=== PATIENT | female | born 1950 | race Caucasian/White ===

== ENCOUNTER 2016-11-23 11:36 | Emergency (ER) | payer MEDICARE ==
[2016-11-23] MEDS ORDERED: Hydromorphone 1 mg/ml Ampule IV ONE (11:38)
[2016-11-23] MEDS ORDERED: Zofran 4 MG/2 ML VIAL IV ONE (11:38)
[2016-11-23] MEDS ORDERED: Reglan 10 MG/2 ML IV ONE (11:39)
[2016-11-23] MEDS ORDERED: Sodium Chloride 0.9% 1000 ML 1,000 ML IV SCH (11:45)
--- NOTE | 2016-11-23 11:46 | ERPHSYRPT ---
- History of Present Illness Time Seen by Provider: 11/23/16 11:38 Source: patient, EMS Physician History: CC: headache Hx: 66 y/o patient of CHIRAG Perez and Dr Bowles. She states she had sudden onset headache not typical for her at 6AM today (5 hours ago). The headache is diffuse, severe and accompanied by nausea and vomiting. No fever or chills. No chest or abd pain. No fall or injury. Timing/Duration: today Head Pain Location: global Severity of Pain-Max: severe Severity of Pain-Current: severe Allergies/Adverse Reactions: Penicillins Allergy (Verified 11/23/16 11:45) Home Medications: Clopidogrel Bisulfate 75 mg [PLAVIX 75 MG Tablet] 75 mg PO DAILY 07/31/13 [History] Metoprolol Succinate 50 mg [Toprol Xl 50 MG] 50 mg PO DAILY 07/31/13 [ History] Rivaroxaban [Xarelto] 20 mg PO DAILY 10/27/14 [History] Amlodipine Besylate 5 mg [Norvasc 5 mg] 5 mg PO BID 01/24/16 [History] Buspirone HCl 5 mg [Buspar 5 mg] 30 mg PO BID 01/24/16 [History] Pregabalin [Lyrica] 75 mg PO BID 01/24/16 [History] Vilazodone Hydrochloride [Viibryd] 40 mg PO DAILY 01/24/16 [History] Famotidine 40 mg PO BID 11/23/16 [History] Folic Acid 0.4 mg PO DAILY 11/23/16 [History] Lorazepam 1 mg [Ativan 1 MG] 1 mg PO Q6H PRN PRN 11/23/16 [History] Losartan Potassium 100 mg PO DAILY 11/23/16 [History] PANTOPRAZOLE 40 mg Tablet [Protonix 40MG Tablet] 40 mg PO DAILY 11/23/16 [ History] Potassium Chloride 20 Meq [Klor-Con 20 MEQ] 20 meq PO UD 11/23/16 [History] Hx Tetanus, Diphtheria Vaccination/Date Given: No Hx Influenza Vaccination/Date Given: No Hx Pneumococcal Vaccination/Date Given: No - Review of Systems Constitutional: No Fever, No Chills Eyes: Photophobia Ears, Nose, & Throat: No Symptoms Respiratory: No Cough, No Dyspnea Cardiac: No Chest Pain Abdominal/Gastrointestinal: Nausea, Vomiting, No Abdominal Pain Genitourinary Symptoms: No Dysuria Skin: No Rash Neurological: Headache, No Dizziness, No Focal Weakness, No Parasthesia All Other Systems: Reviewed and Negative - Past Medical History Pertinent Past Medical History: Yes Neurological History: No Pertinent History ENT History: No Pertinent History Cardiac History: Hypertension Respiratory History: COPD Musculoskeletal History: Osteoarthritis, Rheumatoid Arthritis Psycho-Social History: Depression Other Medical History: PACEMAKER NEUROPATHY - Past Surgical History Past Surgical History: Yes Cardiac: Pacemaker Gastrointestinal: Other Musculoskeletal: Joint Replacement Female Surgical History: Hysterectomy Other Surgical History: PACEMAKER PLACEMENT, HYSTERECTOMY - Social History Smoking Status: Current every day smoker How long have you smoked: 55 Exposure to second hand smoke: No Drug Use: none Patient Lives Alone: No - Female History Hx Now: No - Nursing Vital Signs Nursing Vital Signs: Initial Vital Signs Temperature 99.0 F Temperature Source Oral Pulse Rate 64 Respiratory Rate 18 Blood Pressure [Right Arm] 170/81 Pain Intensity 6 - Physical Exam General Appearance: alert Eye Exam: PERRL/EOMI Ears, Nose, Throat Exam: normal ENT inspection, moist mucous membranes Neck Exam: normal inspection, non-tender, supple Respiratory Exam: normal breath sounds Cardiovascular Exam: regular rate/rhythm, No murmur Gastrointestinal/Abdominal Exam: soft, No tenderness, No distention Extremity Exam: normal inspection, normal range of motion Mental Status Exam: alert, oriented x 3, cooperative Motor/Sensory Exam: no motor deficit, no sensory deficit Skin Exam: warm, dry, pale, No rash - Course Nursing assessment & vital signs reviewed: Yes EKG Interpreted by Me: RATE (62), Sinus Rhythm, NORMAL AXIS, NORMAL INTERVALS ( QTc 390), NORMAL QRS, NORMAL ST-T Ordered Tests: Active Orders 24 hr Category Date Time Status Make Ready Worker STAT Care 11/23/16 11:38 Active EKG-ER Only STAT Care 11/23/16 12:03 Active IV Insertion STAT Care 11/23/16 11:38 Active IV Insertion-2nd Peripheral STAT Care 11/23/16 12:50 Active Pulse Oximetry (ED) STAT Care 11/23/16 11:38 Active HEAD WITHOUT CONTRAST [CT] Stat Exams 11/23/16 11:38 Taken CBC W DIFF Stat Lab 11/23/16 11:45 Completed CMP Stat Lab 11/23/16 11:45 Completed MAGNESIUM Stat Lab 11/23/16 12:03 Completed PROTIME WITH INR Stat Lab 11/23/16 11:45 Completed PTT Stat Lab 11/23/16 11:45 Completed VENOUS BLOOD GAS Urgent Lab 11/23/16 11:38 Completed Medication Summary Generic Name Dose Route Start Last Admin Trade Name Freq PRN Reason Stop Dose Admin Sodium Chloride 1,000 mls @ 100 mls/hr 11/23/16 11:45 11/23/16 12:09 Sodium Chloride 0.9% 1000 Ml IV 12/23/16 11:44 100 mls/hr .Q10H MAMI Administration Discontinued Medications Generic Name Dose Route Start Last Admin Trade Name Freq PRN Reason Stop Dose Admin Hydromorphone HCl 1 mg 11/23/16 11:38 11/23/16 12:09 Hydromorphone 1 Mg/Ml Ampule IV 11/23/16 11:39 1 mg STAT ONE Administration Hydromorphone HCl Confirm 11/23/16 11:47 Hydromorphone 1 Mg/Ml Ampule Administered 11/23/16 11:48 Dose 1 mg .ROUTE .STK-MED ONE Potassium Chloride 100 mls @ 50 mls/hr 11/23/16 12:03 11/23/16 12:36 Potassium Chloride 20 Meq In Water 100ml IV 11/23/16 14:02 50 mls/hr STAT ONE Administration Magnesium Sulfate 2 gm/ Sodium 104 mls @ 200 mls/hr 11/23/16 12:45 11/23/16 12:51 Chloride IV 11/23/16 13:16 200 mls/hr ONCE ONE Administration Potassium Chloride Confirm 11/23/16 12:35 Potassium Chloride 20 Meq In Water 100ml Administered 11/23/16 12:36 Dose 100 mls @ ud IV .STK-MED ONE Metoclopramide HCl 10 mg 11/23/16 11:39 11/23/16 12:09 Reglan 10 Mg/2 Ml IV 11/23/16 11:40 10 mg STAT ONE Administration Metoclopramide HCl Confirm 11/23/16 11:47 Reglan 10 Mg/2 Ml Administered 11/23/16 11:48 Dose 10 mg .ROUTE .STK-MED ONE Ondansetron HCl 4 mg 11/23/16 11:38 11/23/16 12:33 Zofran 4 Mg/2 Ml Vial IV 11/23/16 11:39 Not Given STAT ONE Lab/Rad Data: Laboratory Result Diagrams 11/23/16 11:45 11/23/16 11:45 Laboratory Results 11/23/16 11/23/16 11/23/16 Range/Units 12:03 11:45 11:45 WBC (4.0-10.5) K/mm3 RBC (4.1-5.4) M/mm3 Hgb (12.0-16.0) gm/dl Hct (35-47) % MCV (78-100) fl MCH (26-32) pg MCHC (32-36) g/dl RDW (11.5-14.0) % Plt Count (150-450) K/mm3 MPV (6-9.5) fl Gran % (36.0-66.0) % Lymphocytes % (24.0-44.0) % Monocytes % (0.0-12.0) % Eosinophils % (0.00-5.0) % Basophils % (0.0-0.4) % Basophils # (0-0.4) INR 1.06 (0.8-3.0) APTT 25.7 (25.3-37.0) SECONDS VBG pH (7.32-7.42) VBG pCO2 at Pat Temp (42-55) mm/Hg VBG pO2 at Pat Temp (25-40) mm/Hg VBG HCO3 (22-28) meq/L VBG O2 Sat (Fish) (95-100) VBG Base Excess (-2.0-2.0) VBG Hemoglobin VBG Carboxyhemoglobin (0.0-6.9) % T HGB POC Potassium (3.5-5.1) Sodium 141 (136-145) mEq/L Potassium 3.0 L* (3.5-5.1) mEq/L Chloride 104 (98-107) mEq/L Carbon Dioxide 28.1 (21-32) mEq/L Anion Gap 11.8 (5-15) MEQ/L BUN 13 (9-20) mg/dL Creatinine 0.91 (0.55-1.30) mg/dl Estimated GFR > 60 ML/MIN Glucose 106 (70-110) MG/DL Calcium 9.4 (8.5-10.1) mg/dL Magnesium 1.6 L (1.8-2.4) mg/dL Total Bilirubin 0.6 (0.2-1.0) mg/dL AST 15 (15-37) U/L ALT 21 (12-78) U/L Alkaline Phosphatase 121 H (46-116) U/L Serum Total Protein 7.3 (6.4-8.2) gm/dL Albumin 3.7 (3.4-5.0) g/dL 11/23/16 11/23/16 Range/Units 11:45 11:38 WBC 7.7 (4.0-10.5) K/mm3 RBC 3.97 L (4.1-5.4) M/mm3 Hgb 11.8 L (12.0-16.0) gm/dl Hct 36.7 (35-47) % MCV 92.4 (78-100) fl MCH 29.7 (26-32) pg MCHC 32.2 (32-36) g/dl RDW 13.1 (11.5-14.0) % Plt Count 240 (150-450) K/mm3 MPV 9.4 (6-9.5) fl Gran % 78.8 H (36.0-66.0) % Lymphocytes % 7.8 L (24.0-44.0) % Monocytes % 12.2 H (0.0-12.0) % Eosinophils % 0.9 (0.00-5.0) % Basophils % 0.3 (0.0-0.4) % Basophils # 0.02 (0-0.4) INR (0.8-3.0) APTT (25.3-37.0) SECONDS VBG pH 7.50 H (7.32-7.42) VBG pCO2 at Pat Temp 38 L (42-55) mm/Hg VBG pO2 at Pat Temp 27 (25-40) mm/Hg VBG HCO3 29.6 H* (22-28) meq/L VBG O2 Sat (Fish) 62.7 L (95-100) VBG Base Excess 6.1 H (-2.0-2.0) VBG Hemoglobin 11.8 VBG Carboxyhemoglobin 3.8 (0.0-6.9) % T HGB POC Potassium 2.9 L* (3.5-5.1) Sodium (136-145) mEq/L Potassium (3.5-5.1) mEq/L Chloride (98-107) mEq/L Carbon Dioxide (21-32) mEq/L Anion Gap (5-15) MEQ/L BUN (9-20) mg/dL Creatinine (0.55-1.30) mg/dl Estimated GFR ML/MIN Glucose (70-110) MG/DL Calcium (8.5-10.1) mg/dL Magnesium (1.8-2.4) mg/dL Total Bilirubin (0.2-1.0) mg/dL AST (15-37) U/L ALT (12-78) U/L Alkaline Phosphatase (46-116) U/L Serum Total Protein (6.4-8.2) gm/dL Albumin (3.4-5.0) g/dL - Progress Progress Note: 11/23/16 11:46 She has atypical headache on plavix and xarelto. Will get head CT to rule out ICH. 11/23/16 12:[address]: haileychristophe 12:15 PM 11/23/2016: Stable normal CT head compared to 05/24/14. 11/23/16 13:08 Headache is better. Family worried about a tick bite 3 months ago which has a scab still, vomiting for months. Pt take reglan and is scheduled to see GI specialist in [facility] soon. No fever. K and mag supplement in progress. 11/23/16 14:41 IV K and mag infused. She drank water. Ambulated without problems. Headache some better. She does not want admission. Will release with family and advised follow up with CHIRAG Perez tomorrow. Counseled pt/family regarding: lab results, diagnosis, need for follow-up, rad results - Departure Time of Disposition: 14:42 Departure Disposition: Home Clinical Impression: Headache, Hypokalemia, Hypomagnesemia Condition: Stable Critical Care Time: No Referrals: MUKUND PEREZ, CHIRAG [Primary Care Provider] - Instructions: Headache Additional Instructions: HEADACHE 1. After discharge from the emergency department, you should rest at home in a cool, dark, quiet place for 12-24 hours. 2. If any of the following signs or symptoms are noticed, you should be re- evaluated right away: A. Visual changes B. Stiff Neck C. Change in quality or location of pain D. Fever E. Recurrent vomiting 3. If pain medications were prescribed or given, they may cause drowsiness. Stay with familly today and tonite. See CHIRAG Perez for recheck tomorrow. Return for problems or concerns. Take your normal medications.
[2016-11-23] MEDS ORDERED: Hydromorphone 1 mg/ml Ampule ONE (11:47)
[2016-11-23] MEDS ORDERED: Reglan 10 MG/2 ML ONE (11:47)
[2016-11-23 12:00] LABS: BASOPHIL % 0.3 % (0.0-0.4); Eosinophil % 0.9 % (0.00-5.0); Granulocytes % 78.8 % (36.0-66.0); Lymphocytes % 7.8 % (24.0-44.0); Mean Cell Volume 92.4 fl (78-100); Mean Corpuscular Hemoglobin 29.7 pg (26-32); Mean Platelet Volume 9.4 fl (6-9.5); Monocytes % 12.2 % (0.0-12.0); Platelet Count 240 K/mm3 (150-450); Red Blood Count 3.97 M/mm3 (4.1-5.4); Red Cell Distribution Width 13.1 % (11.5-14.0); White Blood Count 7.7 K/mm3 (4.0-10.5)
[2016-11-23 12:01] LABS: VBG BASE EXCESS 6.1 (-2.0-2.0); VBG CARBOXYHEMOGLOBIN 3.8 % T HGB (0.0-6.9); VBG HCO3- 29.6 meq/L (22-28); VBG HEMOGLOBIN 11.8; VBG O2 SATURATION 62.7 (95-100); VBG pH 7.5 (7.32-7.42)
[2016-11-23 12:02] LABS: VBG POTASSIUM 2.9 (3.5-5.1)
[2016-11-23] MEDS ORDERED: POTASSIUM CHLORIDE 20 mEq IN WATER 100ML 100 ML IV ONE ×2 (12:03→12:35)
[2016-11-23 12:15] LABS: INR 1.06 (0.8-3.0); PROTIME 11.9 SECONDS (9.95-12.35)
[2016-11-23 12:18] LABS: PTT 25.7 SECONDS (25.3-37.0)
[2016-11-23 12:24] LABS: ALBUMIN 3.7 g/dL (3.4-5.0); ALKALINE PHOSPHATASE 121 U/L (46-116); ANION GAP 11.8 MEQ/L (5-15); BILIRUBIN,TOTAL 0.6 mg/dL (0.2-1.0); BLOOD UREA NITROGEN 13 mg/dL (9-20); CHLORIDE 104 mEq/L (98-107); Carbon Dioxide 28.1 mEq/L (21-32); Glucose 106 MG/DL (70-110); SGOT/AST 15 U/L (15-37); SGPT/ALT 21 U/L (12-78); SODIUM 141 mEq/L (136-145); Total Protein 7.3 gm/dL (6.4-8.2)
[2016-11-23] MEDS ORDERED: Magnesium 1 Gm / 100 Ml D5W*** 100 ML IV SCH (12:30)
[2016-11-23] MEDS ORDERED: Magnesium Sulfate 1 GM/2 ML VIAL*** 2 GM in Sodium Chloride 0.9% 100 ML IVPB 100 ML IV ONE (12:45)
[2016-11-23 14:58] VITALS: BP 158/72; PULSE 60; O2SAT 98
--- NOTE | 2016-11-23 20:43 | XRAY ---
Indication: Headache. Multiple contiguous axial images obtained through the head without contrast. Comparison: May 24, 2014. Again normal appearing brain parenchyma, ventricles, and bony calvarium. Minimal mucosal thickening of both ethmoid sinuses. Mastoid air cells are clear. Impression: Negative CT head without contrast exam. Minimal paranasal sinus disease. CTDI 66.81
== END 2016-11-23 15:13 | disposition home or self-care (01) ==
LOC: ED 11:36
DX: R51 Headache (principal); E87.6 Hypokalemia; E83.42 Hypomagnesemia; R11.2 Nausea with vomiting, unspecified; Z79.899 Other long term (current) drug therapy
CPT/HCPCS: 36000; 36415; 70450; 80053; 82805; 83735; 85025; 85610; 85730; 93005; 93041; 96360; 96361; 96365; 96366; 99284; J1170; J3475; J3480

== ENCOUNTER 2016-11-23 21:17 | Emergency (ER) | payer MEDICARE ==
[2016-11-23] MEDS ORDERED: MORPHINE SULFATE 4 MG INJ IV ONE (22:28)
[2016-11-23] MEDS ORDERED: Sodium Chloride 0.9% 1000 ML 1,000 ML IV STA (22:28)
[2016-11-23] MEDS ORDERED: BENADRYL 50 MG/ML IV ONE (22:28)
--- NOTE | 2016-11-23 22:28 | ERPHSYRPT ---
- History of Present Illness Time Seen by Provider: 11/23/16 22:20 Source: patient Exam Limitations: no limitations (he) Patient Subjective Stated Complaint: headache and nausea x 16 hours Triage Nursing Assessment: pt moaning with c/o headache. pt rates pain 10/10. pt states has vomited 6 times today. pt states she cant keep anything down. skin p/w/d lungs sound clear. sl in lt hand per ems Physician History: This is a 66-year-old white female who was seen here earlier today for a headache. Patient states she has had a headache in the frontal and area of her head top of her head symptoms since 6:00 this morning. She was seen in this emergency room and had a normal head CT she states she's had a headache which has persisted she states she has vomited 6 time she has not had any fevers she is not coughing. Patient does state she was around somebody with the fluids and they had similar symptoms. Past medical history includes osteoarthritis or rheumatoid arthritis and depression patient has had a pacemaker she has also had peripheral neuropathy. Past surgical history includes pacer, hysterectomy, joint replacement. Patient does take Lyrica at home for chronic pain Timing/Duration: today (6:00 this morning) Quality: aching Head Pain Location: frontal Severity of Pain-Max: moderate Severity of Pain-Current: moderate Recent Head Trauma: no recent headache/trauma Associated Symptoms: nausea/vomiting, No confusion, No dizziness, No fatigue, No facial pain, No fever/chills, No flushing, No light-headedness, No loss of consciousness, No nasal congestion, No nasal drainage, No neck pain, No numbness in legs/feet, No rash, No sweating, No scotoma, No seizures, No sinus infection, No sensitive to light, No speech problems, No stiff neck, No trouble walking, No vision changes, No visual disturbance, No weakness Previous symptoms: same symptoms as today (een this morning for same symptoms) Allergies/Adverse Reactions: Penicillins Allergy (Verified 11/23/16 11:45) Home Medications: Clopidogrel Bisulfate 75 mg [PLAVIX 75 MG Tablet] 75 mg PO DAILY 07/31/13 [History] Metoprolol Succinate 50 mg [Toprol Xl 50 MG] 50 mg PO DAILY 01/26/14 [ History] Rivaroxaban [Xarelto] 20 mg PO DAILY 10/27/14 [History] Amlodipine Besylate 5 mg [Norvasc 5 mg] 5 mg PO BID 01/24/16 [History] Buspirone HCl 5 mg [Buspar 5 mg] 30 mg PO BID 01/24/16 [History] Pregabalin [Lyrica] 75 mg PO BID 01/24/16 [History] Vilazodone Hydrochloride [Viibryd] 40 mg PO DAILY 01/24/16 [History] Famotidine 40 mg PO BID 11/23/16 [History] Folic Acid 0.4 mg PO DAILY 11/23/16 [History] Lorazepam 1 mg [Ativan 1 MG] 1 mg PO Q6H PRN PRN 11/23/16 [History] Losartan Potassium 100 mg PO DAILY 11/23/16 [History] PANTOPRAZOLE 40 mg Tablet [Protonix 40MG Tablet] 40 mg PO DAILY 11/23/16 [ History] Potassium Chloride 20 Meq [Klor-Con 20 MEQ] 20 meq PO UD 11/23/16 [History] Hx Tetanus, Diphtheria Vaccination/Date Given: No Hx Influenza Vaccination/Date Given: No Hx Pneumococcal Vaccination/Date Given: No - Review of Systems Constitutional: No Fever, No Chills Eyes: No Symptoms Ears, Nose, & Throat: No Symptoms, No Ear Pain, No Ear Discharge, No Hearing Changes, No Tinnitus, No Nose Pain, No Nose Congestion, No Nose Discharge, No Sinus Drainage, No Epistaxis, No Mouth Pain, No Mouth Swelling, No Loose Teeth, No Throat Pain, No Throat Swelling, No Hoarse, No Painful Swallowing, No Snoring , No Stridor Respiratory: No Cough, No Dyspnea Cardiac: No Chest Pain, No Edema, No Syncope Abdominal/Gastrointestinal: Nausea, Vomiting, No Abdominal Pain, No Diarrhea, No Constipation, No Hematemesis, No Hematochezia, No Melena, No Dysphagia, No Appetite Changes Genitourinary Symptoms: No Dysuria Musculoskeletal: No Back Pain, No Neck Pain Skin: No Cellulitis, No Induration, No Pruritis, No Rash, No Skin Lesions Neurological: Headache, No Dizziness, No Focal Weakness, No Gait Changes, No Irritability, No Lethargy, No Paralysis, No Parasthesia, No Seizure Psychological: No Symptoms Endocrine: No Symptoms All Other Systems: Reviewed and Negative - Past Medical History Pertinent Past Medical History: Yes Neurological History: No Pertinent History ENT History: No Pertinent History Cardiac History: Hypertension Respiratory History: No Pertinent History Endocrine Medical History: No Pertinent History Musculoskeletal History: Osteoarthritis, Rheumatoid Arthritis GI Medical History: No Pertinent History History: No Pertinent History Psycho-Social History: Depression Female Reproductive Disorders: No Pertinent History Other Medical History: PACEMAKER NEUROPATHY - Past Surgical History Past Surgical History: Yes Cardiac: Pacemaker Gastrointestinal: Other Musculoskeletal: Joint Replacement Female Surgical History: Hysterectomy Other Surgical History: PACEMAKER PLACEMENT, HYSTERECTOMY - Social History Smoking Status: Current every day smoker How long have you smoked: 55 Exposure to second hand smoke: No Drug Use: none Patient Lives Alone: No - Female History Hx Last Menstrual Period: n/a Hx Now: No - Nursing Vital Signs Nursing Vital Signs: Initial Vital Signs Temperature 98 F Temperature Source Oral Pulse Rate 60 Respiratory Rate 18 Blood Pressure [Right Arm] 158/87 Pain Intensity 10 - Physical Exam General Appearance: moderate distress Eye Exam: PERRL/EOMI Ears, Nose, Throat Exam: normal ENT inspection, moist mucous membranes Neck Exam: normal inspection, supple, full range of motion, No meningismus Respiratory Exam: normal breath sounds, lungs clear Cardiovascular Exam: regular rate/rhythm, normal heart sounds Gastrointestinal/Abdominal Exam: soft, No tenderness, No distention Back Exam: normal inspection, normal range of motion Mental Status Exam: alert, oriented x 3, 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 collateral 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 Exam: normal speech, PERRL, No facial droop Coordination/Gait Exam: normal cerebellar function Motor/Sensory Exam: no motor deficit, no sensory deficit DTR Exam: ankle (R): 2+, ankle (L): 2+ Skin Exam: normal color, warm, dry, No rash SpO2 Interpretation: normal (98%) SpO2: 98 Oxygen Delivery: Room Air - Course Nursing assessment & vital signs reviewed: Yes Ordered Tests: Active Orders 24 hr Category Date Time Status IV Insertion STAT Care 11/23/16 22:28 Active CBC W DIFF Stat Lab 11/23/16 22:44 Completed CMP Stat Lab 11/23/16 22:44 Completed Erythrocyte Sedimentation Rate Stat Lab 11/23/16 22:44 Completed Medication Summary Discontinued Medications Generic Name Dose Route Start Last Admin Trade Name Freq PRN Reason Stop Dose Admin Diphenhydramine HCl 25 mg 11/23/16 22:28 11/23/16 22:40 Benadryl 50 Mg/Ml IV 11/23/16 22:29 25 mg STAT ONE Administration Diphenhydramine HCl Confirm 11/23/16 22:33 Benadryl 50 Mg/Ml Administered 11/23/16 22:34 Dose 50 mg .ROUTE .STK-MED ONE Sodium Chloride 1,000 mls @ 999 mls/hr 11/23/16 22:28 11/23/16 22:38 Sodium Chloride 0.9% 1000 Ml IV 11/23/16 23:28 999 mls/hr .Q1H1M STA Administration Sodium Chloride Confirm 11/23/16 22:34 Sodium Chloride 0.9% 1000 Ml Administered 11/23/16 22:35 Dose 1,000 mls @ ud .ROUTE .STK-MED ONE Morphine Sulfate 4 mg 11/23/16 22:28 11/23/16 22:42 Morphine Sulfate 4 Mg Inj IV 11/23/16 22:29 4 mg STAT ONE Administration Morphine Sulfate Confirm 11/23/16 22:34 Morphine Sulfate 4 Mg Inj Administered 11/23/16 22:35 Dose 4 mg .ROUTE .STK-MED ONE Lab/Rad Data: Laboratory Result Diagrams 11/23/16 22:44 11/23/16 22:44 Laboratory Results 11/23/16 11/23/16 Range/Units 22:44 22:44 WBC 6.8 (4.0-10.5) K/mm3 RBC 3.97 L (4.1-5.4) M/mm3 Hgb 11.9 L (12.0-16.0) gm/dl Hct 36.2 (35-47) % MCV 91.2 (78-100) fl MCH 29.9 (26-32) pg MCHC 32.9 (32-36) g/dl RDW 13.2 (11.5-14.0) % Plt Count 239 (150-450) K/mm3 MPV 9.2 (6-9.5) fl Gran % 71.7 H (36.0-66.0) % Lymphocytes % 12.5 L (24.0-44.0) % Monocytes % 14.8 H (0.0-12.0) % Eosinophils % 0.6 (0.00-5.0) % Basophils % 0.4 (0.0-0.4) % Basophils # 0.03 (0-0.4) ESR 25 H (0-20) mm/hr Sodium 136 (136-145) mEq/L Potassium 3.1 L (3.5-5.1) mEq/L Chloride 101 (98-107) mEq/L Carbon Dioxide 27.8 (21-32) mEq/L Anion Gap 10.2 (5-15) MEQ/L BUN 12 (9-20) mg/dL Creatinine 0.83 (0.55-1.30) mg/dl Estimated GFR > 60 ML/MIN Glucose 112 H (70-110) MG/DL Calcium 9.5 (8.5-10.1) mg/dL Total Bilirubin 0.7 (0.2-1.0) mg/dL AST 17 (15-37) U/L ALT 22 (12-78) U/L Alkaline Phosphatase 126 H (46-116) U/L Serum Total Protein 7.5 (6.4-8.2) gm/dL Albumin 3.8 (3.4-5.0) g/dL - Progress Progress: improved Air Movement: fair Progress Note: 11/23/16 23:59 Patient feeling better after 4 mg of morphine and 25 mg Benadryl with IV fluids. Labs are normal still have not seen sedimentation rate or influenza swab results. CT of the head today was normal. 11/24/16 00:11 Patient's sedimentation rate is 25. Patient positive for influenza A. Will plan to discharge with prescription for Lawrence, Zofran, Tamiflu. - Departure Time of Disposition: 00:11 Departure Disposition: Home Clinical Impression: Influenza A Headache Qualifiers: Headache type: unspecified Headache chronicity pattern: acute headache Intractability: not intractable Qualified Code(s): R51 - Headache Vomiting Qualifiers: Vomiting type: unspecified Vomiting Intractability: non-intractable Nausea presence: with nausea Qualified Code(s): R11.2 - Nausea with vomiting, unspecified Condition: Fair Critical Care Time: No Instructions: Headache Additional Instructions: Return home. Plenty of fluids, clear fluids only 24-48 hours if nausea vomiting. Lawrence 5/325 #12 one orally every 4-6 hours as needed for pain. Zofran 4 mg #10 one orally every 4-6 hours as needed for nausea and vomiting. Tamiflu 75 mg one orally twice a day for 5 days. Follow-up with your family doctor. Call tomorrow morning. Return for acute distress or for severe symptoms. Prescriptions: Hydrocodone/Acetaminophen [Lawrence 5-325 Tablet] 1 tab PO Q4-6HPRN PRN #12 tablet PRN Reason: Pain Ondansetron [Zofran Odt] 4 mg PO Q4-6HPRN PRN #10 tab.rapdis PRN Reason: nausea and vomiting Oseltamivir 75 mg [Tamiflu 75MG Capsule] 75 mg PO BID #10 cap
[2016-11-23] MEDS ORDERED: BENADRYL 50 MG/ML ONE (22:33)
[2016-11-23] MEDS ORDERED: Sodium Chloride 0.9% 1000 ML 1,000 ML ONE (22:34)
[2016-11-23] MEDS ORDERED: MORPHINE SULFATE 4 MG INJ ONE (22:34)
[2016-11-23 22:50] LABS: BASOPHIL % 0.4 % (0.0-0.4); Eosinophil % 0.6 % (0.00-5.0); Granulocytes % 71.7 % (36.0-66.0); Lymphocytes % 12.5 % (24.0-44.0); Mean Cell Volume 91.2 fl (78-100); Mean Platelet Volume 9.2 fl (6-9.5); Monocytes % 14.8 % (0.0-12.0); Platelet Count 239 K/mm3 (150-450); Red Blood Count 3.97 M/mm3 (4.1-5.4); Red Cell Distribution Width 13.2 % (11.5-14.0); White Blood Count 6.8 K/mm3 (4.0-10.5)
[2016-11-23 22:52] LABS: Mean Corpuscular Hemoglobin 29.9 pg (26-32)
[2016-11-23 23:12] LABS: ALBUMIN 3.8 g/dL (3.4-5.0); ALKALINE PHOSPHATASE 126 U/L (46-116); ANION GAP 10.2 MEQ/L (5-15); BILIRUBIN,TOTAL 0.7 mg/dL (0.2-1.0); BLOOD UREA NITROGEN 12 mg/dL (9-20); CHLORIDE 101 mEq/L (98-107); Carbon Dioxide 27.8 mEq/L (21-32); Glucose 112 MG/DL (70-110); Potassium 3.1 mEq/L (3.5-5.1); SGOT/AST 17 U/L (15-37); SGPT/ALT 22 U/L (12-78); SODIUM 136 mEq/L (136-145); Total Protein 7.5 gm/dL (6.4-8.2)
[2016-11-23 23:19] LABS: Erythrocyte Sedimentation Rate 25 mm/hr (0-20)
[2016-11-24] MEDS ORDERED: Tamiflu 75MG Capsule PO ONE ×2 (00:16→00:42)
[2016-11-24] MEDS ORDERED: NORCO 5/325 MG PO ONE (00:16)
[2016-11-24] MEDS ORDERED: MORPHINE SULFATE 2 MG INJ IV ONE (00:38)
[2016-11-24] MEDS ORDERED: NORCO 5/325 MG ONE (00:42)
[2016-11-24] MEDS ORDERED: MORPHINE SULFATE 2 MG INJ ONE (00:51)
[2016-11-24 01:21] VITALS: BP 156/76; PULSE 63; O2SAT 96
== END 2016-11-24 01:21 | disposition home or self-care (01) ==
LOC: ED 21:17
DX: R51 Headache (principal); R11.2 Nausea with vomiting, unspecified; J11.1 Influenza due to unidentified influenza virus with other respiratory manifestations; I10 Essential (primary) hypertension; Z79.899 Other long term (current) drug therapy
CPT/HCPCS: 36415; 80053; 85025; 85652; 87631; 96360; 96361; 96374; 96375; 99284; J1200; J2270; A9270-GY

== ENCOUNTER 2017-08-11 12:10 | Emergency (ER) | payer MEDICARE ==
[2017-08-11] MEDS ORDERED: DUONEB 0.5-3 MG/3 ml Neb IH ONE ×2 (12:17→12:30)
[2017-08-11 12:27] LABS: A-aADO2 619; ABG HEMOGLOBIN 12.7; ABG POTASSIUM 3.3 (3.5-5.1); ARTERIAL BLD GAS O2 SATURATION 76.3 % (95-100); ARTERIAL BLOOD GAS BASE EXCESS 2.1 (-2.0-2.0); ARTERIAL BLOOD GAS FIO2 100 %; ARTERIAL BLOOD GAS PCO2 44 mmHg (35-45); ARTERIAL BLOOD GAS PO2 39 mmHg (75-100); CARBOXYHEMOGLOBIN 2.8 % THgb (0.0-6.9); Glucose,Critical Care 155 (70-110); HCO3- 27.3 (22-28); HGB O2 SAT 73.6 g/dF (94-100); Lactic Acid 1.3 (0.4-2.0); Methhemoglobin 0.8 % (1.4-1.5); paO2 pAO1 0.06
[2017-08-11 12:28] LABS: ABG SITE LEFT RADIAL; ALLEN TEST OK? YES
[2017-08-11 12:36] LABS: BASOPHIL % 0.2 % (0.0-0.4); Basophil (Absolute #) 0.01 (0-0.4); Eosinophil % 2.4 % (0.00-5.0); Eosinophil (Absolute #) 0.13 (0-0.5); Granulocyte Absolute (ANC) 4.18 (1.4-6.9); Granulocytes % 76.4 % (36.0-66.0); Hemoglobin 12.4 gm/dl (12.0-16.0); Lymphocyte (Absolute #) 1.05 (1.0-4.6); Lymphocytes % 19.2 % (24.0-44.0); Mean Cell Volume 87.7 fl (78-100); Mean Corpuscular Hemoglobin 27.2 pg (26-32); Mean Platelet Volume 9.4 fl (6-9.5); Monocytes % 1.8 % (0.0-12.0); Platelet Count 297 K/mm3 (150-450); Red Blood Count 4.56 M/mm3 (4.1-5.4); Red Cell Distribution Width 15.4 % (11.5-14.0); White Blood Count 5.5 K/mm3 (4.0-10.5)
[2017-08-11] MEDS ORDERED: PHARMACY DOSING REQUEST IJ ONE (12:38)
[2017-08-11] MEDS ORDERED: ROCEPHIN 1 Gm-D5w 50 ml Bag** 1 G/50 ML IVPB IV STA (12:38)
[2017-08-11] MEDS ORDERED: Zithromax 500 MG/ 250 ML NaCl Premix 500 MG/250 ML IVPB IV STA (12:38)
[2017-08-11] MEDS ORDERED: solu-CORTEF 100MG IV ONE (12:39)
--- NOTE | 2017-08-11 12:45 | XRAY ---
Indication: Short of breath. Sepsis. Comparison: January 24, 2016. Portable chest demonstrates new diffuse right lung airspace disease greatest near the base with similar smaller focus in the left base. No consolidation/large effusion. Heart is not enlarged with stable left-sided dual-lead pacemaker.
[2017-08-11 12:47] LABS: INR 1.06 (0.8-3.0)
[2017-08-11] MEDS ORDERED: Sodium Chloride 0.9% 1000 ML 1,000 ML ONE (12:48)
[2017-08-11] MEDS ORDERED: Sodium Chloride 0.9% 1000 ML 1,000 ML IV STA (12:48)
[2017-08-11] MEDS ORDERED: ROCEPHIN 1 Gm-D5w 50 ml Bag** 1 G/50 ML IVPB IV ONE (12:48)
[2017-08-11 12:50] LABS: PTT 29.7 SECONDS (25.3-37.0)
--- NOTE | 2017-08-11 12:54 | ERPHSYRPT ---
- History of Present Illness Time Seen by Provider: 08/11/17 12:15 Source: patient, family (sister), EMS Physician History: CC: short of air Hx: 67 y/o patient of Dr Ledbetter. She has hx of COPD/CHF/Pacemaker. She sees Dr Ramirez. Apparently she had gastric banding procedure remotely. Had upper endoscopy in [facility] last month but did not tell the family results. She has been coughing. She has chronic vomiting. Cough worse. She apparently has fallen a couple of times recently. She has bruising to her head. She apparently collapsed today and fell. EMS was called for chest pain. They noted low oxygen and low BP. Pt denies current chest pain. She reports cold chills but no fever. Allergies/Adverse Reactions: Penicillins Allergy (Verified 08/11/17 14:05) Home Medications: Clopidogrel Bisulfate 75 mg [PLAVIX 75 MG Tablet] 75 mg PO DAILY 07/31/13 [History] Metoprolol Succinate 50 mg [Toprol Xl 50 MG] 50 mg PO DAILY 07/31/13 [ History] Rivaroxaban [Xarelto] 20 mg PO DAILY 10/27/14 [History] Amlodipine Besylate 5 mg [Norvasc 5 mg] 5 mg PO BID 01/24/16 [History] Buspirone HCl 5 mg [Buspar 5 mg] 30 mg PO BID 01/24/16 [History] Pregabalin [Lyrica] 75 mg PO BID 01/24/16 [History] Vilazodone Hydrochloride [Viibryd] 40 mg PO DAILY 01/24/16 [History] Famotidine 40 mg PO BID 11/23/16 [History] Folic Acid 0.4 mg PO DAILY 11/23/16 [History] Lorazepam 1 mg [Ativan 1 MG] 1 mg PO Q6H PRN PRN 11/23/16 [History] Losartan Potassium 100 mg PO DAILY 11/23/16 [History] PANTOPRAZOLE 40 mg Tablet [Protonix 40MG Tablet] 40 mg PO DAILY 11/23/16 [ History] Potassium Chloride 20 Meq [Klor-Con 20 MEQ] 20 meq PO UD 11/23/16 [History] Hx Tetanus, Diphtheria Vaccination/Date Given: No Hx Influenza Vaccination/Date Given: No Hx Pneumococcal Vaccination/Date Given: No - Review of Systems Constitutional: Chills, Fatigue, Malaise, Weakness, No Fever Eyes: No Vision Changes Respiratory: Cough, Dyspnea Cardiac: Chest Pain Abdominal/Gastrointestinal: Vomiting All Other Systems: Unable due to condition - Past Medical History Pertinent Past Medical History: Yes Neurological History: No Pertinent History ENT History: No Pertinent History Cardiac History: Hypertension Respiratory History: No Pertinent History Endocrine Medical History: No Pertinent History Musculoskeletal History: Osteoarthritis, Rheumatoid Arthritis GI Medical History: No Pertinent History History: No Pertinent History Psycho-Social History: Depression Female Reproductive Disorders: No Pertinent History Other Medical History: PACEMAKER NEUROPATHY - Past Surgical History Past Surgical History: Yes Cardiac: Pacemaker Gastrointestinal: Other Musculoskeletal: Joint Replacement Female Surgical History: Hysterectomy Other Surgical History: PACEMAKER PLACEMENT, HYSTERECTOMY - Social History Smoking Status: Current every day smoker How long have you smoked: 55 Exposure to second hand smoke: No Drug Use: none Patient Lives Alone: No - Nursing Vital Signs Nursing Vital Signs: Initial Vital Signs Temperature 95.4 F 08/11/17 12:10 O2 Sat by Pulse Oximetry 74 L 08/11/17 12:10 Pain Scale Pain Intensity 0 - Physical Exam General Appearance: alert, other (cold, dyspneic) Eye Exam: PERRL/EOMI, other (right periorbital ecchymosis) Ears, Nose, Throat Exam: dry mucous membranes Neck Exam: normal inspection, midline tenderness Respiratory Exam: diminished breath sounds Cardiovascular Exam: regular rate/rhythm Gastrointestinal/Abdomen Exam: soft, No tenderness, No distention Extremity Exam: No calf tenderness, No pedal edema Neurologic Exam: alert, cooperative, No motor deficits Skin Exam: other (cold skin) SpO2 Interpretation: hypoxic, ABG ordered, O2 applied SpO2: 55 Oxygen Delivery: Room Air - Course Nursing assessment & vital signs reviewed: Yes EKG Interpreted by Me: RATE (64 paced rhythm), Other (no current of injury) - Radiology Exams cxr X-ray Interpretation: Teleradiologist Report (right sided diffuse infiltrates, mild left) - CT Exams head CT Interpretation: Tele-radiologist Report, No/Intracranial Hemorrhag cervical spine CT Interpretation: Tele-radiologist Report, No Fracture, No Subluxation chest CT Interpretation: Tele-radiologist Report, No PE, Other (extensive infiltrates in all lobes) Ordered Tests: Active Orders 24 hr Category Date Time Status Pastry Cook Helper STAT Care 08/11/17 12:16 Active Catheter-Gary Mcdonough STAT Care 08/11/17 12:16 Active EKG-ER Only STAT Care 08/11/17 12:16 Active IV Insertion STAT Care 08/11/17 12:16 Active IV Insertion-2nd Peripheral STAT Care 08/11/17 13:53 Active Pulse Oximetry (ED) STAT Care 08/11/17 12:16 Active Rectal Temperature STAT Care 08/11/17 12:17 Active CERVICAL SPINE WO CONTRAST [CT] Stat Exams 08/11/17 13:30 Completed CHEST 1 VIEW (PORTABLE) Stat Exams 08/11/17 12:16 Completed CHEST WITH CONTRAST [CT] Stat Exams 08/11/17 12:58 Completed HEAD WITHOUT CONTRAST [CT] Stat Exams 08/11/17 12:25 Completed ARTERIAL BLOOD GASES Stat Lab 08/11/17 14:08 Completed ARTERIAL BLOOD GASES Urgent Lab 08/11/17 12:18 Completed BLOOD CULTURE Stat Lab 08/11/17 12:32 Received CBC W DIFF Stat Lab 08/11/17 12:25 Completed CMP Routine Lab 08/11/17 12:25 Completed CULTURE,URINE Stat Lab 08/11/17 12:16 Ordered Glucose,Critical Care Urgent Lab 08/11/17 12:18 Completed Lactic Acid Stat Lab 08/11/17 14:08 Completed Lactic Acid Urgent Lab 08/11/17 12:18 Completed MAGNESIUM Routine Lab 08/11/17 12:25 Completed NT PRO BNP Routine Lab 08/11/17 12:25 Completed PROTIME WITH INR Stat Lab 08/11/17 12:25 Completed PTT Stat Lab 08/11/17 12:25 Completed TROPONIN Q3H Lab 08/11/17 12:25 Completed TROPONIN Q3H Lab 08/11/17 15:30 Ordered TROPONIN Q3H Lab 08/11/17 18:30 Ordered TROPONIN Q3H Lab 08/11/17 21:30 Ordered TROPONIN Q3H Lab 08/12/17 00:30 Ordered TSH [TSH, 3RD Generation] Stat Lab 08/11/17 12:30 Completed UA Stat Lab 08/11/17 13:15 Completed BiPap/CPAP Assessment STAT RT 08/11/17 12:28 Active Respiratory Nebulizer STAT RT 08/11/17 12:18 Active Medication Summary Generic Name Dose Route Start Last Admin Trade Name Augusta PRN Reason Stop Dose Admin Vancomycin HCl 1.25 gm/ Sodium 250 mls @ 167 mls/hr 08/11/17 13:20 08/11/17 14:05 Chloride IV 08/11/17 14:49 167 mls/hr ONCE ONE Administration Discontinued Medications Generic Name Dose Route Start Last Admin Trade Name Augusta PRN Reason Stop Dose Admin Albuterol/Ipratropium 3 ml 08/11/17 12:17 08/11/17 12:30 Duoneb 0.5-3 Mg/3 Ml Neb IH 08/11/17 12:18 3 ml STAT ONE Administration Albuterol/Ipratropium Confirm 08/11/17 12:30 Duoneb 0.5-3 Mg/3 Ml Neb Administered 08/11/17 12:31 Dose 3 ml IH .STK-MED ONE Hydrocortisone Sodium Succinate 100 mg 08/11/17 12:39 08/11/17 14:05 Solu-Cortef 100mg IV 08/11/17 12:40 100 mg STAT ONE Administration Hydrocortisone Sodium Succinate Confirm 08/11/17 13:38 Solu-Cortef 100mg Administered 08/11/17 13:39 Dose 100 mg .ROUTE .STK-MED ONE Ceftriaxone Sodium/Dextrose 1 g in 50 mls @ 100 mls/hr 08/11/17 12:38 14:04 Rocephin 1 Gm-D5w 50 Ml Bag IV 08/11/17 13:07 100 mls/hr STAT STA Administration Azithromycin 500 mg in 250 mls @ 250 mls/hr 08/11/17 12:38 08/11/17 14:05 Zithromax 500 Mg/ 250 Ml Nacl Premix IV 08/11/17 13:37 250 mls/hr STAT STA Administration Sodium Chloride 1,000 mls @ 999 mls/hr 08/11/17 12:48 08/11/17 14:05 Sodium Chloride 0.9% 1000 Ml IV 08/11/17 13:48 999 mls/hr .Q1H1M STA Administration Sodium Chloride Confirm 08/11/17 12:48 Sodium Chloride 0.9% 1000 Ml Administered 08/11/17 12:49 Dose 1,000 mls @ ud .ROUTE .STK-MED ONE Ceftriaxone Sodium/Dextrose Confirm 08/11/17 12:48 Rocephin 1 Gm-D5w 50 Ml Bag Administered 08/11/17 12:49 Dose 1 g in 50 mls @ ud IV .STK-MED ONE Azithromycin Confirm 08/11/17 13:42 Zithromax 500 Mg/ 250 Ml Nacl Premix Administered 08/11/17 13:43 Dose 500 mg in 250 mls @ ud IV .STK-MED ONE Non-Formulary Medication 1 each 08/11/17 12:38 08/11/17 14:04 Pharmacy Dosing Request IJ 08/11/17 12:39 1 each STAT ONE Administration Lab/Rad Data: Laboratory Result Diagrams 08/11/17 12:25 08/11/17 12:25 Laboratory Results 08/11/17 08/11/17 08/11/17 Range/Units 14:08 13:15 12:32 WBC (4.0-10.5) K/mm3 RBC (4.1-5.4) M/mm3 Hgb (12.0-16.0) gm/dl Hct (35-47) % MCV (78-100) fl MCH (26-32) pg MCHC (32-36) g/dl RDW (11.5-14.0) % Plt Count (150-450) K/mm3 MPV (6-9.5) fl Gran % (36.0-66.0) % Lymphocytes % (24.0-44.0) % Monocytes % (0.0-12.0) % Eosinophils % (0.00-5.0) % Basophils % (0.0-0.4) % Basophils # (0-0.4) INR (0.8-3.0) APTT (25.3-37.0) SECONDS Puncture Site RIGHT RADIAL pCO2 51 H (35-45) mmHg pO2 123 H* (75-100) mmHg Base Excess -1.1 (-2.0-2.0) O2 Saturation 96.2 (94-100) g/dF ABG pH 7.31 L (7.35-7.45) ABG HCO3 25.7 (22-28) ABG O2 Sat (Measured) 99.1 (95-100) % Alexx Test YES A-a Gradient 455 a/A Ratio 0.21 Hemoglobin 12.3 Carboxyhemoglobin 1.9 (0.0-6.9) % THgb Methemoglobin 1.1 L (1.4-1.5) % Potassium 3.2 L (3.5-5.1) Glucose (70-110) Temperature 37.0 C POC O2 Flow Rate 90 % Vent Mode BiPAP Inspiratory BiPAP 16 Expiratory BiPAP 8 Sodium (136-145) mEq/L Chloride (98-107) mEq/L Carbon Dioxide (21-32) mEq/L Anion Gap (5-15) MEQ/L BUN (9-20) mg/dL Creatinine (0.55-1.30) mg/dl Estimated GFR ML/MIN Lactic Acid 1.0 (0.4-2.0) Calcium (8.5-10.1) mg/dL Magnesium (1.8-2.4) mg/dL Total Bilirubin (0.2-1.0) mg/dL AST (15-37) U/L ALT (12-78) U/L Alkaline Phosphatase (46-116) U/L Troponin I (0.000-0.056) ng/ml NT-Pro-B Natriuret Pep (0-125) pg/ml Serum Total Protein (6.4-8.2) gm/dL Albumin (3.4-5.0) g/dL TSH 3rd Generation (0.358-3.740) mIU/L Ur Collection Type CATH Urine Color YELLOW (YELLOW) Urine Appearance CLEAR (CLEAR) Urine pH 5.0 (5-6) Ur Specific Jasper 1.015 (1.005-1.025) Urine Protein NEGATIVE (Negative) Urine Ketones NEGATIVE (NEGATIVE) Urine Blood NEGATIVE (0-5) Todd/ul Urine Nitrite NEGATIVE (NEGATIVE) Urine Bilirubin NEGATIVE (NEGATIVE) Urine Urobilinogen NORMAL (0-1) mg/dL Ur Leukocyte Esterase NEGATIVE (NEGATIVE) Urine Glucose TRACE (NEGATIVE) mg/dL Influenza Type A Ag NEGATIVE (NEGATIVE) Influenza Type B Ag NEGATIVE (NEGATIVE) RSV (PCR) NEGATIVE (Negative) Specimen Received 08/11/17 1315 08/11/17 08/11/17 08/11/17 Range/Units 12:30 12:25 12:25 WBC (4.0-10.5) K/mm3 RBC (4.1-5.4) M/mm3 Hgb (12.0-16.0) gm/dl Hct (35-47) % MCV (78-100) fl MCH (26-32) pg MCHC (32-36) g/dl RDW (11.5-14.0) % Plt Count (150-450) K/mm3 MPV (6-9.5) fl Gran % (36.0-66.0) % Lymphocytes % (24.0-44.0) % Monocytes % (0.0-12.0) % Eosinophils % (0.00-5.0) % Basophils % (0.0-0.4) % Basophils # (0-0.4) INR 1.06 (0.8-3.0) APTT 29.7 (25.3-37.0) SECONDS Puncture Site pCO2 (35-45) mmHg pO2 (75-100) mmHg Base Excess (-2.0-2.0) O2 Saturation (94-100) g/dF ABG pH (7.35-7.45) ABG HCO3 (22-28) ABG O2 Sat (Measured) (95-100) % Alexx Test A-a Gradient a/A Ratio Hemoglobin Carboxyhemoglobin (0.0-6.9) % THgb Methemoglobin (1.4-1.5) % Potassium 3.6 (3.5-5.1) Glucose 153 H (70-110) Temperature C POC O2 Flow Rate % Vent Mode Inspiratory BiPAP Expiratory BiPAP Sodium 143 (136-145) mEq/L Chloride 108 H (98-107) mEq/L Carbon Dioxide 29.8 (21-32) mEq/L Anion Gap 8.8 (5-15) MEQ/L BUN 14 (9-20) mg/dL Creatinine 0.99 (0.55-1.30) mg/dl Estimated GFR 59 ML/MIN Lactic Acid (0.4-2.0) Calcium 9.6 (8.5-10.1) mg/dL Magnesium 2.0 (1.8-2.4) mg/dL Total Bilirubin 0.50 (0.2-1.0) mg/dL AST 19 (15-37) U/L ALT 14 (12-78) U/L Alkaline Phosphatase 92 (46-116) U/L Troponin I < 0.017 (0.000-0.056) ng/ml NT-Pro-B Natriuret Pep 222 H (0-125) pg/ml Serum Total Protein 7.0 (6.4-8.2) gm/dL Albumin 3.3 L (3.4-5.0) g/dL TSH 3rd Generation 1.773 (0.358-3.740) mIU/L Ur Collection Type Urine Color (YELLOW) Urine Appearance (CLEAR) Urine pH (5-6) Ur Specific Jasper (1.005-1.025) Urine Protein (Negative) Urine Ketones (NEGATIVE) Urine Blood (0-5) Todd/ul Urine Nitrite (NEGATIVE) Urine Bilirubin (NEGATIVE) Urine Urobilinogen (0-1) mg/dL Ur Leukocyte Esterase (NEGATIVE) Urine Glucose (NEGATIVE) mg/dL Influenza Type A Ag (NEGATIVE) Influenza Type B Ag (NEGATIVE) RSV (PCR) (Negative) Specimen Received 08/11/17 08/11/17 Range/Units 12:25 12:18 WBC 5.5 (4.0-10.5) K/mm3 RBC 4.56 (4.1-5.4) M/mm3 Hgb 12.4 (12.0-16.0) gm/dl Hct 40.0 (35-47) % MCV 87.7 (78-100) fl MCH 27.2 (26-32) pg MCHC 31.0 L (32-36) g/dl RDW 15.4 H (11.5-14.0) % Plt Count 297 (150-450) K/mm3 MPV 9.4 (6-9.5) fl Gran % 76.4 H (36.0-66.0) % Lymphocytes % 19.2 L (24.0-44.0) % Monocytes % 1.8 (0.0-12.0) % Eosinophils % 2.4 (0.00-5.0) % Basophils % 0.2 (0.0-0.4) % Basophils # 0.01 (0-0.4) INR (0.8-3.0) APTT (25.3-37.0) SECONDS Puncture Site LEFT RADIAL pCO2 44 (35-45) mmHg pO2 39 L* (75-100) mmHg Base Excess 2.1 H (-2.0-2.0) O2 Saturation 73.6 L (94-100) g/dF ABG pH 7.40 (7.35-7.45) ABG HCO3 27.3 (22-28) ABG O2 Sat (Measured) 76.3 L (95-100) % Alexx Test YES A-a Gradient 619 a/A Ratio 0.06 Hemoglobin 12.7 Carboxyhemoglobin 2.8 (0.0-6.9) % THgb Methemoglobin 0.8 L (1.4-1.5) % Potassium 3.3 L (3.5-5.1) Glucose 155 H (70-110) Temperature 37.0 C POC O2 Flow Rate 100 % Vent Mode Inspiratory BiPAP Expiratory BiPAP Sodium (136-145) mEq/L Chloride (98-107) mEq/L Carbon Dioxide (21-32) mEq/L Anion Gap (5-15) MEQ/L BUN (9-20) mg/dL Creatinine (0.55-1.30) mg/dl Estimated GFR ML/MIN Lactic Acid 1.3 (0.4-2.0) Calcium (8.5-10.1) mg/dL Magnesium (1.8-2.4) mg/dL Total Bilirubin (0.2-1.0) mg/dL AST (15-37) U/L ALT (12-78) U/L Alkaline Phosphatase (46-116) U/L Troponin I (0.000-0.056) ng/ml NT-Pro-B Natriuret Pep (0-125) pg/ml Serum Total Protein (6.4-8.2) gm/dL Albumin (3.4-5.0) g/dL TSH 3rd Generation (0.358-3.740) mIU/L Ur Collection Type Urine Color (YELLOW) Urine Appearance (CLEAR) Urine pH (5-6) Ur Specific [place] (1.005-1.025) Urine Protein (Negative) Urine Ketones (NEGATIVE) Urine Blood (0-5) Todd/ul Urine Nitrite (NEGATIVE) Urine Bilirubin (NEGATIVE) Urine Urobilinogen (0-1) mg/dL Ur Leukocyte Esterase (NEGATIVE) Urine Glucose (NEGATIVE) mg/dL Influenza Type A Ag (NEGATIVE) Influenza Type B Ag (NEGATIVE) RSV (PCR) (Negative) Specimen Received - Progress Progress Note: 08/11/17 12:54 The patient was placed on NRB oxygen. Sat to 70% range. CPAP then Bipap placed. CAlled Dr Angelika Bell and he advised transfer to [facility] ICU. 08/11/17 13:27 She has severe pneumonia with hypoxemia. Consulted Dr Angelika Jim and made arrangement to transfer to [facility] ICU. Saturation improving with bipap. 08/11/17 14:10 There is no aspiration by history. She is stabilizing on bear hugger and bipap. Abtx given. IVF bolus given. Hydrocortisone given. Flu swab negative. Cultures sent. Will repeat lactic acid and ABG and plan transfer to [facility] ICU. Counseled pt/family regarding: lab results, diagnosis, need for follow-up, rad results, smoking cessation - Departure Time of Disposition: 14:11 Departure Disposition: Transfer Clinical Impression: Hypoxemia, Pneumonia, Hypothermia, Sepsis, Fall Condition: Serious Critical Care Time: Yes Critical Care Time(excluding separately billable procedures): 30-74 minutes Referrals: MUKUND CHAPMAN NP [NON-STAFF PHY W/O PRIVILEGES] -
[2017-08-11 13:04] LABS: ALBUMIN 3.3 g/dL (3.4-5.0); ALKALINE PHOSPHATASE 92 U/L (46-116); ANION GAP 8.8 MEQ/L (5-15); BLOOD UREA NITROGEN 14 mg/dL (9-20); CHLORIDE 108 mEq/L (98-107); Calcium 9.6 mg/dL (8.5-10.1); Carbon Dioxide 29.8 mEq/L (21-32); Creatinine 1 0.99 mg/dl (0.55-1.30); EST GLOMERULAR FILTRATION RATE 59 ML/MIN; Glucose 153 MG/DL (70-110); NT PRO BNP 222 pg/ml (0-125); Potassium 3.6 mEq/L (3.5-5.1); SGOT/AST 19 U/L (15-37); SGPT/ALT 14 U/L (12-78); SODIUM 143 mEq/L (136-145)
[2017-08-11 13:07] LABS: TROPONIN < 0.017 ng/ml (0.000-0.056)
[2017-08-11] MEDS ORDERED: VANCOCIN 1 GM VIAL*** 1.25 GM in Sodium Chloride 0.9% 250 ML 250 ML IV ONE (13:20)
[2017-08-11 13:24] LABS: INFLUENZA A NEGATIVE (NEGATIVE); INFLUENZA B NEGATIVE (NEGATIVE); RESPIRATORY SYNCTIAL VIRUS NEGATIVE (Negative)
[2017-08-11] MEDS ORDERED: solu-CORTEF 100MG ONE (13:38)
--- NOTE | 2017-08-11 13:38 | XRAY ---
Indication: Neck pain following fall. Multiple contiguous axial images obtained through the cervical spine. Sagittal and coronal reformatted images obtained. Comparison: None. Axial images negative for acute fracture, suspicious bony lesions, or spinal canal stenosis. There is mild/moderate C4-C7 degenerative endplate/uncal spurring and minimal multilevel bilateral degenerative facet arthropathy. Sagittal and coronal reformatted images demonstrates normal alignment with mild C4-C7 degenerative disc space narrowing. No acute compression fracture, subluxation, or jumped facet. Normal-appearing craniocervical junction. Visualized noncontrasted soft tissues unremarkable. Tiny left apical calcified granuloma. CT head reported separately. Impression: 1. Negative for acute fracture/subluxation. 2. C4-C7 degenerative changes. CTDI 94.68
--- NOTE | 2017-08-11 13:39 | XRAY ---
Indication: Pain following fall. Multiple contiguous axial images obtained through the head without contrast. Comparison: November 23, 2016. Again normal appearing brain parenchyma, ventricles, and bony calvarium. Visualized paranasal sinuses and mastoid air cells are clear. Impression: Normal CT head without contrast exam. CTDI 48.47
[2017-08-11] MEDS ORDERED: Zithromax 500 MG/ 250 ML NaCl Premix 500 MG/250 ML IVPB IV ONE (13:42)
--- NOTE | 2017-08-11 13:42 | XRAY ---
Indication: Short of breath. Possible sepsis. Multiple contiguous axial images obtained through the chest using 80 cc Isovue 370 contrast and PE protocol. Comparison: None There is satisfactory opacification of the pulmonary arteries to include the lobar and segmental branches. No filling defect or pulmonary embolus. Heart is not enlarged. There is a left-sided pacemaker and leads. Aorta is normal in course and caliber. A few tiny perihilar and mediastinal calcified nodes. No pathologic mediastinal/hilar lymphadenopathy. Examination of the lung parenchyma demonstrates diffuse airspace disease in all lobes with patchy consolidations greatest in both lower lobes. No effusion. A few tiny calcified granulomas bilaterally. Bony thorax intact with mild flowing osteophytes throughout the spine. Limited upper abdomen is unremarkable. Impression: 1. Negative pulmonary embolus. 2. Diffuse bilateral airspace disease with multifocal patchy consolidations. Findings consistent with same day radiographic findings. 3. Incidental evidence for granulomatous disease. CT DI 22.71
[2017-08-11 13:57] LABS: Appearance CLEAR (CLEAR); Bilirubin NEGATIVE (NEGATIVE); Blood NEGATIVE Ery/ul (0-5); Glucose TRACE mg/dL (NEGATIVE); Ketones NEGATIVE (NEGATIVE); Leukocyte Esterase NEGATIVE (NEGATIVE); Nitrite NEGATIVE (NEGATIVE); Protein,Urine Dip NEGATIVE (Negative); Specific Gravity 1.015 (1.005-1.025); Urobilinogen NORMAL mg/dL (0-1)
[2017-08-11 14:12] LABS: A-aADO2 455; ABG HEMOGLOBIN 12.3; ABG POTASSIUM 3.2 (3.5-5.1); ABG SITE RIGHT RADIAL; ALLEN TEST OK? YES; ARTERIAL BLD GAS O2 SATURATION 99.1 % (95-100); ARTERIAL BLOOD GAS BASE EXCESS -1.1 (-2.0-2.0); ARTERIAL BLOOD GAS FIO2 90 %; ARTERIAL BLOOD GAS PCO2 51 mmHg (35-45); ARTERIAL BLOOD GAS PO2 123 mmHg (75-100); ARTERIAL BLOOD GAS VENT MODE BiPAP; ARTERIAL BLOOD GAS pH 7.31 (7.35-7.45); CARBOXYHEMOGLOBIN 1.9 % THgb (0.0-6.9); HCO3- 25.7 (22-28); HGB O2 SAT 96.2 g/dF (94-100); Methhemoglobin 1.1 % (1.4-1.5); paO2 pAO1 0.21
[2017-08-11 14:47] VITALS: BP 128/72; PULSE 67; O2SAT 98
== END 2017-08-11 14:46 | disposition short-term general hospital (02) ==
LOC: ED 12:10
DX: J18.9 Pneumonia, unspecified organism (principal); R09.02 Hypoxemia; T68.XXXA Hypothermia, initial encounter; A41.9 Sepsis, unspecified organism; W19.XXXA Unspecified fall, initial encounter; Y92.009 Unspecified place in unspecified non-institutional (private) residence as the place of occurrence of the external cause; Z95.0 Presence of cardiac pacemaker
CPT/HCPCS: 36000; 36415; 36600; 51702; 70450; 71045; 71260; 72125; 80053; 81002; 82375; 82803; 82947; 83605; 83735; 83880; 84443; 84484; 85025; 85610; 85730; 87040; 87086; 87631; 93005; 93041; 94002; 94640; 96360; 96361; 96365; 96366; 96374; 99291; 99292; J0456; J0696; J1720; J3370; L0120; A9270-GY

== ENCOUNTER 2017-10-20 08:06 | Day surgery (SDC) | payer MEDICARE ==
[~2017-10-20 08:06] MED LIST: Ak-Dilate OPHTHALMIC*** 0.71 ML, Cyclogyl 1% OPHTH SOL 5 ML 0.71 ML, GATIFLOXACIN 0.5% ... OP ONE; Lactated Ringers 1,000 ML IV SCH; TETRACAINE 0.5% STERI-UNIT SOL OP ONE; Zofran 4 MG/2 ML VIAL IV PRN
[2017-10-20] MEDS ORDERED: DIPRIVAN 200 MG/20 ML IV ONE (08:07)
[2017-10-20] MEDS ORDERED: Lactated Ringers 1,000 ML IV ONE (08:11)
[2017-10-20] MEDS ORDERED: Lactated Ringers 1,000 ML IV SCH (09:00)
[2017-10-20] MEDS ORDERED: Zofran 4 MG/2 ML VIAL IV PRN (09:00)
[2017-10-20] MEDS ORDERED: Ak-Dilate OPHTHALMIC*** 0.71 ML, Cyclogyl 1% OPHTH SOL 5 ML 0.71 ML, GATIFLOXACIN 0.5% ... OP ONE ×4 (09:00)
[2017-10-20] MEDS ORDERED: TETRACAINE 0.5% STERI-UNIT SOL OP ONE ×2 (09:00)
[2017-10-20] MEDS ORDERED: LIDOCAINE HCL 1% AMPUL 5 ML IJ ONE (10:01)
[2017-10-20] MEDS ORDERED: Epinephrine Preservative Free 1 MG/ML INTRAOP ONE (10:01)
[2017-10-20] MEDS ORDERED: BETADINE 5% OPHTHALMIC 30 ML OP ONE (10:01)
[2017-10-20 12:44] VITALS: BP 147/73; PULSE 60; O2SAT 99
--- NOTE | 2017-10-20 15:00 | OP ---
DATE/TIME OF OPERATION: 10/20/2017 1058 TIME DICTATED: 1321 PREOPERATIVE DIAGNOSIS: Senile cataract of left eye. POSTOPERATIVE DIAGNOSIS: Senile cataract of left eye. SURGEON: Darren Ambriz MD PAPER TESTING SUPERVISOR: None. OPERATION: Cataract extraction of left eye with an intraocular lens implant. STANDARD __X___ COMPLEX ANESTHESIA: MAC. ___X___ Monitored anesthesia care in combination with topical and intra-cameral anesthesia (because of the established specific risk of reflux, arrhythmias, or an anxiety attack associated with ocular manipulation as well as difficulty of the corporation secretary to manage such potentially catastrophic events while simultaneously attempting to complete the surgical procedure, it was deemed necessary for the patient's safety to have an anesthesiologist or a nurse budget assistant present during the procedure whenever possible. The anesthesiologist or the nurse budget assistant was utilized to monitor and regulate the intravenous sedation of the patient, so the patient was cooperative, relaxed, and comfortable). Topical anesthesia using Tetracaine eye drops together with intra cameral anesthesia using Lidocaine 1% MPF. The nurse was utilized to monitor the patient. ANESTHESIA PROVIDER: Garrett Willis CRNA. COMPLICATIONS: None. BLOOD LOSS: None. INDICATIONS: The patient is undergoing cataract surgery in the hopes of eliminating the visual complaints and difficulty. PROCEDURE: After arriving at the facility's outpatient surgery area, an IV was started; the patient was given 5 mg of p.o. Versed. (If an anesthesia provider was not monitoring the patient) The patient was then given topical anesthetic Tetracaine eye drops. A cotton pellet was soaked into a solution of a combination of Zymaxid 0.5%, Jasbir-Synephrine 2.5% and Ocufen (other drops might have been substituted referenced in the patient's record). The pellet was inserted by the RN into the lower conjunctival cul-de-sac with a sterile forceps and left for 20 minutes. The pellet was then removed by the RN with a sterile forceps before taking the patient to the operating room. The preoperative area nurse identified the patient and marked the correct eye to be operated on. I identified the correct eye to be operated on and marked it appropriately in the outpatient surgery area. The patient was then taken into the operating room. Tetracaine eye drops were installed again in the correct eye. The eyelids and the lashes and the lid margins were scrubbed with Betadine solution. One drop of the diluted Betadine solution was placed in the conjunctival cul-de-sac for 45 seconds and then was irrigated. A drop of Tetracaine Gel was placed in the conjunctival cul-de-sac. The patient's forehead was taped to secure it during the procedure. The patient was monitored. The patient was then draped in the usual way for this procedure. An eye speculum was used to separate the eyelids. The eye was then fixated and a temporal 2.5 mm incision was made in the clear cornea temporally at the limbus. Through the incision, 0.25 cc of 1% non-preserved lidocaine was injected into the anterior chamber for intracameral anesthesia. The anterior chamber was then filled with viscoelastic. The pupil was small. I felt that it would be safer to mechanically dilate the pupil. A Malyugin ring was used at this point which dilated the pupil. That was removed at the end of the procedure prior to aspiration of the viscoelastic from the anterior chamber and posterior to the intraocular lens implant. The cataract had a great amount of cortical changes. That rendered seeing the anterior capsule difficult for a safe performance of an anterior capsulotomy. I injected an air bubble into the anterior chamber. I then injected 1 ML of vision blue solution into the anterior chamber. The vision blue solution was irrigated from the anterior chamber after 30 seconds. The anterior capsule was stained which facilitated performing the anterior capsulotomy safely. After that was completed, a cystotome was introduced into the anterior chamber and a round anterior capsulotomy was performed. The capsule was removed by a forceps. Hydrodissection was next carried utilizing a 25-gauge cannula and balanced salt solution to delineate the cortical material from the capsule and the nucleus from the cortical material. The nucleus was rotated freely into the capsular bag with no difficulty. The phaco tip of the [facility] Phacoemulsifier was introduced into the anterior chamber and two grooves were made into the nucleus 90 degrees apart. Using two spatulas resulted into the nucleus being fractured into four quadrants. The phaco tip was then used to remove each quadrant of the nucleus. Viscoelastic was used during this process to protect the corneal endothelium. Once the entire nucleus was removed, the phaco tip then was removed and the irrigation tip was introduced into the eye and the cortex was removed. The posterior capsule was polished. It was noticed that there was a tear into the posterior capsule with few vitreous strands into the pupil plan. An anterior vitrectomy was performed. A 23.00 diopter, [id number], posterior chamber lens implant, was inspected and found to be grossly normal. The implant was inserted into the implant injector cartridge; Viscoelastic again was introduced into the anterior chamber, which filled the capsular bag. The implant injector's cartridge tip was placed at the limbal wound and the posterior chamber implant was released into the capsular bag and rotated appropriately. The implant was found to be into the capsular bag and it was centered. ___X__ 0.2 ml of Tri-Moxi was introduced via 27 gauge cannula into the vitreous cavity through the ciliary processes. Viscoelastic was aspirated from the anterior chamber and posterior to the intraocular lens implant from the capsular bag using the irrigating tip. The anterior chamber was irrigated and filled with 5 cc antibiotic solution (500 cc of BSS plus 2 ml of Fortaz 100 mg/ml) ( if patient was not allergic to the medication). The lips of the corneal incision were hydrated using BSS solution. The anterior chamber was checked and found to be water tight. One drop each of antibiotic, steroid and NSAID drops (refer to chart for drops used) were placed in the conjunctival cul-de-sac of the operated eye. Patient tolerated the procedure quite well and left the operating room in satisfactory condition. DISCHARGE SUMMARY: The patient was released in stable condition. The patient and those with the patient were given an instruction sheet as of how to care for the eye after surgery as well as counseling on any abnormal laboratory studies by the postoperative RN. The patient was also given an appointment card for follow-up in the office and is to call immediately for any difficulties including but not limited to pain in the eye, decreased vision, discharge from the eye, headache and or fever. DISCHARGE DIAGNOSIS: Pseudophakia of left eye.
== END 2017-10-20 12:20 | disposition home or self-care (01) ==
LOC: SDC 08:06
PROVIDERS: ATTEND Ophthalmology
PROC: 08RK3JZ Replacement of Left Lens with Synthetic Substitute, Percutaneous Approach (ICD-10-PCS; principal; 2017-10-20)
PROC: 08B53ZZ Excision of Left Vitreous, Percutaneous Approach (ICD-10-PCS; 2017-10-20)
DX: H25.9 Unspecified age-related cataract (principal); I10 Essential (primary) hypertension; E78.00 Pure hypercholesterolemia, unspecified; I51.9 Heart disease, unspecified; F32.9 Major depressive disorder, single episode, unspecified; J44.9 Chronic obstructive pulmonary disease, unspecified; Z79.899 Other long term (current) drug therapy
CPT/HCPCS: 66984; 67005; C1780; J0171; J2704; A9270-GY

== ENCOUNTER 2017-11-12 16:30 | Emergency (ER) | payer MEDICARE ==
[2017-11-12 16:42] VITALS: O2SAT 99
[2017-11-12] MEDS ORDERED: MORPHINE SULFATE 4 MG INJ IM ONE (17:40)
[2017-11-12] MEDS ORDERED: MORPHINE SULFATE 4 MG INJ ONE (17:46)
--- NOTE | 2017-11-12 17:46 | ERPHSYRPT ---
- History of Present Illness Time Seen by Provider: 11/12/17 17:41 Source: patient Exam Limitations: no limitations Patient Subjective Stated Complaint: Bookcase fell on left foot, complains of left foot pain. Triage Nursing Assessment: Pt presents to the ED with complaints of left foot pain after a bookcase fell onto foot. Pt states onset approximately 3 hours ago. Pt states she fell backwards, denies other complaints. Bruising noted to foot, no deformity noted. Physician History: This is a 67-year-old white female she arrives with complaint of pain in her left dorsal foot since 1:30 PM this afternoon.. According to the patient she had a book case fell and struck her on the foot she states she fell backwards she states she hit her head that she is not having any had pain and she has no loss of consciousness she has no neck pain she denies any other complaints other than the pain in her foot. Past medical history includes high blood pressure, osteoarthritis, rheumatoid arthritis, depression, cardiac pacemaker, peripheral neuropathy, congestive heart failure, arrhythmia, myocardial infarction, cirrhosis, GERD Past surgical history includes cardiac pacemaker, hysterectomy, joint replacement Method of Injury: direct blow (book case fell on her left foot) Occurred: this afternoon (1:30 this afternoon) Quality: constant Severity of Pain-Max: moderate Severity of Pain-Current: moderate Lower Extremities Pain: foot: left Modifying Factors: Improves With: movement Associated Symptoms: unable to bear weight Allergies/Adverse Reactions: Penicillins Allergy (Verified 11/11/17 11:16) Hives sulfamethoxazole [From Bactrim] Allergy (Verified 11/11/17 11:16) Nausea and Vomiting trimethoprim [From Bactrim] Allergy (Verified 11/11/17 11:16) Nausea and Vomiting Home Medications: Clopidogrel Bisulfate 75 mg [PLAVIX 75 MG Tablet] 75 mg PO DAILY 07/31/13 [History] Metoprolol Succinate 50 mg [Toprol Xl 50 MG] 50 mg PO DAILY 07/31/13 [ History] Rivaroxaban [Xarelto] 20 mg PO DAILY 10/27/14 [History] Amlodipine Besylate 5 mg [Norvasc 5 mg] 5 mg PO BID 01/24/16 [History] Buspirone HCl 5 mg [Buspar 5 mg] 30 mg PO BID 01/24/16 [History] Pregabalin [Lyrica 75 mg Cap] 75 mg PO BID 01/24/16 [History] Vilazodone Hydrochloride [Viibryd] 40 mg PO DAILY 01/24/16 [History] Famotidine 40 mg PO BID 11/23/16 [History] Folic Acid 0.4 mg PO DAILY 11/23/16 [History] Lorazepam 1 mg [Ativan 1 MG] 1 mg PO Q6H PRN PRN 11/23/16 [History] Losartan Potassium 100 mg PO DAILY 11/23/16 [History] Hx Tetanus, Diphtheria Vaccination/Date Given: Yes Hx Influenza Vaccination/Date Given: No Hx Pneumococcal Vaccination/Date Given: No Immunizations Up to Date: No - Review of Systems Constitutional: No Fever, No Chills Eyes: No Symptoms Ears, Nose, & Throat: No Symptoms Respiratory: No Cough, No Dyspnea Cardiac: No Chest Pain, No Edema, No Syncope Abdominal/Gastrointestinal: No Abdominal Pain, No Nausea, No Vomiting, No Diarrhea Genitourinary Symptoms: No Dysuria Musculoskeletal: Other (left foot pain) Skin: No Rash Neurological: No Dizziness, No Focal Weakness, No Sensory Changes Psychological: No Symptoms Endocrine: No Symptoms All Other Systems: Reviewed and Negative - Past Medical History Pertinent Past Medical History: Yes Neurological History: No Pertinent History ENT History: Cataracts Cardiac History: Arrhythmia, Congestive Heart Failure, Hypertension, Myocardial Infarction ([place]) Respiratory History: No Pertinent History Endocrine Medical History: No Pertinent History Musculoskeletal History: Osteoarthritis, Rheumatoid Arthritis GI Medical History: Cirrhosis, GERD History: No Pertinent History Psycho-Social History: Depression Female Reproductive Disorders: No Pertinent History Other Medical History: PACEMAKER NEUROPATHY - Past Surgical History Past Surgical History: Yes Neuro Surgical History: No Pertinent History Cardiac: Cardiac Catheterization, Pacemaker Respiratory: No Pertinent History Gastrointestinal: Other Genitourinary: No Pertinent History Musculoskeletal: Joint Replacement Female Surgical History: Hysterectomy Other Surgical History: PACEMAKER PLACEMENT, HYSTERECTOMY , left IOL October 2017 - Social History Smoking Status: Current every day smoker How long have you smoked: 50 years Exposure to second hand smoke: Yes Drug Use: none Patient Lives Alone: No - Female History Hx Now: No - Nursing Vital Signs Nursing Vital Signs: Initial Vital Signs Temperature 98.5 F 11/12/17 16:38 Pulse Rate 66 11/12/17 16:38 Respiratory Rate 16 11/12/17 16:38 Blood Pressure 153/77 11/12/17 16:38 O2 Sat by Pulse Oximetry 99 11/12/17 16:38 Pain Scale Pain Intensity 6 - Physical Exam General Appearance: mild distress Eyes, Ears, Nose, Throat Exam: moist mucous membranes Neck Exam: non-tender, supple Cardiovascular/Respiratory Exam: chest non-tender, normal breath sounds, regular rate/rhythm, no respiratory distress Gastrointestinal/Abdominal Exam: non-tender, guarding Back Exam: normal inspection, No vertebral tenderness Hips Exam: bilateral: non-tender, normal inspection, normal range of motion, no evidence of injury Legs Exam: bilateral leg: non-tender, normal inspection, normal range of motion , no evidence of injury Knees Exam: bilateral knee: non-tender, normal inspection, normal range of motion, no evidence of injury Ankle Exam: bilateral ankle: non-tender, normal inspection, normal range of motion, no evidence of injury Foot Exam: right foot: non-tender, normal inspection, normal range of motion, no evidence of injury, other (left tool tender to palpation dorsally, decreased range of motion left foot secondary to pain, good capillary refill all toes sensation intact to all toes) Neuro/Tendon Exam: normal sensation, normal motor functions Mental Status Exam: alert, oriented x 3, cooperative Skin Exam: normal color, warm, dry, other (good capillary refill all toes) SpO2 Interpretation: normal SpO2: 99 Oxygen Delivery: Room Air Comments: left dorsal pedal, posterior tibial pulses intact 2/4 - Course Nursing assessment & vital signs reviewed: Yes - Radiology Exams Left Foot X-ray Interpretation: Interpreted by me, No Fracture, No Subluxation Ordered Tests: Active Orders 24 hr Category Date Time Status [facility] 11/12/17 18:04 Active Crutches STAT Care 11/12/17 18:04 Active Splint STAT Care 11/12/17 18:04 Active FOOT (MINIMUM 3 VIEWS) Stat Exams 11/12/17 17:40 Taken Medication Summary Discontinued Medications Generic Name Dose Route Start Last Admin Trade Name Freq PRN Reason Stop Dose Admin Morphine Sulfate 4 mg 11/12/17 17:40 11/12/17 17:48 Morphine Sulfate 4 Mg Inj IM 11/12/17 17:41 4 mg STAT ONE Administration Morphine Sulfate Confirm 11/12/17 17:46 Morphine Sulfate 4 Mg Inj Administered 11/12/17 17:47 Dose 4 mg .ROUTE .STK-MED ONE - Progress Progress: improved Progress Note: 11/12/17 18:06 67-year-old white female arrives with complaint of pain in the left dorsal foot after the bookcase fell and struck the back of her foot she states that she is unable to walk secondary to the pain. She denies other injury. X-ray of the left foot negative fracture negative dislocation (my read) Will go ahead and place an Emanuel wrap on the patient's left foot provide postop shoe, and provide crutches. Patient was given morphine injection for pain will write for Senath for home. Patient return home ice elevate left foot crutches weightbearing as tolerated left foot. Follow-up with her family doctor if symptoms are worse, no better in 48 hours, or persist longer than one week. - Departure Time of Disposition: 18:07 Departure Disposition: Home Clinical Impression: Left foot pain Contusion of left foot Qualifiers: Encounter type: initial encounter Qualified Code(s): S90.32XA - Contusion of left foot, initial encounter Condition: Fair Critical Care Time: No Referrals: JANICE CORREA [Primary Care Provider] - Instructions: Contusion (DC) Additional Instructions: Return home. Ice and elevate left foot 24-48 hours. Crutches weightbearing as tolerated left foot. Senath as prescribed.Follow-up with your family Dr. symptoms are worse, no better in 48 hours. Or persist longer than one week. Return for acute distress or for severe symptoms. Your x-rays have been preliminarily read they will be reread in the morning. You will be contacted if any discrepancies are noted. Prescriptions: Hydrocodone/Acetaminophen [Senath 5-325 Tablet] 1 tab PO Q4-6HPRN PRN #12 tablet MDD 6 tablets PRN Reason: Pain
[2017-11-12 18:00] VITALS: BP 148/74; PULSE 62
--- NOTE | 2017-11-13 08:44 | XRAY ---
Indication: Pain, bruising, and swelling following injury. Comparison: None 3 nonweightbearing views of the left foot demonstrates mild osteopenia and small plantar heel spur. No other bony, articular, or soft tissue abnormalities.
== END 2017-11-12 18:21 | disposition home or self-care (01) ==
LOC: ED 16:30
DX: S90.32XA Contusion of left foot, initial encounter (principal); M79.672 Pain in left foot; W22.8XXA Striking against or struck by other objects, initial encounter; Z79.01 Long term (current) use of anticoagulants; Z79.899 Other long term (current) drug therapy
CPT/HCPCS: 73630; 96372; 99283; 99284; J2270

== ENCOUNTER 2020-07-06 16:49 | Emergency (ER) | payer MEDICARE ==
[2020-07-06 17:04] VITALS: O2SAT 98
[2020-07-06] MEDS ORDERED: Rocephin 1000 MG INJ IM ONE (17:17)
[2020-07-06] MEDS ORDERED: Rocephin 1000 MG INJ ONE (17:20)
[2020-07-06] MEDS ORDERED: XYLOCAINE 1% HCL 20 ML MDV ONE (17:20)
--- NOTE | 2020-07-06 17:28 | ERPHSYRPT ---
- History of Present Illness Time Seen by Provider: 07/06/20 17:22 Source: patient Exam Limitations: no limitations Patient Subjective Stated Complaint: sorethroat Triage Nursing Assessment: pt to ED c/o sore throat and pain swallowing x 3 days. rates 8/10 pain that is only painful with swallowing. throat appears reddened and irritated. no SOB or diff breathing noted. Physician History: pt to ED c/o sore throat and pain swallowing x 3 days. rates 8/10 pain that is only painful with swallowing. throat appears reddened and irritated. no SOB or diff breathing noted. fever with chills yesterday. No fever today. difficulty in swallowing Timing/Duration: gradual onset ENT Location: mouth, throat Prearrival Treatment: no prearrival treatment Associated Symptoms: fever, chills, headache, sore throat, difficulty swallowing Allergies/Adverse Reactions: Penicillins Allergy (Verified 07/06/20 17:04) Hives sulfamethoxazole [From Bactrim] Allergy (Verified 07/06/20 17:04) Nausea and Vomiting trimethoprim [From Bactrim] Allergy (Verified 07/06/20 17:04) Nausea and Vomiting Home Medications: Clopidogrel Bisulfate 75 mg [PLAVIX 75 MG Tablet] 75 mg PO DAILY 07/31/13 [History] Metoprolol Succinate 50 mg [Toprol Xl 50 MG] 50 mg PO DAILY 07/31/13 [Hi story] Rivaroxaban [Xarelto] 20 mg PO DAILY 10/27/14 [History] Amlodipine Besylate 5 mg [Norvasc 5 mg] 5 mg PO BID 01/24/16 [History] Buspirone HCl 5 mg [Buspar 5 mg] 30 mg PO BID 01/24/16 [History] Pregabalin [Lyrica 75 mg Cap] 75 mg PO BID 01/24/16 [History] Vilazodone Hydrochloride [Viibryd] 40 mg PO DAILY 01/24/16 [History] Famotidine 40 mg PO BID 11/23/16 [History] Folic Acid 0.4 mg PO DAILY 11/23/16 [History] Lorazepam 1 mg [Ativan 1 MG] 1 mg PO Q6H PRN PRN 11/23/16 [History] Losartan Potassium 100 mg PO DAILY 11/23/16 [History] Hx Tetanus, Diphtheria Vaccination/Date Given: No Hx Influenza Vaccination/Date Given: No Hx Pneumococcal Vaccination/Date Given: No Immunizations Up to Date: No Travel Risk - International Travel Have you traveled outside of the country in past 3 weeks: No - Coronavirus Screening Are you exhibiting any of the following symptoms?: No Close contact with a COVID-19 positive Pt in past 14-21 Days: No - Review of Systems Constitutional: Fever, Chills Eyes: No Symptoms Ears, Nose, & Throat: Throat Pain, Painful Swallowing Respiratory: No Symptoms Cardiac: No Symptoms Abdominal/Gastrointestinal: No Symptoms Genitourinary Symptoms: No Symptoms Musculoskeletal: No Symptoms - Past Medical History Pertinent Past Medical History: Yes Neurological History: No Pertinent History ENT History: Cataracts Cardiac History: Arrhythmia, Congestive Heart Failure, Hypertension, Myocardial Infarction ([place]) Respiratory History: No Pertinent History Endocrine Medical History: No Pertinent History Musculoskeletal History: Osteoarthritis, Rheumatoid Arthritis GI Medical History: Cirrhosis, GERD History: No Pertinent History Psycho-Social History: Depression Female Reproductive Disorders: No Pertinent History Other Medical History: PACEMAKER NEUROPATHY - Past Surgical History Past Surgical History: Yes Neuro Surgical History: No Pertinent History Cardiac: Cardiac Catheterization, Pacemaker Respiratory: No Pertinent History Gastrointestinal: Other Genitourinary: No Pertinent History Musculoskeletal: Joint Replacement Female Surgical History: Hysterectomy Other Surgical History: PACEMAKER PLACEMENT, HYSTERECTOMY , left IOL October 2017 - Social History Smoking Status: Current every day smoker How long have you smoked: 50 years Exposure to second hand smoke: Yes Drug Use: none Patient Lives Alone: No - Female History Hx Now: No - Nursing Vital Signs Nursing Vital Signs: Initial Vital Signs Temperature 97.5 F 07/06/20 16:53 Pulse Rate 69 07/06/20 16:53 Respiratory Rate 19 07/06/20 16:53 Blood Pressure 129/69 07/06/20 16:53 O2 Sat by Pulse Oximetry 98 07/06/20 16:53 Pain Scale Pain Intensity 8 - Physical Exam General Appearance: no apparent distress Eye Exam: bilateral eye: normal inspection Ear Exam: bilateral ear: auricle normal Nasal Exam: normal inspection Throat Exam: moist mucus membranes, pharynx swelling, pharynx tenderness Neck Exam: normal inspection Cardiovascular/Respiratory Exam: chest non-tender Abdominal Exam: non-tender Neurologic Exam: alert, oriented x 3 SpO2: 98 - Course Nursing assessment & vital signs reviewed: Yes Ordered Tests: Medication Summary Discontinued Medications Generic Name Dose Route Start Last Admin Trade Name [place] PRN Reason Stop Dose Admin Ceftriaxone Sodium 1,000 mg 07/06/20 17:17 Rocephin 1000 Mg Inj IM 07/06/20 17:18 STAT ONE Ceftriaxone Sodium Confirm 07/06/20 17:20 Rocephin 1000 Mg Inj Administered 07/06/20 17:21 Dose 1,000 mg .ROUTE .STK-MED ONE Lidocaine HCl Confirm 07/06/20 17:20 Xylocaine 1% Hcl 20 Ml Mdv Administered 07/06/20 17:21 Dose 3 ml .ROUTE .STK-MED ONE - Progress Progress: unchanged Counseled pt/family regarding: diagnosis, need for follow-up - Departure Departure Disposition: Home Clinical Impression: Pharyngitis due to Streptococcus species Condition: Stable Critical Care Time: No Referrals: LULA JAMES MD [Primary Care Provider] - Instructions: Sore Throat, Adult (DC) Additional Instructions: VERA BOWMAN MARIELA was seen on 07/06/20 n the Emergency Room. At that time you were treated for an emergent condition, during your visit Laboratory, Radiology and/or other procedures may have been ordered. It is very important that you follow-up with your Primary Care Physician LULA JAMES within the next 24-48 hours to review your Emergency Room visit and the final results of testing that was ordered. Some test results such as Urine Cultures, Blood Cultures, and other cultures if ordered will not be finalized for 24-48 hours. If you do not have a Primary Care Provider please call the medical records department at [phone] ext [phone] to obtain a copy of your results or you may sign into our patient portal to obtain these results by visiting us @ [email or web address] and completing the following steps: 1. Click on the Patient Portal link 2. Click the Patient Self Enrollment Link to complete the enrollment form and entering your 3. Once the enrollment form is completed you will receive an email with a temporary ID and password at the email address you provided. 4. Next choose a user name and password. Your user name must be at least 4 characters long and your password must be at least 4 characters long. 5. Choose a security question from the list and provide your answer to the question. If you already have signed into the Health Portal you may access your Health Care Information 26/01 by the following steps: 1. Login to our website @ [email or web address] 2. Enter your original user name and password. FAQS The [facility] Health Portal is an online tool that contains your Lab Results, Radiology Reports, Visit History, Discharge Instructions and Health Summary Lab and Radiology Results will not be available for 72 hours on the portal. The Portal is a secure site, passwords are encryted and URLs are re-written so they cannot be copied and pasted. You and authorized family members are the only ones who can access your Portal. Also there is a timeout feature that protects your information if you leave the Portal page open. If you have technical difficulty please use the Contact Us link on the page this will allow you to submit any questions you have regarding the Portal or you may contact the Medical Record Department at [phone] ext [phone]. Prescriptions: Azithromycin [Zithromax] 250 mg PO UD 5 Days #6 tablet
[2020-07-06 17:51] VITALS: BP 126/76; PULSE 67
== END 2020-07-06 17:49 | disposition home or self-care (01) ==
LOC: ED 16:49
DX: J02.0 Streptococcal pharyngitis (principal); R50.9 Fever, unspecified; R51.9 Headache, unspecified; I10 Essential (primary) hypertension; Z79.899 Other long term (current) drug therapy
CPT/HCPCS: 96372; 99283; J0696

== ENCOUNTER 2021-11-01 10:15 | Observation (INO) | payer MEDICARE ==
[2021-11-01] MEDS ORDERED: BABY ASPIRIN 81 MG CHEW PO ONE (10:24)
[2021-11-01] MEDS ORDERED: MORPHINE SULFATE 4 MG INJ IV ONE (10:37)
[2021-11-01] MEDS ORDERED: Zofran 4 MG/2 ML VIAL IV ONE (10:38)
[2021-11-01 10:46] LABS: Absolute Neutrophil Ct (ANC) 14.23 (1.4-6.9); Basophil (Absolute #) 0.02 (0-0.4); Eosinophil % 0.1 % (0.00-5.0); Eosinophil (Absolute #) 0.01 (0-0.5); Hematocrit 38.7 % (35-47); Hemoglobin 12.5 gm/dl (12.0-16.0); Lymphocyte (Absolute #) 0.79 (1.0-4.6); Lymphocytes % 5.1 % (24.0-44.0); Mean Cell Volume 94.4 fl (78-100); Mean Corpuscular Hemoglobin 30.5 pg (26-32); Mean Corpuscular Hgb Concent. 32.3 g/dl (32-36); Mean Platelet Volume 9.2 fl (7.5-11.0); Monocyte (Absolute #) 0.48 (0.0-1.3); Monocytes % 3.1 % (0.0-12.0); Neutrophil % 91.6 % (36.0-66.0); Platelet Count 197 K/mm3 (150-450); Red Cell Distribution Width 13.8 % (11.5-14.0); White Blood Count 15.5 K/mm3 (4.0-10.5)
--- NOTE | 2021-11-01 10:49 | ERPHSYRPT ---
- History of Present Illness Historian: patient Exam Limitations: no limitations Patient Subjective Stated Complaint: pt sent from clinic for sob and pain with deep breath. pain started yesterday,no fever, nonproductive cough Triage Nursing Assessment: pt alert, resp easy skin w/d/p. moaning out at times, pain to right side of chest, no edema noted Physician History: 71 yo wf w R sided, sharp chest pain rated 10/10 w radiation to her back x 1 days. Pt states that she is dyspneic wo N/V/D. She has a cough and mild coryza x 1-2 days. Pt has a h/o 1ppd tobacco abuse/hypertension/hyperlipidemia. Fever is denied. Timing/Duration: yesterday Activities at Onset: rest Quality: sharpness, stabbing Location: other (R sided chest w radiation to her back) Chest Pain Radiation: back Severity of Pain-Max: severe Severity of Pain-Current: severe Associated Symptoms: shortness of breath, cough, hurts to breathe, No nausea, No vomiting, No palpitations, No heartburn, No abdominal pain, No diaphoresis, No chills, No fever, No fatigue, No weakness, No swelling/lump in chest, No syncope, No rash, No headache, No dizziness, No edema, No back pain Nitro Today/Relief: no nitro taken today Aspirin Treatment Today: no aspirin today Allergies/Adverse Reactions: Penicillins Allergy (Verified 11/01/21 10:24) Hives sulfamethoxazole [From Bactrim] Allergy (Verified 11/01/21 10:24) Nausea and Vomiting trimethoprim [From Bactrim] Allergy (Verified 11/01/21 10:24) Nausea and Vomiting Home Medications: Clopidogrel Bisulfate 75 mg [PLAVIX 75 MG Tablet] 0.5 tab PO DAILY 07/31/13 [History] Rivaroxaban [Xarelto] 20 mg PO DAILY 10/27/14 [History] Vilazodone Hydrochloride [Viibryd] 40 mg PO DAILY 01/24/16 [History] Albuterol Sulfate [Proair Digihaler] 2 puff IH QIDPRN PRN 11/01/21 [History] Mirtazapine [Remeron] 15 mg PO HS 11/01/21 [History] clonazePAM [Klonopin] 1.5 tab PO DAILY PRN PRN 11/01/21 [History] hydrOXYzine HCL [Hydroxyzine HCl] 1 tab PO TIDPRN PRN 11/01/21 [History] Hx Tetanus, Diphtheria Vaccination/Date Given: No Hx Influenza Vaccination/Date Given: No Hx Pneumococcal Vaccination/Date Given: No Immunizations Up to Date: Yes Travel Risk - International Travel Have you traveled outside of the country in past 3 weeks: No - Coronavirus Screening Are you exhibiting any of the following symptoms?: Yes Symptoms: Shortness of Breath Close contact with a COVID-19 positive Pt in past 14-21 Days: No - Vaccine Status Have you recieved a Covid-19 vaccination: Yes 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 - Review of Systems Constitutional: No Symptoms Eyes: No Symptoms Ears, Nose, & Throat: No Symptoms Respiratory: No Symptoms, Cough, Dyspnea Cardiac: No Symptoms, Chest Pain Abdominal/Gastrointestinal: No Symptoms, Appetite Changes Musculoskeletal: No Symptoms Skin: No Symptoms Neurological: No Symptoms Psychological: No Symptoms Endocrine: No Symptoms Hematologic/Lymphatic: No Symptoms Immunological/Allergic: No Symptoms - Past Medical History Pertinent Past Medical History: Yes Neurological History: No Pertinent History ENT History: Cataracts Cardiac History: Aneurysm, Arrhythmia, Congestive Heart Failure, Hypertension, Myocardial Infarction ([place]) Respiratory History: No Pertinent History Endocrine Medical History: No Pertinent History Musculoskeletal History: Osteoarthritis, Rheumatoid Arthritis GI Medical History: Cirrhosis, GERD History: No Pertinent History Psycho-Social History: Depression Female Reproductive Disorders: No Pertinent History Other Medical History: PACEMAKER NEUROPATHY - Past Surgical History Past Surgical History: Yes Neuro Surgical History: No Pertinent History Cardiac: Cardiac Catheterization, Pacemaker Respiratory: No Pertinent History Gastrointestinal: Other Genitourinary: No Pertinent History Musculoskeletal: Joint Replacement Female Surgical History: Hysterectomy Other Surgical History: PACEMAKER PLACEMENT, HYSTERECTOMY , left IOL October 2017 - Social History Smoking Status: Current every day smoker How long have you smoked: 50 years Exposure to second hand smoke: Yes Drug Use: none Patient Lives Alone: No Significant Family History: no pertinent family hx - Nursing Vital Signs Nursing Vital Signs: Initial Vital Signs Temperature 97.2 F 11/01/21 10:16 Pulse Rate 78 11/01/21 10:16 Respiratory Rate 18 11/01/21 10:16 Blood Pressure 103/53 11/01/21 10:16 O2 Sat by Pulse Oximetry 95 11/01/21 10:16 Pain Scale Pain Intensity 5 WNL - Physical Exam General Appearance: no apparent distress Eye Exam: PERRL/EOMI, eyes nml inspection Ears, Nose, Throat Exam: normal ENT inspection, TMs normal, pharynx normal, moist mucous membranes Neck Exam: normal inspection, non-tender, supple, full range of motion, No meningismus, No mass, No Brudzinski, No Kernig's, No carotid bruit Cardiovascular Exam: regular rate/rhythm, normal heart sounds, normal peripheral pulses, capillary refill <2 sec, No murmur Gastrointestinal/Abdomen Exam: soft, normal bowel sounds, No tenderness Extremity Exam: normal inspection, normal range of motion Neurologic Exam: alert, oriented x 3, cooperative, employment case manager II-XII nml as tested, n ormal mood/affect, nml cerebellar function, nml station & gait, sensation nml, No motor deficits, No sensory deficit Skin Exam: normal color, warm, dry Lymphatic Exam: No adenopathy SpO2 Interpretation: normal SpO2: 94 O2 Delivery: Room Air - Course Nursing assessment & vital signs reviewed: Yes EKG Interpreted by Me: RATE (NSR/R97/Mildly prolonged QTc/PAC's/No acute ST segment changes) - Radiology Exams Chest X-ray Interpretation: Discussed w/ radiologist (RLL patchy infiltrate) Ordered Tests: Active Orders 24 hr Category Date Time Status Window [place] STAT Care 11/01/21 10:50 Completed EKG-ER Only STAT Care 11/01/21 10:19 Completed IV Insertion STAT Care 11/01/21 10:50 Completed Oxygen-ED Only Nasal Cannula 2 lpm Care 11/01/21 10:51 Completed CHEST 1 VIEW (PORTABLE) Stat Exams 11/01/21 10:20 Completed BLOOD CULTURE Stat Lab 11/01/21 10:35 Received CBC W DIFF AM.LAB Lab 11/02/21 04:00 Ordered CBC W DIFF Stat Lab 11/01/21 10:35 Completed CMP AM.LAB Lab 11/02/21 04:00 Ordered CMP Stat Lab 11/01/21 10:35 Completed Lactic Acid AM.LAB Lab 11/02/21 04:00 Ordered Lactic Acid Stat Lab 11/01/21 10:50 Completed Lactic Acid Stat Lab 11/01/21 12:55 Completed NT PRO BNP Stat Lab 11/01/21 10:35 Completed PROTIME WITH INR Stat Lab 11/01/21 10:35 Completed PTT Stat Lab 11/01/21 10:35 Completed TROPONIN Q3H Lab 11/01/21 10:35 Completed TROPONIN Q3H Lab 11/01/21 12:33 Completed TROPONIN Q3H Lab 11/01/21 16:30 Ordered TROPONIN Q3H Lab 11/01/21 19:30 Ordered TROPONIN Q3H Lab 11/01/21 22:30 Ordered Transfer Order Routine Transfer 11/01/21 Completed Medication Summary Generic Name Dose Route Start Last Admin Trade Name Freq PRN Reason Stop Dose Admin Acetaminophen 650 mg 11/01/21 15:55 11/01/21 16:12 Acetaminophen 325 Mg Tablet PO 12/01/21 15:54 650 mg Q4H PRN PRN Administration PAIN AND/OR FEVER Albuterol Sulfate 2 puff 11/01/21 16:51 Albuterol Common Canister Inhaler IH 12/01/21 16:50 Q4HPRN PRN SHORTNESS OF BREATH Enoxaparin Sodium 40 mg 11/01/21 16:00 11/01/21 15:31 Enoxaparin Sodium 40 Mg/0.4 Ml Syringe SQ 12/01/21 15:59 40 mg DAILY MAMI Administration Fentanyl Citrate 50 mcg 11/01/21 14:43 11/01/21 14:51 Fentanyl Citrate 100 Mcg/2 Ml* Vial IV 11/06/21 14:42 50 mcg Q6H PRN Administration SEVERE PAIN Guaifenesin/Dextromethorphan 10 ml 11/01/21 15:12 11/01/21 15:32 Guaifenesin/D-Methorphan Hb 120 Ml Bottle PO 12/01/21 15:11 10 ml Q4H PRN PRN Administration COUGH Sodium Chloride 1,000 mls @ 100 mls/hr 11/01/21 14:15 11/01/21 14:52 Sodium Chloride 0.9% 1000 Ml IV 12/01/21 14:14 100 mls/hr .Q10H MAMI Administration Levofloxacin/Dextrose 750 mg in 150 mls @ 100 mls/hr 11/02/21 10:00 Levofloxacin 750mg/150ml D5w IV 12/02/21 09:59 Q24H10 MAMI Ondansetron HCl 4 mg 11/01/21 14:11 11/01/21 14:51 Ondansetron Hcl 4 Mg/2 Ml Vial IV 12/01/21 14:10 4 mg Q6H PRN PRN Administration NAUSEA/VOMITING Pantoprazole Sodium 40 mg 11/01/21 16:00 11/01/21 15:39 Pantoprazole 40 Mg Vial IV 12/01/21 15:59 40 mg Q24H10 MAMI Administration Discontinued Medications Generic Name Dose Route Start Last Admin Trade Name Freq PRN Reason Stop Dose Admin Albuterol/Ipratropium 3 ml 11/01/21 11:58 11/01/21 12:08 Ipratropium/Albuterol Sulfate 3 Ml Ampul.Neb IH 11/01/21 11:59 3 ml STAT ONE Administration Albuterol/Ipratropium Confirm 11/01/21 12:09 Ipratropium/Albuterol Sulfate 3 Ml Ampul.Neb Administered 11/01/21 12:10 Dose 3 ml IH .STK-MED ONE Albuterol/Ipratropium 3 ml 11/01/21 15:00 11/01/21 16:57 Ipratropium/Albuterol Sulfate 3 Ml Ampul.Neb 12/01/21 14:59 Not Given Q4HRT [facility] Aspirin 324 mg 11/01/21 10:24 11/01/21 10:57 Aspirin 81 Mg Tab.Chew PO 11/01/21 10:25 324 mg STAT ONE Administration Aspirin Confirm 11/01/21 10:55 Aspirin 81 Mg Tab.Chew Administered 11/01/21 10:56 Dose 324 mg .ROUTE .STK-MED ONE Fentanyl Citrate 50 mcg 11/01/21 11:51 11/01/21 11:52 Fentanyl Citrate 100 Mcg/2 Ml* Vial IV 11/01/21 11:52 50 mcg STAT ONE Administration Fentanyl Citrate Confirm 11/01/21 11:52 Fentanyl Citrate 100 Mcg/2 Ml* Vial Administered 11/01/21 11:53 Dose 100 mcg .ROUTE .STK-MED ONE Furosemide 20 mg 11/01/21 17:00 11/01/21 17:03 Furosemide 20 Mg/Vial IV 11/01/21 17:01 20 mg STAT ONE Administration Levofloxacin/Dextrose 750 mg in 150 mls @ 100 mls/hr 11/01/21 11:18 11/01/21 12:55 Levofloxacin 750mg/150ml D5w IV 11/01/21 12:47 Infused STAT STA Infusion Sodium Chloride 1,000 mls @ 999 mls/hr 11/01/21 11:19 11/01/21 12:25 Sodium Chloride 0.9% 1000 Ml IV 11/01/21 12:19 Infused .Q1H1M STA Infusion Sodium Chloride Confirm 11/01/21 11:22 Sodium Chloride 0.9% 1000 Ml Administered 11/01/21 11:23 Dose 1,000 mls @ ud .ROUTE .STK-MED ONE Levofloxacin/Dextrose Confirm 11/01/21 11:22 Levofloxacin 750mg/150ml D5w Administered 11/01/21 11:23 Dose 750 mg in 150 mls @ ud IV .STK-MED ONE Sodium Chloride 1,000 mls @ 999 mls/hr 11/01/21 14:10 11/01/21 14:14 Sodium Chloride 0.9% 1000 Ml IV 11/01/21 15:10 999 mls/hr .Q1H1M STA Administration Sodium Chloride Confirm 11/01/21 14:13 Sodium Chloride 0.9% 1000 Ml Administered 11/01/21 14:14 Dose 1,000 mls @ ud .ROUTE .STK-MED ONE Morphine Sulfate 4 mg 11/01/21 10:37 11/01/21 10:57 Morphine Sulfate 4 Mg/Ml Injection IV 11/01/21 10:38 4 mg STAT ONE Administration Morphine Sulfate Confirm 11/01/21 10:55 Morphine Sulfate 4 Mg/Ml Injection Administered 11/01/21 10:56 Dose 4 mg .ROUTE .STK-MED ONE Ondansetron HCl 4 mg 11/01/21 10:38 11/01/21 10:57 Ondansetron Hcl 4 Mg/2 Ml Vial IV 11/01/21 10:39 4 mg STAT ONE Administration Ondansetron HCl Confirm 11/01/21 10:54 Ondansetron Hcl 4 Mg/2 Ml Vial Administered 11/01/21 10:55 Dose 4 mg .ROUTE .STK-MED ONE Lab/Rad Data: Laboratory Result Diagrams 11/01/21 10:35 11/01/21 10:35 Laboratory Results 11/01/21 11/01/21 11/01/21 Range/Units 12:55 12:33 10:50 WBC (4.0-10.5) K/mm3 RBC (4.1-5.4) M/mm3 Hgb (12.0-16.0) gm/dl Hct (35-47) % MCV (78-100) fl MCH (26-32) pg MCHC (32-36) g/dl RDW (11.5-14.0) % Plt Count (150-450) K/mm3 MPV (7.5-11.0) fl Gran % (36.0-66.0) % Eos # (Auto) (0-0.5) Absolute Lymphs (auto) (1.0-4.6) Absolute Monos (auto) (0.0-1.3) Lymphocytes % (24.0-44.0) % Monocytes % (0.0-12.0) % Eosinophils % (0.00-5.0) % Basophils % (0.0-0.4) % Absolute Granulocytes (1.4-6.9) Basophils # (0-0.4) PT (9.4-12.5) SECONDS INR (0.8-3.0) APTT (25.1-36.5) SECONDS Sodium (137-145) mmol/L Potassium (3.5-5.1) mmol/L Chloride (98-107) mmol/L Carbon Dioxide (22-30) mmol/L Anion Gap (5-15) MEQ/L BUN (7-17) mg/dL Creatinine (0.52-1.04) mg/dL Estimated GFR ML/MIN Glucose (74-106) mg/dL Lactic Acid 2.9 H 2.7 H (0.4-2.0) Calcium (8.4-10.2) mg/dL Total Bilirubin (0.2-1.3) mg/dL AST (14-36) U/L ALT (0-35) U/L Alkaline Phosphatase (38-126) U/L Troponin I 0.022 (0.000-0.034) ng/mL NT-Pro-B Natriuret Pep (0-900) pg/mL Serum Total Protein (6.3-8.2) g/dL Albumin (3.5-5.0) g/dL 11/01/21 11/01/21 11/01/21 Range/Units 10:35 10:35 10:35 WBC (4.0-10.5) K/mm3 RBC (4.1-5.4) M/mm3 Hgb (12.0-16.0) gm/dl Hct (35-47) % MCV (78-100) fl MCH (26-32) pg MCHC (32-36) g/dl RDW (11.5-14.0) % Plt Count (150-450) K/mm3 MPV (7.5-11.0) fl Gran % (36.0-66.0) % Eos # (Auto) (0-0.5) Absolute Lymphs (auto) (1.0-4.6) Absolute Monos (auto) (0.0-1.3) Lymphocytes % (24.0-44.0) % Monocytes % (0.0-12.0) % Eosinophils % (0.00-5.0) % Basophils % (0.0-0.4) % Absolute Granulocytes (1.4-6.9) Basophils # (0-0.4) PT 15.7 H (9.4-12.5) SECONDS INR 1.33 (0.8-3.0) APTT 29.0 (25.1-36.5) SECONDS Sodium 135 L (137-145) mmol/L Potassium 3.2 L (3.5-5.1) mmol/L Chloride 98 (98-107) mmol/L Carbon Dioxide 23 (22-30) mmol/L Anion Gap 16.7 H (5-15) MEQ/L BUN 15 (7-17) mg/dL Creatinine 1.09 H (0.52-1.04) mg/dL Estimated GFR 52.3 ML/MIN Glucose 113 H (74-106) mg/dL Lactic Acid (0.4-2.0) Calcium 8.8 (8.4-10.2) mg/dL Total Bilirubin 2.40 H (0.2-1.3) mg/dL AST 29 (14-36) U/L ALT 18 (0-35) U/L Alkaline Phosphatase 110 (38-126) U/L Troponin I 0.030 (0.000-0.034) ng/mL NT-Pro-B Natriuret Pep 3540 H (0-900) pg/mL Serum Total Protein 7.0 (6.3-8.2) g/dL Albumin 3.8 (3.5-5.0) g/dL 11/01/21 Range/Units 10:35 WBC 15.5 H (4.0-10.5) K/mm3 RBC 4.10 (4.1-5.4) M/mm3 Hgb 12.5 (12.0-16.0) gm/dl Hct 38.7 (35-47) % MCV 94.4 (78-100) fl MCH 30.5 (26-32) pg MCHC 32.3 (32-36) g/dl RDW 13.8 (11.5-14.0) % Plt Count 197 (150-450) K/mm3 MPV 9.2 (7.5-11.0) fl Gran % 91.6 H (36.0-66.0) % Eos # (Auto) 0.01 (0-0.5) Absolute Lymphs (auto) 0.79 L (1.0-4.6) Absolute Monos (auto) 0.48 (0.0-1.3) Lymphocytes % 5.1 L (24.0-44.0) % Monocytes % 3.1 (0.0-12.0) % Eosinophils % 0.1 (0.00-5.0) % Basophils % 0.1 (0.0-0.4) % Absolute Granulocytes 14.23 H (1.4-6.9) Basophils # 0.02 (0-0.4) PT (9.4-12.5) SECONDS INR (0.8-3.0) APTT (25.1-36.5) SECONDS Sodium (137-145) mmol/L Potassium (3.5-5.1) mmol/L Chloride (98-107) mmol/L Carbon Dioxide (22-30) mmol/L Anion Gap (5-15) MEQ/L BUN (7-17) mg/dL Creatinine (0.52-1.04) mg/dL Estimated GFR ML/MIN Glucose (74-106) mg/dL Lactic Acid (0.4-2.0) Calcium (8.4-10.2) mg/dL Total Bilirubin (0.2-1.3) mg/dL AST (14-36) U/L ALT (0-35) U/L Alkaline Phosphatase (38-126) U/L Troponin I (0.000-0.034) ng/mL NT-Pro-B Natriuret Pep (0-900) pg/mL Serum Total Protein (6.3-8.2) g/dL Albumin (3.5-5.0) g/dL - Progress Progress: improved Progress Note: 11/01/21 14:08 1L NS bolus Blood cultures x2 750mg IV Levaquin 11/01/21 14:08 ASA 324mg po x1 4mg IV MSO4/4mg IV Zofran w minimal improvement in pain 50umg IV Fentanyl w improvement in pain Admit per Dr. Streeter/orders entered 11/01/21 17:26 Duoneb w improvement 11/01/21 17:27 Counseled pt/family regarding: lab results, diagnosis, need for follow-up, rad results - Departure Departure Disposition: Observation Clinical Impression: Pneumonia, Sepsis Condition: Stable Critical Care Time: Yes Critical Care Time(excluding separately billable procedures): Critical 30-74 mins
[2021-11-01 10:51] LABS: INR 1.33 (0.8-3.0); PROTIME 15.7 SECONDS (9.4-12.5)
[2021-11-01] MEDS ORDERED: Zofran 4 MG/2 ML VIAL ONE (10:54)
[2021-11-01] MEDS ORDERED: BABY ASPIRIN 81 MG CHEW ONE (10:55)
[2021-11-01] MEDS ORDERED: MORPHINE SULFATE 4 MG INJ ONE (10:55)
--- NOTE | 2021-11-01 10:59 | XRAY ---
Indication: Chest pain and short of breath. Comparison: March 31, 2018. Portable chest less inflated with new right mid to lower lung patchy airspace disease without consolidation/large effusion. Remaining heart and lungs unremarkable with incidental minimal left base fibrosis/scarring, tiny left lung calcified granulomas, small mediastinal calcified nodes, and left pacemaker. Bony thorax intact.
[2021-11-01 11:13] LABS: ALBUMIN 3.8 g/dL (3.5-5.0); ANION GAP 16.7 MEQ/L (5-15); BILIRUBIN,TOTAL 2.4 mg/dL (0.2-1.3); Calcium 8.8 mg/dL (8.4-10.2); Creatinine 1 1.09 mg/dL (0.52-1.04); EST GLOMERULAR FILTRATION RATE 52.3 ML/MIN; Potassium 3.2 mmol/L (3.5-5.1)
[2021-11-01] MEDS ORDERED: LEVOFLOXACIN 750MG/150ML D5W 750 MG/150 ML BAG IV STA (11:18)
[2021-11-01 11:19] LABS: INFLUENZA A NEGATIVE (NEGATIVE); INFLUENZA B NEGATIVE (NEGATIVE); RESPIRATORY SYNCTIAL VIRUS NEGATIVE (Negative); SARS-CoV-2 Xpert Express NEGATIVE (NEGATIVE)
[2021-11-01] MEDS ORDERED: Sodium Chloride 0.9% 1000 ML 1,000 ML IV STA ×2 (11:19→14:10)
[2021-11-01] MEDS ORDERED: Sodium Chloride 0.9% 1000 ML 1,000 ML ONE ×2 (11:22→14:13)
[2021-11-01] MEDS ORDERED: LEVOFLOXACIN 750MG/150ML D5W 750 MG/150 ML BAG IV ONE (11:22)
[2021-11-01] MEDS ORDERED: SUBLIMAZE 100 MCG/2 ML IV ONE (11:51)
[2021-11-01] MEDS ORDERED: SUBLIMAZE 100 MCG/2 ML ONE (11:52)
[2021-11-01] MEDS ORDERED: DUONEB 0.5-3 MG/3 ml Neb IH ONE ×3 (11:58→23:37)
[2021-11-01] MEDS ORDERED: Zofran 4 MG/2 ML VIAL IV PRN (14:11)
[2021-11-01] MEDS: SUBLIMAZE 100 MCG/2 ML IV PRN (14:51)
[2021-11-01] MEDS: Sodium Chloride 0.9% 1000 ML 1,000 ML IV SCH ×2 (14:52→23:39)
[2021-11-01] MEDS ORDERED: DUONEB 0.5-3 MG/3 ml Neb IH SCH (15:00)
[2021-11-01] MEDS: Robitussin-Dm Syrup PO PRN ×2 (15:32→20:04)
[2021-11-01] MEDS: PROTONIX 40 MG IV IV SCH (15:39)
[2021-11-01] MEDS ORDERED: TYLENOL 325 MG PO PRN (15:55)
[2021-11-01] MEDS ORDERED: ENOXAPARIN SODIUM SQ SCH (16:00)
[2021-11-01] MEDS ORDERED: VENTOLIN COMMON CANISTER IH PRN (16:51)
[2021-11-01] MEDS ORDERED: Lasix 20 MG/2 ML IV ONE ×2 (17:00→23:30)
[2021-11-01] MEDS ORDERED: REMERON 30 MG ONE (20:09)
[2021-11-01] MEDS: MIRTAZAPINE PO SCH (20:16)
[2021-11-01] MEDS ORDERED: solu-MEDROL 125 MG, Sterile H2O 10 ml 2 ML IV ONE ×2 (23:30)
[2021-11-01] MEDS ORDERED: solu-MEDROL ONE (23:34)
[2021-11-01] MEDS ORDERED: Sterile H2O 10 ml IJ ONE (23:35)
[2021-11-01] MEDS: DUONEB 0.5-3 MG/3 ml Neb IH PRN (23:53)
[2021-11-02] MEDS ORDERED: solu-MEDROL ONE ×2 (05:18→17:55)
[2021-11-02] MEDS: solu-MEDROL 125 MG, Sterile H2O 10 ml 2 ML IV SCH ×4 (05:24→13:23)
[2021-11-02 05:36] LABS: Hematocrit 38.8 % (35-47); Hemoglobin 12.6 gm/dl (12.0-16.0); Mean Cell Volume 94.4 fl (78-100); Mean Corpuscular Hemoglobin 30.7 pg (26-32); Mean Corpuscular Hgb Concent. 32.5 g/dl (32-36); Mean Platelet Volume 9.4 fl (7.5-11.0); Platelet Count 189 K/mm3 (150-450); Red Blood Count 4.11 M/mm3 (4.1-5.4); Red Cell Distribution Width 14.1 % (11.5-14.0); White Blood Count 16.2 K/mm3 (4.0-10.5)
[2021-11-02 06:06] LABS: ALBUMIN 3.4 g/dL (3.5-5.0); BILIRUBIN,TOTAL 2.1 mg/dL (0.2-1.3); Calcium 8.3 mg/dL (8.4-10.2); Creatinine 1 1.1 mg/dL (0.52-1.04); EST GLOMERULAR FILTRATION RATE 51.7 ML/MIN; Potassium 3.5 mmol/L (3.5-5.1); Total Protein 6.7 g/dL (6.3-8.2)
[2021-11-02] MEDS: SUBLIMAZE 100 MCG/2 ML IV PRN (07:27)
[2021-11-02] MEDS: DUONEB 0.5-3 MG/3 ml Neb IH PRN (07:37)
[2021-11-02] MEDS ORDERED: MEDICATION INTERVENTION MC SCH (08:15)
--- NOTE | 2021-11-02 08:53 | PCM.HP ---
History of Present Illness - Chief Complaint Chief Complaint: right sided chest pain for 1-2 days History of Present Illness: is a 71 year old female.w R sided, sharp chest pain rated 10/10 w radiation to her back x 1 days. Pt states that she is dyspneic wo N/V/D. She has a cough and mild coryza x 1-2 days. Pt has a h/o 1ppd tobacco abuse/hypertension/hyperlipidemia. Fever is denied. Timing/Duration: yesterday Activities at Onset: rest Quality: sharpness, stabbing Location: other (R sided chest w radiation to her back) Chest Pain Radiation: back Severity of Pain-Max: severe Severity of Pain-Current: severe Associated Symptoms: shortness of breath, cough, hurts to breathe, No nausea, No vomiting, No palpitations, No heartburn, No abdominal pain, No diaphoresis, No chills, No fever, No fatigue, No weakness, No swelling/lump in chest, No syncope, No rash, No headache, No dizziness, No edema, No back pain Nitro Today/Relief: no nitro taken today Aspirin Treatment Today: no aspirin today - Review of Systems Constitutional: Fever, Chills Eyes: No Symptoms Ears, Nose, & Throat: No Symptoms Respiratory: Orthopnea, Short Of Breath, Wheezing, No Cough Cardiac: Chest Pain (right sided), No Edema, No Syncope Abdominal/Gastrointestinal: No Abdominal Pain, No Nausea, No Vomiting, No Diarrhea Genitourinary Symptoms: No Dysuria Musculoskeletal: No Back Pain, No Neck Pain Skin: No Rash Neurological: No Dizziness, No Focal Weakness, No Sensory Changes Psychological: No Symptoms Endocrine: No Symptoms Hematologic/Lymphatic: No Symptoms Immunological/Allergic: No Symptoms Medications & Allergies Home Medications: Home Medication List Clopidogrel Bisulfate 75 mg [PLAVIX 75 MG Tablet] 0.5 tab PO DAILY 07/31/13 [History Confirmed 11/01/21] Rivaroxaban [Xarelto] 20 mg PO DAILY 10/27/14 [History Confirmed 11/01/21] Vilazodone Hydrochloride [Viibryd] 40 mg PO DAILY 01/24/16 [History Confirmed 11/01/21] Albuterol Sulfate [Proair Digihaler] 2 puff IH QIDPRN PRN 11/01/21 [History Confirmed 11/01/21] Mirtazapine [Remeron] 15 mg PO HS 11/01/21 [History Confirmed 11/01/21] clonazePAM [Klonopin] 1.5 tab PO DAILY PRN PRN 11/01/21 [History Confirmed 11/01/21] hydrOXYzine HCL [Hydroxyzine HCl] 1 tab PO TIDPRN PRN 11/01/21 [History Confirmed 11/01/21] Allergies/Adverse Reactions: Allergies Allergy/AdvReac Type Severity Reaction Status Date / Time Penicillins Allergy Hives Verified 11/01/21 10:24 sulfamethoxazole Allergy Nausea and Verified 11/01/21 10:24 [From Bactrim] Vomiting trimethoprim [From Bactrim] Allergy Nausea and Verified 11/01/21 10:24 Vomiting - Past Medical History Past Medical History: Yes Neurological History: No Pertinent History ENT History: Cataracts Cardiac History: Aneurysm, Arrhythmia, Congestive Heart Failure, Hypertension, Myocardial Infarction ([place]) Respiratory History: No Pertinent History Endocrine Medical History: No Pertinent History Musculoskelatal History: Osteoarthritis, Rheumatoid Arthritis GI Medical History: Cirrhosis, GERD History: No Pertinent History Pyscho-Social History: Depression Reproductive Disorders: No Pertinent History Comment: PACEMAKER NEUROPATHY - Past Surgical History Past Surgical History: Yes Neuro Surgical History: No Pertinent History Cardiac History: Cardiac Catheterization, Pacemaker Respiratory Surgery: No Pertinent History GI Surgical History: Other Genitourinary Surgical Hx: No Pertinent History Musculskeletal Surgical Hx: Joint Replacement Female Surgical History: Hysterectomy Other Surgical History: PACEMAKER PLACEMENT, HYSTERECTOMY , left IOL October 2017 - Social History Smoking Status: Current every day smoker How long have you smoked: 50 years Exposure to second hand smoke: Yes Alcohol: None Drug Use: none Significant Family History: no pertinent family hx - Physical Exam Vital Signs: Vital Signs - 24 hr Temp Pulse Resp BP Pulse Ox 11/02/21 08:00 96.9 F 88 26 H 133/76 94 L 11/02/21 07:38 84 16 94 L 11/02/21 04:00 97.0 F 92 H 24 112/62 94 L 11/01/21 23:53 91 H 28 H 94 L 11/01/21 23:04 99 H 28 H 125/67 92 L 11/01/21 19:50 98.3 F 91 H 28 H 94/55 92 L 11/01/21 19:05 94 H 22 90 L 11/01/21 17:28 94 L 11/01/21 16:53 92 L 11/01/21 16:05 100 H 18 95 11/01/21 16:03 100.5 F 105 H 29 H 106/56 92 L 11/01/21 15:14 98.6 F 96 H 24 103/59 96 11/01/21 14:43 98.6 F 96 H 24 103/59 96 11/01/21 14:00 94 H 22 100/58 95 11/01/21 13:00 92 H 22 99/56 95 11/01/21 12:08 96 H 18 95 11/01/21 12:00 88 22 114/67 96 11/01/21 11:00 88 24 115/71 95 11/01/21 10:22 22 94 L 11/01/21 10:16 97.2 F 78 18 103/53 95 General Appearance: no apparent distress, alert Neurologic Exam: alert, oriented x 3, cooperative, normal mood/affect, nml cerebellar function, nml station & gait, sensation nml, No motor deficits Eye Exam: PERRL/EOMI, eyes nml inspection Ears, Nose, Throat Exam: normal ENT inspection, TMs normal, pharynx normal, moist mucous membranes Neck Exam: normal inspection, non-tender, supple, full range of motion Respiratory Exam: respiratory distress, diminished breath sounds, crackles/rales, rhonchi, wheezing Cardiovascular Exam: regular rate/rhythm, normal heart sounds, normal peripheral pulses Gastrointestinal/Abdomen Exam: soft, normal bowel sounds, No tenderness, No mass Back Exam: normal inspection, normal range of motion, No CVA tenderness, No vertebral tenderness Extremity Exam: normal inspection, normal range of motion, pelvis stable Skin Exam: normal color, warm, dry, No rash Lymphatic Exam: No adenopathy Results - Labs Lab/Micro Results: Lab Results-Last 24 Hours 11/01/21 11/01/21 11/01/21 Range/Units 10:35 10:35 10:35 WBC 15.5 H (4.0-10.5) K/mm3 RBC 4.10 (4.1-5.4) M/mm3 Hgb 12.5 (12.0-16.0) gm/dl Hct 38.7 (35-47) % MCV 94.4 (78-100) fl MCH 30.5 (26-32) pg MCHC 32.3 (32-36) g/dl RDW 13.8 (11.5-14.0) % Plt Count 197 (150-450) K/mm3 MPV 9.2 (7.5-11.0) fl Gran % 91.6 H (36.0-66.0) % Eos # (Auto) 0.01 (0-0.5) Absolute Lymphs (auto) 0.79 L (1.0-4.6) Absolute Monos (auto) 0.48 (0.0-1.3) Lymphocytes % 5.1 L (24.0-44.0) % Monocytes % 3.1 (0.0-12.0) % Eosinophils % 0.1 (0.00-5.0) % Basophils % 0.1 (0.0-0.4) % Absolute Granulocytes 14.23 H (1.4-6.9) Basophils # 0.02 (0-0.4) PT 15.7 H (9.4-12.5) SECONDS INR 1.33 (0.8-3.0) APTT 29.0 (25.1-36.5) SECONDS Sodium 135 L (137-145) mmol/L Potassium 3.2 L (3.5-5.1) mmol/L Chloride 98 (98-107) mmol/L Carbon Dioxide 23 (22-30) mmol/L Anion Gap 16.7 H (5-15) MEQ/L BUN 15 (7-17) mg/dL Creatinine 1.09 H (0.52-1.04) mg/dL Estimated GFR 52.3 ML/MIN Glucose 113 H (74-106) mg/dL Lactic Acid (0.4-2.0) Calcium 8.8 (8.4-10.2) mg/dL Total Bilirubin 2.40 H (0.2-1.3) mg/dL AST 29 (14-36) U/L ALT 18 (0-35) U/L Alkaline Phosphatase 110 (38-126) U/L Troponin I (0.000-0.034) ng/mL NT-Pro-B Natriuret Pep 3540 H (0-900) pg/mL Serum Total Protein 7.0 (6.3-8.2) g/dL Albumin 3.8 (3.5-5.0) g/dL Influenza Type A Ag (NEGATIVE) Influenza Type B Ag (NEGATIVE) RSV (PCR) (Negative) SARS-CoV-2 (PCR) (NEGATIVE) 11/01/21 11/01/21 11/01/21 Range/Units 10:35 10:50 12:33 WBC (4.0-10.5) K/mm3 RBC (4.1-5.4) M/mm3 Hgb (12.0-16.0) gm/dl Hct (35-47) % MCV (78-100) fl MCH (26-32) pg MCHC (32-36) g/dl RDW (11.5-14.0) % Plt Count (150-450) K/mm3 MPV (7.5-11.0) fl Gran % (36.0-66.0) % Eos # (Auto) (0-0.5) Absolute Lymphs (auto) (1.0-4.6) Absolute Monos (auto) (0.0-1.3) Lymphocytes % (24.0-44.0) % Monocytes % (0.0-12.0) % Eosinophils % (0.00-5.0) % Basophils % (0.0-0.4) % Absolute Granulocytes (1.4-6.9) Basophils # (0-0.4) PT (9.4-12.5) SECONDS INR (0.8-3.0) APTT (25.1-36.5) SECONDS Sodium (137-145) mmol/L Potassium (3.5-5.1) mmol/L Chloride (98-107) mmol/L Carbon Dioxide (22-30) mmol/L Anion Gap (5-15) MEQ/L BUN (7-17) mg/dL Creatinine (0.52-1.04) mg/dL Estimated GFR ML/MIN Glucose (74-106) mg/dL Lactic Acid 2.7 H (0.4-2.0) Calcium (8.4-10.2) mg/dL Total Bilirubin (0.2-1.3) mg/dL AST (14-36) U/L ALT (0-35) U/L Alkaline Phosphatase (38-126) U/L Troponin I 0.030 0.022 (0.000-0.034) ng/mL NT-Pro-B Natriuret Pep (0-900) pg/mL Serum Total Protein (6.3-8.2) g/dL Albumin (3.5-5.0) g/dL Influenza Type A Ag (NEGATIVE) Influenza Type B Ag (NEGATIVE) RSV (PCR) (Negative) SARS-CoV-2 (PCR) (NEGATIVE) 11/01/21 11/01/21 11/01/21 Range/Units 12:55 18:00 18:45 WBC (4.0-10.5) K/mm3 RBC (4.1-5.4) M/mm3 Hgb (12.0-16.0) gm/dl Hct (35-47) % MCV (78-100) fl MCH (26-32) pg MCHC (32-36) g/dl RDW (11.5-14.0) % Plt Count (150-450) K/mm3 MPV (7.5-11.0) fl Gran % (36.0-66.0) % Eos # (Auto) (0-0.5) Absolute Lymphs (auto) (1.0-4.6) Absolute Monos (auto) (0.0-1.3) Lymphocytes % (24.0-44.0) % Monocytes % (0.0-12.0) % Eosinophils % (0.00-5.0) % Basophils % (0.0-0.4) % Absolute Granulocytes (1.4-6.9) Basophils # (0-0.4) PT (9.4-12.5) SECONDS INR (0.8-3.0) APTT (25.1-36.5) SECONDS Sodium (137-145) mmol/L Potassium (3.5-5.1) mmol/L Chloride (98-107) mmol/L Carbon Dioxide (22-30) mmol/L Anion Gap (5-15) MEQ/L BUN (7-17) mg/dL Creatinine (0.52-1.04) mg/dL Estimated GFR ML/MIN Glucose (74-106) mg/dL Lactic Acid 2.9 H 2.2 H (0.4-2.0) Calcium (8.4-10.2) mg/dL Total Bilirubin (0.2-1.3) mg/dL AST (14-36) U/L ALT (0-35) U/L Alkaline Phosphatase (38-126) U/L Troponin I 0.028 (0.000-0.034) ng/mL NT-Pro-B Natriuret Pep (0-900) pg/mL Serum Total Protein (6.3-8.2) g/dL Albumin (3.5-5.0) g/dL Influenza Type A Ag (NEGATIVE) Influenza Type B Ag (NEGATIVE) RSV (PCR) (Negative) SARS-CoV-2 (PCR) (NEGATIVE) 11/01/21 11/01/21 11/02/21 Range/Units 22:45 Unknown 04:00 WBC (4.0-10.5) K/mm3 RBC (4.1-5.4) M/mm3 Hgb (12.0-16.0) gm/dl Hct (35-47) % MCV (78-100) fl MCH (26-32) pg MCHC (32-36) g/dl RDW (11.5-14.0) % Plt Count (150-450) K/mm3 MPV (7.5-11.0) fl Gran % (36.0-66.0) % Eos # (Auto) (0-0.5) Absolute Lymphs (auto) (1.0-4.6) Absolute Monos (auto) (0.0-1.3) Lymphocytes % (24.0-44.0) % Monocytes % (0.0-12.0) % Eosinophils % (0.00-5.0) % Basophils % (0.0-0.4) % Absolute Granulocytes (1.4-6.9) Basophils # (0-0.4) PT (9.4-12.5) SECONDS INR (0.8-3.0) APTT (25.1-36.5) SECONDS Sodium (137-145) mmol/L Potassium (3.5-5.1) mmol/L Chloride (98-107) mmol/L Carbon Dioxide (22-30) mmol/L Anion Gap (5-15) MEQ/L BUN (7-17) mg/dL Creatinine (0.52-1.04) mg/dL Estimated GFR ML/MIN Glucose (74-106) mg/dL Lactic Acid 2.5 H (0.4-2.0) Calcium (8.4-10.2) mg/dL Total Bilirubin (0.2-1.3) mg/dL AST (14-36) U/L ALT (0-35) U/L Alkaline Phosphatase (38-126) U/L Troponin I 0.033 (0.000-0.034) ng/mL NT-Pro-B Natriuret Pep (0-900) pg/mL Serum Total Protein (6.3-8.2) g/dL Albumin (3.5-5.0) g/dL Influenza Type A Ag NEGATIVE (NEGATIVE) Influenza Type B Ag NEGATIVE (NEGATIVE) RSV (PCR) NEGATIVE (Negative) SARS-CoV-2 (PCR) NEGATIVE (NEGATIVE) 11/02/21 11/02/21 Range/Units 05:15 05:30 WBC 16.2 H (4.0-10.5) K/mm3 RBC 4.11 (4.1-5.4) M/mm3 Hgb 12.6 (12.0-16.0) gm/dl Hct 38.8 (35-47) % MCV 94.4 (78-100) fl MCH 30.7 (26-32) pg MCHC 32.5 (32-36) g/dl RDW 14.1 H (11.5-14.0) % Plt Count 189 (150-450) K/mm3 MPV 9.4 (7.5-11.0) fl Gran % (36.0-66.0) % Eos # (Auto) (0-0.5) Absolute Lymphs (auto) (1.0-4.6) Absolute Monos (auto) (0.0-1.3) Lymphocytes % (24.0-44.0) % Monocytes % (0.0-12.0) % Eosinophils % (0.00-5.0) % Basophils % (0.0-0.4) % Absolute Granulocytes (1.4-6.9) Basophils # (0-0.4) PT (9.4-12.5) SECONDS INR (0.8-3.0) APTT (25.1-36.5) SECONDS Sodium 139 (137-145) mmol/L Potassium 3.5 (3.5-5.1) mmol/L Chloride 106 (98-107) mmol/L Carbon Dioxide 20 L (22-30) mmol/L Anion Gap 16.0 H (5-15) MEQ/L BUN 20 H (7-17) mg/dL Creatinine 1.10 H (0.52-1.04) mg/dL Estimated GFR 51.7 ML/MIN Glucose 96 (74-106) mg/dL Lactic Acid (0.4-2.0) Calcium 8.3 L (8.4-10.2) mg/dL Total Bilirubin 2.10 H (0.2-1.3) mg/dL AST 55 H (14-36) U/L ALT 41 H (0-35) U/L Alkaline Phosphatase 151 H (38-126) U/L Troponin I (0.000-0.034) ng/mL NT-Pro-B Natriuret Pep (0-900) pg/mL Serum Total Protein 6.7 (6.3-8.2) g/dL Albumin 3.4 L (3.5-5.0) g/dL Influenza Type A Ag (NEGATIVE) Influenza Type B Ag (NEGATIVE) RSV (PCR) (Negative) SARS-CoV-2 (PCR) (NEGATIVE) - Radiology Impressions Radiology Exams & Impressions: Radiology Procedures Category Date Time Status CHEST 1 VIEW (PORTABLE) Stat Exams 11/01/21 10:20 Completed Portable chest less inflated with new right mid to lower lung patchy airspace disease without consolidation/large effusion. Remaining heart and lungs unremarkable with incidental minimal left base fibrosis/scarring, tiny left lung calcified granulomas, small mediastinal calcified nodes, and left pacemaker. Bony thorax intact - Other Procedures and Tests Respiratory Therapy 11/01/21 12:26 Respiratory Therapy Assessment DAILY 11/01/21 14:11 Oxygen Nasal Cannula 2 lpm Assessment/Plan (1) Sepsis Current Visit: Yes Status: Acute Qualifiers: Sepsis type: Pneumococcus Sepsis acute organ dysfunction status: with acute organ dysfunction Severe sepsis acute organ dysfunction type: acute respiratory failure Acute respiratory failure type: with hypoxia Severe sepsis shock status: without septic shock Qualified Code(s): A40.3 - Sepsis due to Streptococcus pneumoniae; R65.20 - Severe sepsis without septic shock; J96.01 - Acute respiratory failure with hypoxia Assessment & Plan: Chief Complaint Diagnosis pneumonia Allergies Allergy/AdvReac Type Severity Reaction Status Date / Time Penicillins Allergy Hives Verified 11/01/21 10:24 sulfamethoxazole Allergy Nausea and Verified 11/01/21 10:24 [From Bactrim] Vomiting trimethoprim [From Bactrim] Allergy Nausea and Verified 11/01/21 10:24 Vomiting Vital Signs (Last 24 hours) Temp Pulse Resp BP Pulse Ox 11/02/21 08:00 96.9 F 88 26 H 133/76 94 L 11/02/21 07:38 84 16 94 L 11/02/21 04:00 97.0 F 92 H 24 112/62 94 L 11/01/21 23:53 91 H 28 H 94 L 11/01/21 23:04 99 H 28 H 125/67 92 L 11/01/21 19:50 98.3 F 91 H 28 H 94/55 92 L 11/01/21 19:05 94 H 22 90 L 11/01/21 17:28 94 L 11/01/21 16:53 92 L 11/01/21 16:05 100 H 18 95 11/01/21 16:03 100.5 F 105 H 29 H 106/56 92 L 11/01/21 15:14 98.6 F 96 H 24 103/59 96 11/01/21 14:43 98.6 F 96 H 24 103/59 96 11/01/21 14:00 94 H 22 100/58 95 11/01/21 13:00 92 H 22 99/56 95 11/01/21 12:08 96 H 18 95 11/01/21 12:00 88 22 114/67 96 11/01/21 11:00 88 24 115/71 95 11/01/21 10:22 22 94 L 11/01/21 10:16 97.2 F 78 18 103/53 95 Home Medications Medication Instructions Recorded Confirmed Last Taken Type Albuterol Sulfate [Proair 2 puff IH QIDPRN PRN 11/01/21 11/01/21 Unknown History Digihaler] Mirtazapine [Remeron] 15 mg PO HS 11/01/21 11/01/21 Unknown History clonazePAM [Klonopin] 1.5 tab PO DAILY PRN PRN 11/01/21 11/01/21 Unknown History hydrOXYzine HCL [Hydroxyzine HCl] 1 tab PO TIDPRN PRN 11/01/21 11/01/21 Unknown History Current Medications Generic Name Dose Route Start Last Admin Trade Name Freq PRN Reason Stop Dose Admin Acetaminophen 650 mg 11/01/21 15:55 11/01/21 16:12 Acetaminophen 325 Mg Tablet PO 12/01/21 15:54 650 mg Q4H PRN PRN Administration PAIN AND/OR FEVER Albuterol Sulfate 2 puff 11/01/21 16:51 Albuterol Common Canister Inhaler 12/01/21 16:50 Q4HPRN PRN SHORTNESS OF BREATH Albuterol/Ipratropium 3 ml 11/01/21 23:51 11/02/21 07:37 Ipratropium/Albuterol Sulfate 3 Ml Ampul.Neb 12/01/21 23:50 3 ml Q4HPRN PRN Administration SHORTNESS OF BREATH/WHEEZING Clopidogrel Bisulfate 37.5 mg 11/02/21 10:00 Clopidogrel Bisulfate 75 Mg Tablet PO 12/02/21 09:59 DAILY MAMI Methylprednisolone Sodium 0 mg 11/02/21 06:00 11/02/21 05:24 Succinate 125 mg/ Sterile IV 12/02/21 05:59 125 mg Water 2 ml Q6HT MAMI Administration Enoxaparin Sodium 40 mg 11/01/21 16:00 11/01/21 15:31 Enoxaparin Sodium 40 Mg/0.4 Ml Syringe SQ 12/01/21 15:59 40 mg DAILY MAMI Administration Fentanyl Citrate 50 mcg 11/01/21 14:43 11/02/21 07:27 Fentanyl Citrate 100 Mcg/2 Ml* Vial IV 11/06/21 14:42 50 mcg Q6H PRN Administration SEVERE PAIN Guaifenesin/Dextromethorphan 10 ml 11/01/21 15:12 11/01/21 20:04 Guaifenesin/D-Methorphan Hb 120 Ml Bottle PO 12/01/21 15:11 10 ml Q4H PRN PRN Administration COUGH Sodium Chloride 1,000 mls @ 100 mls/hr 11/01/21 14:15 11/01/21 23:39 Sodium Chloride 0.9% 1000 Ml IV 12/01/21 14:14 100 mls/hr .Q10H MAMI Administration Levofloxacin/Dextrose 750 mg in 150 mls @ 100 mls/hr 11/02/21 10:00 Levofloxacin 750mg/150ml D5w IV 12/02/21 09:59 Q24H10 MAMI Mirtazapine 15 mg 11/01/21 22:00 11/01/21 20:16 Mirtazapine 15 Mg Tablet PO 12/01/21 21:59 15 mg HS MAMI Administration Miscellaneous Information 1 each 11/02/21 08:15 Medication Intervention 1 Each Each 12/02/21 08:14 .RN TO CHECK WITH PT [facility] Ondansetron HCl 4 mg 11/01/21 14:11 11/01/21 14:51 Ondansetron Hcl 4 Mg/2 Ml Vial IV 12/01/21 14:10 4 mg Q6H PRN PRN Administration NAUSEA/VOMITING Pantoprazole Sodium 40 mg 11/01/21 16:00 11/01/21 15:39 Pantoprazole 40 Mg Vial IV 12/01/21 15:59 40 mg Q24H10 MAMI Administration Rivaroxaban 20 mg 11/02/21 10:00 Rivaroxaban 10 Mg Tablet PO 12/02/21 09:59 DAILY MAMI Discontinued Medications Generic Name Dose Route Start Last Admin Trade Name Freq PRN Reason Stop Dose Admin Albuterol/Ipratropium 3 ml 11/01/21 11:58 11/01/21 12:08 Ipratropium/Albuterol Sulfate 3 Ml Ampul.Neb 11/01/21 11:59 3 ml STAT ONE Administration Albuterol/Ipratropium Confirm 11/01/21 12:09 Ipratropium/Albuterol Sulfate 3 Ml Ampul.Neb Administered 11/01/21 12:10 Dose 3 ml IH .STK-MED ONE Albuterol/Ipratropium 3 ml 11/01/21 15:00 11/01/21 16:57 Ipratropium/Albuterol Sulfate 3 Ml Ampul.Neb 12/01/21 14:59 Not Given Q4HRT MAMI Albuterol/Ipratropium Confirm 11/01/21 23:37 Ipratropium/Albuterol Sulfate 3 Ml Ampul.Neb Administered 11/01/21 23:38 Dose 3 ml IH .STK-MED ONE Aspirin 324 mg 11/01/21 10:24 11/01/21 10:57 Aspirin 81 Mg Tab.Chew PO 11/01/21 10:25 324 mg STAT ONE Administration Aspirin Confirm 11/01/21 10:55 Aspirin 81 Mg Tab.Chew Administered 11/01/21 10:56 Dose 324 mg .ROUTE .STK-MED ONE Methylprednisolone Sodium 0 mg 11/01/21 23:30 11/01/21 23:38 Succinate 125 mg/ Sterile IV 11/01/21 23:31 125 mg Water 2 ml STAT ONE Administration Fentanyl Citrate 50 mcg 11/01/21 11:51 11/01/21 11:52 Fentanyl Citrate 100 Mcg/2 Ml* Vial IV 11/01/21 11:52 50 mcg STAT ONE Administration Fentanyl Citrate Confirm 11/01/21 11:52 Fentanyl Citrate 100 Mcg/2 Ml* Vial Administered 11/01/21 11:53 Dose 100 mcg .ROUTE .STK-MED ONE Furosemide 20 mg 11/01/21 17:00 11/01/21 17:03 Furosemide 20 Mg/Vial IV 11/01/21 17:01 20 mg STAT ONE Administration Furosemide 20 mg 11/01/21 23:30 11/01/21 23:38 Furosemide 20 Mg/Vial IV 11/01/21 23:31 20 mg STAT ONE Administration Levofloxacin/Dextrose 750 mg in 150 mls @ 100 mls/hr 11/01/21 11:18 11/01/21 12:55 Levofloxacin 750mg/150ml D5w IV 11/01/21 12:47 Infused STAT STA Infusion Sodium Chloride 1,000 mls @ 999 mls/hr 11/01/21 11:19 11/01/21 12:25 Sodium Chloride 0.9% 1000 Ml IV 11/01/21 12:19 Infused .Q1H1M STA Infusion Sodium Chloride Confirm 11/01/21 11:22 Sodium Chloride 0.9% 1000 Ml Administered 11/01/21 11:23 Dose 1,000 mls @ ud .ROUTE .STK-MED ONE Levofloxacin/Dextrose Confirm 11/01/21 11:22 Levofloxacin 750mg/150ml D5w Administered 11/01/21 11:23 Dose 750 mg in 150 mls @ ud IV .STK-MED ONE Sodium Chloride 1,000 mls @ 999 mls/hr 11/01/21 14:10 11/01/21 14:14 Sodium Chloride 0.9% 1000 Ml IV 11/01/21 15:10 999 mls/hr .Q1H1M STA Administration Sodium Chloride Confirm 11/01/21 14:13 Sodium Chloride 0.9% 1000 Ml Administered 11/01/21 14:14 Dose 1,000 mls @ ud .ROUTE .STK-MED ONE Methylprednisolone Sodium Succinate Confirm 11/01/21 23:34 Methylprednis Sod Succ 125 Mg/2 Ml Vial Administered 11/01/21 23:35 Dose 125 mg .ROUTE .STK-MED ONE Methylprednisolone Sodium Succinate Confirm 11/02/21 05:18 Methylprednis Sod Succ 125 Mg/2 Ml Vial Administered 11/02/21 05:19 Dose 125 mg .ROUTE .STK-MED ONE Mirtazapine Confirm 11/01/21 20:09 Mirtazapine 30 Mg Tablet Administered 11/01/21 20:10 Dose 30 mg .ROUTE .STK-MED ONE Morphine Sulfate 4 mg 11/01/21 10:37 11/01/21 10:57 Morphine Sulfate 4 Mg/Ml Injection IV 11/01/21 10:38 4 mg STAT ONE Administration Morphine Sulfate Confirm 11/01/21 10:55 Morphine Sulfate 4 Mg/Ml Injection Administered 11/01/21 10:56 Dose 4 mg .ROUTE .STK-MED ONE Ondansetron HCl 4 mg 11/01/21 10:38 11/01/21 10:57 Ondansetron Hcl 4 Mg/2 Ml Vial IV 11/01/21 10:39 4 mg STAT ONE Administration Ondansetron HCl Confirm 11/01/21 10:54 Ondansetron Hcl 4 Mg/2 Ml Vial Administered 11/01/21 10:55 Dose 4 mg .ROUTE .STK-MED ONE Sterile Water Confirm 11/01/21 23:35 Water For Injection,Sterile 10 Ml Vial Administered 11/01/21 23:36 Dose 10 ml IJ .STK-MED ONE Intake & Output (Last 24 hours) 10/30/21 10/31/21 11/01/21 11/02/21 11:59 11:59 11:59 11:59 Intake Total 3622 Output Total 4000 Balance -378 Weight 80 kg 80 kg Microbiology Results (Last 24 hours) 11/01/21 10:35 Blood Blood Culture Gram Stain - Pending 11/01/21 10:35 Blood Blood Culture - Pending 11/01/21 10:25 Blood Blood Culture Gram Stain - Pending 11/01/21 10:25 Blood Blood Culture - Pending Laboratory Results (Last 24 hours) 11/02/21 11/02/21 11/02/21 05:30 05:15 04:00 WBC 16.2 H RBC 4.11 Hgb 12.6 Hct 38.8 MCV 94.4 MCH 30.7 MCHC 32.5 RDW 14.1 H Plt Count 189 MPV 9.4 Gran % Eos # (Auto) Absolute Lymphs (auto) Absolute Monos (auto) Lymphocytes % Monocytes % Eosinophils % Basophils % Absolute Granulocytes Basophils # PT INR APTT Sodium 139 Potassium 3.5 Chloride 106 Carbon Dioxide 20 L Anion Gap 16.0 H BUN 20 H Creatinine 1.10 H Estimated GFR 51.7 Glucose 96 Lactic Acid 2.5 H Calcium 8.3 L Total Bilirubin 2.10 H AST 55 H ALT 41 H Alkaline Phosphatase 151 H Troponin I NT-Pro-B Natriuret Pep Serum Total Protein 6.7 Albumin 3.4 L Influenza Type A Ag Influenza Type B Ag RSV (PCR) SARS-CoV-2 (PCR) 11/01/21 11/01/21 11/01/21 Unknown 22:45 18:45 WBC RBC Hgb Hct MCV MCH MCHC RDW Plt Count MPV Gran % Eos # (Auto) Absolute Lymphs (auto) Absolute Monos (auto) Lymphocytes % Monocytes % Eosinophils % Basophils % Absolute Granulocytes Basophils # PT INR APTT Sodium Potassium Chloride Carbon Dioxide Anion Gap BUN Creatinine Estimated GFR Glucose Lactic Acid Calcium Total Bilirubin AST ALT Alkaline Phosphatase Troponin I 0.033 0.028 NT-Pro-B Natriuret Pep Serum Total Protein Albumin Influenza Type A Ag NEGATIVE Influenza Type B Ag NEGATIVE RSV (PCR) NEGATIVE SARS-CoV-2 (PCR) NEGATIVE 11/01/21 11/01/21 11/01/21 18:00 12:55 12:33 WBC RBC Hgb Hct MCV MCH MCHC RDW Plt Count MPV Gran % Eos # (Auto) Absolute Lymphs (auto) Absolute Monos (auto) Lymphocytes % Monocytes % Eosinophils % Basophils % Absolute Granulocytes Basophils # PT INR APTT Sodium Potassium Chloride Carbon Dioxide Anion Gap BUN Creatinine Estimated GFR Glucose Lactic Acid 2.2 H 2.9 H Calcium Total Bilirubin AST ALT Alkaline Phosphatase Troponin I 0.022 NT-Pro-B Natriuret Pep Serum Total Protein Albumin Influenza Type A Ag Influenza Type B Ag RSV (PCR) SARS-CoV-2 (PCR) 11/01/21 11/01/21 11/01/21 10:50 10:35 10:35 WBC RBC Hgb Hct MCV MCH MCHC RDW Plt Count MPV Gran % Eos # (Auto) Absolute Lymphs (auto) Absolute Monos (auto) Lymphocytes % Monocytes % Eosinophils % Basophils % Absolute Granulocytes Basophils # PT 15.7 H INR 1.33 APTT 29.0 Sodium Potassium Chloride Carbon Dioxide Anion Gap BUN Creatinine Estimated GFR Glucose Lactic Acid 2.7 H Calcium Total Bilirubin AST ALT Alkaline Phosphatase Troponin I 0.030 NT-Pro-B Natriuret Pep Serum Total Protein Albumin Influenza Type A Ag Influenza Type B Ag RSV (PCR) SARS-CoV-2 (PCR) 11/01/21 11/01/21 10:35 10:35 WBC 15.5 H RBC 4.10 Hgb 12.5 Hct 38.7 MCV 94.4 MCH 30.5 MCHC 32.3 RDW 13.8 Plt Count 197 MPV 9.2 Gran % 91.6 H Eos # (Auto) 0.01 Absolute Lymphs (auto) 0.79 L Absolute Monos (auto) 0.48 Lymphocytes % 5.1 L Monocytes % 3.1 Eosinophils % 0.1 Basophils % 0.1 Absolute Granulocytes 14.23 H Basophils # 0.02 PT INR APTT Sodium 135 L Potassium 3.2 L Chloride 98 Carbon Dioxide 23 Anion Gap 16.7 H BUN 15 Creatinine 1.09 H Estimated GFR 52.3 Glucose 113 H Lactic Acid Calcium 8.8 Total Bilirubin 2.40 H AST 29 ALT 18 Alkaline Phosphatase 110 Troponin I NT-Pro-B Natriuret Pep 3540 H Serum Total Protein 7.0 Albumin 3.8 Influenza Type A Ag Influenza Type B Ag RSV (PCR) SARS-CoV-2 (PCR) Orders (Last 24 hours) Category Date Time Status Bedrest with BRP/BSC ROUTINE Activity 11/01/21 14:13 Active [employer] STAT Care 11/01/21 10:50 Completed EKG-ER Only STAT Care 11/01/21 10:19 Completed IV Insertion STAT Care 11/01/21 10:50 Completed Oxygen-ED Only Nasal Cannula 2 lpm Care 11/01/21 10:[address] in Observation ROUTINE Care 11/01/21 14:11 Active House Regular Diet Diet 11/01/21 Dinner Completed House Regular Diet Diet 11/02/21 Breakfast Active CHEST 1 VIEW (PORTABLE) Stat Exams 11/01/21 10:20 Completed BLOOD CULTURE Stat Lab 11/01/21 10:35 Received CBC W DIFF AM.LAB Lab 11/02/21 05:15 Completed CBC W DIFF Stat Lab 11/01/21 10:35 Completed CMP AM.LAB Lab 11/02/21 05:30 Completed CMP Stat Lab 11/01/21 10:35 Completed Lactic Acid AM.LAB Lab 11/02/21 04:00 Completed Lactic Acid Stat Lab 11/01/21 10:50 Completed Lactic Acid Stat Lab 11/01/21 12:55 Completed Lactic Acid Stat Lab 11/01/21 18:00 Completed Lactic Acid Stat Lab 11/02/21 07:31 Received Manual Differential NC Routine Lab 11/02/21 05:15 Completed NT PRO BNP Stat Lab 11/01/21 10:35 Completed PROTIME WITH INR Stat Lab 11/01/21 10:35 Completed PTT Stat Lab 11/01/21 10:35 Completed TROPONIN Q3H Lab 11/01/21 10:35 Completed TROPONIN Q3H Lab 11/01/21 12:33 Completed TROPONIN Q3H Lab 11/01/21 18:45 Completed TROPONIN Q3H Lab 11/01/21 22:45 Completed Acetaminophen 325 mg [Tylenol 325 mg] Med 11/01/21 15:55 Active 650 mg PO Q4H PRN PRN Albuterol Common Canister [Ventolin Common Canister* Med 11/01/21 16:51 Active ] 2 puff IH Q4HPRN PRN Albuterol/Ipratropium 3ml Neb* [DUONEB 0.5-3 MG/3 ml Med 11/01/21 12:09 Discon tinued Neb] 3 ml IH .STK-MED ONE Albuterol/Ipratropium 3ml Neb* [DUONEB 0.5-3 MG/3 ml Med 11/01/21 23:37 Discontinued Neb] 3 ml IH .STK-MED ONE Albuterol/Ipratropium 3ml Neb* [DUONEB 0.5-3 MG/3 ml Med 11/01/21 23:51 Active Neb] 3 ml IH Q4HPRN PRN Albuterol/Ipratropium 3ml Neb* [DUONEB 0.5-3 MG/3 ml Med 11/01/21 15:00 Discontinued Neb] 3 ml IH Q4HRT Albuterol/Ipratropium 3ml Neb* [DUONEB 0.5-3 MG/3 ml Med 11/01/21 11:58 Discontinued Neb] 3 ml IH STAT ONE Aspirin 81 gm Chew [Baby Aspirin 81 mg Chew] Med 11/01/21 10:55 Discontinued 324 mg .ROUTE .STK-MED ONE Aspirin 81 gm Chew [Baby Aspirin 81 mg Chew] Med 11/01/21 10:24 Discontinued 324 mg PO STAT ONE Clopidogrel Bisulfate 75 mg [PLAVIX 75 MG Tablet] Med 11/02/21 10:00 Active 37.5 mg PO DAILY Enoxaparin Sodium [Enoxaparin Sodium] Med 11/01/21 16:00 Active 40 mg SQ DAILY Fentanyl Citrate 100 Mcg/2 ml* [Sublimaze 100 Mcg/2 ml* Med 11/01/21 11:52 Discontinued ] 100 mcg .ROUTE .STK-MED ONE Fentanyl Citrate 100 Mcg/2 ml* [Sublimaze 100 Mcg/2 ml* Med 11/01/21 14:43 Active ] 50 mcg IV Q6H PRN Fentanyl Citrate 100 Mcg/2 ml* [Sublimaze 100 Mcg/2 ml* Med 11/01/21 11:51 Discontinued ] 50 mcg IV STAT ONE Furosemide 20 mg/2 ml [Lasix 20 MG/2 ML] Med 11/01/21 17:00 Discontinued 20 mg IV STAT ONE Furosemide 20 mg/2 ml [Lasix 20 MG/2 ML] Med 11/01/21 23:30 Discontinued 20 mg IV STAT ONE Guaifenesin/D-Methorphan Hb [Robitussin-Dm Syrup] Med 11/01/21 15:12 Active 10 ml PO Q4H PRN PRN Levofloxacin [Levofloxacin 750Mg/150Ml D5w] Med 11/02/21 10:00 Active 750 mg in 150 ml IV Q24H10 Levofloxacin [Levofloxacin 750Mg/150Ml D5w] Med 11/01/21 11:18 Discontinued 750 mg in 150 ml IV STAT Levofloxacin [Levofloxacin 750Mg/150Ml D5w] Med 11/01/21 11:22 Discontinued 750 mg in 150 ml IV UD Medication Intervention Med 11/02/21 08:15 Active 1 each MC .RN TO CHECK WITH PT Methylprednis Sod Succ 125 mg* [solu-MEDROL] Med 11/01/21 23:34 Discontinued 125 mg .ROUTE .STK-MED ONE Methylprednis Sod Succ 125 mg* [solu-MEDROL] Med 11/02/21 05:18 Discontinued 125 mg .ROUTE .STK-MED ONE Methylprednis Sod Succ 125 mg* [solu-MEDROL] 125 mg Med 11/02/21 06:00 Active Water For Injection,Sterile [Sterile H2O 10 ml] 2 ml IV Q6HT Methylprednis Sod Succ 125 mg* [solu-MEDROL] 125 mg Med 11/01/21 23:30 Discontinued Water For Injection,Sterile [Sterile H2O 10 ml] 2 ml IV STAT Mirtazapine Med 11/01/21 22:00 Active 15 mg PO HS Mirtazapine 30 mg [Remeron 30 mg] Med 11/01/21 20:09 Discontinued 30 mg .ROUTE .STK-MED ONE Morphine Sulfate 4 mg Inj Med 11/01/21 10:55 Discontinued 4 mg .ROUTE .STK-MED ONE Morphine Sulfate 4 mg Inj Med 11/01/21 10:37 Discontinued 4 mg IV STAT ONE NaCl 0.9% 1000 ml [Sodium Chloride 0.9% 1000 ML] 000 Med 11/01/21 11:22 Discontinued ml .ROUTE UD NaCl 0.9% 1000 ml [Sodium Chloride 0.9% 1000 ML] 000 Med 11/01/21 14:13 Discontinued ml .ROUTE UD NaCl 0.9% 1000 ml [Sodium Chloride 0.9% 1000 ML] 000 Med 11/01/21 14:15 Active ml IV 100 mls/hr NaCl 0.9% 1000 ml [Sodium Chloride 0.9% 1000 ML] 000 Med 11/01/21 11:19 Discontinued ml IV 999 mls/hr NaCl 0.9% 1000 ml [Sodium Chloride 0.9% 1000 ML] 000 Med 11/01/21 14:10 Discontinued ml IV 999 mls/hr Ondansetron HCl 4 mg/2 ml [Zofran 4 MG/2 ML VIAL] Med 11/01/21 10:54 Discontinued 4 mg .ROUTE .STK-MED ONE Ondansetron HCl 4 mg/2 ml [Zofran 4 MG/2 ML VIAL] Med 11/01/21 14:11 Active 4 mg IV Q6H PRN PRN Ondansetron HCl 4 mg/2 ml [Zofran 4 MG/2 ML VIAL] Med 11/01/21 10:38 Discontinued 4 mg IV STAT ONE Pantoprazole 40 mg [Protonix 40 mg IV] Med 11/01/21 16:00 Active 40 mg IV Q24H10 Rivaroxaban 10 mg Tablet [Xarelto 10 mg Tablet] Med 11/02/21 10:00 Active 20 mg PO DAILY Water For Injection,Sterile [Sterile H2O 10 ml] Med 11/01/21 23:35 Discontinued 10 ml IJ .STK-MED ONE Oxygen Nasal Cannula 2 lpm RT 11/01/21 14:11 Active Pulse Oximetry ROUTINE RT 11/01/21 16:53 Active Respiratory Therapy Assessment DAILY RT 11/01/21 12:26 Active Patient Care Notes (Last 24 hours) 11/01/21 23:35 Nursing Note by La Hoang Call made again to Dr. Streeter at [phone], answered. Assessment findings relayed to physician. Orders received for solumedrol 125mg IV x1 now and then every 6 hours, duonebs, and lasix 20mg IV x1 now. Initialized on 11/01/21 23:35 - END OF NOTE 11/01/21 23:08 Nursing Note by La Hoang During hourly rounding noted patient having audible wheezing. Auscultated lung sounds and noted increased crackles bilaterally. Patient's vital signs assessed BP 125/67, HR 99 O2 sat 92%. Call made to Dr. Streeter at 1106, rang 2 times and then went to voicemail. Call made again at 1108, again rang 2 times and then went to voicemail. This nurse left message that had concerns about a patient and needed a call back as soon as received. Addendum entered by La Hoang 11/02/21 02:46: CORRECTION: Times Dr. Streeter contacted were [phone] Initialized on 11/01/21 23:08 - END OF NOTE (2) Pneumonia Current Visit: Yes Status: Acute Qualifiers: Pneumonia type: due to Pneumococcus Laterality: right Lung location: middle lobe of lung Qualified Code(s): J13 - Pneumonia due to Streptococcus pneumoniae Code(s): J18.9 - PNEUMONIA, UNSPECIFIED ORGANISM
[2021-11-02] MEDS: XARELTO 10 MG TABLET PO SCH (09:41)
[2021-11-02] MEDS: LEVOFLOXACIN 750MG/150ML D5W 750 MG/150 ML BAG IV SCH (09:41)
[2021-11-02] MEDS: PROTONIX 40 MG IV IV SCH (09:41)
[2021-11-02] MEDS: PLAVIX 75 MG Tablet PO SCH (09:42)
[2021-11-02] MEDS: Sodium Chloride 0.9% 1000 ML 1,000 ML IV SCH ×2 (09:42→10:49)
[2021-11-02] MEDS ORDERED: VILAZODONE HYDROCHLORIDE 10 MG PO SCH (10:00)
[2021-11-02 12:14] LABS: BAND 3 % (0.0-2.0); Lymphocytes 2 % (24-44); Monocyte 1 % (0.0-12.0); Platelet Estimate NORMAL (NORMAL); Total Cells Counted 100; Toxic Granulation 1+
[2021-11-02] MEDS ORDERED: solu-MEDROL 80 MG, Sterile H2O 10 ml 2 ML IV SCH ×2 (13:49)
[2021-11-02] MEDS: solu-MEDROL 80 MG, Sterile H2O 10 ml 2 ML IV SCH ×4 (18:13→23:58)
[2021-11-02] MEDS: MIRTAZAPINE PO SCH (21:25)
[2021-11-03] MEDS: solu-MEDROL 80 MG, Sterile H2O 10 ml 2 ML IV SCH ×2 (05:27)
[2021-11-03 06:29] LABS: Absolute Neutrophil Ct (ANC) 15.97 (1.4-6.9); Basophil (Absolute #) 0 (0-0.4); Eosinophil % 0.1 % (0.00-5.0); Eosinophil (Absolute #) 0.01 (0-0.5); Hematocrit 36.4 % (35-47); Hemoglobin 11.9 gm/dl (12.0-16.0); Lymphocyte (Absolute #) 0.74 (1.0-4.6); Lymphocytes % 4.3 % (24.0-44.0); Mean Cell Volume 93.8 fl (78-100); Mean Corpuscular Hemoglobin 30.7 pg (26-32); Mean Corpuscular Hgb Concent. 32.7 g/dl (32-36); Mean Platelet Volume 9.6 fl (7.5-11.0); Monocyte (Absolute #) 0.58 (0.0-1.3); Monocytes % 3.4 % (0.0-12.0); Neutrophil % 92.2 % (36.0-66.0); Platelet Count 228 K/mm3 (150-450); Red Blood Count 3.88 M/mm3 (4.1-5.4); Red Cell Distribution Width 13.9 % (11.5-14.0); White Blood Count 17.3 K/mm3 (4.0-10.5)
[2021-11-03 06:42] LABS: ALBUMIN 3.1 g/dL (3.5-5.0); ALKALINE PHOSPHATASE 126 U/L (38-126); ANION GAP 10.6 MEQ/L (5-15); BLOOD UREA NITROGEN 32 mg/dL (7-17); CHLORIDE 109 mmol/L (98-107); Carbon Dioxide 26 mmol/L (22-30); Creatinine 1 0.89 mg/dL (0.52-1.04); EST GLOMERULAR FILTRATION RATE > 60.0 ML/MIN; Glucose 140 mg/dL (74-106); NT PRO BNP 1780 pg/mL (0-900); Potassium 3.3 mmol/L (3.5-5.1); SGOT/AST 25 U/L (14-36); SGPT/ALT 28 U/L (0-35); SODIUM 143 mmol/L (137-145); Total Protein 6.2 g/dL (6.3-8.2)
[2021-11-03] MEDS: DUONEB 0.5-3 MG/3 ml Neb IH PRN (07:46)
[2021-11-03] MEDS: Sodium Chloride 0.9% 1000 ML 1,000 ML IV SCH (07:55)
[2021-11-03] MEDS: PLAVIX 75 MG Tablet PO SCH (09:26)
[2021-11-03] MEDS: XARELTO 10 MG TABLET PO SCH (09:26)
--- NOTE | 2021-11-03 11:01 | PCM.NOTE ---
Date and Time: 11/03/21 1101 Subjective Assessment: doing better - Review of Systems Constitutional: No Fever, No Chills Eyes: No Symptoms Ears, Nose, & Throat: No Symptoms Respiratory: No Cough, No Short Of Breath Cardiac: No Chest Pain, No Edema, No Syncope Abdominal/Gastrointestinal: No Abdominal Pain, No Nausea, No Vomiting, No Diarrhea Genitourinary Symptoms: No Dysuria Musculoskeletal: No Back Pain, No Neck Pain Skin: No Rash Neurological: No Dizziness, No Focal Weakness, No Sensory Changes Psychological: No Symptoms Endocrine: No Symptoms Hematologic/Lymphatic: No Symptoms Immunological/Allergic: No Symptoms Objective Exam General Appearance: no apparent distress, alert Neurologic Exam: alert, oriented x 3, cooperative, normal mood/affect, nml cerebellar function, sensation nml, No motor deficits Skin Exam: normal color, warm, dry Eye Exam: PERRL, EOMI, eyes nml inspection Ears, Nose, Throat Exam: normal ENT inspection, pharynx normal, moist mucous membranes Neck Exam: normal inspection, non-tender, supple, full range of motion Respiratory Exam: diminished breath sounds, rhonchi, wheezing, No respiratory distress Cardiovascular Exam: regular rate/rhythm, normal heart sounds Gastrointestinal/Abdomen Exam: soft, No tenderness, No mass Extremity Exam: normal inspection, normal range of motion Back Exam: normal inspection, normal range of motion, No CVA tenderness, No vertebral tenderness Pelvic Exam: deferred Rectal Exam: deferred OBJECTIVE DATA Vital Signs: Vital Signs - 24 hr Temp Pulse Resp BP Pulse Ox 11/03/21 07:49 97.9 F 73 16 143/75 96 11/03/21 07:47 88 20 94 L 11/03/21 04:00 97.3 F 85 20 166/96 99 11/02/21 23:38 98.0 F 94 H 17 126/62 99 11/02/21 19:31 97.8 F 97 H 12 124/69 92 L 11/02/21 19:09 96 H 18 97 11/02/21 16:00 96.9 F 101 H 20 135/66 96 11/02/21 11:47 97.0 F 109 H 25 H 139/75 97 Pain Assessment - Last Documented Pain Intensity 0 Pain Scale Used 0-10 Pain Scale Intake and Output: Intake & Output 10/31/21 11/01/21 11/02/21 11/03/21 11:59 11:59 11:59 11:59 Intake Total 3862 2844 Output Total 4000 1400 Balance -138 1444 Weight 80 kg 80 kg 80 kg Lab Results: Lab Results-Last 24 Hours 11/02/21 11/03/21 11/03/21 Range/Units 05:15 05:35 05:35 WBC 17.3 H (4.0-10.5) K/mm3 RBC 3.88 L (4.1-5.4) M/mm3 Hgb 11.9 L (12.0-16.0) gm/dl Hct 36.4 (35-47) % MCV 93.8 (78-100) fl MCH 30.7 (26-32) pg MCHC 32.7 (32-36) g/dl RDW 13.9 (11.5-14.0) % Plt Count 228 (150-450) K/mm3 MPV 9.6 (7.5-11.0) fl Gran % 92.2 H (36.0-66.0) % Eos # (Auto) 0.01 (0-0.5) Absolute Lymphs (auto) 0.74 L (1.0-4.6) Absolute Monos (auto) 0.58 (0.0-1.3) Lymphocytes % 4.3 L (24.0-44.0) % Monocytes % 3.4 (0.0-12.0) % Eosinophils % 0.1 (0.00-5.0) % Basophils % 0.0 (0.0-0.4) % Absolute Granulocytes 15.97 H (1.4-6.9) Segmented Neutrophils 94 H (36.0-66.0) % Band Neutrophils 3 H (0.0-2.0) % Lymphocytes (Manual) 2 L (24-44) % Monocytes (Manual) 1 (0.0-12.0) % Basophils # 0 (0-0.4) Toxic Granulation 1+ Platelet Estimate NORMAL (NORMAL) RBC Morphology NORMAL Sodium 143 (137-145) mmol/L Potassium 3.3 L (3.5-5.1) mmol/L Chloride 109 H (98-107) mmol/L Carbon Dioxide 26 (22-30) mmol/L Anion Gap 10.6 (5-15) MEQ/L BUN 32 H (7-17) mg/dL Creatinine 0.89 (0.52-1.04) mg/dL Estimated GFR > 60.0 ML/MIN Glucose 140 H (74-106) mg/dL Calcium 9.0 (8.4-10.2) mg/dL Total Bilirubin 0.70 (0.2-1.3) mg/dL AST 25 (14-36) U/L ALT 28 (0-35) U/L Alkaline Phosphatase 126 (38-126) U/L NT-Pro-B Natriuret Pep 1780 H (0-900) pg/mL Serum Total Protein 6.2 L (6.3-8.2) g/dL Albumin 3.1 L (3.5-5.0) g/dL Radiology Exams: Radiology Procedures Category Date Time Status CHEST 1 VIEW (PORTABLE) Stat Exams 11/01/21 10:20 Completed Assessment/Plan (1) Sepsis Current Visit: Yes Status: Acute Qualifiers: Sepsis type: Pneumococcus Sepsis acute organ dysfunction status: with acute organ dysfunction Severe sepsis acute organ dysfunction type: acute respiratory failure Acute respiratory failure type: with hypoxia Severe sepsis shock status: without septic shock Qualified Code(s): A40.3 - Sepsis due to Streptococcus pneumoniae; R65.20 - Severe sepsis without septic shock; J96.01 - Acute respiratory failure with hypoxia (2) Pneumonia Current Visit: Yes Status: Acute Qualifiers: Pneumonia type: due to Pneumococcus Laterality: right Lung location: middle lobe of lung Qualified Code(s): J13 - Pneumonia due to Streptococcus pneumoniae Code(s): J18.9 - PNEUMONIA, UNSPECIFIED ORGANISM
[2021-11-03] MEDS: PROTONIX 40 MG IV IV SCH (11:32)
[2021-11-03] MEDS: LEVOFLOXACIN 750MG/150ML D5W 750 MG/150 ML BAG IV SCH (11:32)
[2021-11-03 12:17] VITALS: BP 142/65; PULSE 96; O2SAT 93
--- NOTE | 2021-11-03 14:52 | PCM.DS ---
Discharge Summary Date of Admission: 11/01/21 14:31 Admitting Physician: MINESH CORONA Primary Care Provider: LULA JAMES Allergies Allergies Penicillins Allergy (Verified 11/01/21 10:24) Hives sulfamethoxazole [From Bactrim] Allergy (Verified 11/01/21 10:24) Nausea and Vomiting trimethoprim [From Bactrim] Allergy (Verified 11/01/21 10:24) Nausea and Vomiting Hospital Summary - Hospital Course Hospital Course: Chief Complaint Diagnosis right sided chest pain for 1-2 days Allergies Allergy/AdvReac Type Severity Reaction Status Date / Time Penicillins Allergy Hives Verified 11/01/21 10:24 sulfamethoxazole Allergy Nausea and Verified 11/01/21 10:24 [From Bactrim] Vomiting trimethoprim [From Bactrim] Allergy Nausea and Verified 11/01/21 10:24 Vomiting Vital Signs (Last 24 hours) Temp Pulse Resp BP Pulse Ox 11/03/21 12:00 97.7 F 96 H 18 142/65 93 L 11/03/21 07:49 97.9 F 73 16 143/75 96 11/03/21 07:47 88 20 94 L 11/03/21 04:00 97.3 F 85 20 166/96 99 11/02/21 23:38 98.0 F 94 H 17 126/62 99 11/02/21 19:31 97.8 F 97 H 12 124/69 92 L 11/02/21 19:09 96 H 18 97 11/02/21 16:00 96.9 F 101 H 20 135/66 96 Home Medications Medication Instructions Recorded Confirmed Last Taken Type Albuterol Sulfate [Proair 2 puff IH QIDPRN PRN 11/01/21 11/01/21 Unknown History Digihaler] Mirtazapine [Remeron] 15 mg PO HS 11/01/21 11/01/21 Unknown History clonazePAM [Klonopin] 1.5 tab PO DAILY PRN PRN 11/01/21 11/01/21 Unknown History hydrOXYzine HCL [Hydroxyzine HCl] 1 tab PO TIDPRN PRN 11/01/21 11/01/21 Unknown History Azithromycin 250 mg [Zithromax 250 mg PO ZPACK #6 tablet 11/03/21 Unknown Rx 250 MG TABLET] Methylprednisolone Packet 4 mg PO DAILY #1 packet 11/03/21 Unknown Rx [Medrol Dosepack] Current Medications Discontinued Medications Generic Name Dose Route Start Last Admin Trade Name Candidoq PRN Reason Stop Dose Admin Acetaminophen 650 mg 11/01/21 15:55 11/01/21 16:12 Acetaminophen 325 Mg Tablet PO 12/01/21 15:54 650 mg Q4H PRN PRN Administration PAIN AND/OR FEVER Albuterol Sulfate 2 puff 11/01/21 16:51 Albuterol Common Canister Inhaler 12/01/21 16:50 Q4HPRN PRN SHORTNESS OF BREATH Albuterol/Ipratropium 3 ml 11/01/21 11:58 11/01/21 12:08 Ipratropium/Albuterol Sulfate 3 Ml Ampul.Neb IH 11/01/21 11:59 3 ml STAT ONE Administration Albuterol/Ipratropium Confirm 11/01/21 12:09 Ipratropium/Albuterol Sulfate 3 Ml Ampul.Neb Administered 11/01/21 12:10 Dose 3 ml IH .STK-MED ONE Albuterol/Ipratropium 3 ml 11/01/21 15:00 11/01/21 16:57 Ipratropium/Albuterol Sulfate 3 Ml Ampul.Neb 12/01/21 14:59 Not Given Q4HRT MAMI Albuterol/Ipratropium Confirm 11/01/21 23:37 Ipratropium/Albuterol Sulfate 3 Ml Ampul.Neb Administered 11/01/21 23:38 Dose 3 ml IH .STK-MED ONE Albuterol/Ipratropium 3 ml 11/01/21 23:51 11/03/21 07:46 Ipratropium/Albuterol Sulfate 3 Ml Ampul.Neb 12/01/21 23:50 3 ml Q4HPRN PRN Administration SHORTNESS OF BREATH/WHEEZING Aspirin 324 mg 11/01/21 10:24 11/01/21 10:57 Aspirin 81 Mg Tab.Chew PO 11/01/21 10:25 324 mg STAT ONE Administration Aspirin Confirm 11/01/21 10:55 Aspirin 81 Mg Tab.Chew Administered 11/01/21 10:56 Dose 324 mg .ROUTE .STK-MED ONE Clopidogrel Bisulfate 37.5 mg 11/02/21 10:00 11/03/21 09:26 Clopidogrel Bisulfate 75 Mg Tablet PO 12/02/21 09:59 37.5 mg DAILY MAMI Administration Methylprednisolone Sodium 0 mg 11/01/21 23:30 11/01/21 23:38 Succinate 125 mg/ Sterile IV 11/01/21 23:31 125 mg Water 2 ml STAT ONE Administration Methylprednisolone Sodium 0 mg 11/02/21 06:00 11/02/21 13:23 Succinate 125 mg/ Sterile IV 12/02/21 05:59 125 mg Water 2 ml Q6HT MAMI Administration Methylprednisolone Sodium 0 mg 11/02/21 18:00 11/03/21 05:27 Succinate 80 mg/ Sterile Water IV 12/02/21 17:59 80 mg 2 ml Q6HT MAMI Administration Enoxaparin Sodium 40 mg 11/01/21 16:00 11/01/21 15:31 Enoxaparin Sodium 40 Mg/0.4 Ml Syringe SQ 12/01/21 15:59 40 mg DAILY MAMI Administration Fentanyl Citrate 50 mcg 11/01/21 11:51 11/01/21 11:52 Fentanyl Citrate 100 Mcg/2 Ml* Vial IV 11/01/21 11:52 50 mcg STAT ONE Administration Fentanyl Citrate Confirm 11/01/21 11:52 Fentanyl Citrate 100 Mcg/2 Ml* Vial Administered 11/01/21 11:53 Dose 100 mcg .ROUTE .STK-MED ONE Fentanyl Citrate 50 mcg 11/01/21 14:43 11/02/21 07:27 Fentanyl Citrate 100 Mcg/2 Ml* Vial IV 11/06/21 14:42 50 mcg Q6H PRN Administration SEVERE PAIN Furosemide 20 mg 11/01/21 17:00 11/01/21 17:03 Furosemide 20 Mg/Vial IV 11/01/21 17:01 20 mg STAT ONE Administration Furosemide 20 mg 11/01/21 23:30 11/01/21 23:38 Furosemide 20 Mg/Vial IV 11/01/21 23:31 20 mg STAT ONE Administration Guaifenesin/Dextromethorphan 10 ml 11/01/21 15:12 11/01/21 20:04 Guaifenesin/D-Methorphan Hb 120 Ml Bottle PO 12/01/21 15:11 10 ml Q4H PRN PRN Administration COUGH Levofloxacin/Dextrose 750 mg in 150 mls @ 100 mls/hr 11/01/21 11:18 11/01/21 12:55 Levofloxacin 750mg/150ml D5w IV 11/01/21 12:47 Infused STAT STA Infusion Sodium Chloride 1,000 mls @ 999 mls/hr 11/01/21 11:19 11/01/21 12:25 Sodium Chloride 0.9% 1000 Ml IV 11/01/21 12:19 Infused .Q1H1M STA Infusion Sodium Chloride Confirm 11/01/21 11:22 Sodium Chloride 0.9% 1000 Ml Administered 11/01/21 11:23 Dose 1,000 mls @ ud .ROUTE .STK-MED ONE Levofloxacin/Dextrose Confirm 11/01/21 11:22 Levofloxacin 750mg/150ml D5w Administered 11/01/21 11:23 Dose 750 mg in 150 mls @ ud IV .STK-MED ONE Sodium Chloride 1,000 mls @ 999 mls/hr 11/01/21 14:10 11/01/21 14:14 Sodium Chloride 0.9% 1000 Ml IV 11/01/21 15:10 999 mls/hr .Q1H1M STA Administration Sodium Chloride Confirm 11/01/21 14:13 Sodium Chloride 0.9% 1000 Ml Administered 11/01/21 14:14 Dose 1,000 mls @ ud .ROUTE .STK-MED ONE Sodium Chloride 1,000 mls @ 50 mls/hr 11/01/21 14:15 11/03/21 07:55 Sodium Chloride 0.9% 1000 Ml IV 12/01/21 14:14 Not Given .Q20H MAMI Levofloxacin/Dextrose 750 mg in 150 mls @ 100 mls/hr 11/02/21 10:00 11/03/21 11:32 Levofloxacin 750mg/150ml D5w IV 12/02/21 09:59 Not Given Q24H10 MAMI Methylprednisolone Sodium Succinate Confirm 11/01/21 23:34 Methylprednis Sod Succ 125 Mg/2 Ml Vial Administered 11/01/21 23:35 Dose 125 mg .ROUTE .STK-MED ONE Methylprednisolone Sodium Succinate Confirm 11/02/21 05:18 Methylprednis Sod Succ 125 Mg/2 Ml Vial Administered 11/02/21 05:19 Dose 125 mg .ROUTE .STK-MED ONE Methylprednisolone Sodium Succinate Confirm 11/02/21 17:55 Methylprednis Sod Succ 125 Mg/2 Ml Vial Administered 11/02/21 17:56 Dose 125 mg .ROUTE .STK-MED ONE Mirtazapine 15 mg 11/01/21 22:00 11/02/21 21:25 Mirtazapine 15 Mg Tablet PO 12/01/21 21:59 15 mg HS MAMI Administration Mirtazapine Confirm 11/01/21 20:09 Mirtazapine 30 Mg Tablet Administered 11/01/21 20:10 Dose 30 mg .ROUTE .STK-MED ONE Miscellaneous Information 1 each 11/02/21 08:15 Medication Intervention 1 Each Each 12/02/21 08:14 .RN TO CHECK WITH PT MAMI Morphine Sulfate 4 mg 11/01/21 10:37 11/01/21 10:57 Morphine Sulfate 4 Mg/Ml Injection IV 11/01/21 10:38 4 mg STAT ONE Administration Morphine Sulfate Confirm 11/01/21 10:55 Morphine Sulfate 4 Mg/Ml Injection Administered 11/01/21 10:56 Dose 4 mg .ROUTE .STK-MED ONE Ondansetron HCl 4 mg 11/01/21 10:38 11/01/21 10:57 Ondansetron Hcl 4 Mg/2 Ml Vial IV 11/01/21 10:39 4 mg STAT ONE Administration Ondansetron HCl Confirm 11/01/21 10:54 Ondansetron Hcl 4 Mg/2 Ml Vial Administered 11/01/21 10:55 Dose 4 mg .ROUTE .STK-MED ONE Ondansetron HCl 4 mg 11/01/21 14:11 11/01/21 14:51 Ondansetron Hcl 4 Mg/2 Ml Vial IV 12/01/21 14:10 4 mg Q6H PRN PRN Administration NAUSEA/VOMITING Pantoprazole Sodium 40 mg 11/01/21 16:00 11/03/21 11:32 Pantoprazole 40 Mg Vial IV 12/01/21 15:59 Not Given Q24H10 MAMI Rivaroxaban 20 mg 11/02/21 10:00 11/03/21 09:26 Rivaroxaban 10 Mg Tablet PO 12/02/21 09:59 20 mg DAILY MAMI Administration Sterile Water Confirm 11/01/21 23:35 Water For Injection,Sterile 10 Ml Vial Administered 11/01/21 23:36 Dose 10 ml IJ .STK-MED ONE Intake & Output (Last 24 hours) 11/01/21 11/02/21 11/03/21 11/04/21 11:59 11:59 11:59 11:59 Intake Total 3862 2844 960 Output Total 4000 1400 Balance -138 1444 960 Weight 80 kg 80 kg 80 kg Microbiology Results (Last 24 hours) 11/01/21 10:35 Blood Blood Culture Gram Stain - Pending 11/01/21 10:35 Blood Blood Culture - Preliminary NO GROWTH TO DATE 11/01/21 10:25 Blood Blood Culture Gram Stain - Pending 11/01/21 10:25 Blood Blood Culture - Preliminary NO GROWTH TO DATE Laboratory Results (Last 24 hours) 11/03/21 11/03/21 05:35 05:35 WBC 17.3 H RBC 3.88 L Hgb 11.9 L Hct 36.4 MCV 93.8 MCH 30.7 MCHC 32.7 RDW 13.9 Plt Count 228 MPV 9.6 Gran % 92.2 H Eos # (Auto) 0.01 Absolute Lymphs (auto) 0.74 L Absolute Monos (auto) 0.58 Lymphocytes % 4.3 L Monocytes % 3.4 Eosinophils % 0.1 Basophils % 0.0 Absolute Granulocytes 15.97 H Basophils # 0 Sodium 143 Potassium 3.3 L Chloride 109 H Carbon Dioxide 26 Anion Gap 10.6 BUN 32 H Creatinine 0.89 Estimated GFR > 60.0 Glucose 140 H Calcium 9.0 Total Bilirubin 0.70 AST 25 ALT 28 Alkaline Phosphatase 126 NT-Pro-B Natriuret Pep 1780 H Serum Total Protein 6.2 L Albumin 3.1 L Orders (Last 24 hours) Category Date Time Status Discharge Routine Discharge 11/03/21 Ordered Discharge Routine Discharge 11/03/21 Ordered Discharge/Telephone Order Routine Discharge 11/03/21 Active BNP [NT PRO BNP] AM.LAB Lab 11/03/21 05:35 Completed CBC W DIFF AM.LAB Lab 11/03/21 05:35 Completed CMP AM.LAB Lab 11/03/21 05:35 Completed Methylprednis Sod Succ 125 mg* [solu-MEDROL] Med 11/02/21 17:55 Discontinued 125 mg .ROUTE .STK-MED ONE Methylprednis Sod Succ 125 mg* [solu-MEDROL] 80 mg Med 11/02/21 18:00 Discontinued Water For Injection,Sterile [Sterile H2O 10 ml] 2 ml IV Q6HT Patient Care Notes (Last 24 hours) 11/03/21 13:16 Nursing Note by Margy Conn WITH DR. CORONA. PATIENT WILL DISCHARGE WITH ZPACK AND MEDROL DOSE PACK. FOLLOW UP WITH PCP Initialized on 11/03/21 13:16 - END OF NOTE 11/03/21 07:54 Nursing Note by Hyun Smith placed on room air, o2 sat 95% Initialized on 11/03/21 07:54 - END OF NOTE - Vitals & Intake/Output Vital Signs: Vital Signs Temperature 97.7 F 11/03/21 12:00 Pulse Rate 96 H 11/03/21 12:00 Respiratory Rate 18 11/03/21 12:00 Blood Pressure 142/65 11/03/21 12:00 O2 Sat by Pulse Oximetry 93 L 11/03/21 12:00 Intake & Output: Intake & Output 11/01/21 11/02/21 11/03/21 11/04/21 11:59 11:59 11:59 11:59 Intake Total 3862 2844 960 Output Total 4000 1400 Balance -138 1444 960 Weight 80 kg 80 kg 80 kg - Lab Result Diagrams: 11/03/21 05:35 11/03/21 05:35 Lab Results-Last 24 Hrs: Lab Results-Last 24 Hours 11/03/21 11/03/21 Range/Units 05:35 05:35 WBC 17.3 H (4.0-10.5) K/mm3 RBC 3.88 L (4.1-5.4) M/mm3 Hgb 11.9 L (12.0-16.0) gm/dl Hct 36.4 (35-47) % MCV 93.8 (78-100) fl MCH 30.7 (26-32) pg MCHC 32.7 (32-36) g/dl RDW 13.9 (11.5-14.0) % Plt Count 228 (150-450) K/mm3 MPV 9.6 (7.5-11.0) fl Gran % 92.2 H (36.0-66.0) % Eos # (Auto) 0.01 (0-0.5) Absolute Lymphs (auto) 0.74 L (1.0-4.6) Absolute Monos (auto) 0.58 (0.0-1.3) Lymphocytes % 4.3 L (24.0-44.0) % Monocytes % 3.4 (0.0-12.0) % Eosinophils % 0.1 (0.00-5.0) % Basophils % 0.0 (0.0-0.4) % Absolute Granulocytes 15.97 H (1.4-6.9) Basophils # 0 (0-0.4) Sodium 143 (137-145) mmol/L Potassium 3.3 L (3.5-5.1) mmol/L Chloride 109 H (98-107) mmol/L Carbon Dioxide 26 (22-30) mmol/L Anion Gap 10.6 (5-15) MEQ/L BUN 32 H (7-17) mg/dL Creatinine 0.89 (0.52-1.04) mg/dL Estimated GFR > 60.0 ML/MIN Glucose 140 H (74-106) mg/dL Calcium 9.0 (8.4-10.2) mg/dL Total Bilirubin 0.70 (0.2-1.3) mg/dL AST 25 (14-36) U/L ALT 28 (0-35) U/L Alkaline Phosphatase 126 (38-126) U/L NT-Pro-B Natriuret Pep 1780 H (0-900) pg/mL Serum Total Protein 6.2 L (6.3-8.2) g/dL Albumin 3.1 L (3.5-5.0) g/dL Micro Results-Entire Visit: Microbiology 11/01/21 10:35 Blood Culture - Preliminary Blood NO GROWTH TO DATE 11/01/21 10:25 Blood Culture - Preliminary Blood NO GROWTH TO DATE - Procedures and Test Procedures and Tests throughout Hospitalization: Therapy Orders & Screens 11/01/21 12:26 Respiratory Therapy Assessment DAILY Comment: 11/01/21 14:11 Oxygen Nasal Cannula 2 lpm Comment: Discharge Exam General Appearance: no apparent distress, alert Neurologic Exam: alert, oriented x 3, cooperative, normal mood/affect, nml cerebellar function, sensation nml, No motor deficits Eye Exam: PERRL, EOMI, eyes nml inspection Ears, Nose, Throat Exam: normal ENT inspection, pharynx normal, moist mucous membranes Neck Exam: normal inspection, non-tender, supple, full range of motion Respiratory Exam: normal breath sounds, lungs clear, No respiratory distress Cardiovascular Exam: regular rate/rhythm, normal heart sounds Gastrointestinal/Abdomen Exam: soft, No tenderness, No mass Pelvic Exam: deferred Rectal Exam: deferred Back Exam: normal inspection, normal range of motion, No CVA tenderness, No vertebral tenderness Extremity Exam: normal inspection, normal range of motion Skin Exam: normal color, warm, dry Final Diagnosis/Problem List - Final Discharge Diagnosis/Problem (1) Sepsis Status: Resolved (2) Pneumonia Status: Acute Assessment & Plan: improved. d/c home with oral abx Code(s): J18.9 - PNEUMONIA, UNSPECIFIED ORGANISM - Discharge Discharge Date: 11/03/21 Disposition: Home, Self-Care Condition: Stable Prescriptions: New Methylprednisolone Packet [Medrol Dosepack] 4 mg PO DAILY #1 packet Azithromycin 250 mg [Zithromax 250 MG TABLET] 250 mg PO ZPACK #6 tablet Continue Clopidogrel Bisulfate 75 mg [PLAVIX 75 MG Tablet] 0.5 tab PO DAILY Rivaroxaban [Xarelto] 20 mg PO DAILY Vilazodone Hydrochloride [Viibryd] 40 mg PO DAILY hydrOXYzine HCL [Hydroxyzine HCl] 1 tab PO TIDPRN PRN PRN Reason: Anxiety clonazePAM [Klonopin] 1.5 tab PO DAILY PRN PRN PRN Reason: Anxiety Mirtazapine [Remeron] 15 mg PO HS Albuterol Sulfate [Proair Digihaler] 2 puff IH QIDPRN PRN PRN Reason: Shortness Of Breath/Wheezing Instructions: Preventing Falls in the Older Adult, Heart Failure, Adult (DC), Pneumonia, Adult (DC) Follow up with: ROXANA KENNEDY [CONSULTING PHYSICIAN] - Call for Appointment CLARENCE SHORT [ACTIVE STAFF] - Call for Appointment
== END 2021-11-03 14:00 | disposition home or self-care (01) ==
LOC: ED 10:15 → MED SURG 14:31
PROVIDERS: ADMIT General Practice; ATTEND General Practice
DX: A41.9 Sepsis, unspecified organism (principal); R65.20 Severe sepsis without septic shock; J96.01 Acute respiratory failure with hypoxia; J18.9 Pneumonia, unspecified organism; I11.0 Hypertensive heart disease with heart failure; I50.9 Heart failure, unspecified; E78.5 Hyperlipidemia, unspecified; I25.2 Old myocardial infarction; Z79.899 Other long term (current) drug therapy; Z72.0 Tobacco use; Z20.828 Contact with and (suspected) exposure to other viral communicable diseases
CPT/HCPCS: 0241U; 36000; 36415; 71045; 80053; 83605; 83880; 84484; 85025; 85610; 85730; 87040; 93005; 93041; 93268; 94640; 94762; 96365; 96374; 96375; 99285; 99291; G0378; J1650; J1940; J1956; J2270; J2405; J2930; J3010; A9270-GY

== ENCOUNTER 2022-11-07 18:12 | Emergency (ER) | payer MEDICARE ==
[2022-11-07 19:17] VITALS: O2SAT 96
--- NOTE | 2022-11-07 20:09 | ERPHSYRPT ---
- History of Present Illness Time Seen by Provider: 11/07/22 20:09 Source: patient Exam Limitations: no limitations Patient Subjective Stated Complaint: Left hip pain, worsened every day for the past month since fall. Numbness and tingling in left leg. Feels like it's asle ep. Triage Nursing Assessment: Pt A&O X 3. Ambulated to room with limp on left leg. Bilateral pedal pulses and posterior tibial pulses equal and WNL. Skin color WNL for race. Pt able to lift left leg off of bed. Physician History: Pt c/o mechanical fall 3 weeks ago Tripped and lost balance. Pain of left hip w/ ambulation, but able to ambulate w/o assistance Outpatient XR yesterday showed nondisplaced fracture of left hip No numbness/tingling Timing/Duration: week(s) (3) Occured at: home Context: fall Quality: sharpness, throbbing Hip Pain Location: hip (L) Severity of Pain-Max: moderate Severity of Pain-Current: moderate Modifying Factors: Improves With: rest. Worsens With: movement Symptoms prior to fall: none Associated Symptoms: groin pain, muscle aches Allergies/Adverse Reactions: Penicillins Allergy (Verified 11/07/22 18:59) Hives sulfamethoxazole [From Bactrim] Allergy (Verified 11/07/22 18:59) Nausea and Vomiting trimethoprim [From Bactrim] Allergy (Verified 11/07/22 18:59) Nausea and Vomiting Home Medications: Clopidogrel Bisulfate [PLAVIX Tablet] 0.5 tab PO DAILY 07/31/13 [History] Rivaroxaban [Xarelto] 20 mg PO DAILY 10/27/14 [History] hydrOXYzine HCL [Hydroxyzine HCl] 25 mg PO TIDPRN PRN 11/01/21 [History] Buspirone HCl 5 mg [Buspar 5 mg] 30 mg PO BID 11/08/21 [History] Pregabalin [Lyrica 100Mg] 100 mg PO BID 11/07/22 [History] Hx Tetanus, Diphtheria Vaccination/Date Given: No Hx Influenza Vaccination/Date Given: No Hx Pneumococcal Vaccination/Date Given: No Immunizations Up to Date: Yes Travel Risk - International Travel Have you traveled outside of the country in past 3 weeks: No - Coronavirus Screening Are you exhibiting any of the following symptoms?: No - Vaccine Status Have you recieved a Covid-19 vaccination: Yes Inclusion Special Educator: 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 - Review of Systems Constitutional: No Symptoms Eyes: No Symptoms Ears, Nose, & Throat: No Symptoms Respiratory: No Symptoms Cardiac: No Symptoms Abdominal/Gastrointestinal: No Symptoms Genitourinary Symptoms: No Symptoms Musculoskeletal: Fall, Injury, Joint Pain (left hip), Myalgias Skin: No Symptoms Neurological: No Symptoms Psychological: No Symptoms Endocrine: No Symptoms Hematologic/Lymphatic: No Symptoms Immunological/Allergic: No Symptoms All Other Systems: Reviewed and Negative - Past Medical History Pertinent Past Medical History: Yes Neurological History: No Pertinent History ENT History: Cataracts Cardiac History: Aneurysm, Arrhythmia, Congestive Heart Failure, Hypertension, Myocardial Infarction ([place]) Respiratory History: No Pertinent History Endocrine Medical History: No Pertinent History Musculoskeletal History: Osteoarthritis, Rheumatoid Arthritis GI Medical History: Cirrhosis, GERD History: No Pertinent History Psycho-Social History: Depression Female Reproductive Disorders: No Pertinent History Other Medical History: restless leg syndrome, neuropathy, aortic aneurysm - Past Surgical History Past Surgical History: Yes Neuro Surgical History: No Pertinent History Cardiac: Cardiac Catheterization, Pacemaker Respiratory: No Pertinent History Gastrointestinal: Other Genitourinary: No Pertinent History Musculoskeletal: Joint Replacement Female Surgical History: Hysterectomy Other Surgical History: PACEMAKER PLACEMENT, HYSTERECTOMY , left IOL October 2017 - Social History Smoking Status: Current every day smoker How long have you smoked: 50 years Exposure to second hand smoke: Yes Drug Use: none Patient Lives Alone: No Significant Family History: no pertinent family hx - Nursing Vital Signs Nursing Vital Signs: Initial Vital Signs Pulse Rate 71 11/07/22 19:03 Respiratory Rate 18 11/07/22 19:03 Blood Pressure 162/73 11/07/22 19:03 O2 Sat by Pulse Oximetry 96 11/07/22 19:03 Pain Scale Pain Intensity 8 - Physical Exam General Appearance: no apparent distress Eye Exam: eyes nml inspection Ears, Nose, Throat Exam: normal ENT inspection Cardiovascular Exam: capillary refill <2 sec, other (2+ DP, TP pulses) Extremity Exam: deformities, other (externally rotated left leg) Neurologic Exam: alert, oriented x 3, cooperative, sensation nml Skin Exam: normal color, warm, dry SpO2 Interpretation: normal SpO2: 96 O2 Delivery: Room Air - Course Nursing assessment & vital signs reviewed: Yes Ordered Tests: Medication Summary Generic Name Dose Route Start Last Admin Trade Name Candidoq PRN Reason Stop Dose Admin Tizanidine HCl 8 mg 11/07/22 20:10 11/07/22 20:34 Tizanidine Hcl 4 Mg Tablet PO 12/07/22 20:09 8 mg Q8H PRN Administration MUSCLE SPASMS - Progress Progress: unchanged Progress Note: 11/07/22 20:[address] Sanders at [facility]. I discussed that she will need surgical fixation of her left hip and will need transferred. Patient would like to leave and go to [facility] for further intervention. Patient has been ambulating on the leg for the past 3 weeks and was weed eating [employer] so I was agreeable to the patient's preference of discharging so she could go to [facility]. Patient reports muscle cramps so 2 tablets of Tizanadine were sent home w/ patient. Counseled pt/family regarding: diagnosis, need for follow-up Medical Desision Making - Diagnostic Testing Diagnostic test were ordered, analyzed, and reviewed by me: Yes Radiological Interpretation: Reviewed by me - Risk of complications The pt has a mod risk of morbidity or mortality based on: Need for major surgery in otherwise healthy patient - Departure Departure Disposition: Home (Patient will leave and proceed to [facility]) Clinical Impression: Closed left hip fracture Condition: Good Critical Care Time: No Referrals: CLARENCE SHORT [Primary Care Provider] - Follow up/PCP as directed Instructions: Hip Fracture (DC)
[2022-11-07] MEDS ORDERED: Zanaflex 4 MG PO PRN (20:10)
[2022-11-07] MEDS ORDERED: Zanaflex 4 MG ONE (20:24)
[2022-11-07 20:39] VITALS: BP 158/77; PULSE 72
== END 2022-11-07 20:47 | disposition home or self-care (01) ==
LOC: ED 18:12
DX: S72.002A Fracture of unspecified part of neck of left femur, initial encounter for closed fracture (principal); W19.XXXA Unspecified fall, initial encounter; I11.0 Hypertensive heart disease with heart failure; I50.9 Heart failure, unspecified; Z79.02 Long term (current) use of antithrombotics/antiplatelets; Z79.01 Long term (current) use of anticoagulants; Z79.899 Other long term (current) drug therapy; Z72.0 Tobacco use
CPT/HCPCS: 99281; A9270-GY

== ENCOUNTER 2023-06-15 19:17 | Observation (INO) | payer MEDICARE ==
--- NOTE | 2023-06-15 19:38 | ERPHSYRPT ---
- History of Present Illness Time Seen by Provider: 06/15/23 19:38 Source: patient Exam Limitations: no limitations Physician History: This is an obese 73-year-old white female patient whose primary care provider is Dr. Parish Bell and stitcher hand Dr. Bowles and presents to the emergency department with 3 to 4-week history of nonproductive cough and shortness of mercedes ath. She does not have chest pain per se but she has pain on deep respiration and coughing. Today, she had a coughing spell that she stated lasted 45 minutes. Patient is a daily smoker of cigarettes. She has a history of aortic aneurysm, arrhythmia on both Plavix and Xarelto, CHF, hypertension, coronary artery disease (cardiac cath and pacemaker placement), rheumatoid arthritis, cirrhosis, gastroesophageal reflux disease and restless leg syndrome. Room air oxygenation saturation levels 93 to 94%. She does not appear to be in any distress. Timing/Duration: week(s) (Symptoms for 3 to 4 weeks) Activities at Onset: none Severity of Dyspnea-Max: mild (To moderate) Severity of Dyspnea-Current: mild (To moderate) Possible Cause: occasional episodes Modifying Factors: Improves With: activity, coughing, exertion Associated Symptoms: chest pain/discomfort (Only with coughing and deep inspiration) Allergies/Adverse Reactions: Penicillins Allergy (Verified 06/15/23 19:27) Hives sulfamethoxazole [From Bactrim] Allergy (Verified 06/15/23 19:27) Nausea and Vomiting trimethoprim [From Bactrim] Allergy (Verified 06/15/23 19:27) Nausea and Vomiting Home Medications: Clopidogrel Bisulfate [PLAVIX Tablet] 0.5 tab PO DAILY 07/31/13 [History] Rivaroxaban [Xarelto] 20 mg PO DAILY 10/27/14 [History] Buspirone HCl 5 mg [Buspar 5 mg] 30 mg PO BID 11/08/21 [History] Albuterol Sulfate [Proair Respiclick] 2 puffs IH QID PRN 06/15/23 [History] Amlodipine Besylate 5 mg [Norvasc 5 mg] 5 mg PO DAILY 06/15/23 [History] Breztri 160mcg/ 9 Mcg/ 4.8mcg 2 puffs IH BID 06/15/23 [History] Diclofenac Sodium [Voltaren Arthritis Pain] 20 gm TP DAILY PRN PRN 06/15/23 [History] Folic Acid 1 mg PO DAILY 06/15/23 [History] Isosorbide Mononitrate [Isosorbide Mononitrate ER] 30 mg PO DAILY 06/15/23 [History] Metoprolol Succinate 50 mg [Toprol Xl 50 MG] 50 mg PO DAILY 06/15/23 [History] Nitroglycerin 0.4 mg Tablet [Nitrostat 0.4 MG Tablet] 0.4 mg SL UD 06/15/23 [History] Prednisone 20 mg [Deltasone 20 mg] 20 mg PO BID 06/15/23 [History] Spironolactone 25 mg [Aldactone 25 MG] 25 mg PO DAILY 06/15/23 [History] Tizanidine HCl 4 mg [Zanaflex 4 MG] 4 mg PO TID 06/15/23 [History] Hx Tetanus, Diphtheria Vaccination/Date Given: No Hx Influenza Vaccination/Date Given: No Hx Pneumococcal Vaccination/Date Given: No Travel Risk - International Travel Have you traveled outside of the country in past 3 weeks: No - Coronavirus Screening Are you exhibiting any of the following symptoms?: Yes Symptoms: Cough: New Onset, Shortness of Breath - Vaccine Status Have you recieved a Covid-19 vaccination: Yes Embryology Teacher: 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 - Review of Systems Constitutional: No Symptoms Eyes: No Symptoms Ears, Nose, & Throat: No Symptoms Respiratory: Cough, Dyspnea on Exertion (ALANIZ) Cardiac: No Symptoms Abdominal/Gastrointestinal: No Symptoms Genitourinary Symptoms: No Symptoms Musculoskeletal: No Symptoms Skin: No Symptoms Neurological: No Symptoms Psychological: No Symptoms Endocrine: No Symptoms Hematologic/Lymphatic: No Symptoms Immunological/Allergic: No Symptoms All Other Systems: Reviewed and Negative - Past Medical History Pertinent Past Medical History: Yes Neurological History: No Pertinent History ENT History: Cataracts Cardiac History: Aneurysm, Arrhythmia, Congestive Heart Failure, Hypertension, Myocardial Infarction (MS) Respiratory History: No Pertinent History Endocrine Medical History: No Pertinent History Musculoskeletal History: Osteoarthritis, Rheumatoid Arthritis GI Medical History: Cirrhosis, GERD History: No Pertinent History Psycho-Social History: Depression Female Reproductive Disorders: No Pertinent History Other Medical History: restless leg syndrome, neuropathy, aortic aneurysm - Past Surgical History Past Surgical History: Yes Neuro Surgical History: No Pertinent History Cardiac: Cardiac Catheterization, Pacemaker Respiratory: No Pertinent History Gastrointestinal: Other Genitourinary: No Pertinent History Musculoskeletal: Joint Replacement Female Surgical History: Hysterectomy Other Surgical History: PACEMAKER PLACEMENT, HYSTERECTOMY , left IOL October 2017 - Social History Smoking Status: Current every day smoker How long have you smoked: 50 years Exposure to second hand smoke: Yes Drug Use: none Patient Lives Alone: No Significant Family History: no pertinent family hx - Nursing Vital Signs Nursing Vital Signs: Initial Vital Signs Temperature 97.9 F 06/15/23 19:28 Pulse Rate 60 06/15/23 19:28 Respiratory Rate 26 H 06/15/23 19:28 Blood Pressure 153/91 06/15/23 19:28 O2 Sat by Pulse Oximetry 93 L 06/15/23 19:28 Pain Scale Pain Intensity 1 - Physical Exam General Appearance: no apparent distress, alert, obese Eye Exam: PERRL/EOMI Ears, Nose, Throat Exam: hearing grossly normal, normal ENT inspection, normal pharynx Neck Exam: normal inspection, non-tender, supple, full range of motion Respiratory Exam: normal breath sounds, lungs clear, airway intact, No chest tenderness, No respiratory distress Cardiovascular/Chest Exam: normal heart sounds, regular rate/rhythm Abdominal/Gastrointestinal Exam: soft, normal bowel sounds, No tenderness Rectal Exam: not done Extremity Exam: non-tender Neurologic Exam: alert, oriented x 3, cooperative, warper creeler II-XII nml as tested, normal mood/affect, nml cerebellar function, nml station & gait Skin Exam: normal color, warm, dry Lymphatic Exam: No adenopathy SpO2 Interpretation: normal O2 Delivery: Room Air - Course Nursing assessment & vital signs reviewed: Yes EKG Interpreted by Me: RATE (66), NORMAL AXIS, NORMAL INTERVALS, NORMAL QRS, Other (Atrial paced complexes. No evidence of any acute ischemic changes on today's twelve-lead EKG.) Ordered Tests: Active Orders 24 hr Category Date Time Status EKG-ER Only STAT Care 06/15/23 19:48 Active EKG-ER Only STAT Care 06/15/23 23:13 Active IV Insertion STAT Care 06/15/23 19:48 Active Pulse Oximetry (ED) STAT Care 06/15/23 19:48 Active CHEST 1 VIEW (PORTABLE) Stat Exams 06/15/23 19:48 Taken BLOOD CULTURE Stat Lab 06/15/23 20:15 Received CBC W DIFF Stat Lab 06/15/23 20:10 Completed CMP Stat Lab 06/15/23 20:10 Completed NT PRO BNPII Stat Lab 06/15/23 20:10 Completed PROTIME WITH INR Stat Lab 06/15/23 20:10 Completed TROPONIN Q4H Lab 06/15/23 20:10 Completed TROPONIN Q4H Lab 06/15/23 23:00 Completed TROPONIN Q4H Lab 06/16/23 04:00 Ordered Medication Summary Discontinued Medications Generic Name Dose Route Start Last Admin Trade Name Freq PRN Reason Stop Dose Admin Furosemide 40 mg 06/15/23 21:49 06/15/23 22:11 Furosemide 40 Mg/4 Ml Vial IV 06/15/23 21:50 40 mg STAT ONE Administration Furosemide Confirm 06/15/23 22:09 Furosemide 40 Mg/4 Ml Vial Administered 06/15/23 22:10 Dose 40 mg .ROUTE .STParentingInformer-MED ONE Lab/Rad Data: Laboratory Result Diagrams 06/15/23 20:10 06/15/23 20:10 Laboratory Results 06/15/23 06/15/23 06/15/23 Range/Units 23:00 20:15 20:10 WBC (4.0-10.5) x10^3/uL RBC (4.1-5.4) x10^6/uL Hgb (12.0-16.0) g/dL Hct (35-47) % MCV (78-100) fL MCH (26-32) pg MCHC (32-36) g/dL RDW (11.5-14.0) % Plt Count (150-450) x10^3/uL MPV (7.5-11.0) fL Gran % (36.0-66.0) % Immature Gran % (Auto) (0.00-0.4) % Nucleat RBC Rel Count (0.00-0.1) % Eos # (Auto) (0-0.5) x10^3/uL Immature Gran # (Auto) (0.00-0.03) x10^3u/L Absolute Lymphs (auto) (1.0-4.6) x10^3/uL Absolute Monos (auto) (0.0-1.3) x10^3/uL Absolute Nucleated RBC (0.00-0.01) x10^3u/L Lymphocytes % (24.0-44.0) % Monocytes % (0.0-12.0) % Eosinophils % (0.00-5.0) % Basophils % (0.0-0.4) % Absolute Granulocytes (1.4-6.9) x10^3/uL Basophils # (0-0.4) x10^3/uL PT (9.4-12.5) SECONDS INR (0.8-3.0) Sodium (137-145) mmol/L Potassium (3.5-5.1) mmol/L Chloride (98-107) mmol/L Carbon Dioxide (22-30) mmol/L Anion Gap (5-15) MEQ/L BUN (7-17) mg/dL Creatinine (0.52-1.04) mg/dL Estimated GFR ML/MIN Glucose (74-106) mg/dL Calcium (8.4-10.2) mg/dL Total Bilirubin (0.2-1.3) mg/dL AST (14-36) U/L ALT (0-35) U/L Alkaline Phosphatase (38-126) U/L Troponin I 0.049 H* 0.051 H* (0.000-0.034) ng/mL NT-Pro-B Natriuret Pep (<300) pg/mL Serum Total Protein (6.3-8.2) g/dL Albumin (3.5-5.0) g/dL Influenza Type A Ag NEGATIVE (NEGATIVE) Influenza Type B Ag NEGATIVE (NEGATIVE) RSV (PCR) NEGATIVE (NEGATIVE) SARS-CoV-2 (PCR) POSITIVE A (NEGATIVE) 06/15/23 06/15/23 06/15/23 Range/Units 20:10 20:10 20:10 WBC 9.9 (4.0-10.5) x10^3/uL RBC 4.27 (4.1-5.4) x10^6/uL Hgb 12.6 (12.0-16.0) g/dL Hct 39.5 (35-47) % MCV 92.5 (78-100) fL MCH 29.5 (26-32) pg MCHC 31.9 L (32-36) g/dL RDW 13.4 (11.5-14.0) % Plt Count 262 (150-450) x10^3/uL MPV 8.8 (7.5-11.0) fL Gran % 65.9 (36.0-66.0) % Immature Gran % (Auto) 0.5 H (0.00-0.4) % Nucleat RBC Rel Count 0.0 (0.00-0.1) % Eos # (Auto) 0.24 (0-0.5) x10^3/uL Immature Gran # (Auto) 0.05 H (0.00-0.03) x10^3u/L Absolute Lymphs (auto) 2.24 (1.0-4.6) x10^3/uL Absolute Monos (auto) 0.81 (0.0-1.3) x10^3/uL Absolute Nucleated RBC 0.00 (0.00-0.01) x10^3u/L Lymphocytes % 22.6 L (24.0-44.0) % Monocytes % 8.2 (0.0-12.0) % Eosinophils % 2.4 (0.00-5.0) % Basophils % 0.4 (0.0-0.4) % Absolute Granulocytes 6.52 (1.4-6.9) x10^3/uL Basophils # 0.04 (0-0.4) x10^3/uL PT 14.4 H (9.4-12.5) SECONDS INR 1.35 (0.8-3.0) Sodium 140 (137-145) mmol/L Potassium 4.0 (3.5-5.1) mmol/L Chloride 105 (98-107) mmol/L Carbon Dioxide 30 (22-30) mmol/L Anion Gap 9.2 (5-15) MEQ/L BUN 22 H (7-17) mg/dL Creatinine 1.00 (0.52-1.04) mg/dL Estimated GFR 58.8 ML/MIN Glucose 109 H (74-106) mg/dL Calcium 9.8 (8.4-10.2) mg/dL Total Bilirubin 0.90 (0.2-1.3) mg/dL AST 21 (14-36) U/L ALT 23 (0-35) U/L Alkaline Phosphatase 102 (38-126) U/L Troponin I (0.000-0.034) ng/mL NT-Pro-B Natriuret Pep 2260 (<300) pg/mL Serum Total Protein 6.7 (6.3-8.2) g/dL Albumin 3.8 (3.5-5.0) g/dL Influenza Type A Ag (NEGATIVE) Influenza Type B Ag (NEGATIVE) RSV (PCR) (NEGATIVE) SARS-CoV-2 (PCR) (NEGATIVE) - Progress Progress: improved, re-examined Air Movement: good Progress Note: 06/15/23 20:20 This patient's medical issue is 1 of moderate complexity. The level complex in the workup performed based on review the patient's past medical history, review the patient's medication list, review the patient's drug allergy list, history present illness and physical findings on examination. Workup includes placement of intravenous line, chest x-ray, CBC, CMP, troponin level, BNP level, twelve- lead EKG and viral swabs. We also obtained a blood culture. 06/15/23 20:29 Chest x-ray was interpreted by me. I do not appreciate an acute cardiopulmonary process. There is mild cardiomegaly present without pleural effusions. 06/15/23 23:20 Repeat, 3-hour twelve-lead EKG is not significantly different than the 1 performed on 06/15/2023 3 hours ago. This 3-hour twelve-lead EKG was performed at 2302. Heart rate is 65. There are persistent atrial paced complexes. There is borderline prolonged LA interval. There is persistent left ventricular hypertrophy. There is no evidence of any acute ischemic changes. 06/16/23 00:04 Patient does not complain of chest pain at this time. 06/16/23 00:[address] Mackenzie, the telehospitalist on at this time and I reviewed the patient history, presenting complaint, physical findings on examination and the results of the radiographic and laboratory studies. We will provide this patient with 2 L of oxygen via nasal cannula. Will have respiratory therapy evaluate her. We will also provide her with low-dose intravenous Lasix to help improve her CHF. We will continue with serial troponins and repeat twelve-lead EKG in the morning. Blood Culture(s) Obtained: Yes Counseled pt/family regarding: lab results, diagnosis, need for follow-up, rad results Medical Desision Making - Independent Historian Additional History obtained from: Family (Daughter) - Diagnostic Testing Diagnostic test were ordered, analyzed, and reviewed by me: Yes Radiological Interpretation: Interpreted by me, Reviewed by me, Teleradiologist Report - Risk of complications The pt has a high risk of morbidity or mortality based on: Decision regarding hospitilization or escalation of hosp level of care - Departure Departure Disposition: Observation Clinical Impression: Shortness of breath, CHF (congestive heart failure), Acute coronary syndrome, COVID-19 virus infection Condition: Fair Critical Care Time: No Referrals: CLARENCE BELL [Primary Care Provider] - Follow up/PCP as directed Instructions: Heart Failure
[2023-06-15 20:24] LABS: Absolute Neutrophil Ct (ANC) 6.52 x10^3/uL (1.4-6.9); BASOPHIL % 0.4 % (0.0-0.4); Basophil (Absolute #) 0.04 x10^3/uL (0-0.4); Eosinophil % 2.4 % (0.00-5.0); Eosinophil (Absolute #) 0.24 x10^3/uL (0-0.5); Hematocrit 39.5 % (35-47); Hemoglobin 12.6 g/dL (12.0-16.0); IMMATURE GRAN # 0.05 x10^3u/L (0.00-0.03); IMMATURE GRAN % 0.5 % (0.00-0.4); Lymphocyte (Absolute #) 2.24 x10^3/uL (1.0-4.6); Lymphocytes % 22.6 % (24.0-44.0); Mean Cell Volume 92.5 fL (78-100); Mean Corpuscular Hemoglobin 29.5 pg (26-32); Mean Corpuscular Hgb Concent. 31.9 g/dL (32-36); Mean Platelet Volume 8.8 fL (7.5-11.0); Monocyte (Absolute #) 0.81 x10^3/uL (0.0-1.3); Monocytes % 8.2 % (0.0-12.0); Neutrophil % 65.9 % (36.0-66.0); Platelet Count 262 x10^3/uL (150-450); Red Blood Count 4.27 x10^6/uL (4.1-5.4); Red Cell Distribution Width 13.4 % (11.5-14.0); White Blood Count 9.9 x10^3/uL (4.0-10.5)
[2023-06-15 20:38] LABS: INR 1.35 (0.8-3.0); PROTIME 14.4 SECONDS (9.4-12.5)
[2023-06-15 20:47] LABS: ALBUMIN 3.8 g/dL (3.5-5.0); ANION GAP 9.2 MEQ/L (5-15); BILIRUBIN,TOTAL 0.9 mg/dL (0.2-1.3); Calcium 9.8 mg/dL (8.4-10.2); EST GLOMERULAR FILTRATION RATE 58.8 ML/MIN; Total Protein 6.7 g/dL (6.3-8.2)
[2023-06-15 21:01] LABS: INFLUENZA A NEGATIVE (NEGATIVE); INFLUENZA B NEGATIVE (NEGATIVE); RESPIRATORY SYNCTIAL VIRUS NEGATIVE (NEGATIVE)
[2023-06-15 21:15] LABS: SARS-CoV-2 Xpert Express POSITIVE (NEGATIVE)
[2023-06-15] MEDS ORDERED: Lasix 40 MG/4 ML IV ONE (21:49)
[2023-06-15] MEDS ORDERED: Lasix 40 MG/4 ML ONE (22:09)
[2023-06-16] MEDS ORDERED: Lasix 40 MG/4 ML IV SCH ×2 (00:53→06:00)
[2023-06-16] MEDS ORDERED: Sodium Chloride 0.9% 1000 ML 1,000 ML IV SCH (00:53)
[2023-06-16] MEDS ORDERED: TYLENOL 325 MG PO PRN (00:53)
[2023-06-16] MEDS ORDERED: Zofran 4 MG/2 ML VIAL IV PRN (00:53)
[2023-06-16] MEDS ORDERED: DICLOFENAC SODIUM TP PRN (01:40)
[2023-06-16] MEDS ORDERED: Robitussin AC Syrup Unit Dose Cup PO PRN (01:43)
[2023-06-16] MEDS ORDERED: Tessalon Perles 100 MG PO PRN (01:43)
[2023-06-16] MEDS ORDERED: Restoril 15 MG PO PRN (02:00)
[2023-06-16] MEDS: Decadron 4 MG INJ IV SCH ×2 (02:20→09:33)
--- NOTE | 2023-06-16 02:23 | PCM.HP ---
History of Present Illness - Chief Complaint Chief Complaint: CHF, COVID, ACUTE CORONARY SYNDROME Date: 06/16/23 History of Present Illness: This is a 73-year-old female admitted for treatment of COVID, chest pain, elevated troponin. 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 She presented to the ED today for evaluation of 3 to 4-week history of nonproductive cough and shortness of breath. On arrival she was afebrile, blood pressure 153/91 sat 93%. Noted to desat to high 80s with exertion. Labs significant for WBC 9.9, hemoglobin 12.6, INR 1.3, creatinine 1, troponin 0.051 and 0.049, COVID PCR positive. Chest x-ray no acute infiltrates. EKG showed atrial paced complexes no ST changes. In the ED she received Lasix. - Review of Systems Constitutional: Fatigue, Weakness Eyes: No Symptoms Ears, Nose, & Throat: No Symptoms Respiratory: Cough, Short Of Breath Cardiac: Chest Pain Abdominal/Gastrointestinal: No Symptoms, No Nausea, No Vomiting Genitourinary Symptoms: No Symptoms Musculoskeletal: No Symptoms Skin: No Symptoms Neurological: No Symptoms Endocrine: No Symptoms Medications & Allergies Home Medications: Home Medication List Clopidogrel Bisulfate [PLAVIX Tablet] 0.5 tab PO DAILY 07/31/13 [History Confirmed 06/16/23] Rivaroxaban [Xarelto] 20 mg PO DAILY 10/27/14 [History Confirmed 06/16/23] Buspirone HCl 5 mg [Buspar 5 mg] 30 mg PO BID 11/08/21 [History Confirmed 06/16/23] Albuterol Sulfate [Proair Respiclick] 2 puffs IH QID PRN 06/15/23 [History Confirmed 06/16/23] Amlodipine Besylate 5 mg [Norvasc 5 mg] 5 mg PO DAILY 06/15/23 [History Confirmed 06/16/23] Breztri 160mcg/ 9 Mcg/ 4.8mcg 2 puffs IH BID 06/15/23 [History Confirmed 06/16/23] Diclofenac Sodium [Voltaren Arthritis Pain] 20 gm TP DAILY PRN PRN 06/15/23 [History Confirmed 06/16/23] Folic Acid 1 mg PO DAILY 06/15/23 [History Confirmed 06/16/23] Isosorbide Mononitrate [Isosorbide Mononitrate ER] 30 mg PO DAILY 06/15/23 [History Confirmed 06/16/23] Metoprolol Succinate 50 mg [Toprol Xl 50 MG] 50 mg PO DAILY 06/15/23 [History Confirmed 06/16/23] Nitroglycerin 0.4 mg Tablet [Nitrostat 0.4 MG Tablet] 0.4 mg SL UD 06/15/23 [History Confirmed 06/16/23] Prednisone 20 mg [Deltasone 20 mg] 20 mg PO BID 06/15/23 [History Confirmed 06/16/23] Spironolactone 25 mg [Aldactone 25 MG] 25 mg PO DAILY 06/15/23 [History Confirmed 06/16/23] Tizanidine HCl 4 mg [Zanaflex 4 MG] 4 mg PO TID 06/15/23 [History Confirmed 06/16/23] Allergies/Adverse Reactions: Allergies Allergy/AdvReac Type Severity Reaction Status Date / Time Penicillins Allergy Hives Verified 06/16/23 01:38 sulfamethoxazole Allergy Nausea and Verified 06/16/23 01:38 [From Bactrim] Vomiting trimethoprim [From Bactrim] Allergy Nausea and Verified 06/16/23 01:38 Vomiting - Past Medical History Past Medical History: Yes Neurological History: No Pertinent History ENT History: Cataracts Cardiac History: Aneurysm, Arrhythmia, Congestive Heart Failure, Hypertension, Myocardial Infarction (HI) Respiratory History: No Pertinent History Endocrine Medical History: No Pertinent History Musculoskelatal History: Osteoarthritis, Rheumatoid Arthritis GI Medical History: Cirrhosis, GERD History: No Pertinent History Pyscho-Social History: Depression Reproductive Disorders: No Pertinent History Comment: restless leg syndrome, neuropathy, aortic aneurysm - Female History Are you now?: No - Past Surgical History Past Surgical History: Yes Neuro Surgical History: No Pertinent History Cardiac History: Cardiac Catheterization, Pacemaker Respiratory Surgery: No Pertinent History GI Surgical History: Other Genitourinary Surgical Hx: No Pertinent History Musculskeletal Surgical Hx: Joint Replacement Female Surgical History: Hysterectomy Other Surgical History: PACEMAKER PLACEMENT, HYSTERECTOMY , left IOL October 2017 - Social History Smoking Status: Current every day smoker How long have you smoked: 50 years Exposure to second hand smoke: Yes Alcohol: None Drug Use: none Significant Family History: no pertinent family hx - Physical Exam Vital Signs: Vital Signs - 24 hr Temp Pulse Resp BP BP Pulse Ox 06/16/23 01:07 98.0 F 78 18 148/88 98 06/16/23 00:30 69 23 144/80 95 06/16/23 00:02 71 20 153/82 96 06/15/23 23:45 73 21 144/84 95 06/15/23 23:31 66 20 144/77 94 L 06/15/23 23:01 67 21 149/82 91 L 06/15/23 22:30 64 22 133/77 93 L 06/15/23 22:00 68 23 135/73 92 L 06/15/23 21:30 67 20 136/68 94 L 06/15/23 21:01 67 20 144/80 94 L 06/15/23 20:31 63 25 H 139/84 93 L 06/15/23 20:10 62 27 H 135/77 93 L 06/15/23 19:48 93 L 06/15/23 19:31 61 25 H 135/63 95 06/15/23 19:28 97.9 F 60 26 H 153/91 93 L General Appearance: no apparent distress Neurologic Exam: alert, oriented x 3 Eye Exam: PERRL/EOMI Ears, Nose, Throat Exam: normal ENT inspection Neck Exam: normal inspection Respiratory Exam: diminished breath sounds, No respiratory distress Cardiovascular Exam: regular rate/rhythm Gastrointestinal/Abdomen Exam: soft Extremity Exam: normal inspection Results - Labs Lab/Micro Results: Lab Results-Last 24 Hours 06/15/23 06/15/23 06/15/23 Range/Units 20:10 20:10 20:10 WBC 9.9 (4.0-10.5) x10^3/uL RBC 4.27 (4.1-5.4) x10^6/uL Hgb 12.6 (12.0-16.0) g/dL Hct 39.5 (35-47) % MCV 92.5 (78-100) fL MCH 29.5 (26-32) pg MCHC 31.9 L (32-36) g/dL RDW 13.4 (11.5-14.0) % Plt Count 262 (150-450) x10^3/uL MPV 8.8 (7.5-11.0) fL Gran % 65.9 (36.0-66.0) % Immature Gran % (Auto) 0.5 H (0.00-0.4) % Nucleat RBC Rel Count 0.0 (0.00-0.1) % Eos # (Auto) 0.24 (0-0.5) x10^3/uL Immature Gran # (Auto) 0.05 H (0.00-0.03) x10^3u/L Absolute Lymphs (auto) 2.24 (1.0-4.6) x10^3/uL Absolute Monos (auto) 0.81 (0.0-1.3) x10^3/uL Absolute Nucleated RBC 0.00 (0.00-0.01) x10^3u/L Lymphocytes % 22.6 L (24.0-44.0) % Monocytes % 8.2 (0.0-12.0) % Eosinophils % 2.4 (0.00-5.0) % Basophils % 0.4 (0.0-0.4) % Absolute Granulocytes 6.52 (1.4-6.9) x10^3/uL Basophils # 0.04 (0-0.4) x10^3/uL PT 14.4 H (9.4-12.5) SECONDS INR 1.35 (0.8-3.0) Sodium 140 (137-145) mmol/L Potassium 4.0 (3.5-5.1) mmol/L Chloride 105 (98-107) mmol/L Carbon Dioxide 30 (22-30) mmol/L Anion Gap 9.2 (5-15) MEQ/L BUN 22 H (7-17) mg/dL Creatinine 1.00 (0.52-1.04) mg/dL Estimated GFR 58.8 ML/MIN Glucose 109 H (74-106) mg/dL Calcium 9.8 (8.4-10.2) mg/dL Total Bilirubin 0.90 (0.2-1.3) mg/dL AST 21 (14-36) U/L ALT 23 (0-35) U/L Alkaline Phosphatase 102 (38-126) U/L Troponin I (0.000-0.034) ng/mL NT-Pro-B Natriuret Pep 2260 (<300) pg/mL Serum Total Protein 6.7 (6.3-8.2) g/dL Albumin 3.8 (3.5-5.0) g/dL Influenza Type A Ag (NEGATIVE) Influenza Type B Ag (NEGATIVE) RSV (PCR) (NEGATIVE) SARS-CoV-2 (PCR) (NEGATIVE) 06/15/23 06/15/23 06/15/23 Range/Units 20:10 20:15 23:00 WBC (4.0-10.5) x10^3/uL RBC (4.1-5.4) x10^6/uL Hgb (12.0-16.0) g/dL Hct (35-47) % MCV (78-100) fL MCH (26-32) pg MCHC (32-36) g/dL RDW (11.5-14.0) % Plt Count (150-450) x10^3/uL MPV (7.5-11.0) fL Gran % (36.0-66.0) % Immature Gran % (Auto) (0.00-0.4) % Nucleat RBC Rel Count (0.00-0.1) % Eos # (Auto) (0-0.5) x10^3/uL Immature Gran # (Auto) (0.00-0.03) x10^3u/L Absolute Lymphs (auto) (1.0-4.6) x10^3/uL Absolute Monos (auto) (0.0-1.3) x10^3/uL Absolute Nucleated RBC (0.00-0.01) x10^3u/L Lymphocytes % (24.0-44.0) % Monocytes % (0.0-12.0) % Eosinophils % (0.00-5.0) % Basophils % (0.0-0.4) % Absolute Granulocytes (1.4-6.9) x10^3/uL Basophils # (0-0.4) x10^3/uL PT (9.4-12.5) SECONDS INR (0.8-3.0) Sodium (137-145) mmol/L Potassium (3.5-5.1) mmol/L Chloride (98-107) mmol/L Carbon Dioxide (22-30) mmol/L Anion Gap (5-15) MEQ/L BUN (7-17) mg/dL Creatinine (0.52-1.04) mg/dL Estimated GFR ML/MIN Glucose (74-106) mg/dL Calcium (8.4-10.2) mg/dL Total Bilirubin (0.2-1.3) mg/dL AST (14-36) U/L ALT (0-35) U/L Alkaline Phosphatase (38-126) U/L Troponin I 0.051 H* 0.049 H* (0.000-0.034) ng/mL NT-Pro-B Natriuret Pep (<300) pg/mL Serum Total Protein (6.3-8.2) g/dL Albumin (3.5-5.0) g/dL Influenza Type A Ag NEGATIVE (NEGATIVE) Influenza Type B Ag NEGATIVE (NEGATIVE) RSV (PCR) NEGATIVE (NEGATIVE) SARS-CoV-2 (PCR) POSITIVE A (NEGATIVE) - Radiology Impressions Radiology Exams & Impressions: Radiology Procedures Category Date Time Status CHEST 1 VIEW (PORTABLE) Stat Exams 06/15/23 19:48 Taken ECHO W/2D AND DOPPLER [US] Routine Exams 06/16/23 02:00 Ordered - Other Procedures and Tests Respiratory Therapy 06/16/23 00:53 EKG REPEAT IN AM Oxygen Nasal Cannula 2 lpm Respiratory Therapy Consult ONCE 06/16/23 01:34 RT Screen per Nursing Assess ONCE Smoking Cessation Education ONCE Assessment/Plan (1) Acute coronary syndrome Current Visit: Yes Status: Acute Code(s): I24.9 - ACUTE ISCHEMIC HEART DISEASE, UNSPECIFIED (2) Shortness of breath Current Visit: Yes Status: Acute Assessment & Plan: ASSESSMENT # Shortness of breath # COVID + ongoing sx x3-4 weeks # Pleuritic chest pain versus musculoskeletal chest pain #H/O COPD #Tobacco dependence, declined nicotine patch # Elevated troponin likely demand ischemia # History of thoracic aortic aneurysm # History of cirrhosis no imaging to verify here # GERD # Rheumatoid arthritis. Noted rheumatoid factor screen negative here in 2019 PLAN -Supplemental oxygen to maintain sat 92% -Dexamethasone for cough/COPD -Duonebs -Antitussives -Trend troponin -Repeat EKG in a.m. or for chest pain Prophylaxis: Xarelto Entire encounter performed via telemedicine Code(s): R06.02 - SHORTNESS OF BREATH Telemedicine Encounter - Telemedicine Encounter Telemedicine Encounter: The entirety of this encounter was performed via Telemedicine"
[2023-06-16 05:10] LABS: Absolute Neutrophil Ct (ANC) 7.38 x10^3/uL (1.4-6.9); BASOPHIL % 0.4 % (0.0-0.4); Basophil (Absolute #) 0.04 x10^3/uL (0-0.4); Eosinophil % 3.4 % (0.00-5.0); Eosinophil (Absolute #) 0.33 x10^3/uL (0-0.5); Hematocrit 44.2 % (35-47); Hemoglobin 13.9 g/dL (12.0-16.0); IMMATURE GRAN # 0.05 x10^3u/L (0.00-0.03); IMMATURE GRAN % 0.5 % (0.00-0.4); Lymphocyte (Absolute #) 1.42 x10^3/uL (1.0-4.6); Lymphocytes % 14.7 % (24.0-44.0); Mean Cell Volume 91.7 fL (78-100); Mean Corpuscular Hemoglobin 28.8 pg (26-32); Mean Corpuscular Hgb Concent. 31.4 g/dL (32-36); Monocyte (Absolute #) 0.44 x10^3/uL (0.0-1.3); Monocytes % 4.6 % (0.0-12.0); Neutrophil % 76.4 % (36.0-66.0); Platelet Count 293 x10^3/uL (150-450); Red Blood Count 4.82 x10^6/uL (4.1-5.4); Red Cell Distribution Width 13.5 % (11.5-14.0); White Blood Count 9.7 x10^3/uL (4.0-10.5)
--- NOTE | 2023-06-16 05:39 | PCM.NOTE ---
This is a 73-year-old female admitted for treatment of COVID, chest pain, elevated troponin. She has past medical history thoracic aortic aneurysm, CHF, CAD on Plavix and Xarelto, rheumatoid arthritis, cirrhosis related to ETOH quit 1989, GERD, restless leg syndrome.3 to 4-week history of nonproductive cough and shortness of breath. On arrival she was afebrile, blood pressure 153/91 sat 93%. Noted to desat to high 80s with exertion. Labs significant for WBC 9.9, hemoglobin 12.6, INR 1.3, creatinine 1, troponin 0.051 and 0.049, COVID PCR positive. Chest x-ray no acute infiltrates. EKG showed atrial paced complexes no ST changes. In the ED she received Lasix. # Shortness of breath # COVID + ongoing sx x3-4 weeks # Pleuritic chest pain versus musculoskeletal chest pain #H/O COPD #Tobacco dependence, declined nicotine patch # Elevated troponin likely demand ischemia # History of thoracic aortic aneurysm # History of cirrhosis no imaging to verify here # GERD # Rheumatoid arthritis. Noted rheumatoid factor screen negative here in 2019 PLAN -Supplemental oxygen to maintain sat 92% -Dexamethasone for cough/COPD -Duonebs -Antitussives -Trend troponin -Repeat EKG in a.m. or for chest pain Prophylaxis: Xarelto
[2023-06-16 05:45] LABS: ALBUMIN 4.1 g/dL (3.5-5.0); ANION GAP 14.3 MEQ/L (5-15); BILIRUBIN,TOTAL 0.8 mg/dL (0.2-1.3); Calcium 10.3 mg/dL (8.4-10.2); Creatinine 1 1.03 mg/dL (0.52-1.04); EST GLOMERULAR FILTRATION RATE 56.7 ML/MIN; Potassium 4.1 mmol/L (3.5-5.1); Total Protein 7.5 g/dL (6.3-8.2)
[2023-06-16] MEDS: DUONEB 0.5-3 MG/3 ml Neb IH SCH ×2 (06:39→12:49)
--- NOTE | 2023-06-16 08:59 | XRAY ---
Indication: Cough and short of breath. Comparison: February 04, 2023 Portable chest unchanged again hyperinflated and clear with a few incidental tiny calcified granulomas. Heart not enlarged again with left pacemaker. Bony thorax intact again with osteopenia and mild degenerative changes. No new/acute findings.
[2023-06-16] MEDS ORDERED: FOLATE 1 MG PO SCH (10:00)
[2023-06-16] MEDS ORDERED: Toprol Xl 50 MG PO SCH (10:00)
[2023-06-16] MEDS ORDERED: BUSPAR 5 MG PO SCH (10:00)
[2023-06-16] MEDS ORDERED: XARELTO 10 MG TABLET PO SCH (10:00)
[2023-06-16] MEDS ORDERED: NORVASC 5 MG PO SCH (10:00)
[2023-06-16] MEDS ORDERED: Imdur 30 MG PO SCH (10:00)
[2023-06-16] MEDS ORDERED: PULMICORT 0.5 MG/2 ML RESPULES IH SCH (10:00)
[2023-06-16] MEDS ORDERED: Zanaflex 4 MG PO SCH (10:00)
[2023-06-16] MEDS ORDERED: PLAVIX Tablet PO SCH (10:00)
[2023-06-16] MEDS ORDERED: Aldactone 25 MG PO SCH (10:00)
[2023-06-16 11:12] VITALS: BP 136/68; TEMP 98.3
[2023-06-16 13:13] VITALS: PULSE 88; RESP 18; O2SAT 93
--- NOTE | 2023-06-16 13:28 | PCM.SSS ---
History of Present Illness - Chief Complaint Chief Complaint: CHF, COVID, ACUTE CORONARY SYNDROME Date: 06/16/23 History of Present Illness: is a 73 year old female.admitted for treatment of COVID, chest pain, elevated troponin. 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 She presented to the ED today for evaluation of 3 to 4-week history of nonproductive cough and shortness of breath. On arrival she was afebrile, blood pressure 153/91 sat 93%. Noted to desat to high 80s with exertion. Labs significant for WBC 9.9, hemoglobin 12.6, INR 1.3, creatinine 1, troponin 0.051 and 0.049, COVID PCR positive. Chest x-ray no acute infiltrates. EKG showed atrial paced complexes no ST changes. In the ED she received Lasix. Patient is now requesting discharge as she states she has a disabled daughter at home that she needs to care for. She is being qualified and set up for home oxygen. Risk of early discharge have been discussed with the patient. She will discharge home on decadron for 10 days . Advised close follow up with pcp/cardiology. - Review of Systems Constitutional: No Symptoms Eyes: No Symptoms Ears, Nose, & Throat: No Symptoms Respiratory: Cough, Short Of Breath Cardiac: No Symptoms Abdominal/Gastrointestinal: No Symptoms Genitourinary Symptoms: No Symptoms Musculoskeletal: No Symptoms Skin: No Symptoms Neurological: No Symptoms Psychological: No Symptoms Endocrine: No Symptoms Medications & Allergies Home Medications: Home Medication List Clopidogrel Bisulfate [PLAVIX Tablet] 0.5 tab PO DAILY 07/31/13 [History Confirmed 06/16/23] Rivaroxaban [Xarelto] 20 mg PO DAILY 10/27/14 [History Confirmed 06/16/23] Buspirone HCl 5 mg [Buspar 5 mg] 30 mg PO BID 11/08/21 [History Confirmed 06/16/23] Albuterol Sulfate [Proair Respiclick] 2 puffs IH QID PRN 06/15/23 [History Confirmed 06/16/23] Amlodipine Besylate 5 mg [Norvasc 5 mg] 5 mg PO DAILY 06/15/23 [History Confirmed 06/16/23] Breztri 160mcg/ 9 Mcg/ 4.8mcg 2 puffs IH BID 06/15/23 [History Confirmed 06/16/23] Diclofenac Sodium [Voltaren Arthritis Pain] 20 gm TP DAILY PRN PRN 06/15/23 [History Confirmed 06/16/23] Folic Acid 1 mg PO DAILY 06/15/23 [History Confirmed 06/16/23] Isosorbide Mononitrate [Isosorbide Mononitrate ER] 30 mg PO DAILY 06/15/23 [History Confirmed 06/16/23] Metoprolol Succinate 50 mg [Toprol Xl 50 MG] 50 mg PO DAILY 06/15/23 [History Confirmed 06/16/23] Nitroglycerin 0.4 mg Tablet [Nitrostat 0.4 MG Tablet] 0.4 mg SL UD 06/15/23 [History Confirmed 06/16/23] Prednisone 20 mg [Deltasone 20 mg] 20 mg PO BID 06/15/23 [History Confirmed 06/16/23] Spironolactone 25 mg [Aldactone 25 MG] 25 mg PO DAILY 06/15/23 [History Confirmed 06/16/23] Tizanidine HCl 4 mg [Zanaflex 4 MG] 4 mg PO TID 06/15/23 [History Confirmed 06/16/23] Allergies/Adverse Reactions: Allergies Allergy/AdvReac Type Severity Reaction Status Date / Time Penicillins Allergy Hives Verified 06/16/23 01:38 sulfamethoxazole Allergy Nausea and Verified 06/16/23 01:38 [From Bactrim] Vomiting trimethoprim [From Bactrim] Allergy Nausea and Verified 06/16/23 01:38 Vomiting - Past Medical History Past Medical History: Yes Neurological History: No Pertinent History ENT History: Cataracts Cardiac History: Aneurysm, Arrhythmia, Congestive Heart Failure, Hypertension, Myocardial Infarction ([place]) Respiratory History: No Pertinent History Endocrine Medical History: No Pertinent History Musculoskelatal History: Osteoarthritis, Rheumatoid Arthritis GI Medical History: Cirrhosis, GERD History: No Pertinent History Pyscho-Social History: Depression Reproductive Disorders: No Pertinent History Comment: restless leg syndrome, neuropathy, aortic aneurysm - Female History Are you now?: No - Past Surgical History Past Surgical History: Yes Neuro Surgical History: No Pertinent History Cardiac History: Cardiac Catheterization, Pacemaker Respiratory Surgery: No Pertinent History GI Surgical History: Other Genitourinary Surgical Hx: No Pertinent History Musculskeletal Surgical Hx: Joint Replacement Female Surgical History: Hysterectomy Other Surgical History: PACEMAKER PLACEMENT, HYSTERECTOMY , left IOL October 2017 - Social History Smoking Status: Current every day smoker How long have you smoked: 50 years Exposure to second hand smoke: Yes Alcohol: None Drug Use: none Significant Family History: no pertinent family hx - Physical Exam Vital Signs: Vital Signs - 24 hr Temp Pulse Resp BP BP Pulse Ox 06/16/23 12:15 88 18 93 L 06/16/23 12:00 20 06/16/23 11:11 98.3 F 68 20 136/68 95 06/16/23 10:00 18 06/16/23 08:00 98.1 F 80 18 135/64 90 L 06/16/23 06:51 60 18 96 06/16/23 06:00 18 06/16/23 05:35 63 16 93 L 06/16/23 04:00 65 18 94 L 06/16/23 03:00 97 H 18 94 L 06/16/23 01:07 98.0 F 78 18 148/88 98 06/16/23 00:30 69 23 144/80 95 06/16/23 00:02 71 20 153/82 96 06/15/23 23:45 73 21 144/84 95 06/15/23 23:31 66 20 144/77 94 L 06/15/23 23:01 67 21 149/82 91 L 06/15/23 22:30 64 22 133/77 93 L 06/15/23 22:00 68 23 135/73 92 L 06/15/23 21:30 67 20 136/68 94 L 06/15/23 21:01 67 20 144/80 94 L 06/15/23 20:31 63 25 H 139/84 93 L 06/15/23 20:10 62 27 H 135/77 93 L 06/15/23 19:48 93 L 06/15/23 19:31 61 25 H 135/63 95 06/15/23 19:28 97.9 F 60 26 H 153/91 93 L General Appearance: no apparent distress Neurologic Exam: alert, oriented x 3, cooperative Eye Exam: PERRL/EOMI Ears, Nose, Throat Exam: normal ENT inspection Neck Exam: normal inspection Respiratory Exam: diminished breath sounds Cardiovascular Exam: regular rate/rhythm, normal heart sounds Gastrointestinal/Abdomen Exam: soft, normal bowel sounds Pelvic Exam: not done Rectal Exam: deferred Back Exam: normal inspection Extremity Exam: normal inspection Skin Exam: normal color Results - Labs Lab/Micro Results: Lab Results-Last 24 Hours 06/15/23 06/15/23 06/15/23 Range/Units 20:10 20:10 20:10 WBC 9.9 (4.0-10.5) x10^3/uL RBC 4.27 (4.1-5.4) x10^6/uL Hgb 12.6 (12.0-16.0) g/dL Hct 39.5 (35-47) % MCV 92.5 (78-100) fL MCH 29.5 (26-32) pg MCHC 31.9 L (32-36) g/dL RDW 13.4 (11.5-14.0) % Plt Count 262 (150-450) x10^3/uL MPV 8.8 (7.5-11.0) fL Gran % 65.9 (36.0-66.0) % Immature Gran % (Auto) 0.5 H (0.00-0.4) % Nucleat RBC Rel Count 0.0 (0.00-0.1) % Eos # (Auto) 0.24 (0-0.5) x10^3/uL Immature Gran # (Auto) 0.05 H (0.00-0.03) x10^3u/L Absolute Lymphs (auto) 2.24 (1.0-4.6) x10^3/uL Absolute Monos (auto) 0.81 (0.0-1.3) x10^3/uL Absolute Nucleated RBC 0.00 (0.00-0.01) x10^3u/L Lymphocytes % 22.6 L (24.0-44.0) % Monocytes % 8.2 (0.0-12.0) % Eosinophils % 2.4 (0.00-5.0) % Basophils % 0.4 (0.0-0.4) % Absolute Granulocytes 6.52 (1.4-6.9) x10^3/uL Basophils # 0.04 (0-0.4) x10^3/uL PT 14.4 H (9.4-12.5) SECONDS INR 1.35 (0.8-3.0) Sodium 140 (137-145) mmol/L Potassium 4.0 (3.5-5.1) mmol/L Chloride 105 (98-107) mmol/L Carbon Dioxide 30 (22-30) mmol/L Anion Gap 9.2 (5-15) MEQ/L BUN 22 H (7-17) mg/dL Creatinine 1.00 (0.52-1.04) mg/dL Estimated GFR 58.8 ML/MIN Glucose 109 H (74-106) mg/dL Calcium 9.8 (8.4-10.2) mg/dL Total Bilirubin 0.90 (0.2-1.3) mg/dL AST 21 (14-36) U/L ALT 23 (0-35) U/L Alkaline Phosphatase 102 (38-126) U/L Troponin I (0.000-0.034) ng/mL NT-Pro-B Natriuret Pep 2260 (<300) pg/mL Serum Total Protein 6.7 (6.3-8.2) g/dL Albumin 3.8 (3.5-5.0) g/dL Influenza Type A Ag (NEGATIVE) Influenza Type B Ag (NEGATIVE) RSV (PCR) (NEGATIVE) SARS-CoV-2 (PCR) (NEGATIVE) 06/15/23 06/15/23 06/15/23 Range/Units 20:10 20:15 23:00 WBC (4.0-10.5) x10^3/uL RBC (4.1-5.4) x10^6/uL Hgb (12.0-16.0) g/dL Hct (35-47) % MCV (78-100) fL MCH (26-32) pg MCHC (32-36) g/dL RDW (11.5-14.0) % Plt Count (150-450) x10^3/uL MPV (7.5-11.0) fL Gran % (36.0-66.0) % Immature Gran % (Auto) (0.00-0.4) % Nucleat RBC Rel Count (0.00-0.1) % Eos # (Auto) (0-0.5) x10^3/uL Immature Gran # (Auto) (0.00-0.03) x10^3u/L Absolute Lymphs (auto) (1.0-4.6) x10^3/uL Absolute Monos (auto) (0.0-1.3) x10^3/uL Absolute Nucleated RBC (0.00-0.01) x10^3u/L Lymphocytes % (24.0-44.0) % Monocytes % (0.0-12.0) % Eosinophils % (0.00-5.0) % Basophils % (0.0-0.4) % Absolute Granulocytes (1.4-6.9) x10^3/uL Basophils # (0-0.4) x10^3/uL PT (9.4-12.5) SECONDS INR (0.8-3.0) Sodium (137-145) mmol/L Potassium (3.5-5.1) mmol/L Chloride (98-107) mmol/L Carbon Dioxide (22-30) mmol/L Anion Gap (5-15) MEQ/L BUN (7-17) mg/dL Creatinine (0.52-1.04) mg/dL Estimated GFR ML/MIN Glucose (74-106) mg/dL Calcium (8.4-10.2) mg/dL Total Bilirubin (0.2-1.3) mg/dL AST (14-36) U/L ALT (0-35) U/L Alkaline Phosphatase (38-126) U/L Troponin I 0.051 H* 0.049 H* (0.000-0.034) ng/mL NT-Pro-B Natriuret Pep (<300) pg/mL Serum Total Protein (6.3-8.2) g/dL Albumin (3.5-5.0) g/dL Influenza Type A Ag NEGATIVE (NEGATIVE) Influenza Type B Ag NEGATIVE (NEGATIVE) RSV (PCR) NEGATIVE (NEGATIVE) SARS-CoV-2 (PCR) POSITIVE A (NEGATIVE) 06/16/23 06/16/23 06/16/23 Range/Units 04:30 04:30 04:37 WBC 9.7 (4.0-10.5) x10^3/uL RBC 4.82 (4.1-5.4) x10^6/uL Hgb 13.9 (12.0-16.0) g/dL Hct 44.2 (35-47) % MCV 91.7 (78-100) fL MCH 28.8 (26-32) pg MCHC 31.4 L (32-36) g/dL RDW 13.5 (11.5-14.0) % Plt Count 293 (150-450) x10^3/uL MPV 9.0 (7.5-11.0) fL Gran % 76.4 H (36.0-66.0) % Immature Gran % (Auto) 0.5 H (0.00-0.4) % Nucleat RBC Rel Count 0.0 (0.00-0.1) % Eos # (Auto) 0.33 (0-0.5) x10^3/uL Immature Gran # (Auto) 0.05 H (0.00-0.03) x10^3u/L Absolute Lymphs (auto) 1.42 (1.0-4.6) x10^3/uL Absolute Monos (auto) 0.44 (0.0-1.3) x10^3/uL Absolute Nucleated RBC 0.00 (0.00-0.01) x10^3u/L Lymphocytes % 14.7 L (24.0-44.0) % Monocytes % 4.6 (0.0-12.0) % Eosinophils % 3.4 (0.00-5.0) % Basophils % 0.4 (0.0-0.4) % Absolute Granulocytes 7.38 H (1.4-6.9) x10^3/uL Basophils # 0.04 (0-0.4) x10^3/uL PT (9.4-12.5) SECONDS INR (0.8-3.0) Sodium 142 (137-145) mmol/L Potassium 4.1 (3.5-5.1) mmol/L Chloride 104 (98-107) mmol/L Carbon Dioxide 28 (22-30) mmol/L Anion Gap 14.3 (5-15) MEQ/L BUN 20 H (7-17) mg/dL Creatinine 1.03 (0.52-1.04) mg/dL Estimated GFR 56.7 ML/MIN Glucose 150 H (74-106) mg/dL Calcium 10.3 H (8.4-10.2) mg/dL Total Bilirubin 0.80 (0.2-1.3) mg/dL AST 23 (14-36) U/L ALT 26 (0-35) U/L Alkaline Phosphatase 120 (38-126) U/L Troponin I 0.044 H* (0.000-0.034) ng/mL NT-Pro-B Natriuret Pep 1620 (<300) pg/mL Serum Total Protein 7.5 (6.3-8.2) g/dL Albumin 4.1 (3.5-5.0) g/dL Influenza Type A Ag (NEGATIVE) Influenza Type B Ag (NEGATIVE) RSV (PCR) (NEGATIVE) SARS-CoV-2 (PCR) (NEGATIVE) 06/16/23 Range/Units 08:55 WBC (4.0-10.5) x10^3/uL RBC (4.1-5.4) x10^6/uL Hgb (12.0-16.0) g/dL Hct (35-47) % MCV (78-100) fL MCH (26-32) pg MCHC (32-36) g/dL RDW (11.5-14.0) % Plt Count (150-450) x10^3/uL MPV (7.5-11.0) fL Gran % (36.0-66.0) % Immature Gran % (Auto) (0.00-0.4) % Nucleat RBC Rel Count (0.00-0.1) % Eos # (Auto) (0-0.5) x10^3/uL Immature Gran # (Auto) (0.00-0.03) x10^3u/L Absolute Lymphs (auto) (1.0-4.6) x10^3/uL Absolute Monos (auto) (0.0-1.3) x10^3/uL Absolute Nucleated RBC (0.00-0.01) x10^3u/L Lymphocytes % (24.0-44.0) % Monocytes % (0.0-12.0) % Eosinophils % (0.00-5.0) % Basophils % (0.0-0.4) % Absolute Granulocytes (1.4-6.9) x10^3/uL Basophils # (0-0.4) x10^3/uL PT (9.4-12.5) SECONDS INR (0.8-3.0) Sodium (137-145) mmol/L Potassium (3.5-5.1) mmol/L Chloride (98-107) mmol/L Carbon Dioxide (22-30) mmol/L Anion Gap (5-15) MEQ/L BUN (7-17) mg/dL Creatinine (0.52-1.04) mg/dL Estimated GFR ML/MIN Glucose (74-106) mg/dL Calcium (8.4-10.2) mg/dL Total Bilirubin (0.2-1.3) mg/dL AST (14-36) U/L ALT (0-35) U/L Alkaline Phosphatase (38-126) U/L Troponin I 0.027 (0.000-0.034) ng/mL NT-Pro-B Natriuret Pep (<300) pg/mL Serum Total Protein (6.3-8.2) g/dL Albumin (3.5-5.0) g/dL Influenza Type A Ag (NEGATIVE) Influenza Type B Ag (NEGATIVE) RSV (PCR) (NEGATIVE) SARS-CoV-2 (PCR) (NEGATIVE) - Radiology Impressions Radiology Exams & Impressions: Radiology Procedures Category Date Time Status CHEST 1 VIEW (PORTABLE) Stat Exams 06/15/23 19:48 Completed ECHO W/2D AND DOPPLER [US] Routine Exams 06/16/23 02:00 Taken - Other Procedures and Tests Respiratory Therapy 06/16/23 00:53 Oxygen Nasal Cannula 2 lpm 06/16/23 03:59 Respiratory Therapy Assessment DAILY 06/16/23 12:15 Qualify for Home Oxygen ROUTINE Assessment/Plan (1) CHF (congestive heart failure) Current Visit: Yes Status: Acute Code(s): I50.9 - HEART FAILURE, UNSPECIFIED (2) COVID-19 virus infection Current Visit: Yes Status: Acute Code(s): U07.1 - COVID-19 (3) Shortness of breath Current Visit: Yes Status: Acute Code(s): R06.02 - SHORTNESS OF BREATH (4) Chest pain Current Visit: No Status: Acute Qualifiers: Chest pain type: precordial chest pain Qualified Code(s): R07.2 - Precordial pain Code(s): R07.9 - CHEST PAIN, UNSPECIFIED Hospital Summary - Hospital Course Hospital Course: is a 73 year old female.admitted for treatment of COVID, chest pain, elevated troponin. 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 She presented to the ED today for evaluation of 3 to 4-week history of nonproductive cough and shortness of breath. On arrival she was afebrile, blood pressure 153/91 sat 93%. Noted to desat to high 80s with exertion. Labs significant for WBC 9.9, hemoglobin 12.6, INR 1.3, creatinine 1, troponin 0.051 and 0.049, COVID PCR positive. Chest x-ray no acute infiltrates. EKG showed atrial paced complexes no ST changes. In the ED she received Lasix. Patient is now requesting discharge as she states she has a disabled daughter at home that she needs to care for. She is no longer having CP. She is being qualified and set up for home oxygen. Risk of early discharge have been discussed with the patient. She will discharge home on decadron for 10 days . Advised close follow up with pcp/cardiology. Discharge Note New Diagnosis: COVID New Medications:decadron Follow Up: pcp/cardiology Latest Assessment & Plan (1) Acute coronary syndrome Current Visit: Yes Status: Acute Code(s): I24.9 - ACUTE ISCHEMIC HEART DISEASE, UNSPECIFIED (2) Shortness of breath Current Visit: Yes Status: Acute Assessment & Plan: ASSESSMENT # Shortness of breath # COVID + ongoing sx x3-4 weeks # Pleuritic chest pain versus musculoskeletal chest pain #H/O COPD #Tobacco dependence, declined nicotine patch # Elevated troponin likely demand ischemia # History of thoracic aortic aneurysm # History of cirrhosis no imaging to verify here # GERD # Rheumatoid arthritis. Noted rheumatoid factor screen negative here in 2019 PLAN -Supplemental oxygen to maintain sat 92% -Dexamethasone for cough/COPD -Duonebs -Antitussives -Trend troponin -Repeat EKG in a.m. or for chest pain Prophylaxis: Riri Darden spent 35 minutes [id number] with the patient on the day of discharge pe rforming discharge exam, discussing hospital stay and discharge instructions with patient and caregivers, preparation of discharge records, prescriptions & referral forms and addressing any questions/concerns the patient had as documented above. - Vitals & Intake/Output Vital Signs: Vital Signs Temperature 98.3 F 06/16/23 11:11 Pulse Rate 88 06/16/23 12:15 Respiratory Rate 18 06/16/23 12:15 Blood Pressure 136/68 06/16/23 11:11 O2 Sat by Pulse Oximetry 93 L 06/16/23 12:15 Intake & Output: Intake & Output 06/14/23 06/15/23 06/16/23 06/17/23 11:59 11:59 11:59 11:59 Intake Total 580 Output Total 1400 Balance -820 Weight 87.3 kg - Lab Result Diagrams: 06/16/23 04:30 06/16/23 04:30 Lab Results-Last 24 Hrs: Lab Results-Last 24 Hours 06/15/23 06/15/23 06/15/23 Range/Units 20:10 20:10 20:10 WBC 9.9 (4.0-10.5) x10^3/uL RBC 4.27 (4.1-5.4) x10^6/uL Hgb 12.6 (12.0-16.0) g/dL Hct 39.5 (35-47) % MCV 92.5 (78-100) fL MCH 29.5 (26-32) pg MCHC 31.9 L (32-36) g/dL RDW 13.4 (11.5-14.0) % Plt Count 262 (150-450) x10^3/uL MPV 8.8 (7.5-11.0) fL Gran % 65.9 (36.0-66.0) % Immature Gran % (Auto) 0.5 H (0.00-0.4) % Nucleat RBC Rel Count 0.0 (0.00-0.1) % Eos # (Auto) 0.24 (0-0.5) x10^3/uL Immature Gran # (Auto) 0.05 H (0.00-0.03) x10^3u/L Absolute Lymphs (auto) 2.24 (1.0-4.6) x10^3/uL Absolute Monos (auto) 0.81 (0.0-1.3) x10^3/uL Absolute Nucleated RBC 0.00 (0.00-0.01) x10^3u/L Lymphocytes % 22.6 L (24.0-44.0) % Monocytes % 8.2 (0.0-12.0) % Eosinophils % 2.4 (0.00-5.0) % Basophils % 0.4 (0.0-0.4) % Absolute Granulocytes 6.52 (1.4-6.9) x10^3/uL Basophils # 0.04 (0-0.4) x10^3/uL PT 14.4 H (9.4-12.5) SECONDS INR 1.35 (0.8-3.0) Sodium 140 (137-145) mmol/L Potassium 4.0 (3.5-5.1) mmol/L Chloride 105 (98-107) mmol/L Carbon Dioxide 30 (22-30) mmol/L Anion Gap 9.2 (5-15) MEQ/L BUN 22 H (7-17) mg/dL Creatinine 1.00 (0.52-1.04) mg/dL Estimated GFR 58.8 ML/MIN Glucose 109 H (74-106) mg/dL Calcium 9.8 (8.4-10.2) mg/dL Total Bilirubin 0.90 (0.2-1.3) mg/dL AST 21 (14-36) U/L ALT 23 (0-35) U/L Alkaline Phosphatase 102 (38-126) U/L Troponin I (0.000-0.034) ng/mL NT-Pro-B Natriuret Pep 2260 (<300) pg/mL Serum Total Protein 6.7 (6.3-8.2) g/dL Albumin 3.8 (3.5-5.0) g/dL Influenza Type A Ag (NEGATIVE) Influenza Type B Ag (NEGATIVE) RSV (PCR) (NEGATIVE) SARS-CoV-2 (PCR) (NEGATIVE) 06/15/23 06/15/23 06/15/23 Range/Units 20:10 20:15 23:00 WBC (4.0-10.5) x10^3/uL RBC (4.1-5.4) x10^6/uL Hgb (12.0-16.0) g/dL Hct (35-47) % MCV (78-100) fL MCH (26-32) pg MCHC (32-36) g/dL RDW (11.5-14.0) % Plt Count (150-450) x10^3/uL MPV (7.5-11.0) fL Gran % (36.0-66.0) % Immature Gran % (Auto) (0.00-0.4) % Nucleat RBC Rel Count (0.00-0.1) % Eos # (Auto) (0-0.5) x10^3/uL Immature Gran # (Auto) (0.00-0.03) x10^3u/L Absolute Lymphs (auto) (1.0-4.6) x10^3/uL Absolute Monos (auto) (0.0-1.3) x10^3/uL Absolute Nucleated RBC (0.00-0.01) x10^3u/L Lymphocytes % (24.0-44.0) % Monocytes % (0.0-12.0) % Eosinophils % (0.00-5.0) % Basophils % (0.0-0.4) % Absolute Granulocytes (1.4-6.9) x10^3/uL Basophils # (0-0.4) x10^3/uL PT (9.4-12.5) SECONDS INR (0.8-3.0) Sodium (137-145) mmol/L Potassium (3.5-5.1) mmol/L Chloride (98-107) mmol/L Carbon Dioxide (22-30) mmol/L Anion Gap (5-15) MEQ/L BUN (7-17) mg/dL Creatinine (0.52-1.04) mg/dL Estimated GFR ML/MIN Glucose (74-106) mg/dL Calcium (8.4-10.2) mg/dL Total Bilirubin (0.2-1.3) mg/dL AST (14-36) U/L ALT (0-35) U/L Alkaline Phosphatase (38-126) U/L Troponin I 0.051 H* 0.049 H* (0.000-0.034) ng/mL NT-Pro-B Natriuret Pep (<300) pg/mL Serum Total Protein (6.3-8.2) g/dL Albumin (3.5-5.0) g/dL Influenza Type A Ag NEGATIVE (NEGATIVE) Influenza Type B Ag NEGATIVE (NEGATIVE) RSV (PCR) NEGATIVE (NEGATIVE) SARS-CoV-2 (PCR) POSITIVE A (NEGATIVE) 06/16/23 06/16/23 06/16/23 Range/Units 04:30 04:30 04:37 WBC 9.7 (4.0-10.5) x10^3/uL RBC 4.82 (4.1-5.4) x10^6/uL Hgb 13.9 (12.0-16.0) g/dL Hct 44.2 (35-47) % MCV 91.7 (78-100) fL MCH 28.8 (26-32) pg MCHC 31.4 L (32-36) g/dL RDW 13.5 (11.5-14.0) % Plt Count 293 (150-450) x10^3/uL MPV 9.0 (7.5-11.0) fL Gran % 76.4 H (36.0-66.0) % Immature Gran % (Auto) 0.5 H (0.00-0.4) % Nucleat RBC Rel Count 0.0 (0.00-0.1) % Eos # (Auto) 0.33 (0-0.5) x10^3/uL Immature Gran # (Auto) 0.05 H (0.00-0.03) x10^3u/L Absolute Lymphs (auto) 1.42 (1.0-4.6) x10^3/uL Absolute Monos (auto) 0.44 (0.0-1.3) x10^3/uL Absolute Nucleated RBC 0.00 (0.00-0.01) x10^3u/L Lymphocytes % 14.7 L (24.0-44.0) % Monocytes % 4.6 (0.0-12.0) % Eosinophils % 3.4 (0.00-5.0) % Basophils % 0.4 (0.0-0.4) % Absolute Granulocytes 7.38 H (1.4-6.9) x10^3/uL Basophils # 0.04 (0-0.4) x10^3/uL PT (9.4-12.5) SECONDS INR (0.8-3.0) Sodium 142 (137-145) mmol/L Potassium 4.1 (3.5-5.1) mmol/L Chloride 104 (98-107) mmol/L Carbon Dioxide 28 (22-30) mmol/L Anion Gap 14.3 (5-15) MEQ/L BUN 20 H (7-17) mg/dL Creatinine 1.03 (0.52-1.04) mg/dL Estimated GFR 56.7 ML/MIN Glucose 150 H (74-106) mg/dL Calcium 10.3 H (8.4-10.2) mg/dL Total Bilirubin 0.80 (0.2-1.3) mg/dL AST 23 (14-36) U/L ALT 26 (0-35) U/L Alkaline Phosphatase 120 (38-126) U/L Troponin I 0.044 H* (0.000-0.034) ng/mL NT-Pro-B Natriuret Pep 1620 (<300) pg/mL Serum Total Protein 7.5 (6.3-8.2) g/dL Albumin 4.1 (3.5-5.0) g/dL Influenza Type A Ag (NEGATIVE) Influenza Type B Ag (NEGATIVE) RSV (PCR) (NEGATIVE) SARS-CoV-2 (PCR) (NEGATIVE) 06/16/23 Range/Units 08:55 WBC (4.0-10.5) x10^3/uL RBC (4.1-5.4) x10^6/uL Hgb (12.0-16.0) g/dL Hct (35-47) % MCV (78-100) fL MCH (26-32) pg MCHC (32-36) g/dL RDW (11.5-14.0) % Plt Count (150-450) x10^3/uL MPV (7.5-11.0) fL Gran % (36.0-66.0) % Immature Gran % (Auto) (0.00-0.4) % Nucleat RBC Rel Count (0.00-0.1) % Eos # (Auto) (0-0.5) x10^3/uL Immature Gran # (Auto) (0.00-0.03) x10^3u/L Absolute Lymphs (auto) (1.0-4.6) x10^3/uL Absolute Monos (auto) (0.0-1.3) x10^3/uL Absolute Nucleated RBC (0.00-0.01) x10^3u/L Lymphocytes % (24.0-44.0) % Monocytes % (0.0-12.0) % Eosinophils % (0.00-5.0) % Basophils % (0.0-0.4) % Absolute Granulocytes (1.4-6.9) x10^3/uL Basophils # (0-0.4) x10^3/uL PT (9.4-12.5) SECONDS INR (0.8-3.0) Sodium (137-145) mmol/L Potassium (3.5-5.1) mmol/L Chloride (98-107) mmol/L Carbon Dioxide (22-30) mmol/L Anion Gap (5-15) MEQ/L BUN (7-17) mg/dL Creatinine (0.52-1.04) mg/dL Estimated GFR ML/MIN Glucose (74-106) mg/dL Calcium (8.4-10.2) mg/dL Total Bilirubin (0.2-1.3) mg/dL AST (14-36) U/L ALT (0-35) U/L Alkaline Phosphatase (38-126) U/L Troponin I 0.027 (0.000-0.034) ng/mL NT-Pro-B Natriuret Pep (<300) pg/mL Serum Total Protein (6.3-8.2) g/dL Albumin (3.5-5.0) g/dL Influenza Type A Ag (NEGATIVE) Influenza Type B Ag (NEGATIVE) RSV (PCR) (NEGATIVE) SARS-CoV-2 (PCR) (NEGATIVE) - Radiology Exams Ordered Rad Exams-Entire Visit: Radiology Procedures Category Date Time Status CHEST 1 VIEW (PORTABLE) Stat Exams 06/15/23 19:48 Completed ECHO W/2D AND DOPPLER [US] Routine Exams 06/16/23 02:00 Taken - Procedures and Test Procedures and Tests throughout Hospitalization: Therapy Orders & Screens 06/16/23 00:53 EKG REPEAT IN AM Comment: Oxygen Nasal Cannula 2 lpm Comment: Respiratory Therapy Consult ONCE Comment: Reason For Exam: 06/16/23 01:34 RT Screen per Nursing Assess ONCE Comment: Protocol Order Physician Instructions: Greater than 3 points order RT Admission Screen Reason For Exam: Triggered on Admission Diagnosis: CHF, COVID, ACUTE CORONARY SYNDROME Diagnosis: CHF, COVID, ACUTE CORONARY SYNDROME Pneumonia: No Home O2: Yes Asthma: No CHF: Yes Home CPAP/BIPAP: No Home Nebs/MDI: Yes Total Points: 13 Smoking Cessation Education ONCE Comment: Diagnosis: CHF, COVID, ACUTE CORONARY SYNDROME Smoking Status: Current every day smoker How long have you smoked: 50 years Have you smoked in the past 12 months: Yes Approximately how many cigarettes per day: 20 Do you dip or chew tobacco: No 06/16/23 03:59 Respiratory Therapy Assessment DAILY Comment: Diagnosis: CHF, COVID, ACUTE CORONARY SYNDROME 06/16/23 12:15 Qualify for Home Oxygen ROUTINE Comment: Diagnosis: CHF, COVID, ACUTE CORONARY SYNDROME - Discharge Disposition: Home, Self-Care Condition: Fair Prescriptions: No Action Clopidogrel Bisulfate [PLAVIX Tablet] 0.5 tab PO DAILY Rivaroxaban [Xarelto] 20 mg PO DAILY Buspirone HCl 5 mg [Buspar 5 mg] 30 mg PO BID Prednisone 20 mg [Deltasone 20 mg] 20 mg PO BID Albuterol Sulfate [Proair Respiclick] 2 puffs IH QID PRN Folic Acid 1 mg PO DAILY Diclofenac Sodium [Voltaren Arthritis Pain] 20 gm TP DAILY PRN PRN PRN Reason: Pain Nitroglycerin 0.4 mg Tablet [Nitrostat 0.4 MG Tablet] 0.4 mg SL UD Spironolactone 25 mg [Aldactone 25 MG] 25 mg PO DAILY Isosorbide Mononitrate [Isosorbide Mononitrate ER] 30 mg PO DAILY Metoprolol Succinate 50 mg [Toprol Xl 50 MG] 50 mg PO DAILY Amlodipine Besylate 5 mg [Norvasc 5 mg] 5 mg PO DAILY Tizanidine HCl 4 mg [Zanaflex 4 MG] 4 mg PO TID Breztri 160mcg/ 9 Mcg/ 4.8mcg 2 puffs IH BID Instructions: COVID-19 (DC) Follow up with: CLARENCE SHORT [Primary Care Provider] - 06/22/23 11:00 am
--- NOTE | 2023-06-16 14:26 | PCM.DCORD ---
- Discharge Disposition: Home, Self-Care Condition: Fair Prescriptions: New dexAMETHasone [Dexamethasone] 6 mg PO DAILY 10 Days #10 tablet Continue Clopidogrel Bisulfate [PLAVIX Tablet] 0.5 tab PO DAILY Rivaroxaban [Xarelto] 20 mg PO DAILY Buspirone HCl 5 mg [Buspar 5 mg] 30 mg PO BID Albuterol Sulfate [Proair Respiclick] 2 puffs IH QID PRN Folic Acid 1 mg PO DAILY Diclofenac Sodium [Voltaren Arthritis Pain] 20 gm TP DAILY PRN PRN PRN Reason: Pain Nitroglycerin 0.4 mg Tablet [Nitrostat 0.4 MG Tablet] 0.4 mg SL UD Spironolactone 25 mg [Aldactone 25 MG] 25 mg PO DAILY Isosorbide Mononitrate [Isosorbide Mononitrate ER] 30 mg PO DAILY Metoprolol Succinate 50 mg [Toprol Xl 50 MG] 50 mg PO DAILY Amlodipine Besylate 5 mg [Norvasc 5 mg] 5 mg PO DAILY Tizanidine HCl 4 mg [Zanaflex 4 MG] 4 mg PO TID Breztri 160mcg/ 9 Mcg/ 4.8mcg 2 puffs IH BID Discontinued Prednisone 20 mg [Deltasone 20 mg] 20 mg PO BID Instructions: Oxygen Therapy, Adult (DC), COVID-19 (DC) Additional Instructions: YOU NEED TO WEAR OXYGEN AT HOME ALL THE TIMES AT 2L/NC (WHEN SLEEPING WELL). CALL [facility] WHEN YOU LEAVE THE [facility] AT [phone] AND LET THEM KNOW YOU ARE ON YOUR HOME SO THEY CAN DELIVER YOUR HOME CONCENTRATOR. IF YOU GET THE AFTER HOURS ANSWERING SERVICES- FOLLOW THE PHONE PROMPTS FOR THE AFTER HOURS/EMERGENCY HELP PROTOTYPE MODEL MAKER. THEY ARE AVAILABLE 26/01 FOR DELIVERY WHEN YOU FOLLOW UP WITH YOUR DOCTOR- DISCUSS WITH THEM IF YOU SHOULD KEEP ON THE OXYGEN OR NIGHT TO SWITCH OVER TO YOUR CPAP MACHINE Follow up with: CLARENCE SHORT [Primary Care Provider] - 06/22/23 11:00 am
--- NOTE | 2023-06-16 14:35 | PCM.DS ---
Discharge Summary Date of Admission: 06/16/23 00:47 Date of Discharge: 06/16/23 Admitting Physician: GLENDA SKAGGS MD Primary Care Provider: CLARENCE SHORT Allergies Allergies Penicillins Allergy (Verified 06/16/23 01:38) Hives sulfamethoxazole [From Bactrim] Allergy (Verified 06/16/23 01:38) Nausea and Vomiting trimethoprim [From Bactrim] Allergy (Verified 06/16/23 01:38) Nausea and Vomiting Hospital Summary - Hospital Course Hospital Course: is a 73 year old female.admitted for treatment of COVID, chest pain, elevated troponin. 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 She presented to the ED today for evaluation of 3 to 4-week history of nonproductive cough and shortness of breath. On arrival she was afebrile, blood pressure 153/91 sat 93%. Noted to desat to high 80s with exertion. Labs significant for WBC 9.9, hemoglobin 12.6, INR 1.3, creatinine 1, troponin 0.051 and 0.049, COVID PCR positive. Chest x-ray no acute infiltrates. EKG showed atrial paced complexes no ST changes. In the ED she received Lasix. Patient is now requesting discharge as she states she has a disabled daughter at home that she needs to care for. She is no longer having CP. She is being qualified and set up for home oxygen. Risk of early discharge have been discussed with the patient. She will discharge home on decadron for 10 days . Advised close follow up with pcp/cardiology. Discharge Note New Diagnosis: COVID New Medications:decadron Follow Up: pcp/cardiology Latest Assessment & Plan (1) Acute coronary syndrome Current Visit: Yes Status: Acute Code(s): I24.9 - ACUTE ISCHEMIC HEART DISEASE, UNSPECIFIED (2) Shortness of breath Current Visit: Yes Status: Acute Assessment & Plan: ASSESSMENT # Shortness of breath # COVID + ongoing sx x3-4 weeks # Pleuritic chest pain versus musculoskeletal chest pain #H/O COPD #Tobacco dependence, declined nicotine patch # Elevated troponin likely demand ischemia # History of thoracic aortic aneurysm # History of cirrhosis no imaging to verify here # GERD # Rheumatoid arthritis. Noted rheumatoid factor screen negative here in 2020 PLAN -Supplemental oxygen to maintain sat 92% -Dexamethasone for cough/COPD -Duonebs -Antitussives -Trend troponin -Repeat EKG in a.m. or for chest pain Prophylaxis: Megminabart Darden spent 35 minutes [id number] with the patient on the day of discharge performing discharge exam, discussing hospital stay and discharge instructions with patient and caregivers, preparation of discharge records, prescriptions & referral forms and addressing any questions/concerns the patient had as documented above. - Vitals & Intake/Output Vital Signs: Vital Signs Temperature 98.3 F 06/16/23 11:11 Pulse Rate 88 06/16/23 12:15 Respiratory Rate 18 06/16/23 12:15 Blood Pressure 136/68 06/16/23 11:11 O2 Sat by Pulse Oximetry 93 L 06/16/23 12:15 Intake & Output: Intake & Output 06/14/23 06/15/23 06/16/23 06/17/23 11:59 11:59 11:59 11:59 Intake Total 580 580 Output Total 1400 Balance -820 580 Weight 87.3 kg - Lab Result Diagrams: 06/16/23 04:30 06/16/23 04:30 Lab Results-Last 24 Hrs: Lab Results-Last 24 Hours 06/15/23 06/15/23 06/15/23 Range/Units 20:10 20:10 20:10 WBC 9.9 (4.0-10.5) x10^3/uL RBC 4.27 (4.1-5.4) x10^6/uL Hgb 12.6 (12.0-16.0) g/dL Hct 39.5 (35-47) % MCV 92.5 (78-100) fL MCH 29.5 (26-32) pg MCHC 31.9 L (32-36) g/dL RDW 13.4 (11.5-14.0) % Plt Count 262 (150-450) x10^3/uL MPV 8.8 (7.5-11.0) fL Gran % 65.9 (36.0-66.0) % Immature Gran % (Auto) 0.5 H (0.00-0.4) % Nucleat RBC Rel Count 0.0 (0.00-0.1) % Eos # (Auto) 0.24 (0-0.5) x10^3/uL Immature Gran # (Auto) 0.05 H (0.00-0.03) x10^3u/L Absolute Lymphs (auto) 2.24 (1.0-4.6) x10^3/uL Absolute Monos (auto) 0.81 (0.0-1.3) x10^3/uL Absolute Nucleated RBC 0.00 (0.00-0.01) x10^3u/L Lymphocytes % 22.6 L (24.0-44.0) % Monocytes % 8.2 (0.0-12.0) % Eosinophils % 2.4 (0.00-5.0) % Basophils % 0.4 (0.0-0.4) % Absolute Granulocytes 6.52 (1.4-6.9) x10^3/uL Basophils # 0.04 (0-0.4) x10^3/uL PT 14.4 H (9.4-12.5) SECONDS INR 1.35 (0.8-3.0) Sodium 140 (137-145) mmol/L Potassium 4.0 (3.5-5.1) mmol/L Chloride 105 (98-107) mmol/L Carbon Dioxide 30 (22-30) mmol/L Anion Gap 9.2 (5-15) MEQ/L BUN 22 H (7-17) mg/dL Creatinine 1.00 (0.52-1.04) mg/dL Estimated GFR 58.8 ML/MIN Glucose 109 H (74-106) mg/dL Calcium 9.8 (8.4-10.2) mg/dL Total Bilirubin 0.90 (0.2-1.3) mg/dL AST 21 (14-36) U/L ALT 23 (0-35) U/L Alkaline Phosphatase 102 (38-126) U/L Troponin I (0.000-0.034) ng/mL NT-Pro-B Natriuret Pep 2260 (<300) pg/mL Serum Total Protein 6.7 (6.3-8.2) g/dL Albumin 3.8 (3.5-5.0) g/dL Influenza Type A Ag (NEGATIVE) Influenza Type B Ag (NEGATIVE) RSV (PCR) (NEGATIVE) SARS-CoV-2 (PCR) (NEGATIVE) 06/15/23 06/15/23 06/15/23 Range/Units 20:10 20:15 23:00 WBC (4.0-10.5) x10^3/uL RBC (4.1-5.4) x10^6/uL Hgb (12.0-16.0) g/dL Hct (35-47) % MCV (78-100) fL MCH (26-32) pg MCHC (32-36) g/dL RDW (11.5-14.0) % Plt Count (150-450) x10^3/uL MPV (7.5-11.0) fL Gran % (36.0-66.0) % Immature Gran % (Auto) (0.00-0.4) % Nucleat RBC Rel Count (0.00-0.1) % Eos # (Auto) (0-0.5) x10^3/uL Immature Gran # (Auto) (0.00-0.03) x10^3u/L Absolute Lymphs (auto) (1.0-4.6) x10^3/uL Absolute Monos (auto) (0.0-1.3) x10^3/uL Absolute Nucleated RBC (0.00-0.01) x10^3u/L Lymphocytes % (24.0-44.0) % Monocytes % (0.0-12.0) % Eosinophils % (0.00-5.0) % Basophils % (0.0-0.4) % Absolute Granulocytes (1.4-6.9) x10^3/uL Basophils # (0-0.4) x10^3/uL PT (9.4-12.5) SECONDS INR (0.8-3.0) Sodium (137-145) mmol/L Potassium (3.5-5.1) mmol/L Chloride (98-107) mmol/L Carbon Dioxide (22-30) mmol/L Anion Gap (5-15) MEQ/L BUN (7-17) mg/dL Creatinine (0.52-1.04) mg/dL Estimated GFR ML/MIN Glucose (74-106) mg/dL Calcium (8.4-10.2) mg/dL Total Bilirubin (0.2-1.3) mg/dL AST (14-36) U/L ALT (0-35) U/L Alkaline Phosphatase (38-126) U/L Troponin I 0.051 H* 0.049 H* (0.000-0.034) ng/mL NT-Pro-B Natriuret Pep (<300) pg/mL Serum Total Protein (6.3-8.2) g/dL Albumin (3.5-5.0) g/dL Influenza Type A Ag NEGATIVE (NEGATIVE) Influenza Type B Ag NEGATIVE (NEGATIVE) RSV (PCR) NEGATIVE (NEGATIVE) SARS-CoV-2 (PCR) POSITIVE A (NEGATIVE) 06/16/23 06/16/23 06/16/23 Range/Units 04:30 04:30 04:37 WBC 9.7 (4.0-10.5) x10^3/uL RBC 4.82 (4.1-5.4) x10^6/uL Hgb 13.9 (12.0-16.0) g/dL Hct 44.2 (35-47) % MCV 91.7 (78-100) fL MCH 28.8 (26-32) pg MCHC 31.4 L (32-36) g/dL RDW 13.5 (11.5-14.0) % Plt Count 293 (150-450) x10^3/uL MPV 9.0 (7.5-11.0) fL Gran % 76.4 H (36.0-66.0) % Immature Gran % (Auto) 0.5 H (0.00-0.4) % Nucleat RBC Rel Count 0.0 (0.00-0.1) % Eos # (Auto) 0.33 (0-0.5) x10^3/uL Immature Gran # (Auto) 0.05 H (0.00-0.03) x10^3u/L Absolute Lymphs (auto) 1.42 (1.0-4.6) x10^3/uL Absolute Monos (auto) 0.44 (0.0-1.3) x10^3/uL Absolute Nucleated RBC 0.00 (0.00-0.01) x10^3u/L Lymphocytes % 14.7 L (24.0-44.0) % Monocytes % 4.6 (0.0-12.0) % Eosinophils % 3.4 (0.00-5.0) % Basophils % 0.4 (0.0-0.4) % Absolute Granulocytes 7.38 H (1.4-6.9) x10^3/uL Basophils # 0.04 (0-0.4) x10^3/uL PT (9.4-12.5) SECONDS INR (0.8-3.0) Sodium 142 (137-145) mmol/L Potassium 4.1 (3.5-5.1) mmol/L Chloride 104 (98-107) mmol/L Carbon Dioxide 28 (22-30) mmol/L Anion Gap 14.3 (5-15) MEQ/L BUN 20 H (7-17) mg/dL Creatinine 1.03 (0.52-1.04) mg/dL Estimated GFR 56.7 ML/MIN Glucose 150 H (74-106) mg/dL Calcium 10.3 H (8.4-10.2) mg/dL Total Bilirubin 0.80 (0.2-1.3) mg/dL AST 23 (14-36) U/L ALT 26 (0-35) U/L Alkaline Phosphatase 120 (38-126) U/L Troponin I 0.044 H* (0.000-0.034) ng/mL NT-Pro-B Natriuret Pep 1620 (<300) pg/mL Serum Total Protein 7.5 (6.3-8.2) g/dL Albumin 4.1 (3.5-5.0) g/dL Influenza Type A Ag (NEGATIVE) Influenza Type B Ag (NEGATIVE) RSV (PCR) (NEGATIVE) SARS-CoV-2 (PCR) (NEGATIVE) 06/16/23 Range/Units 08:55 WBC (4.0-10.5) x10^3/uL RBC (4.1-5.4) x10^6/uL Hgb (12.0-16.0) g/dL Hct (35-47) % MCV (78-100) fL MCH (26-32) pg MCHC (32-36) g/dL RDW (11.5-14.0) % Plt Count (150-450) x10^3/uL MPV (7.5-11.0) fL Gran % (36.0-66.0) % Immature Gran % (Auto) (0.00-0.4) % Nucleat RBC Rel Count (0.00-0.1) % Eos # (Auto) (0-0.5) x10^3/uL Immature Gran # (Auto) (0.00-0.03) x10^3u/L Absolute Lymphs (auto) (1.0-4.6) x10^3/uL Absolute Monos (auto) (0.0-1.3) x10^3/uL Absolute Nucleated RBC (0.00-0.01) x10^3u/L Lymphocytes % (24.0-44.0) % Monocytes % (0.0-12.0) % Eosinophils % (0.00-5.0) % Basophils % (0.0-0.4) % Absolute Granulocytes (1.4-6.9) x10^3/uL Basophils # (0-0.4) x10^3/uL PT (9.4-12.5) SECONDS INR (0.8-3.0) Sodium (137-145) mmol/L Potassium (3.5-5.1) mmol/L Chloride (98-107) mmol/L Carbon Dioxide (22-30) mmol/L Anion Gap (5-15) MEQ/L BUN (7-17) mg/dL Creatinine (0.52-1.04) mg/dL Estimated GFR ML/MIN Glucose (74-106) mg/dL Calcium (8.4-10.2) mg/dL Total Bilirubin (0.2-1.3) mg/dL AST (14-36) U/L ALT (0-35) U/L Alkaline Phosphatase (38-126) U/L Troponin I 0.027 (0.000-0.034) ng/mL NT-Pro-B Natriuret Pep (<300) pg/mL Serum Total Protein (6.3-8.2) g/dL Albumin (3.5-5.0) g/dL Influenza Type A Ag (NEGATIVE) Influenza Type B Ag (NEGATIVE) RSV (PCR) (NEGATIVE) SARS-CoV-2 (PCR) (NEGATIVE) - Radiology Exams Ordered Rad Exams-Entire Visit: Radiology Procedures Category Date Time Status CHEST 1 VIEW (PORTABLE) Stat Exams 12/11/23 19:48 Completed ECHO W/2D AND DOPPLER [US] Routine Exams 06/16/23 02:00 Taken - Procedures and Test Procedures and Tests throughout Hospitalization: Therapy Orders & Screens 06/16/23 00:53 EKG REPEAT IN AM Comment: Oxygen Nasal Cannula 2 lpm Comment: Respiratory Therapy Consult ONCE Comment: Reason For Exam: 06/16/23 01:34 RT Screen per Nursing Assess ONCE Comment: Protocol Order Physician Instructions: Greater than 3 points order RT Admission Screen Reason For Exam: Triggered on Admission Diagnosis: CHF, COVID, ACUTE CORONARY SYNDROME Diagnosis: CHF, COVID, ACUTE CORONARY SYNDROME Pneumonia: No Home O2: Yes Asthma: No CHF: Yes Home CPAP/BIPAP: No Home Nebs/MDI: Yes Total Points: 13 Smoking Cessation Education ONCE Comment: Diagnosis: CHF, COVID, ACUTE CORONARY SYNDROME Smoking Status: Current every day smoker How long have you smoked: 50 years Have you smoked in the past 12 months: Yes Approximately how many cigarettes per day: 20 Do you dip or chew tobacco: No 06/16/23 03:59 Respiratory Therapy Assessment DAILY Comment: Diagnosis: CHF, COVID, ACUTE CORONARY SYNDROME 06/16/23 12:15 Qualify for Home Oxygen ROUTINE Comment: Diagnosis: CHF, COVID, ACUTE CORONARY SYNDROME Discharge Exam General Appearance: no apparent distress Neurologic Exam: alert, oriented x 3, cooperative Eye Exam: PERRL Ears, Nose, Throat Exam: normal ENT inspection Neck Exam: normal inspection Respiratory Exam: diminished breath sounds Cardiovascular Exam: regular rate/rhythm, normal heart sounds Gastrointestinal/Abdomen Exam: soft, normal bowel sounds Pelvic Exam: deferred Rectal Exam: deferred Back Exam: normal inspection Extremity Exam: normal inspection Final Diagnosis/Problem List - Final Discharge Diagnosis/Problem (1) CHF (congestive heart failure) Current Visit: Yes Status: Acute Code(s): I50.9 - HEART FAILURE, UNSPECIFIED (2) COVID-19 virus infection Current Visit: Yes Status: Acute Code(s): U07.1 - COVID-19 (3) Shortness of breath Current Visit: Yes Status: Acute Code(s): R06.02 - SHORTNESS OF BREATH (4) Chest pain Current Visit: No Status: Acute Code(s): R07.9 - CHEST PAIN, UNSPECIFIED - Discharge Disposition: Home, Self-Care Condition: Fair Prescriptions: New dexAMETHasone [Dexamethasone] 6 mg PO DAILY 10 Days #10 tablet Continue Clopidogrel Bisulfate [PLAVIX Tablet] 0.5 tab PO DAILY Rivaroxaban [Xarelto] 20 mg PO DAILY Buspirone HCl 5 mg [Buspar 5 mg] 30 mg PO BID Albuterol Sulfate [Proair Respiclick] 2 puffs IH QID PRN Folic Acid 1 mg PO DAILY Diclofenac Sodium [Voltaren Arthritis Pain] 20 gm TP DAILY PRN PRN PRN Reason: Pain Nitroglycerin 0.4 mg Tablet [Nitrostat 0.4 MG Tablet] 0.4 mg SL UD Spironolactone 25 mg [Aldactone 25 MG] 25 mg PO DAILY Isosorbide Mononitrate [Isosorbide Mononitrate ER] 30 mg PO DAILY Metoprolol Succinate 50 mg [Toprol Xl 50 MG] 50 mg PO DAILY Amlodipine Besylate 5 mg [Norvasc 5 mg] 5 mg PO DAILY Tizanidine HCl 4 mg [Zanaflex 4 MG] 4 mg PO TID Breztri 160mcg/ 9 Mcg/ 4.8mcg 2 puffs IH BID Discontinued Prednisone 20 mg [Deltasone 20 mg] 20 mg PO BID Instructions: Oxygen Therapy, Adult (DC), COVID-19 (DC) Additional Instructions: YOU NEED TO WEAR OXYGEN AT HOME ALL THE TIMES AT 2L/NC (WHEN SLEEPING WELL). CALL [facility], [place] WHEN YOU LEAVE [facility] AT [phone] AND LET THEM KNOW YOU ARE ON YOUR HOME SO THEY CAN DELIVER YOUR HOME CONCENTRATOR. IF YOU GET THE AFTER HOURS ANSWERING SERVICES- FOLLOW THE PHONE PROMPTS FOR THE AFTER HOURS/EMERGENCY HELP CURRICULUM MANAGER. THEY ARE AVAILABLE 26/01 FOR DELIVERY WHEN YOU FOLLOW UP WITH YOUR DOCTOR- DISCUSS WITH THEM IF YOU SHOULD KEEP ON THE OXYGEN OR NIGHT TO SWITCH OVER TO YOUR CPAP MACHINE Follow up with: CLARENCE SHORT [Primary Care Provider] - 06/22/23 11:00 am
== END 2023-06-16 14:46 | disposition home or self-care (01) ==
LOC: ED 19:17 → MED SURG 06-16 00:47
PROVIDERS: ADMIT Internal Medicine; ATTEND Internal Medicine
DX: I50.9 Heart failure, unspecified (principal); U07.1 COVID-19; Z79.01 Long term (current) use of anticoagulants; J44.9 Chronic obstructive pulmonary disease, unspecified; I24.9 Acute ischemic heart disease, unspecified; Z79.899 Other long term (current) drug therapy; F17.210 Nicotine dependence, cigarettes, uncomplicated; R07.9 Chest pain, unspecified; F17.200 Nicotine dependence, unspecified, uncomplicated; Z20.828 Contact with and (suspected) exposure to other viral communicable diseases
CPT/HCPCS: 0241U; 36000; 36415; 71045; 80053; 83880; 84484; 85025; 85610; 87040; 93005; 93041; 93268; 93306; 94640; 94760; 94762; 96374; 99285; J1100; J1940; Q3014; A9270-GY; G0378

== ENCOUNTER 2023-12-18 20:42 | Emergency (ER) | payer MEDICARE | END 2023-12-18 21:50 | disposition left against medical advice (07) | LOC: ED 20:42 | DX: Z53.21 Procedure and treatment not carried out due to patient leaving prior to being seen by health care provider (principal) ==

== ENCOUNTER 2023-12-19 11:53 | Emergency (ER) | payer MEDICARE ==
--- NOTE | 2023-12-19 11:58 | ERPHSYRPT ---
- History of Present Illness Time Seen by Provider: 12/19/23 11:58 Source: patient, family Exam Limitations: no limitations Physician History: This is a 73-year-old white female patient of Dr. Parish Short, recreational aide Dr. Bowles, and extraction supervisor Dr. uRsty Short and presents to the emergency department with 4-day history of worsening shortness of breath and nonproductive cough. Patient denies any kind of pain. Specifically she denies headache, she denies chest pain, she denies abdominal pain. She is not had a fever. She has no nausea vomiting or diarrhea symptoms. 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 Patient states that she has not smoked in the last 4 days because she has not felt well. Patient is on anticoagulation therapy, has a history of hypertension, arrhythmia, CHF, cirrhosis, gastroesophageal reflux disease, restless leg syndrome, neuropathy, rheumatoid arthritis and has a pacemaker in place. Timing/Duration: day(s) (4) Activities at Onset: none Severity of Dyspnea-Max: mild (To moderate) Severity of Dyspnea-Current: mild (To moderate) Possible Cause: occasional episodes Modifying Factors: Improves With: coughing (Nonproductive) Associated Symptoms: cough (Nonproductive) Allergies/Adverse Reactions: Penicillins Allergy (Verified 12/19/23 11:55) Hives sulfamethoxazole [From Bactrim] Allergy (Verified 12/19/23 11:55) Nausea and Vomiting trimethoprim [From Bactrim] Allergy (Verified 12/19/23 11:55) Nausea and Vomiting Home Medications: Clopidogrel Bisulfate [PLAVIX Tablet] 0.5 tab PO DAILY 07/31/13 [History] Rivaroxaban [Xarelto] 20 mg PO DAILY 10/27/14 [History] Buspirone HCl 5 mg [Buspar 5 mg] 30 mg PO BID 11/08/21 [History] Albuterol Sulfate [Proair Respiclick] 2 puffs IH QID PRN 06/15/23 [History] Amlodipine Besylate 5 mg [Norvasc 5 mg] 5 mg PO DAILY 06/15/23 [History] Breztri 160mcg/ 9 Mcg/ 4.8mcg 2 puffs IH BID 06/15/23 [History] Diclofenac Sodium [Voltaren Arthritis Pain] 20 gm TP DAILY PRN PRN 06/15/23 [History] Folic Acid 1 mg PO DAILY 06/15/23 [History] Isosorbide Mononitrate [Isosorbide Mononitrate ER] 30 mg PO DAILY 06/15/23 [History] Metoprolol Succinate 50 mg [Toprol Xl 50 MG] 50 mg PO DAILY 06/15/23 [History] Nitroglycerin 0.4 mg Tablet [Nitrostat 0.4 MG Tablet] 0.4 mg SL UD 06/15/23 [History] Spironolactone 25 mg [Aldactone 25 MG] 25 mg PO DAILY 06/15/23 [History] Tizanidine HCl 4 mg [Zanaflex 4 MG] 4 mg PO TID 06/15/23 [History] Hx Tetanus, Diphtheria Vaccination/Date Given: No Hx Influenza Vaccination/Date Given: No Hx Pneumococcal Vaccination/Date Given: No Travel Risk - International Travel Have you traveled outside of the country in past 3 weeks: No - Emerging Infectious Disease Are you exhibiting symptoms associated with any current EIDs: Yes Symptoms: Cough: New Onset, Shortness of Breath - Review of Systems Constitutional: No Symptoms Eyes: No Symptoms Ears, Nose, & Throat: No Symptoms Respiratory: Cough (Nonproductive), Dyspnea on Exertion (ALANIZ), Wheezing (Mild diffuse bilateral expiratory) Cardiac: No Symptoms Abdominal/Gastrointestinal: No Symptoms Genitourinary Symptoms: No Symptoms Musculoskeletal: No Symptoms Skin: No Symptoms Neurological: No Symptoms Psychological: No Symptoms Endocrine: No Symptoms Hematologic/Lymphatic: No Symptoms Immunological/Allergic: No Symptoms All Other Systems: Reviewed and Negative - Past Medical History Pertinent Past Medical History: Yes Neurological History: No Pertinent History ENT History: Cataracts Cardiac History: Aneurysm, Arrhythmia, Congestive Heart Failure, Hypertension, Myocardial Infarction (NH) Respiratory History: No Pertinent History Endocrine Medical History: No Pertinent History Musculoskeletal History: Osteoarthritis, Rheumatoid Arthritis GI Medical History: Cirrhosis, GERD History: No Pertinent History Psycho-Social History: Depression Female Reproductive Disorders: No Pertinent History Other Medical History: restless leg syndrome, neuropathy, aortic aneurysm - Past Surgical History Past Surgical History: Yes Neuro Surgical History: No Pertinent History Cardiac: Cardiac Catheterization, Pacemaker Respiratory: No Pertinent History Gastrointestinal: Other Genitourinary: No Pertinent History Musculoskeletal: Joint Replacement Female Surgical History: Hysterectomy Other Surgical History: PACEMAKER PLACEMENT, HYSTERECTOMY , left IOL October 2017 Significant Family History: no pertinent family hx - Social History Smoking Status: Current every day smoker How long have you smoked: 50 years Exposure to second hand smoke: Yes Drug Use: none Patient Lives Alone: No - Social Determinants of Health Will the patient participate in the screening: Yes Do you worry about a steady place to live?: No In the past 12 months,have you had to go without utilities?: No Transportation Issues: No Has anyone in your support network made you feel unsafe?: No Have you or anyone in your house had to go without enough: No - Nursing Vital Signs Nursing Vital Signs: Initial Vital Signs Temperature 98.3 F 12/19/23 11:57 Pulse Rate 120 H 12/19/23 11:57 Respiratory Rate 20 12/19/23 11:57 Blood Pressure 130/102 12/19/23 11:57 O2 Sat by Pulse Oximetry 96 12/19/23 11:57 Pain Scale Pain Intensity 10 - Physical Exam General Appearance: no apparent distress, alert, obese Eye Exam: PERRL/EOMI, eyes nml inspection Ears, Nose, Throat Exam: hearing grossly normal, normal ENT inspection, normal pharynx Neck Exam: normal inspection, non-tender, supple, full range of motion Respiratory Exam: normal breath sounds, lungs clear, airway intact, No chest tenderness, No respiratory distress Cardiovascular/Chest Exam: tachycardia Abdominal/Gastrointestinal Exam: soft, normal bowel sounds, No tenderness Rectal Exam: not done Extremity Exam: non-tender, normal range of motion, normal inspection, normal capillary refill, no calf tenderness, no pedal edema, pelvis stable Neurologic Exam: alert, oriented x 3, cooperative, cue selector II-XII nml as tested, nml cerebellar function, nml station & gait, sensation nml Skin Exam: normal color, warm, dry Lymphatic Exam: No adenopathy SpO2 Interpretation: normal O2 Delivery: Room Air - Course Nursing assessment & vital signs reviewed: Yes EKG Interpreted by Me: RATE (104), A-fib, Non-specific ST Changes, Other (No acute ischemic changes on today's twelve-lead EKG. There is evidence of PVC present.) Ordered Tests: Active Orders 24 hr Category Date Time Status Co Founder And Director STAT Care 12/19/23 12:08 Active EKG-ER Only STAT Care 12/19/23 12:08 Active IV Insertion STAT Care 12/19/23 12:08 Active Pulse Oximetry (ED) STAT Care 12/19/23 12:08 Active CHEST 1 VIEW (PORTABLE) Stat Exams 12/19/23 12:08 Taken CHEST WITH CONTRAST [CT] Stat Exams 12/19/23 13:05 Completed BLOOD CULTURE Stat Lab 12/19/23 12:30 Received CBC W DIFF Stat Lab 12/19/23 12:05 Completed CMP Stat Lab 12/19/23 12:05 Completed D-DIMER QUANTITATIVE Stat Lab 12/19/23 12:05 Completed Lactic Acid Stat Lab 12/19/23 12:25 Completed Lactic Acid Stat Lab 12/19/23 14:33 Received MAGNESIUM Stat Lab 12/19/23 12:05 Completed NT PRO BNPII Stat Lab 12/19/23 12:05 Completed TROPONIN Q4H Lab 12/19/23 12:05 Completed TROPONIN Q4H Lab 12/19/23 16:15 Ordered TROPONIN Q4H Lab 12/19/23 20:15 Ordered Respiratory Therapy Assessment DAILY RT 12/19/23 12:18 Active Medication Summary Generic Name Dose Route Start Last Admin Trade Name Freq PRN Reason Stop Dose Admin Sodium Chloride 500 mls @ 50 mls/hr 12/19/23 13:15 12/19/23 13:09 Sodium Chloride 0.9% 500 Ml IV 01/18/24 13:14 50 mls/hr .Q10H MAMI Administration Levofloxacin/Dextrose 500 mg in 100 mls @ 100 mls/hr 12/19/23 15:40 12/19/23 15:47 Levofloxacin 500mg/100ml D5w IV 12/19/23 16:39 100 mls/hr STAT STA 100 mls/hr Administration Discontinued Medications Generic Name Dose Route Start Last Admin Trade Name Freq PRN Reason Stop Dose Admin Hydrocodone Bitart/Acetaminophen 1 tab 12/19/23 13:19 12/19/23 13:22 Hydrocodone/Apap 5/325 1 Tab Tablet PO 12/19/23 13:20 1 tab STAT ONE Administration Hydrocodone Bitart/Acetaminophen Confirm 12/19/23 13:22 Hydrocodone/Apap 5/325 1 Tab Tablet Administered 12/19/23 13:23 Dose 1 tab .ROUTE .STK-MED ONE Albuterol/Ipratropium Confirm 12/19/23 12:13 Ipratropium/Albuterol Sulfate 3 Ml Ampul.Neb Administered 12/19/23 12:14 Dose 3 ml IH .STK-MED ONE Albuterol/Ipratropium 3 ml 12/19/23 12:15 12/19/23 12:16 Ipratropium/Albuterol Sulfate 3 Ml Ampul.Neb IH 12/19/23 12:16 3 ml STAT ONE Administration Furosemide 40 mg 12/19/23 15:52 Furosemide 40 Mg/4 Ml Vial IV 12/19/23 15:53 STAT ONE Sodium Chloride Confirm 12/19/23 13:07 Sodium Chloride 0.9% 1000 Ml Administered 12/19/23 13:08 Dose 1,000 mls @ ud .ROUTE .STK-MED ONE Levofloxacin/Dextrose Confirm 12/19/23 15:47 Levofloxacin 500mg/100ml D5w Administered 12/19/23 15:48 Dose 500 mg in 100 mls @ ud IV .STK-MED ONE Lab/Rad Data: Laboratory Result Diagrams 12/19/23 12:05 12/19/23 12:05 Laboratory Results 12/19/23 12/19/23 12/19/23 Range/Units 12:35 12:25 12:05 WBC (3.98-10.04) x10^3/uL RBC (3.93-5.22) x10^6/uL Hgb (11.2-15.7) g/dL Hct (34.1-44.9) % MCV (79.4-94.8) fL MCH (25.6-32.2) pg MCHC (32.2-35.5) g/dL RDW (11.7-14.4) % Plt Count (182-369) x10^3/uL MPV (9.4-12.3) fL Gran % (34.0-71.1) % Immature Gran % (Auto) (0.001-0.429) % Nucleat RBC Rel Count (0.00-0.2) % Eos # (Auto) (0.04-0.36) x10^3/uL Immature Gran # (Auto) (0.001-0.031) x10^3u/L Absolute Lymphs (auto) (1.18-3.74) x10^3/uL Absolute Monos (auto) (0.24-0.86) x10^3/uL Absolute Nucleated RBC (0.00-0.012) x10^3u/L Lymphocytes % (19.3-51.7) % Monocytes % (4.7-12.5) % Eosinophils % (0.7-5.8) % Basophils % (0.1-1.2) % Absolute Granulocytes (1.56-6.13) x10^3/uL Basophils # (0.01-0.08) x10^3/uL D-Dimer 2.11 H* (0.0-0.50) mg/L Sodium (135-145) mmol/L Potassium (3.5-5.1) mmol/L Chloride (98-107) mmol/L Carbon Dioxide (22-30) mmol/L Anion Gap (5-15) MEQ/L BUN (7-17) mg/dL Creatinine (0.52-1.04) mg/dL Estimated GFR ML/MIN Glucose (74-106) mg/dL Lactic Acid 2.9 H (0.4-2.0) Calcium (8.4-10.2) mg/dL Magnesium (1.6-2.3) mg/dL Total Bilirubin (0.2-1.3) mg/dL AST (14-36) U/L ALT (0-35) U/L Alkaline Phosphatase (38-126) U/L Troponin I (0.000-0.033) ng/mL NT-Pro-B Natriuret Pep (<300) pg/mL Serum Total Protein (6.3-8.2) g/dL Albumin (3.5-5.0) g/dL Influenza Type A Ag NEGATIVE (NEGATIVE) Influenza Type B Ag NEGATIVE (NEGATIVE) RSV (PCR) NEGATIVE (NEGATIVE) SARS-CoV-2 (PCR) NEGATIVE (NEGATIVE) 12/19/23 12/19/23 12/19/23 Range/Units 12:05 12:05 12:05 WBC 11.2 H (3.98-10.04) x10^3/uL RBC 4.54 (3.93-5.22) x10^6/uL Hgb 13.1 (11.2-15.7) g/dL Hct 41.3 (34.1-44.9) % MCV 91.0 (79.4-94.8) fL MCH 28.9 (25.6-32.2) pg MCHC 31.7 L (32.2-35.5) g/dL RDW 13.7 (11.7-14.4) % Plt Count 229 (182-369) x10^3/uL MPV 9.7 (9.4-12.3) fL Gran % 74.6 H (34.0-71.1) % Immature Gran % (Auto) 0.3 (0.001-0.429) % Nucleat RBC Rel Count 0.0 (0.00-0.2) % Eos # (Auto) 0.15 (0.04-0.36) x10^3/uL Immature Gran # (Auto) 0.03 (0.001-0.031) x10^3u/L Absolute Lymphs (auto) 1.87 (1.18-3.74) x10^3/uL Absolute Monos (auto) 0.74 (0.24-0.86) x10^3/uL Absolute Nucleated RBC 0.00 (0.00-0.012) x10^3u/L Lymphocytes % 16.8 L (19.3-51.7) % Monocytes % 6.6 (4.7-12.5) % Eosinophils % 1.3 (0.7-5.8) % Basophils % 0.4 (0.1-1.2) % Absolute Granulocytes 8.31 H (1.56-6.13) x10^3/uL Basophils # 0.05 (0.01-0.08) x10^3/uL D-Dimer (0.0-0.50) mg/L Sodium 142 (135-145) mmol/L Potassium 3.8 (3.5-5.1) mmol/L Chloride 108 H (98-107) mmol/L Carbon Dioxide 25 (22-30) mmol/L Anion Gap 13.7 (5-15) MEQ/L BUN 21 H (7-17) mg/dL Creatinine 0.95 (0.52-1.04) mg/dL Estimated GFR 62.5 ML/MIN Glucose 136 H (74-106) mg/dL Lactic Acid (0.4-2.0) Calcium 9.8 (8.4-10.2) mg/dL Magnesium 2.0 (1.6-2.3) mg/dL Total Bilirubin 1.20 (0.2-1.3) mg/dL AST 17 (14-36) U/L ALT 16 (0-35) U/L Alkaline Phosphatase 105 (38-126) U/L Troponin I 0.117 H* (0.000-0.033) ng/mL NT-Pro-B Natriuret Pep 3160 (<300) pg/mL Serum Total Protein 6.3 (6.3-8.2) g/dL Albumin 3.6 (3.5-5.0) g/dL Influenza Type A Ag (NEGATIVE) Influenza Type B Ag (NEGATIVE) RSV (PCR) (NEGATIVE) SARS-CoV-2 (PCR) (NEGATIVE) - Progress Progress: improved, re-examined Air Movement: good Progress Note: 12/19/23 12:29 My medical decision making and the assignment of moderate complexity to this patient's medical issue today is based on review of the patient's past medical history, review of the patient's medication list, review of patient drug allergy list, history present illness and physical findings on examination. The workup in this patient includes placement of intravenous line, assessment by respiratory therapy with nebulizer treatment, twelve-lead EKG, troponin level, D-dimer, BNP, CBC, CMP, viral swabs and chest x-ray. Differential diagnosis includes but is not limited to CHF exacerbation, COPD exacerbation, myocardial infarction, arrhythmia, pneumonia 12/19/23 14:14 I interpreted the patient's laboratory data results. The patient does have an elevated troponin level. She denies chest pain. She also has a significantly elevated BNP and D-dimer level. I am ordering a CT of the chest with contrast. The preliminary chest x-ray report was interpreted and dictated by me. There is a question of right pulmonary atelectasis versus early infiltrate and mild left pleural effusion. 12/19/23 15:[address] scan of the chest with contrast was interpreted by the radiologist and I reviewed the impression. The impression states no pulmonary embolus. There is mild bilateral pleural effusions present. There is right upper lobe patchy infiltrate and cardiomegaly present. Picture consistent with congestive heart failure 12/19/23 15:58 Patient was informed that my recommendation is to transfer this patient to a facility where there is both a extraction supervisor and recreational aide available to her. Patient does not want admitted into any hospital and does not want to transfer to any facility. I spoke with her about the risks of not being monitored and manage in the hospital setting. She is aware that there is a significant risk of her condition worsening and even causing her . She is of sound mind she is awake alert and oriented. She is leaving AGAINST MEDICAL ADVICE. She will sign the AGAINST MEDICAL ADVICE form. Blood Culture(s) Obtained: Yes Antibiotics given: Yes Counseled pt/family regarding: lab results, diagnosis, need for follow-up, rad results Medical Desision Making - Diagnostic Testing Diagnostic test were ordered, analyzed, and reviewed by me: Yes Radiological Interpretation: Interpreted by me, Reviewed by me, Teleradiologist Report - Risk of complications The pt has a high risk of morbidity or mortality based on: Decision regarding hospitilization or escalation of hosp level of care - Departure Departure Disposition: AMA Clinical Impression: Elevated troponin, Atrial fibrillation, Bilateral pleural effusion, Right pulmonary infiltrate on CXR, CHF (congestive heart failure) Condition: Fair Critical Care Time: No Referrals: CLARENCE SHORT [Primary Care Provider] - Follow up/PCP as directed Instructions: Heart Failure Prescriptions: Levofloxacin [Levaquin 500 MG Tablet] 500 mg PO DAILY #7 tablet
[2023-12-19 12:04] VITALS: TEMP 98.3
[2023-12-19] MEDS ORDERED: DUONEB 0.5-3 MG/3 ml Neb IH ONE (12:13)
[2023-12-19] MEDS: DUONEB 0.5-3 MG/3 ml Neb IH ONE (12:16)
[2023-12-19 12:42] LABS: Absolute Neutrophil Ct (ANC) 8.31 x10^3/uL (1.56-6.13); BASOPHIL % 0.4 % (0.1-1.2); Basophil (Absolute #) 0.05 x10^3/uL (0.01-0.08); Eosinophil % 1.3 % (0.7-5.8); Eosinophil (Absolute #) 0.15 x10^3/uL (0.04-0.36); Hematocrit 41.3 % (34.1-44.9); Hemoglobin 13.1 g/dL (11.2-15.7); IMMATURE GRAN # 0.03 x10^3u/L (0.001-0.031); IMMATURE GRAN % 0.3 % (0.001-0.429); Lymphocyte (Absolute #) 1.87 x10^3/uL (1.18-3.74); Lymphocytes % 16.8 % (19.3-51.7); Mean Corpuscular Hemoglobin 28.9 pg (25.6-32.2); Mean Corpuscular Hgb Concent. 31.7 g/dL (32.2-35.5); Mean Platelet Volume 9.7 fL (9.4-12.3); Monocyte (Absolute #) 0.74 x10^3/uL (0.24-0.86); Monocytes % 6.6 % (4.7-12.5); Neutrophil % 74.6 % (34.0-71.1); Platelet Count 229 x10^3/uL (182-369); Red Blood Count 4.54 x10^6/uL (3.93-5.22); Red Cell Distribution Width 13.7 % (11.7-14.4); White Blood Count 11.2 x10^3/uL (3.98-10.04)
[2023-12-19 12:54] LABS: ALBUMIN 3.6 g/dL (3.5-5.0); ANION GAP 13.7 MEQ/L (5-15); BILIRUBIN,TOTAL 1.2 mg/dL (0.2-1.3); Calcium 9.8 mg/dL (8.4-10.2); Creatinine 1 0.95 mg/dL (0.52-1.04); EST GLOMERULAR FILTRATION RATE 62.5 ML/MIN; Potassium 3.8 mmol/L (3.5-5.1); Total Protein 6.3 g/dL (6.3-8.2)
[2023-12-19] MEDS ORDERED: Sodium Chloride 0.9% 1000 ML 0 ML ONE (13:07)
[2023-12-19] MEDS ORDERED: Sodium Chloride 0.9% 500 ML 500 ML IV ONE (13:08)
[2023-12-19] MEDS: Sodium Chloride 0.9% 500 ML 500 ML IV SCH (13:09)
[2023-12-19 13:17] LABS: INFLUENZA A NEGATIVE (NEGATIVE); INFLUENZA B NEGATIVE (NEGATIVE); RESPIRATORY SYNCTIAL VIRUS NEGATIVE (NEGATIVE); SARS-CoV-2 Xpert Express NEGATIVE (NEGATIVE)
[2023-12-19] MEDS ORDERED: NORCO 5/325 MG ONE (13:22)
[2023-12-19] MEDS: NORCO 5/325 MG PO ONE (13:22)
[2023-12-19 13:25] LABS: TROPONIN 0.117 ng/mL (0.000-0.033)
--- NOTE | 2023-12-19 15:33 | XRAY ---
CLINICAL HISTORY: SOB; elevated D-dimer COMPARISON: 02/04/2023 TECHNIQUE: Contiguous axial images were obtained from the neck base through the upper abdomen following intravenous administration of iodinated contrast material. One of the following dose reduction techniques was utilized for this exam.Automated exposure control, adjustment of the mA and/or kV according to patient size, and use of iterative reconstruction. FINDINGS: No definite filling defects seen in either the pulmonary artery or its branches to suggest acute pulmonary embolism. Patchy ground glass haze seen in the right upper lobe. The central airways are patent. Bilateral mild pleural effusion with bibasilar lung atelectasis is noted. The lungs show bilateral tiny calcified pulmonary nodules with scattered atelectatic bands. The heart is enlarged in size . No pericardial effusion is identified. The thyroid is unremarkable. No mediastinal, hilar, or axillary lymphadenopathy is noted. No suspicious lytic or sclerotic osseous lesions are identified. IMPRESSION: 1. No evidence of acute pulmonary embolism. 2. Bilateral mild pelural effusion. 3. Patchy ground glass haze seen in the right upper lobe. 4. Cardiomegaly. 5. Findings are suggestive of congestive cardiac failure, would recommend clinical, lab correlation and echocardiography for further evaluation. Electronically Signed by: Jimmy Ferrari MD. (12/19/2023 15:29:59 EDT)
[2023-12-19] MEDS ORDERED: Levofloxacin 500MG/100ML D5W 500 MG/100 ML BAG IV ONE (15:47)
[2023-12-19] MEDS: Levofloxacin 500MG/100ML D5W 500 MG/100 ML BAG IV STA (15:47)
[2023-12-19] MEDS ORDERED: Lasix 40 MG/4 ML ONE (17:03)
[2023-12-19] MEDS ORDERED: Zofran 4 MG/2 ML VIAL ONE (17:03)
[2023-12-19] MEDS ORDERED: MORPHINE SULFATE 2 MG INJ ONE (17:03)
[2023-12-19] MEDS: Zofran 4 MG/2 ML VIAL IV ONE (17:05)
[2023-12-19] MEDS: MORPHINE SULFATE 2 MG INJ IV ONE (17:06)
[2023-12-19] MEDS: Lasix 40 MG/4 ML IV ONE (17:09)
[2023-12-19 17:15] VITALS: BP 125/87; PULSE 128; RESP 28; O2SAT 97
--- NOTE | 2023-12-19 20:47 | XRAY ---
Indication: Cough. Short of breath. Comparison: October 06, 2023 Portable chest demonstrates new cardiomegaly and small bibasilar effusions favoring cardiac decompensation/CHF. Superimposed pneumonia not completely excluded. Bony thorax intact again with osteopenia, degenerative changes, and left pacemaker.
== END 2023-12-19 17:38 | disposition left against medical advice (07) ==
LOC: ED 11:53
DX: I48.91 Unspecified atrial fibrillation (principal); I11.0 Hypertensive heart disease with heart failure; I50.9 Heart failure, unspecified; R79.89 Other specified abnormal findings of blood chemistry; R91.8 Other nonspecific abnormal finding of lung field; R06.02 Shortness of breath; R05.1 Acute cough; Z79.02 Long term (current) use of antithrombotics/antiplatelets; Z79.01 Long term (current) use of anticoagulants; Z79.899 Other long term (current) drug therapy; Z72.0 Tobacco use
CPT/HCPCS: 0241U; 36000; 36415; 71045; 71260; 80053; 83605; 83735; 83880; 84484; 85025; 85379; 87040; 93005; 93041; 94640; 94760; 96365; 96374; 96375; 99284; J1940; J1956; J2270; J2405; A9270-GY

== ENCOUNTER 2023-12-30 10:51 | Emergency (ER) | payer MEDICARE ==
--- NOTE | 2023-12-30 11:07 | ERPHSYRPT ---
- History of Present Illness Time Seen by Provider: 12/30/23 11:07 Source: patient, family Exam Limitations: no limitations Physician History: This is an obese 73-year-old white female patient of Dr. Parish Bell, nozzleman Dr. Bowles, and aeronautical engineering technologist Dr. JOSE Bell who presents with persistent cough and generally feeling unwell. Patient was seen by me on 12/18 and diagnosed with pleural effusion, elevated troponin and pneumonia. She was placed on steroids and Levaquin antibiotic. She was recently given a prescription for clindamycin and prednisone. She just picked up the clindamycin yesterday and has yet to nut picker the prednisone prescription. Since the patient is not feeling any better, she decided to return to the emergency department. The patient is a longstanding smoker of cigarettes and also has longstanding exposure to chemical paints. 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 Patient has a history of atrial fibrillation and is on anticoagulation therapy. 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 A twelve-lead EKG was interpreted by me on 12/19/2023 which shows atrial fibrillation at 104 with ventricular premature complexes and nonspecific T wave abnormalities. Severity: moderate Modifying Factors: Improves With: nothing Associated Symptoms: cough, malaise, weakness Allergies/Adverse Reactions: Penicillins Allergy (Verified 12/30/23 11:08) Hives sulfamethoxazole [From Bactrim] Allergy (Verified 12/30/23 11:08) Nausea and Vomiting trimethoprim [From Bactrim] Allergy (Verified 12/30/23 11:08) Nausea and Vomiting Home Medications: Clopidogrel Bisulfate [PLAVIX Tablet] 37.5 tab PO DAILY 07/31/13 [History] Rivaroxaban [Xarelto] 20 mg PO DAILY 10/27/14 [History] Buspirone HCl 5 mg [Buspar 5 mg] 30 mg PO BID 11/08/21 [History] Albuterol Sulfate [Proair Respiclick] 2 puffs IH QID PRN 06/15/23 [History] Amlodipine Besylate 5 mg [Norvasc 5 mg] 5 mg PO DAILY 06/15/23 [History] Diclofenac Sodium [Voltaren Arthritis Pain] 20 gm TP BID 06/15/23 [History] Folic Acid 1 mg PO DAILY 06/15/23 [History] Isosorbide Mononitrate [Isosorbide Mononitrate ER] 30 mg PO DAILY 06/15/23 [History] Metoprolol Succinate 50 mg [Toprol Xl 50 MG] 50 mg PO DAILY 06/15/23 [History] Nitroglycerin 0.4 mg Tablet [Nitrostat 0.4 MG Tablet] 0.4 mg SL Q5MIN PRN MR X 3 PRN 06/15/23 [History] Tizanidine HCl 4 mg [Zanaflex 4 MG] 4 mg PO TID 06/15/23 [History] Ezetimibe 10 mg [Zetia 10 MG] 10 mg PO DAILY 12/30/23 [History] Fluoxetine HCl [Prozac] 20 mg PO DAILY 12/30/23 [History] Losartan Potassium 50 mg [Cozaar 50 MG] 50 mg PO DAILY 12/30/23 [History] Prednisone 20 mg [Deltasone 20 mg] 20 mg PO BID 12/30/23 [History] Pregabalin [Lyrica 100Mg] 100 mg PO BID 12/30/23 [History] Spironolactone 25 mg [Aldactone 25 MG] 25 mg PO DAILY 12/30/23 [History] Hx Tetanus, Diphtheria Vaccination/Date Given: No Hx Influenza Vaccination/Date Given: No Hx Pneumococcal Vaccination/Date Given: No Travel Risk - International Travel Have you traveled outside of the country in past 3 weeks: No - Emerging Infectious Disease Are you exhibiting symptoms associated with any current EIDs: Yes Symptoms: Cough: New Onset, Shortness of Breath - Review of Systems Constitutional: Fatigue, Weakness Eyes: No Symptoms Ears, Nose, & Throat: No Symptoms Respiratory: Cough Cardiac: No Symptoms Abdominal/Gastrointestinal: No Symptoms Genitourinary Symptoms: No Symptoms Musculoskeletal: No Symptoms Skin: No Symptoms Neurological: No Symptoms Psychological: No Symptoms Endocrine: No Symptoms Hematologic/Lymphatic: No Symptoms Immunological/Allergic: No Symptoms All Other Systems: Reviewed and Negative - Past Medical History Pertinent Past Medical History: Yes Neurological History: No Pertinent History ENT History: Cataracts Cardiac History: Aneurysm, Arrhythmia, Congestive Heart Failure, Hypertension, Myocardial Infarction (SD) Respiratory History: No Pertinent History Endocrine Medical History: No Pertinent History Musculoskeletal History: Osteoarthritis, Rheumatoid Arthritis GI Medical History: Cirrhosis, GERD History: No Pertinent History Psycho-Social History: Depression Female Reproductive Disorders: No Pertinent History Other Medical History: restless leg syndrome, neuropathy, aortic aneurysm - Past Surgical History Past Surgical History: Yes Neuro Surgical History: No Pertinent History Cardiac: Cardiac Catheterization, Pacemaker Respiratory: No Pertinent History Gastrointestinal: Other Genitourinary: No Pertinent History Musculoskeletal: Joint Replacement Female Surgical History: Hysterectomy Other Surgical History: PACEMAKER PLACEMENT, HYSTERECTOMY , left IOL October 2017 Significant Family History: no pertinent family hx - Social History Smoking Status: Current every day smoker How long have you smoked: 50 years Exposure to second hand smoke: Yes Drug Use: none Patient Lives Alone: No - Social Determinants of Health Will the patient participate in the screening: Yes Do you worry about a steady place to live?: No In the past 12 months,have you had to go without utilities?: No Transportation Issues: No Has anyone in your support network made you feel unsafe?: No Have you or anyone in your house had to go without enough: No - Nursing Vital Signs Nursing Vital Signs: Initial Vital Signs Pulse Rate 109 H 12/30/23 11:07 Respiratory Rate 23 12/30/23 11:07 Blood Pressure 153/115 12/30/23 11:07 O2 Sat by Pulse Oximetry 98 12/30/23 11:07 Pain Scale Pain Intensity 4 - Physical Exam General Appearance: no apparent distress, alert, obese Eye Exam: PERRL/EOMI, eyes nml inspection Ears, Nose, Throat Exam: normal ENT inspection, moist mucous membranes Neck Exam: normal inspection, non-tender, supple, full range of motion Respiratory Exam: normal breath sounds, lungs clear, airway intact, No chest tenderness, No respiratory distress Cardiovascular Exam: irregular Gastrointestinal/Abdomen Exam: soft, normal bowel sounds, No tenderness Pelvic Exam: not done Rectal Exam: not done Back Exam: normal inspection, normal range of motion, No CVA tenderness, No vertebral tenderness Extremity Exam: normal inspection, normal range of motion, pelvis stable Neurologic Exam: alert, oriented x 3, cooperative, thresher broomcorn II-XII nml as tested, normal mood/affect, nml cerebellar function, nml station & gait, sensation nml Skin Exam: normal color, warm, dry Lymphatic Exam: No adenopathy SpO2 Interpretation: normal O2 Delivery: Room Air - Course Nursing assessment & vital signs reviewed: Yes EKG Interpreted by Me: RATE (114), A-fib, prolonged QT interval (Borderline), NORMAL QRS, Other (No acute ischemia on today's twelve-lead EKG. QTc is 486.) Ordered Tests: Active Orders 24 hr Category Date Time Status EKG-ER Only STAT Care 12/30/23 11:33 Active IV Insertion STAT Care 12/30/23 11:33 Active Pulse Oximetry (ED) STAT Care 12/30/23 11:33 Active CHEST 1 VIEW (PORTABLE) Stat Exams 12/30/23 11:34 Completed CHEST WITH CONTRAST [CT] Stat Exams 12/30/23 13:14 Completed BLOOD CULTURE Stat Lab 12/30/23 12:37 Received CBC W DIFF Stat Lab 12/30/23 12:30 Completed CMP Stat Lab 12/30/23 12:30 Completed D-DIMER QUANTITATIVE Stat Lab 12/30/23 12:30 Completed Lactic Acid Stat Lab 12/30/23 11:33 Completed MAGNESIUM Stat Lab 12/30/23 12:30 Completed MONO SCREEN Stat Lab 12/30/23 12:37 Completed NT PRO BNPII Stat Lab 12/30/23 12:30 Completed PROTIME WITH INR Stat Lab 12/30/23 12:30 Completed TROPONIN Q4H Lab 12/30/23 12:30 Completed TROPONIN Q4H Lab 12/30/23 15:28 Received TROPONIN Q4H Lab 12/30/23 19:45 Ordered UA W/RFX UR CULTURE Stat Lab 12/30/23 11:34 Ordered Respiratory Therapy Assessment DAILY RT 12/30/23 13:31 Completed Medication Summary Generic Name Dose Route Start Last Admin Trade Name Freq PRN Reason Stop Dose Admin Sodium Chloride 1,000 mls @ 100 mls/hr 12/30/23 11:45 12/30/23 12:14 Sodium Chloride 0.9% 1000 Ml IV 01/29/24 11:44 100 mls/hr .Q10H MAMI Administration Azithromycin 500 mg in 250 mls @ 250 mls/hr 12/30/23 15:57 Zithromax 500 Mg/ 250 Ml Nacl Premix IV 12/30/23 16:56 STAT STA Metoprolol Tartrate 5 mg 12/30/23 16:03 Metoprolol Tartrate 5 Mg/5 Ml Vial IV 12/30/23 16:04 STAT ONE Discontinued Medications Generic Name Dose Route Start Last Admin Trade Name [place] PRN Reason Stop Dose Admin Albuterol/Ipratropium 3 ml 12/30/23 13:31 12/30/23 13:32 Ipratropium/Albuterol Sulfate 3 Ml Ampul.Neb IH 12/30/23 13:32 3 ml STAT ONE Administration Albuterol/Ipratropium Confirm 12/30/23 13:29 Ipratropium/Albuterol Sulfate 3 Ml Ampul.Neb Administered 12/30/23 13:30 Dose 3 ml IH .STK-MED ONE Furosemide 40 mg 12/30/23 13:13 12/30/23 13:29 Furosemide 40 Mg/4 Ml Vial IV 12/30/23 13:14 40 mg STAT ONE Administration Furosemide Confirm 12/30/23 13:28 Furosemide 40 Mg/4 Ml Vial Administered 12/30/23 13:29 Dose 40 mg .ROUTE .STK-MED ONE Lab/Rad Data: Laboratory Result Diagrams 12/30/23 12:30 12/30/23 12:30 Laboratory Results 12/30/23 12/30/23 12/30/23 Range/Units 12:40 12:37 12:30 WBC (3.98-10.04) x10^3/uL RBC (3.93-5.22) x10^6/uL Hgb (11.2-15.7) g/dL Hct (34.1-44.9) % MCV (79.4-94.8) fL MCH (25.6-32.2) pg MCHC (32.2-35.5) g/dL RDW (11.7-14.4) % Plt Count (182-369) x10^3/uL MPV (9.4-12.3) fL Gran % (34.0-71.1) % Immature Gran % (Auto) (0.001-0.429) % Nucleat RBC Rel Count (0.00-0.2) % Eos # (Auto) (0.04-0.36) x10^3/uL Immature Gran # (Auto) (0.001-0.031) x10^3u/L Absolute Lymphs (auto) (1.18-3.74) x10^3/uL Absolute Monos (auto) (0.24-0.86) x10^3/uL Absolute Nucleated RBC (0.00-0.012) x10^3u/L Lymphocytes % (19.3-51.7) % Monocytes % (4.7-12.5) % Eosinophils % (0.7-5.8) % Basophils % (0.1-1.2) % Absolute Granulocytes (1.56-6.13) x10^3/uL Basophils # (0.01-0.08) x10^3/uL PT (9.4-12.5) SECONDS INR (0.8-3.0) D-Dimer (0.0-0.50) mg/L Sodium (135-145) mmol/L Potassium (3.5-5.1) mmol/L Chloride (98-107) mmol/L Carbon Dioxide (22-30) mmol/L Anion Gap (5-15) MEQ/L BUN (7-17) mg/dL Creatinine (0.52-1.04) mg/dL Estimated GFR ML/MIN Glucose (74-106) mg/dL Lactic Acid (0.4-2.0) Calcium (8.4-10.2) mg/dL Magnesium (1.6-2.3) mg/dL Total Bilirubin (0.2-1.3) mg/dL AST (14-36) U/L ALT (0-35) U/L Alkaline Phosphatase (38-126) U/L Troponin I 0.077 H* (0.000-0.033) ng/mL NT-Pro-B Natriuret Pep (<300) pg/mL Serum Total Protein (6.3-8.2) g/dL Albumin (3.5-5.0) g/dL Monoscreen NEGATIVE (NEGATIVE) Influenza Type A Ag NEGATIVE (NEGATIVE) Influenza Type B Ag NEGATIVE (NEGATIVE) RSV (PCR) NEGATIVE (NEGATIVE) SARS-CoV-2 (PCR) NEGATIVE (NEGATIVE) 12/30/23 12/30/23 12/30/23 Range/Units 12:30 12:30 12:30 WBC 10.4 H (3.98-10.04) x10^3/uL RBC 4.56 (3.93-5.22) x10^6/uL Hgb 13.2 (11.2-15.7) g/dL Hct 41.2 (34.1-44.9) % MCV 90.4 (79.4-94.8) fL MCH 28.9 (25.6-32.2) pg MCHC 32.0 L (32.2-35.5) g/dL RDW 13.7 (11.7-14.4) % Plt Count 211 (182-369) x10^3/uL MPV 9.6 (9.4-12.3) fL Gran % 71.7 H (34.0-71.1) % Immature Gran % (Auto) 0.6 H (0.001-0.429) % Nucleat RBC Rel Count 0.0 (0.00-0.2) % Eos # (Auto) 0.34 (0.04-0.36) x10^3/uL Immature Gran # (Auto) 0.06 H (0.001-0.031) x10^3u/L Absolute Lymphs (auto) 1.81 (1.18-3.74) x10^3/uL Absolute Monos (auto) 0.68 (0.24-0.86) x10^3/uL Absolute Nucleated RBC 0.00 (0.00-0.012) x10^3u/L Lymphocytes % 17.4 L (19.3-51.7) % Monocytes % 6.5 (4.7-12.5) % Eosinophils % 3.3 (0.7-5.8) % Basophils % 0.5 (0.1-1.2) % Absolute Granulocytes 7.47 H (1.56-6.13) x10^3/uL Basophils # 0.05 (0.01-0.08) x10^3/uL PT 11.8 (9.4-12.5) SECONDS INR 1.09 (0.8-3.0) D-Dimer 7.08 H* (0.0-0.50) mg/L Sodium 146 H (135-145) mmol/L Potassium 3.8 (3.5-5.1) mmol/L Chloride 110 H (98-107) mmol/L Carbon Dioxide 25 (22-30) mmol/L Anion Gap 14.8 (5-15) MEQ/L BUN 26 H (7-17) mg/dL Creatinine 1.09 H (0.52-1.04) mg/dL Estimated GFR 53.0 ML/MIN Glucose 120 H (74-106) mg/dL Lactic Acid (0.4-2.0) Calcium 9.5 (8.4-10.2) mg/dL Magnesium 2.1 (1.6-2.3) mg/dL Total Bilirubin 1.70 H (0.2-1.3) mg/dL AST 24 (14-36) U/L ALT 24 (0-35) U/L Alkaline Phosphatase 130 H (38-126) U/L Troponin I (0.000-0.033) ng/mL NT-Pro-B Natriuret Pep 5430 (<300) pg/mL Serum Total Protein 6.9 (6.3-8.2) g/dL Albumin 3.9 (3.5-5.0) g/dL Monoscreen (NEGATIVE) Influenza Type A Ag (NEGATIVE) Influenza Type B Ag (NEGATIVE) RSV (PCR) (NEGATIVE) SARS-CoV-2 (PCR) (NEGATIVE) 12/30/23 Range/Units 11:33 WBC (3.98-10.04) x10^3/uL RBC (3.93-5.22) x10^6/uL Hgb (11.2-15.7) g/dL Hct (34.1-44.9) % MCV (79.4-94.8) fL MCH (25.6-32.2) pg MCHC (32.2-35.5) g/dL RDW (11.7-14.4) % Plt Count (182-369) x10^3/uL MPV (9.4-12.3) fL Gran % (34.0-71.1) % Immature Gran % (Auto) (0.001-0.429) % Nucleat RBC Rel Count (0.00-0.2) % Eos # (Auto) (0.04-0.36) x10^3/uL Immature Gran # (Auto) (0.001-0.031) x10^3u/L Absolute Lymphs (auto) (1.18-3.74) x10^3/uL Absolute Monos (auto) (0.24-0.86) x10^3/uL Absolute Nucleated RBC (0.00-0.012) x10^3u/L Lymphocytes % (19.3-51.7) % Monocytes % (4.7-12.5) % Eosinophils % (0.7-5.8) % Basophils % (0.1-1.2) % Absolute Granulocytes (1.56-6.13) x10^3/uL Basophils # (0.01-0.08) x10^3/uL PT (9.4-12.5) SECONDS INR (0.8-3.0) D-Dimer (0.0-0.50) mg/L Sodium (135-145) mmol/L Potassium (3.5-5.1) mmol/L Chloride (98-107) mmol/L Carbon Dioxide (22-30) mmol/L Anion Gap (5-15) MEQ/L BUN (7-17) mg/dL Creatinine (0.52-1.04) mg/dL Estimated GFR ML/MIN Glucose (74-106) mg/dL Lactic Acid 1.7 (0.4-2.0) Calcium (8.4-10.2) mg/dL Magnesium (1.6-2.3) mg/dL Total Bilirubin (0.2-1.3) mg/dL AST (14-36) U/L ALT (0-35) U/L Alkaline Phosphatase (38-126) U/L Troponin I (0.000-0.033) ng/mL NT-Pro-B Natriuret Pep (<300) pg/mL Serum Total Protein (6.3-8.2) g/dL Albumin (3.5-5.0) g/dL Monoscreen (NEGATIVE) Influenza Type A Ag (NEGATIVE) Influenza Type B Ag (NEGATIVE) RSV (PCR) (NEGATIVE) SARS-CoV-2 (PCR) (NEGATIVE) - Progress Progress: improved, re-examined Progress Note: 12/30/23 12:05 My medical decision making and the assignment of moderate complexity to this patient's medical issue today is based on review of the patient's past medical history, review of the patient's medication list, review of patient drug allergy list, history present illness and physical findings on examination. The workup includes placement of intravenous line, respiratory therapy evaluation management, chest x-ray, twelve-lead EKG, BNP, D-dimer, troponin level, CBC, CMP, monotest, viral swabs. The differential diagnosis includes but is not limited to myocardial infarction, CHF exacerbation, COPD exacerbation, pneumonia, viral illness, arrhythmia, electrolyte abnormalities, anemia. 12/30/23 12:19 Chest x-ray was interpreted by the radiologist and I reviewed the impression. The impression states cardiomegaly with pulmonary edema present. Small bibasila r effusions favor CHF exacerbation. Superimposed pneumonia cannot be excluded. 12/30/23 15:35 I interpreted the patient's laboratory data results. Patient does have a significantly elevated D-dimer level. She also has a significantly elevated BNP to suggest CHF exacerbation. I ordered a CT scan of the chest with contrast. Patient's troponin level is elevated but significantly improved compared to that level of elevated troponin from 12/19/2023. The CT scan of the chest with contrast was interpreted by the radiologist and I reviewed the impression. The patient's CT scan chest with contrast is negative for pulmonary embolus. There is cardiomegaly, pulmonary edema, small bilateral pleural effusions favoring CHF. There is new minimal patchy right upper lobe interstitial alveolar opacities. 12/30/23 16:05 I discussed the workup results with the patient. She prefers to be transferred to facility where she has her nozzleman and aeronautical engineering technologist. We will contact [facility]. We contacted [facility] and spoke with the transfer center. Dr. Garcia is the accepting physician. Patient was auto accepted. Counseled pt/family regarding: lab results, diagnosis, rad results Medical Desision Making - Independent Historian Additional History obtained from: Family - Diagnostic Testing Diagnostic test were ordered, analyzed, and reviewed by me: Yes Radiological Interpretation: Reviewed by me, Teleradiologist Report - Risk of complications The pt has a high risk of morbidity or mortality based on: Decision regarding hospitilization or escalation of hosp level of care - Departure Departure Disposition: Transfer (Pneumonia) Clinical Impression: Pneumonia, CHF exacerbation, Elevated troponin, Shortness of breath Condition: Fair Critical Care Time: Yes Critical Care Time(excluding separately billable procedures): Critical 30-74 mins (40 minutes) Referrals: DEJA,SHREELEKHA [Primary Care Provider] - Follow up/PCP as directed Instructions: Heart Failure
[2023-12-30 11:27] VITALS: TEMP 98.8
--- NOTE | 2023-12-30 12:02 | XRAY ---
Indication: Weakness. Comparison: December 19, 2023 Portable chest unchanged again demonstrating cardiomegaly, pulmonary edema, and small bibasilar effusions favoring cardiac decompensation/CHF. Again superimposed pneumonia not completely excluded. No new cardiopulmonary abnormalities.
[2023-12-30] MEDS ORDERED: Sodium Chloride 0.9% 1000 ML 1,000 ML ONE (12:13)
[2023-12-30] MEDS: Sodium Chloride 0.9% 1000 ML 1,000 ML IV SCH (12:14)
[2023-12-30 12:44] LABS: Absolute Neutrophil Ct (ANC) 7.47 x10^3/uL (1.56-6.13); BASOPHIL % 0.5 % (0.1-1.2); Basophil (Absolute #) 0.05 x10^3/uL (0.01-0.08); Eosinophil % 3.3 % (0.7-5.8); Eosinophil (Absolute #) 0.34 x10^3/uL (0.04-0.36); Hematocrit 41.2 % (34.1-44.9); Hemoglobin 13.2 g/dL (11.2-15.7); IMMATURE GRAN # 0.06 x10^3u/L (0.001-0.031); IMMATURE GRAN % 0.6 % (0.001-0.429); Lymphocyte (Absolute #) 1.81 x10^3/uL (1.18-3.74); Lymphocytes % 17.4 % (19.3-51.7); Mean Cell Volume 90.4 fL (79.4-94.8); Mean Corpuscular Hemoglobin 28.9 pg (25.6-32.2); Mean Platelet Volume 9.6 fL (9.4-12.3); Monocyte (Absolute #) 0.68 x10^3/uL (0.24-0.86); Monocytes % 6.5 % (4.7-12.5); Neutrophil % 71.7 % (34.0-71.1); Platelet Count 211 x10^3/uL (182-369); Red Blood Count 4.56 x10^6/uL (3.93-5.22); Red Cell Distribution Width 13.7 % (11.7-14.4); White Blood Count 10.4 x10^3/uL (3.98-10.04)
[2023-12-30 13:07] LABS: INR 1.09 (0.8-3.0); PROTIME 11.8 SECONDS (9.4-12.5)
[2023-12-30 13:09] LABS: ALBUMIN 3.9 g/dL (3.5-5.0); ANION GAP 14.8 MEQ/L (5-15); BILIRUBIN,TOTAL 1.7 mg/dL (0.2-1.3); Calcium 9.5 mg/dL (8.4-10.2); Creatinine 1 1.09 mg/dL (0.52-1.04); D-DIMER QUANTITATIVE 7.08 mg/L (0.0-0.50); MAGNESIUM 2.1 mg/dL (1.6-2.3); Potassium 3.8 mmol/L (3.5-5.1); Total Protein 6.9 g/dL (6.3-8.2)
[2023-12-30 13:22] LABS: INFLUENZA A NEGATIVE (NEGATIVE); INFLUENZA B NEGATIVE (NEGATIVE); RESPIRATORY SYNCTIAL VIRUS NEGATIVE (NEGATIVE); SARS-CoV-2 Xpert Express NEGATIVE (NEGATIVE)
[2023-12-30] MEDS ORDERED: Lasix 40 MG/4 ML ONE (13:28)
[2023-12-30] MEDS ORDERED: DUONEB 0.5-3 MG/3 ml Neb IH ONE (13:29)
[2023-12-30] MEDS: Lasix 40 MG/4 ML IV ONE (13:29)
[2023-12-30] MEDS: DUONEB 0.5-3 MG/3 ml Neb IH ONE (13:32)
--- NOTE | 2023-12-30 14:58 | XRAY ---
Indication: Short of breath. Elevated d-dimer. CHF on same day chest radiograph and CT PE chest with contrast exam 10 days ago. Multiple contiguous images obtained through the chest using 100 cc Isovue 370 contrast and PE protocol. Comparison: December 19, 2023. Good opacification of the pulmonary arteries to include the lobar and segmental branches. Again there is no pulmonary embolus. Heart remains enlarged again with left dual-lead pacemaker. Aorta remains minimally arteriosclerotic without aneurysm/dissection. Stable tiny mediastinal and bilateral hilar calcified nodes. No pathologic mediastinal/hilar lymphadenopathy. Lungs again demonstrates mild diffuse pulmonary edema. Interval worsening small bilateral effusions with bibasilar compressive atelectasis. Right upper lobe demonstrates new patchy foci of interstitial alveolar opacities. Stable right middle lobe subsegmental atelectasis/scarring. Bony thorax intact again with mild degenerative changes throughout the spine. Limited upper abdomen again demonstrates small calcified splenic artery aneurysm, tiny splenic calcified granulomas, and bariatric surgery. Impression: 1. Continued negative for pulmonary embolus compared to ER exam 10 days ago. 2. Again cardiomegaly, pulmonary edema, and small bilateral effusions favoring cardiac decompensation/CHF. 3. New minimal patchy right upper lobe interstitial alveolar opacities. Rule out pneumonitis. 4. Chronic findings including atelectasis/scarring, degenerative spondylosis, arteriosclerotic disease, and old granulomatous disease.
[2023-12-30] MEDS ORDERED: Zithromax 500 MG/ 250 ML NaCl Premix 500 MG/250 ML IVPB IV ONE (16:09)
[2023-12-30] MEDS: Zithromax 500 MG/ 250 ML NaCl Premix 500 MG/250 ML IVPB IV STA (16:14)
[2023-12-30] MEDS: LOPRESSOR INJECTION IV ONE (16:19)
[2023-12-30 16:42] VITALS: BP 129/94; PULSE 90; RESP 22; O2SAT 95
== END 2023-12-30 16:45 | disposition short-term general hospital (02) ==
LOC: ED 10:51
DX: J18.9 Pneumonia, unspecified organism (principal); I11.0 Hypertensive heart disease with heart failure; I50.9 Heart failure, unspecified; R77.8 Other specified abnormalities of plasma proteins; R06.02 Shortness of breath; R05.3 Chronic cough; Z79.01 Long term (current) use of anticoagulants; Z79.02 Long term (current) use of antithrombotics/antiplatelets; Z79.52 Long term (current) use of systemic steroids; Z79.899 Other long term (current) drug therapy; Z72.0 Tobacco use; Z99.81 Dependence on supplemental oxygen
CPT/HCPCS: 0241U; 36415; 71045; 71260; 80053; 83605; 83735; 83880; 84484; 85025; 85379; 85610; 86308; 87040; 93005; 94640; 94760; 96365; 96374; 99285; 99291; J0456; J1940; A9270-GY

== ENCOUNTER 2024-01-23 08:33 | Observation (INO) | payer MEDICARE ==
--- NOTE | 2024-01-23 08:34 | ERPHSYRPT ---
- History of Present Illness Time Seen by Provider: 01/23/24 08:34 Source: patient Exam Limitations: no limitations Physician History: The patient, with a history of cardiopulmonary disease requiring home oxygen, presented with acute onset dyspnea that started the previous night. She reported an increase in her home oxygen requirement from 2L to 2.5L to manage her sympt oms. Despite this, she denied any exacerbation of peripheral edema, which she regularly experiences. She also reported a recent illness characterized by cough and fever. The cough was initially dry but has recently become productive. The patient did not provide specifics regarding the character or volume of the sputum. In terms of her cardiac management, she is under the care of Dr. Bowles and takes Lasix, with the dosage varying between 20mg and 10mg. She did not report any significant weight changes recently, suggesting stable fluid status. No recent changes in her medication regimen were reported. Timing/Duration: yesterday Activities at Onset: rest Severity of Dyspnea-Max: severe Severity of Dyspnea-Current: severe Possible Cause: occasional episodes Modifying Factors: Improves With: oxygen. Worsens With: coughing, exertion Associated Symptoms: constant, cough, edema, weakness, heart racing, leg swellin g, No chest pain/discomfort, No fever, No loss of appetite, No wheezing, No chills, No hemoptysis, No calf pain Allergies/Adverse Reactions: Penicillins Allergy (Verified 01/23/24 08:44) Hives sulfamethoxazole [From Bactrim] Allergy (Verified 01/23/24 08:44) Nausea and Vomiting trimethoprim [From Bactrim] Allergy (Verified 01/23/24 08:44) Nausea and Vomiting Home Medications: Clopidogrel Bisulfate [PLAVIX Tablet] 37.5 tab PO DAILY 07/31/13 [History] Rivaroxaban [Xarelto] 20 mg PO DAILY 10/27/14 [History] Buspirone HCl 5 mg [Buspar 5 mg] 30 mg PO BID 11/08/21 [History] Albuterol Sulfate [Proair Respiclick] 2 puffs IH QID PRN 06/15/23 [History] Amlodipine Besylate 5 mg [Norvasc 5 mg] 5 mg PO DAILY 06/15/23 [History] Diclofenac Sodium [Voltaren Arthritis Pain] 20 gm TP BID 06/15/23 [History] Folic Acid 1 mg PO DAILY 06/15/23 [History] Isosorbide Mononitrate [Isosorbide Mononitrate ER] 30 mg PO DAILY 06/15/23 [History] Metoprolol Succinate 50 mg [Toprol Xl 50 MG] 50 mg PO DAILY 06/15/23 [History] Nitroglycerin 0.4 mg Tablet [Nitrostat 0.4 MG Tablet] 0.4 mg SL Q5MIN PRN MR X 3 PRN 06/15/23 [History] Tizanidine HCl 4 mg [Zanaflex 4 MG] 4 mg PO TID 06/15/23 [History] Ezetimibe 10 mg [Zetia 10 MG] 10 mg PO DAILY 12/30/23 [History] Fluoxetine HCl [Prozac] 20 mg PO DAILY 12/30/23 [History] Losartan Potassium 50 mg [Cozaar 50 MG] 50 mg PO DAILY 12/30/23 [History] Prednisone 20 mg [Deltasone 20 mg] 20 mg PO BID 12/30/23 [History] Pregabalin [Lyrica 100Mg] 100 mg PO BID 12/30/23 [History] Spironolactone 25 mg [Aldactone 25 MG] 25 mg PO DAILY 12/30/23 [History] Hx Tetanus, Diphtheria Vaccination/Date Given: No Hx Influenza Vaccination/Date Given: No Hx Pneumococcal Vaccination/Date Given: No Travel Risk - Emerging Infectious Disease Are you exhibiting symptoms associated with any current EIDs: Yes Symptoms: Cough: New Onset, Shortness of Breath - Review of Systems All Other Systems: Reviewed and Negative - Past Medical History Pertinent Past Medical History: Yes Neurological History: No Pertinent History ENT History: Cataracts Cardiac History: Aneurysm, Arrhythmia, Congestive Heart Failure, Hypertension, Myocardial Infarction ([place]) Respiratory History: No Pertinent History Endocrine Medical History: No Pertinent History Musculoskeletal History: Osteoarthritis, Rheumatoid Arthritis GI Medical History: Cirrhosis, GERD History: No Pertinent History Psycho-Social History: Depression Female Reproductive Disorders: No Pertinent History Other Medical History: restless leg syndrome, neuropathy, aortic aneurysm - Past Surgical History Past Surgical History: Yes Neuro Surgical History: No Pertinent History Cardiac: Cardiac Catheterization, Pacemaker Respiratory: No Pertinent History Gastrointestinal: Other Genitourinary: No Pertinent History Musculoskeletal: Joint Replacement Female Surgical History: Hysterectomy Other Surgical History: PACEMAKER PLACEMENT, HYSTERECTOMY , left IOL October 2017 Significant Family History: no pertinent family hx - Social History Smoking Status: Current every day smoker How long have you smoked: 50 years Exposure to second hand smoke: Yes Drug Use: none Patient Lives Alone: No - Social Determinants of Health Will the patient participate in the screening: Yes Do you worry about a steady place to live?: No In the past 12 months,have you had to go without utilities?: No Transportation Issues: No Has anyone in your support network made you feel unsafe?: No Have you or anyone in your house had to go without enough: No - Nursing Vital Signs Nursing Vital Signs: Initial Vital Signs Temperature 97.5 F 01/23/24 08:33 Pulse Rate 105 H 01/23/24 08:33 Respiratory Rate 24 01/23/24 08:33 Blood Pressure 149/91 01/23/24 08:33 O2 Sat by Pulse Oximetry 92 L 01/23/24 08:33 Pain Scale Pain Intensity 0 - Physical Exam General Appearance: moderate distress Eye Exam: eyes nml inspection Ears, Nose, Throat Exam: hearing grossly normal, normal ENT inspection Neck Exam: normal inspection, supple, full range of motion Respiratory Exam: airway intact, crackles/rales (b/l lower lobes) Cardiovascular/Chest Exam: edema, tachycardia, irregular Abdominal/Gastrointestinal Exam: soft, No tenderness, No distention, No mass, No guarding, No rebound Extremity Exam: pedal edema, swelling (2+ b/l LE), No no calf tenderness, No maciel's sign Neurologic Exam: alert, oriented x 3, cooperative Skin Exam: warm, dry, pale SpO2 Interpretation: normal O2 Delivery: Room Air - Course Nursing assessment & vital signs reviewed: Yes EKG Interpreted by Me: RATE (105), A-fib, NORMAL ST-T - Radiology Exams Chest X-ray Interpretation: Interpreted by me, Infiltrates, Other (pleural effusion, congestion) - CT Exams Chest CT Interpretation: Tele-radiologist Report, No PE Abdomen/Pelvis CT Interpretation: Negative, Tele-radiologist Report Ordered Tests: Active Orders 24 hr Category Date Time Status Agronomy Technician STAT Care 01/23/24 08:36 Active EKG-ER Only STAT Care 01/23/24 08:35 Active Mcdonough [Catheter-[place] Mcdonough] STAT Care 01/23/24 09:45 Active IV Insertion STAT Care 01/23/24 08:35 Active NPO (ED) STAT Care 01/23/24 08:35 Active Pulse Oximetry (ED) STAT Care 01/23/24 08:35 Active ABDOMEN AND PELVIS W CONTRAST [CT] Stat Exams 01/23/24 09:36 Completed CHEST 1 VIEW (PORTABLE) Stat Exams 01/23/24 08:36 Taken CHEST WITH CONTRAST [CT] Stat Exams 01/23/24 09:22 Completed CBC W DIFF Stat Lab 01/23/24 08:50 Completed CMP Stat Lab 01/23/24 08:50 Completed CULTURE,URINE Stat Lab 01/23/24 09:44 Received D-DIMER QUANTITATIVE Stat Lab 01/23/24 08:50 Completed Lactic Acid Stat Lab 01/23/24 08:55 Completed Lactic Acid Stat Lab 01/23/24 11:01 Received MAGNESIUM Stat Lab 01/23/24 08:50 Completed NT PRO BNPII Stat Lab 01/23/24 08:50 Completed PROTIME WITH INR Stat Lab 01/23/24 09:41 Completed PTT Stat Lab 01/23/24 09:41 Completed TROPONIN Q4H Lab 01/23/24 08:50 Completed TROPONIN Q4H Lab 01/23/24 12:45 Ordered TROPONIN Q4H Lab 01/23/24 16:45 Ordered UA W/RFX UR CULTURE Stat Lab 01/23/24 09:44 Completed VENOUS BLOOD GAS Stat Lab 01/23/24 08:55 Completed Medication Summary Discontinued Medications Generic Name Dose Route Start Last Admin Trade Name Candidoq PRN Reason Stop Dose Admin Methylprednisolone Sodium 0 mg 01/23/24 09:34 01/23/24 10:09 Succinate 125 mg/ Sterile IV 01/23/24 09:35 125 mg Water 2 ml STAT ONE Administration Diltiazem HCl 10 mg 01/23/24 08:39 01/23/24 08:56 Diltiazem Hcl Iv 5 Mg/Ml Vial IV 01/23/24 08:40 10 mg STAT ONE Administration Diltiazem HCl Confirm 01/23/24 08:45 Diltiazem Hcl Iv 5 Mg/Ml Vial Administered 01/23/24 08:46 Dose 50 mg IV .STK-MED ONE Furosemide 40 mg 01/23/24 08:35 01/23/24 08:57 Furosemide 40 Mg/4 Ml Vial IV 01/23/24 08:36 40 mg STAT ONE Administration Furosemide Confirm 01/23/24 08:44 Furosemide 40 Mg/4 Ml Vial Administered 01/23/24 08:45 Dose 40 mg .ROUTE .STK-MED ONE Ceftriaxone Sodium 1 gm in 100 mls @ 200 mls/hr 01/23/24 08:35 01/23/24 09:43 Rocephin 1 Gm / 100 Ml Nacl IV 01/23/24 09:04 Infused STAT ONE Infusion Azithromycin 500 mg in 250 mls @ 250 mls/hr 01/23/24 08:35 01/23/24 11:33 Zithromax 500 Mg/ 250 Ml Nacl Premix IV 01/23/24 09:34 Infused STAT STA Infusion Azithromycin Confirm 01/23/24 08:44 Zithromax 500 Mg/ 250 Ml Nacl Premix Administered 01/23/24 08:45 Dose 500 mg in 250 mls @ ud IV .STK-MED ONE Ceftriaxone Sodium Confirm 01/23/24 08:45 Rocephin 1 Gm / 100 Ml Nacl Administered 01/23/24 08:46 Dose 1 gm in 100 mls @ ud IV .STK-MED ONE Sodium Chloride 500 mls @ 500 mls/hr 01/23/24 09:23 01/23/24 11:33 Sodium Chloride 0.9% 500 Ml IV 01/23/24 10:22 Infused .Q1H ONE Infusion Sodium Chloride Confirm 01/23/24 09:49 Sodium Chloride 0.9% 500 Ml Administered 01/23/24 09:50 Dose 500 mls @ ud IV .STK-MED ONE Methylprednisolone Sodium Succinate Confirm 01/23/24 09:49 Methylprednis Sod Succ 125 Mg/2 Ml Vial Administered 01/23/24 09:50 Dose 125 mg .ROUTE .STK-MED ONE Molnupiravir 800 mg 01/23/24 10:00 01/23/24 10:23 Molnupiravir 200 Mg Capsule PO 01/23/24 10:01 800 mg ONCE ONE Administration Ondansetron HCl 4 mg 01/23/24 09:00 01/23/24 09:05 Ondansetron Hcl 4 Mg/2 Ml Vial IV 01/23/24 09:01 4 mg STAT ONE Administration Ondansetron HCl Confirm 01/23/24 09:05 Ondansetron Hcl 4 Mg/2 Ml Vial Administered 01/23/24 09:06 Dose 4 mg .ROUTE .[employer] ONE Sterile Water Confirm 01/23/24 09:49 Water For Injection,Sterile 10 Ml Vial Administered 01/23/24 09:50 Dose 10 ml IJ .STK-MED ONE Lab/Rad Data: Laboratory Result Diagrams 01/23/24 08:50 01/23/24 08:50 Laboratory Results 01/23/24 01/23/24 01/23/24 Range/Units 09:44 09:41 08:55 WBC (3.98-10.04) x10^3/uL RBC (3.93-5.22) x10^6/uL Hgb (11.2-15.7) g/dL Hct (34.1-44.9) % MCV (79.4-94.8) fL MCH (25.6-32.2) pg MCHC (32.2-35.5) g/dL RDW (11.7-14.4) % Plt Count (182-369) x10^3/uL MPV (9.4-12.3) fL Gran % (34.0-71.1) % Immature Gran % (Auto) (0.001-0.429) % Nucleat RBC Rel Count (0.00-0.2) % Eos # (Auto) (0.04-0.36) x10^3/uL Immature Gran # (Auto) (0.001-0.031) x10^3u/L Absolute Lymphs (auto) (1.18-3.74) x10^3/uL Absolute Monos (auto) (0.24-0.86) x10^3/uL Absolute Nucleated RBC (0.00-0.012) x10^3u/L Lymphocytes % (19.3-51.7) % Monocytes % (4.7-12.5) % Eosinophils % (0.7-5.8) % Basophils % (0.1-1.2) % Absolute Granulocytes (1.56-6.13) x10^3/uL Basophils # (0.01-0.08) x10^3/uL PT 13.0 H (9.4-12.5) SECONDS INR 1.21 (0.8-3.0) APTT 22.8 L (25.1-36.5) SECONDS D-Dimer (0.0-0.50) mg/L pO2/FiO2 Ratio 28.0 % VBG pH 7.30 L (7.32-7.42) VBG pCO2 at Pat Temp 43 (42-55) mm/Hg VBG pO2 at Pat Temp 29 (25-40) mm/Hg VBG HCO3 21.2 L (22-28) meq/L VBG O2 Sat (Fish) 56.9 L (95-100) VBG Base Excess -5.1 L (-2.0-2.0) VBG Hemoglobin 13.5 VBG Carboxyhemoglobin 5.8 (0.0-6.9) % T HGB POC Potassium 4.9 (3.5-5.1) Sodium (135-145) mmol/L Potassium (3.5-5.1) mmol/L Chloride (98-107) mmol/L Carbon Dioxide (22-30) mmol/L Anion Gap (5-15) MEQ/L BUN (7-17) mg/dL Creatinine (0.52-1.04) mg/dL Estimated GFR ML/MIN Glucose (74-106) mg/dL Lactic Acid 2.4 H (0.4-2.0) Calcium (8.4-10.2) mg/dL Magnesium (1.6-2.3) mg/dL Total Bilirubin (0.2-1.3) mg/dL AST (14-36) U/L ALT (0-35) U/L Alkaline Phosphatase (38-126) U/L Troponin I (0.000-0.033) ng/mL NT-Pro-B Natriuret Pep (<300) pg/mL Serum Total Protein (6.3-8.2) g/dL Albumin (3.5-5.0) g/dL Urine Color Yellow (Yellow) Urine Appearance Clear (Clear) Urine pH 5.0 (4.6-8.0) Ur Specific [place] <=1.005 (1.005-1.030) Urine Protein Trace A (Negative) Urine Glucose (UA) Negative (Negative) mg/dL Urine Ketones Negative (Negative) Urine Blood Small A (Negative) Urine Nitrite Negative (Negative) Urine Bilirubin Negative (Negative) Urine Urobilinogen 0.2 (0.2) mg/dL Ur Leukocyte Esterase Trace A (Negative) U Hyaline Cast (Auto) 3-5 A (0-2) /LPF Urine Microscopic RBC 6-10 A (0-5) /HPF Urine Microscopic WBC 6-10 A (0-5) /HPF Ur Epithelial Cells Rare (None Seen) /HPF Urine Bacteria None Seen (None Seen) /HPF Urine Culture Reflexed YES (NO) Influenza Type A Ag (NEGATIVE) Influenza Type B Ag (NEGATIVE) RSV (PCR) (NEGATIVE) SARS-CoV-2 (PCR) (NEGATIVE) 01/23/24 01/23/24 01/23/24 Range/Units 08:50 08:50 08:50 WBC (3.98-10.04) x10^3/uL RBC (3.93-5.22) x10^6/uL Hgb (11.2-15.7) g/dL Hct (34.1-44.9) % MCV (79.4-94.8) fL MCH (25.6-32.2) pg MCHC (32.2-35.5) g/dL RDW (11.7-14.4) % Plt Count (182-369) x10^3/uL MPV (9.4-12.3) fL Gran % (34.0-71.1) % Immature Gran % (Auto) (0.001-0.429) % Nucleat RBC Rel Count (0.00-0.2) % Eos # (Auto) (0.04-0.36) x10^3/uL Immature Gran # (Auto) (0.001-0.031) x10^3u/L Absolute Lymphs (auto) (1.18-3.74) x10^3/uL Absolute Monos (auto) (0.24-0.86) x10^3/uL Absolute Nucleated RBC (0.00-0.012) x10^3u/L Lymphocytes % (19.3-51.7) % Monocytes % (4.7-12.5) % Eosinophils % (0.7-5.8) % Basophils % (0.1-1.2) % Absolute Granulocytes (1.56-6.13) x10^3/uL Basophils # (0.01-0.08) x10^3/uL PT (9.4-12.5) SECONDS INR (0.8-3.0) APTT (25.1-36.5) SECONDS D-Dimer 1.61 H* (0.0-0.50) mg/L pO2/FiO2 Ratio % VBG pH (7.32-7.42) VBG pCO2 at Pat Temp (42-55) mm/Hg VBG pO2 at Pat Temp (25-40) mm/Hg VBG HCO3 (22-28) meq/L VBG O2 Sat (Fish) (95-100) VBG Base Excess (-2.0-2.0) VBG Hemoglobin VBG Carboxyhemoglobin (0.0-6.9) % T HGB POC Potassium (3.5-5.1) Sodium (135-145) mmol/L Potassium (3.5-5.1) mmol/L Chloride (98-107) mmol/L Carbon Dioxide (22-30) mmol/L Anion Gap (5-15) MEQ/L BUN (7-17) mg/dL Creatinine (0.52-1.04) mg/dL Estimated GFR ML/MIN Glucose (74-106) mg/dL Lactic Acid (0.4-2.0) Calcium (8.4-10.2) mg/dL Magnesium (1.6-2.3) mg/dL Total Bilirubin (0.2-1.3) mg/dL AST (14-36) U/L ALT (0-35) U/L Alkaline Phosphatase (38-126) U/L Troponin I 0.057 H* (0.000-0.033) ng/mL NT-Pro-B Natriuret Pep (<300) pg/mL Serum Total Protein (6.3-8.2) g/dL Albumin (3.5-5.0) g/dL Urine Color (Yellow) Urine Appearance (Clear) Urine pH (4.6-8.0) Ur Specific [place] (1.005-1.030) Urine Protein (Negative) Urine Glucose (UA) (Negative) mg/dL Urine Ketones (Negative) Urine Blood (Negative) Urine Nitrite (Negative) Urine Bilirubin (Negative) Urine Urobilinogen (0.2) mg/dL Ur Leukocyte Esterase (Negative) U Hyaline Cast (Auto) (0-2) /LPF Urine Microscopic RBC (0-5) /HPF Urine Microscopic WBC (0-5) /HPF Ur Epithelial Cells (None Seen) /HPF Urine Bacteria (None Seen) /HPF Urine Culture Reflexed (NO) Influenza Type A Ag NEGATIVE (NEGATIVE) Influenza Type B Ag NEGATIVE (NEGATIVE) RSV (PCR) NEGATIVE (NEGATIVE) SARS-CoV-2 (PCR) POSITIVE A (NEGATIVE) 01/23/24 01/23/24 Range/Units 08:50 08:50 WBC 6.7 (3.98-10.04) x10^3/uL RBC 4.42 (3.93-5.22) x10^6/uL Hgb 12.7 (11.2-15.7) g/dL Hct 41.2 (34.1-44.9) % MCV 93.2 (79.4-94.8) fL MCH 28.7 (25.6-32.2) pg MCHC 30.8 L (32.2-35.5) g/dL RDW 14.3 (11.7-14.4) % Plt Count 211 (182-369) x10^3/uL MPV 9.4 (9.4-12.3) fL Gran % 80.4 H (34.0-71.1) % Immature Gran % (Auto) 0.6 H (0.001-0.429) % Nucleat RBC Rel Count 0.0 (0.00-0.2) % Eos # (Auto) 0.02 L (0.04-0.36) x10^3/uL Immature Gran # (Auto) 0.04 H (0.001-0.031) x10^3u/L Absolute Lymphs (auto) 0.68 L (1.18-3.74) x10^3/uL Absolute Monos (auto) 0.53 (0.24-0.86) x10^3/uL Absolute Nucleated RBC 0.00 (0.00-0.012) x10^3u/L Lymphocytes % 10.1 L (19.3-51.7) % Monocytes % 7.9 (4.7-12.5) % Eosinophils % 0.3 L (0.7-5.8) % Basophils % 0.7 (0.1-1.2) % Absolute Granulocytes 5.40 (1.56-6.13) x10^3/uL Basophils # 0.05 (0.01-0.08) x10^3/uL PT (9.4-12.5) SECONDS INR (0.8-3.0) APTT (25.1-36.5) SECONDS D-Dimer (0.0-0.50) mg/L pO2/FiO2 Ratio % VBG pH (7.32-7.42) VBG pCO2 at Pat Temp (42-55) mm/Hg VBG pO2 at Pat Temp (25-40) mm/Hg VBG HCO3 (22-28) meq/L VBG O2 Sat (Fish) (95-100) VBG Base Excess (-2.0-2.0) VBG Hemoglobin VBG Carboxyhemoglobin (0.0-6.9) % T HGB POC Potassium (3.5-5.1) Sodium 137 (135-145) mmol/L Potassium 5.0 (3.5-5.1) mmol/L Chloride 104 (98-107) mmol/L Carbon Dioxide 22 (22-30) mmol/L Anion Gap 15.4 H (5-15) MEQ/L BUN 36 H (7-17) mg/dL Creatinine 1.40 H (0.52-1.04) mg/dL Estimated GFR 39.2 ML/MIN Glucose 196 H (74-106) mg/dL Lactic Acid (0.4-2.0) Calcium 9.2 (8.4-10.2) mg/dL Magnesium 2.0 (1.6-2.3) mg/dL Total Bilirubin 1.40 H (0.2-1.3) mg/dL AST 56 H (14-36) U/L ALT 44 H (0-35) U/L Alkaline Phosphatase 157 H (38-126) U/L Troponin I (0.000-0.033) ng/mL NT-Pro-B Natriuret Pep 07023 (<300) pg/mL Serum Total Protein 6.5 (6.3-8.2) g/dL Albumin 3.9 (3.5-5.0) g/dL Urine Color (Yellow) Urine Appearance (Clear) Urine pH (4.6-8.0) Ur Specific [place] (1.005-1.030) Urine Protein (Negative) Urine Glucose (UA) (Negative) mg/dL Urine Ketones (Negative) Urine Blood (Negative) Urine Nitrite (Negative) Urine Bilirubin (Negative) Urine Urobilinogen (0.2) mg/dL Ur Leukocyte Esterase (Negative) U Hyaline Cast (Auto) (0-2) /LPF Urine Microscopic RBC (0-5) /HPF Urine Microscopic WBC (0-5) /HPF Ur Epithelial Cells (None Seen) /HPF Urine Bacteria (None Seen) /HPF Urine Culture Reflexed (NO) Influenza Type A Ag (NEGATIVE) Influenza Type B Ag (NEGATIVE) RSV (PCR) (NEGATIVE) SARS-CoV-2 (PCR) (NEGATIVE) - Progress Progress: improved Air Movement: good Progress Note: Patient is anticoagulated on xarelto. CBC within normal limits, creatinine elevated at 1.4, GFR 36, glucose 196, total bilirubin 1.4, AST 56, ALT 44, alkaline phosphatase 157, lactate 2.4, BN P 11,400, D-dimer 1.61. Patient has DONAVAN with an elevated D-dimer, will assume responsibility for CTA chest to rule out PE due to her shortness of breath and elevated D-dimer. Due to her current CHF exacerbation will gently bolus with normal saline prior to contrast study as well as after and use Lasix as needed after. Patient is EKG showed A-fib with a rate of 105. She was given Cardizem and route and another 10 mg of Cardizem when she arrived to the ED. Heart rate has been in the 90s and lower 100s. She reports significant improvement in her breathing. Oxygen saturations of range from 93-96 on nasal cannula. Patient found to be COVID-positive. Started on molnupiravir and given 125 mg of IV Solu-Medrol. Will continue to monitor heart rate closely. 01/23/24 09:29 Troponin elevated at 0.057. EKG showed no evidence of ST or T wave change. Expected result with history of CHF and current DONAVAN. No changes at this time time. CTA chest negative for PE. CT abd/pelvis unremarkable. Dr. Chau accepts admission at 1204. Blood Culture(s) Obtained: No Antibiotics given: Yes Discussed with : Other (Isac) Will see patient in: hospital (observation) Counseled pt/family regarding: lab results, diagnosis, need for follow-up, rad results Medical Desision Making - Discussion of managment Care discussed with:: hospitalist Reviewed:: Test results, Need for additional workup Agreed on:: Treatment plan, place in obs Will see patient: in hospital - Diagnostic Testing Diagnostic test were ordered, analyzed, and reviewed by me: Yes Radiological Interpretation: Interpreted by me, Reviewed by me, Teleradiologist Report - Risk of complications The pt has a mod risk of morbidity or mortality based on: Need for prescription drug management The pt has a high risk of morbidity or mortality based on: Decision regarding hospitilization or escalation of hosp level of care - Departure Departure Disposition: Observation Clinical Impression: Atrial fibrillation with RVR, Acute hypoxic respiratory failure, CHF exacerbation, Pneumonia due to COVID-19 virus, Shortness of breath, Bilateral pleural effusion, Elevated d-dimer, Transaminitis, Elevated bilirubin, DONAVAN (acute kidney injury), Hyperglycemia, Elevated lactic acid level, Right pulmonary infiltrate on CXR, UTI (urinary tract infection) Condition: Stable Critical Care Time: No Referrals: CLARENCE SHORT [Primary Care Provider] - Follow up/PCP as directed Instructions: Heart Failure, Heart failure and atrial fibrillation
[2024-01-23] MEDS ORDERED: Zithromax 500 MG/ 250 ML NaCl Premix 500 MG/250 ML IVPB IV ONE (08:44)
[2024-01-23] MEDS ORDERED: Lasix 40 MG/4 ML ONE (08:44)
[2024-01-23] MEDS ORDERED: ROCEPHIN 1 GM / 100 ML NaCl 1 GM/100 ML IVPB IV ONE (08:45)
[2024-01-23] MEDS ORDERED: Cardizem IV 50 MG/10 ML IV ONE (08:45)
[2024-01-23 08:54] LABS: BASOPHIL % 0.7 % (0.1-1.2); Basophil (Absolute #) 0.05 x10^3/uL (0.01-0.08); Eosinophil % 0.3 % (0.7-5.8); Eosinophil (Absolute #) 0.02 x10^3/uL (0.04-0.36); Hematocrit 41.2 % (34.1-44.9); Hemoglobin 12.7 g/dL (11.2-15.7); IMMATURE GRAN # 0.04 x10^3u/L (0.001-0.031); IMMATURE GRAN % 0.6 % (0.001-0.429); Lymphocyte (Absolute #) 0.68 x10^3/uL (1.18-3.74); Lymphocytes % 10.1 % (19.3-51.7); Mean Cell Volume 93.2 fL (79.4-94.8); Mean Corpuscular Hemoglobin 28.7 pg (25.6-32.2); Mean Corpuscular Hgb Concent. 30.8 g/dL (32.2-35.5); Mean Platelet Volume 9.4 fL (9.4-12.3); Monocyte (Absolute #) 0.53 x10^3/uL (0.24-0.86); Monocytes % 7.9 % (4.7-12.5); Neutrophil % 80.4 % (34.0-71.1); Platelet Count 211 x10^3/uL (182-369); Red Blood Count 4.42 x10^6/uL (3.93-5.22); Red Cell Distribution Width 14.3 % (11.7-14.4); White Blood Count 6.7 x10^3/uL (3.98-10.04)
[2024-01-23] MEDS: Cardizem IV 50 MG/10 ML IV ONE (08:56)
[2024-01-23] MEDS: Lasix 40 MG/4 ML IV ONE ×2 (08:57→23:18)
[2024-01-23 09:01] LABS: Lactic Acid 2.4 (0.4-2.0); VBG BASE EXCESS -5.1 (-2.0-2.0); VBG CARBOXYHEMOGLOBIN 5.8 % T HGB (0.0-6.9); VBG HCO3- 21.2 meq/L (22-28); VBG HEMOGLOBIN 13.5; VBG O2 SATURATION 56.9 (95-100); VBG POTASSIUM 4.9 (3.5-5.1); VBG pH 7.3 (7.32-7.42)
[2024-01-23] MEDS ORDERED: Zofran 4 MG/2 ML VIAL ONE (09:05)
[2024-01-23] MEDS: Zofran 4 MG/2 ML VIAL IV ONE (09:05)
[2024-01-23] MEDS: ROCEPHIN 1 GM / 100 ML NaCl 1 GM/100 ML IVPB IV ONE (09:07)
[2024-01-23 09:18] LABS: ALBUMIN 3.9 g/dL (3.5-5.0); ANION GAP 15.4 MEQ/L (5-15); BILIRUBIN,TOTAL 1.4 mg/dL (0.2-1.3); Calcium 9.2 mg/dL (8.4-10.2); Creatinine 1 1.4 mg/dL (0.52-1.04); EST GLOMERULAR FILTRATION RATE 39.2 ML/MIN; Total Protein 6.5 g/dL (6.3-8.2)
[2024-01-23 09:30] LABS: INFLUENZA A NEGATIVE (NEGATIVE); INFLUENZA B NEGATIVE (NEGATIVE); RESPIRATORY SYNCTIAL VIRUS NEGATIVE (NEGATIVE)
[2024-01-23 09:32] LABS: SARS-CoV-2 Xpert Express POSITIVE (NEGATIVE)
[2024-01-23] MEDS ORDERED: Sterile H2O 10 ml IJ ONE (09:49)
[2024-01-23] MEDS ORDERED: Sodium Chloride 0.9% 500 ML 500 ML IV ONE (09:49)
[2024-01-23] MEDS ORDERED: solu-MEDROL ONE (09:49)
[2024-01-23 09:55] LABS: INR 1.21 (0.8-3.0); PTT 22.8 SECONDS (25.1-36.5)
[2024-01-23 09:57] LABS: Appearance Clear (Clear); Bacteria None Seen /HPF (None Seen); Bilirubin Negative (Negative); Blood Small (Negative); Epithelial Cells Rare /HPF (None Seen); Glucose, Urine Negative (Negative); Ketones Negative (Negative); Leukocyte Esterase Trace (Negative); Nitrite Negative (Negative); Protein,Urine Dip Trace (Negative); Specific Gravity <=1.005 (1.005-1.030); Urobilinogen 0.2 mg/dL (0.2)
[2024-01-23 10:02] LABS: ADD URINE CULTURE? YES (NO)
[2024-01-23] MEDS: Sodium Chloride 0.9% 500 ML 500 ML IV ONE (10:07)
[2024-01-23] MEDS: solu-MEDROL 125 MG, Sterile H2O 10 ml 2 ML IV ONE (10:09)
[2024-01-23] MEDS: Zithromax 500 MG/ 250 ML NaCl Premix 500 MG/250 ML IVPB IV STA (10:10)
[2024-01-23] MEDS: LAGEVRIO (EUA) PO ONE (10:23)
--- NOTE | 2024-01-23 11:28 | XRAY ---
CLINICAL HISTORY: sob COMPARISON: prior CT dated 12/19/2023. TECHNIQUE: Contiguous axial images of the chest was performed with intravenous administration with multiple reformats. 100cc isovue 300 was given. One of the following dose reduction techniques was utilized for this exam. Automated exposure control, adjustment of the mA and/or kV according to patient size, and use of iterative reconstruction. FINDINGS: The dilated ascending aorta measures 4.5 cm. Dilated pulmonary trunk measures 4 cm. No definite filling defects were seen in either the pulmonary artery or its branches to suggest acute pulmonary embolism. Mild decrease in the size of the patches of ground glass haze in both upper lobes. The central airways are patent. Bilateral moderate pleural effusion with bibasilar lung atelectasis is noted. The lungs show bilateral tiny calcified pulmonary nodules with scattered atelectatic bands. The heart is enlarged in size. No pericardial effusion is identified. The thyroid is unremarkable. No mediastinal, hilar, or axillary lymphadenopathy is noted. No suspicious lytic or sclerotic osseous lesions are identified. IMPRESSION: 1. Mild decrease in the size of the patches of ground glass haze in both upper lobes. 2. No evidence of acute pulmonary embolism. 3. Bilateral moderate pelural effusion. Mild progression. 4. Cardiomegaly. Stable. 5. Findings are suggestive of congestive cardiac failure, would recommend clinical, lab correlation, and echocardiography for further evaluation. 6. The dilated ascending aorta measures 4.5 cm, follow-up is needed. 7. The dilated pulmonary trunk measures 4 cm, which could be pulmonary hypertension, clinical correlation is needed. Electronically Signed by: Jimmy Ferrari MD. (01/23/2024 11:24:01 EDT)
--- NOTE | 2024-01-23 11:56 | XRAY ---
CLINICAL HISTORY: sob COMPARISON: None. TECHNIQUE: CT scan of the abdomen and pelvis was performed with IV contrast. 100 ml of Inj. Omnipaque was administered as intravenous contrast agent Coronal and sagittal reconstructive images were also obtained. One of the following dose reduction techniques was utilized for this exam.Automated exposure control, adjustment of the mA and/or kV according to patient size, and use of iterative reconstruction. FINDINGS: The liver has a craniocaudal dimension of approximately 17.5 cm, with diffuse fatty changes. Normal shape and with regular margins. No focal or diffuse parenchymal abnormality. No hepatic mass is identified. Intrahepatic biliary radicals and the bile ducts are normal. The portal vein is normal. Evidence of cholecystectomy. Pancreas appears normal. No peripancreatic fat stranding, pancreatic pseudocyst or peripancreatic fluid collection. The spleen is normal, no mass seen. Both adrenal glands are unremarkable. Both kidneys are normal in size, shape, and orientation. No calculi or hydronephrosis was seen on either side. There is a cystic area measuring 1.4x0.1 cm seen in the parenchyma of the left kidney could be a simple cyst. Similar smaller cyst noted in the right kindey. The appendix is not visualized. Both ureters appear normal. There is a catheter in the bladder, otherwise a normal bladder. Stomach and small bowel loops are unremarkable. The caecum and ileocecal junction appear normal. Large bowel loops appear normal without evidence of bowel obstruction. There are few diverticula arising from the sigmoid colon. No evidence of diverticulitis. The rectum appears normal. No evidence of significant enlargement of the mesenteric or retroperitoneal lymph nodes. Visualized thoracic and lumbar spine appear normal. No lytic or sclerotic bone lesions in visualized bones. Moderate hip osteoarthritis. Basal aspects of the lungs reveal bilateral moderate pleural effusion. IMPRESSION: 1. Fatty hepatomegaly. 2. Cholecystectomy. 3. Bilateral Bosniak-1 renal cysts. 4. Sigmoid diverticulosis. No evidence of diverticulitis. 5. Moderate hip osteoarthritis. 6. Bilateral moderate pleural effusion. Electronically Signed by: Jimmy Ferrari MD. (01/23/2024 11:52:03 EDT)
--- NOTE | 2024-01-23 14:42 | PCM.HP ---
History of Present Illness - Chief Complaint Chief Complaint: A-fib RVR, COVID Date: 01/23/24 History of Present Illness: is a 73 year old female with PMHX of cataracts, Arrythmia, CHF, HTN, TX, OA, RA, Cirrhois, GERD, Depression, restless leg syndrome, neuropathy, aortic aneurysm, pacemaker, and daily smoker. Pt came in to the ER today as she presented with acute onset dyspnea that started the previous night. She reported an increase in her home oxygen requirement from 2L to 2.5L to manage her symptoms. Despite this, she denied any exacerbation of peripheral edema, which she regularly experiences. She also reported a recent illness characterized by cough and fever. The cough was initially dry but has recently become productive. The patient did not provide specifics regarding the character or volume of the sputum. She tested + for COVID in the ER but does not want treatment for this. Lung sounds are clear and SOB has improved since admission. In terms of her cardiac management, she is under the care of Dr. Bowles and takes Lasix, with the dosage varying between 20mg and 10mg. She did not report any significant weight changes recently, suggesting stable fluid status. Will continue Lasix and monitor on tele. She was given Cardizem bolus IV in ER and HR improved. Trop Slightly elevated and most likely demand ischemia from a-fib RVR. She does have some DONAVAN and Creat 1.40, baseline 1.09. She admits to severe weakness and will need PT. She is now on baseline oxygen of 2LNC and SOb has improved. She denies CP, Abd. pain, N/V/D. - Review of Systems Constitutional: Weakness, No Fever, No Chills Eyes: No Symptoms Ears, Nose, & Throat: No Symptoms Respiratory: Short Of Breath, No Cough Cardiac: Other (rapid heart rate), No Chest Pain, No Edema, No Syncope Abdominal/Gastrointestinal: No Abdominal Pain, No Nausea, No Vomiting, No Diarrhea Genitourinary Symptoms: No Dysuria Musculoskeletal: No Back Pain, No Neck Pain Skin: No Rash Neurological: No Dizziness, No Focal Weakness, No Sensory Changes Psychological: No Symptoms Endocrine: No Symptoms Hematologic/Lymphatic: No Symptoms Immunological/Allergic: No Symptoms Medications & Allergies Home Medications: Home Medication List Clopidogrel Bisulfate [PLAVIX Tablet] 37.5 tab PO DAILY 07/31/13 [History Confirmed 01/23/24] Rivaroxaban [Xarelto] 20 mg PO DAILY 10/27/14 [History Confirmed 01/23/24] Buspirone HCl 5 mg [Buspar 5 mg] 30 mg PO BID 11/08/21 [History Confirmed 01/23/24] Albuterol Sulfate [Proair Respiclick] 2 puffs IH QID PRN 06/15/23 [History Confirmed 01/23/24] Amlodipine Besylate 5 mg [Norvasc 5 mg] 5 mg PO DAILY 06/15/23 [History Confirmed 01/23/24] Diclofenac Sodium [Voltaren Arthritis Pain] 20 gm TP BID 06/15/23 [History Confirmed 01/23/24] Folic Acid 1 mg PO DAILY 06/15/23 [History Confirmed 01/23/24] Isosorbide Mononitrate [Isosorbide Mononitrate ER] 30 mg PO DAILY 06/15/23 [History Confirmed 01/23/24] Metoprolol Succinate 50 mg [Toprol Xl 50 MG] 50 mg PO DAILY 06/15/23 [History Confirmed 01/23/24] Nitroglycerin 0.4 mg Tablet [Nitrostat 0.4 MG Tablet] 0.4 mg SL Q5MIN PRN MR X 3 PRN 06/15/23 [History Confirmed 01/23/24] Tizanidine HCl 4 mg [Zanaflex 4 MG] 4 mg PO TID 06/15/23 [History Confirmed 01/23/24] Ezetimibe 10 mg [Zetia 10 MG] 10 mg PO DAILY 12/30/23 [History Confirmed 01/23/24] Fluoxetine HCl [Prozac] 20 mg PO DAILY 12/30/23 [History Confirmed 01/23/24] Losartan Potassium 50 mg [Cozaar 50 MG] 50 mg PO DAILY 12/30/23 [History Confirmed 01/23/24] Prednisone 20 mg [Deltasone 20 mg] 20 mg PO BID 12/30/23 [History Confirmed 01/23/24] Pregabalin [Lyrica 100Mg] 100 mg PO BID 12/30/23 [History Confirmed 01/23/24] Spironolactone 25 mg [Aldactone 25 MG] 25 mg PO DAILY 12/30/23 [History Confirmed 01/23/24] Allergies/Adverse Reactions: Allergies Allergy/AdvReac Type Severity Reaction Status Date / Time Penicillins Allergy Hives Verified 01/23/24 08:44 sulfamethoxazole Allergy Nausea and Verified 01/23/24 08:44 [From Bactrim] Vomiting trimethoprim [From Bactrim] Allergy Nausea and Verified 01/23/24 08:44 Vomiting - Past Medical History Past Medical History: Yes Neurological History: No Pertinent History ENT History: Cataracts Cardiac History: Aneurysm, Arrhythmia, Congestive Heart Failure, Hypertension, Myocardial Infarction (TX) Respiratory History: No Pertinent History Endocrine Medical History: No Pertinent History Musculoskelatal History: Osteoarthritis, Rheumatoid Arthritis GI Medical History: Cirrhosis, GERD History: No Pertinent History Pyscho-Social History: Depression Reproductive Disorders: No Pertinent History Comment: restless leg syndrome, neuropathy, aortic aneurysm - Past Surgical History Past Surgical History: Yes Neuro Surgical History: No Pertinent History Cardiac History: Cardiac Catheterization, Pacemaker Respiratory Surgery: No Pertinent History GI Surgical History: Other Genitourinary Surgical Hx: No Pertinent History Musculskeletal Surgical Hx: Joint Replacement Female Surgical History: Hysterectomy Other Surgical History: PACEMAKER PLACEMENT, HYSTERECTOMY , left IOL October 2017 Significant Family History: no pertinent family hx - Social History Smoking Status: Current every day smoker How long have you smoked: 50 years Exposure to second hand smoke: Yes Alcohol: None Drug Use: none - Social Determinants of Health Will the patient participate in the screening: Yes Do you worry about a steady place to live?: No In the past 12 months,have you had to go without utilities?: No Have you or anyone in your house had to go without enough: No Transportation Issues: No Has anyone in your support network made you feel unsafe?: No Does the patient want assistance with any of the above?: No - Physical Exam Vital Signs: Vital Signs - 24 hr Temp Pulse Resp BP BP Pulse Ox 01/23/24 14:01 107 H 18 120/80 96 01/23/24 13:30 105 H 21 119/86 97 01/23/24 13:01 20 113/80 96 01/23/24 12:30 103 H 20 123/91 97 01/23/24 12:00 98 H 27 H 116/84 97 01/23/24 11:31 98 H 27 H 110/74 98 01/23/24 11:01 87 21 100/76 96 01/23/24 10:31 103 H 43 H 124/84 98 01/23/24 10:06 97 H 20 119/85 96 01/23/24 09:31 100 H 132/74 92 L 01/23/24 09:16 92 L 01/23/24 09:01 93 H 28 H 119/87 92 L 01/23/24 08:34 24 92 L 01/23/24 08:33 97.5 F 105 H 24 149/91 92 L General Appearance: no apparent distress, alert Neurologic Exam: alert, oriented x 3, cooperative, normal mood/affect, nml cerebellar function, nml station & gait, sensation nml, motor weakness (BLLE), No motor deficits Eye Exam: PERRL/EOMI, eyes nml inspection Ears, Nose, Throat Exam: normal ENT inspection, TMs normal, pharynx normal, moist mucous membranes Neck Exam: normal inspection, non-tender, supple, full range of motion Respiratory Exam: normal breath sounds, lungs clear, No respiratory distress Cardiovascular Exam: normal heart sounds, normal peripheral pulses, irregular, edema (non-pitting BLLE) Gastrointestinal/Abdomen Exam: soft, normal bowel sounds, No tenderness, No mass Back Exam: normal inspection, normal range of motion, No CVA tenderness, No vertebral tenderness Extremity Exam: normal inspection, normal range of motion, pelvis stable Skin Exam: normal color, warm, dry, No rash Lymphatic Exam: No adenopathy Results - Labs Lab/Micro Results: Lab Results-Last 24 Hours 01/23/24 01/23/24 01/23/24 Range/Units 08:50 08:50 08:50 WBC 6.7 (3.98-10.04) x10^3/uL RBC 4.42 (3.93-5.22) x10^6/uL Hgb 12.7 (11.2-15.7) g/dL Hct 41.2 (34.1-44.9) % MCV 93.2 (79.4-94.8) fL MCH 28.7 (25.6-32.2) pg MCHC 30.8 L (32.2-35.5) g/dL RDW 14.3 (11.7-14.4) % Plt Count 211 (182-369) x10^3/uL MPV 9.4 (9.4-12.3) fL Gran % 80.4 H (34.0-71.1) % Immature Gran % (Auto) 0.6 H (0.001-0.429) % Nucleat RBC Rel Count 0.0 (0.00-0.2) % Eos # (Auto) 0.02 L (0.04-0.36) x10^3/uL Immature Gran # (Auto) 0.04 H (0.001-0.031) x10^3u/L Absolute Lymphs (auto) 0.68 L (1.18-3.74) x10^3/uL Absolute Monos (auto) 0.53 (0.24-0.86) x10^3/uL Absolute Nucleated RBC 0.00 (0.00-0.012) x10^3u/L Lymphocytes % 10.1 L (19.3-51.7) % Monocytes % 7.9 (4.7-12.5) % Eosinophils % 0.3 L (0.7-5.8) % Basophils % 0.7 (0.1-1.2) % Absolute Granulocytes 5.40 (1.56-6.13) x10^3/uL Basophils # 0.05 (0.01-0.08) x10^3/uL PT (9.4-12.5) SECONDS INR (0.8-3.0) APTT (25.1-36.5) SECONDS D-Dimer 1.61 H* (0.0-0.50) mg/L pO2/FiO2 Ratio % VBG pH (7.32-7.42) VBG pCO2 at Pat Temp (42-55) mm/Hg VBG pO2 at Pat Temp (25-40) mm/Hg VBG HCO3 (22-28) meq/L VBG O2 Sat (Fish) (95-100) VBG Base Excess (-2.0-2.0) VBG Hemoglobin VBG Carboxyhemoglobin (0.0-6.9) % T HGB POC Potassium (3.5-5.1) Sodium 137 (135-145) mmol/L Potassium 5.0 (3.5-5.1) mmol/L Chloride 104 (98-107) mmol/L Carbon Dioxide 22 (22-30) mmol/L Anion Gap 15.4 H (5-15) MEQ/L BUN 36 H (7-17) mg/dL Creatinine 1.40 H (0.52-1.04) mg/dL Estimated GFR 39.2 ML/MIN Glucose 196 H (74-106) mg/dL Lactic Acid (0.4-2.0) Calcium 9.2 (8.4-10.2) mg/dL Magnesium 2.0 (1.6-2.3) mg/dL Total Bilirubin 1.40 H (0.2-1.3) mg/dL AST 56 H (14-36) U/L ALT 44 H (0-35) U/L Alkaline Phosphatase 157 H (38-126) U/L Troponin I (0.000-0.033) ng/mL NT-Pro-B Natriuret Pep 46142 (<300) pg/mL Serum Total Protein 6.5 (6.3-8.2) g/dL Albumin 3.9 (3.5-5.0) g/dL Urine Color (Yellow) Urine Appearance (Clear) Urine pH (4.6-8.0) Ur Specific [place] (1.005-1.030) Urine Protein (Negative) Urine Glucose (UA) (Negative) mg/dL Urine Ketones (Negative) Urine Blood (Negative) Urine Nitrite (Negative) Urine Bilirubin (Negative) Urine Urobilinogen (0.2) mg/dL Ur Leukocyte Esterase (Negative) U Hyaline Cast (Auto) (0-2) /LPF Urine Microscopic RBC (0-5) /HPF Urine Microscopic WBC (0-5) /HPF Ur Epithelial Cells (None Seen) /HPF Urine Bacteria (None Seen) /HPF Urine Culture Reflexed (NO) Influenza Type A Ag (NEGATIVE) Influenza Type B Ag (NEGATIVE) RSV (PCR) (NEGATIVE) SARS-CoV-2 (PCR) (NEGATIVE) 01/23/24 01/23/24 01/23/24 Range/Units 08:50 08:50 08:55 WBC (3.98-10.04) x10^3/uL RBC (3.93-5.22) x10^6/uL Hgb (11.2-15.7) g/dL Hct (34.1-44.9) % MCV (79.4-94.8) fL MCH (25.6-32.2) pg MCHC (32.2-35.5) g/dL RDW (11.7-14.4) % Plt Count (182-369) x10^3/uL MPV (9.4-12.3) fL Gran % (34.0-71.1) % Immature Gran % (Auto) (0.001-0.429) % Nucleat RBC Rel Count (0.00-0.2) % Eos # (Auto) (0.04-0.36) x10^3/uL Immature Gran # (Auto) (0.001-0.031) x10^3u/L Absolute Lymphs (auto) (1.18-3.74) x10^3/uL Absolute Monos (auto) (0.24-0.86) x10^3/uL Absolute Nucleated RBC (0.00-0.012) x10^3u/L Lymphocytes % (19.3-51.7) % Monocytes % (4.7-12.5) % Eosinophils % (0.7-5.8) % Basophils % (0.1-1.2) % Absolute Granulocytes (1.56-6.13) x10^3/uL Basophils # (0.01-0.08) x10^3/uL PT (9.4-12.5) SECONDS INR (0.8-3.0) APTT (25.1-36.5) SECONDS D-Dimer (0.0-0.50) mg/L pO2/FiO2 Ratio 28.0 % VBG pH 7.30 L (7.32-7.42) VBG pCO2 at Pat Temp 43 (42-55) mm/Hg VBG pO2 at Pat Temp 29 (25-40) mm/Hg VBG HCO3 21.2 L (22-28) meq/L VBG O2 Sat (Fish) 56.9 L (95-100) VBG Base Excess -5.1 L (-2.0-2.0) VBG Hemoglobin 13.5 VBG Carboxyhemoglobin 5.8 (0.0-6.9) % T HGB POC Potassium 4.9 (3.5-5.1) Sodium (135-145) mmol/L Potassium (3.5-5.1) mmol/L Chloride (98-107) mmol/L Carbon Dioxide (22-30) mmol/L Anion Gap (5-15) MEQ/L BUN (7-17) mg/dL Creatinine (0.52-1.04) mg/dL Estimated GFR ML/MIN Glucose (74-106) mg/dL Lactic Acid 2.4 H (0.4-2.0) Calcium (8.4-10.2) mg/dL Magnesium (1.6-2.3) mg/dL Total Bilirubin (0.2-1.3) mg/dL AST (14-36) U/L ALT (0-35) U/L Alkaline Phosphatase (38-126) U/L Troponin I 0.057 H* (0.000-0.033) ng/mL NT-Pro-B Natriuret Pep (<300) pg/mL Serum Total Protein (6.3-8.2) g/dL Albumin (3.5-5.0) g/dL Urine Color (Yellow) Urine Appearance (Clear) Urine pH (4.6-8.0) Ur Specific [place] (1.005-1.030) Urine Protein (Negative) Urine Glucose (UA) (Negative) mg/dL Urine Ketones (Negative) Urine Blood (Negative) Urine Nitrite (Negative) Urine Bilirubin (Negative) Urine Urobilinogen (0.2) mg/dL Ur Leukocyte Esterase (Negative) U Hyaline Cast (Auto) (0-2) /LPF Urine Microscopic RBC (0-5) /HPF Urine Microscopic WBC (0-5) /HPF Ur Epithelial Cells (None Seen) /HPF Urine Bacteria (None Seen) /HPF Urine Culture Reflexed (NO) Influenza Type A Ag NEGATIVE (NEGATIVE) Influenza Type B Ag NEGATIVE (NEGATIVE) RSV (PCR) NEGATIVE (NEGATIVE) SARS-CoV-2 (PCR) POSITIVE A (NEGATIVE) 01/23/24 01/23/24 01/23/24 Range/Units 09:41 09:44 11:01 WBC (3.98-10.04) x10^3/uL RBC (3.93-5.22) x10^6/uL Hgb (11.2-15.7) g/dL Hct (34.1-44.9) % MCV (79.4-94.8) fL MCH (25.6-32.2) pg MCHC (32.2-35.5) g/dL RDW (11.7-14.4) % Plt Count (182-369) x10^3/uL MPV (9.4-12.3) fL Gran % (34.0-71.1) % Immature Gran % (Auto) (0.001-0.429) % Nucleat RBC Rel Count (0.00-0.2) % Eos # (Auto) (0.04-0.36) x10^3/uL Immature Gran # (Auto) (0.001-0.031) x10^3u/L Absolute Lymphs (auto) (1.18-3.74) x10^3/uL Absolute Monos (auto) (0.24-0.86) x10^3/uL Absolute Nucleated RBC (0.00-0.012) x10^3u/L Lymphocytes % (19.3-51.7) % Monocytes % (4.7-12.5) % Eosinophils % (0.7-5.8) % Basophils % (0.1-1.2) % Absolute Granulocytes (1.56-6.13) x10^3/uL Basophils # (0.01-0.08) x10^3/uL PT 13.0 H (9.4-12.5) SECONDS INR 1.21 (0.8-3.0) APTT 22.8 L (25.1-36.5) SECONDS D-Dimer (0.0-0.50) mg/L pO2/FiO2 Ratio % VBG pH (7.32-7.42) VBG pCO2 at Pat Temp (42-55) mm/Hg VBG pO2 at Pat Temp (25-40) mm/Hg VBG HCO3 (22-28) meq/L VBG O2 Sat (Fish) (95-100) VBG Base Excess (-2.0-2.0) VBG Hemoglobin VBG Carboxyhemoglobin (0.0-6.9) % T HGB POC Potassium (3.5-5.1) Sodium (135-145) mmol/L Potassium (3.5-5.1) mmol/L Chloride (98-107) mmol/L Carbon Dioxide (22-30) mmol/L Anion Gap (5-15) MEQ/L BUN (7-17) mg/dL Creatinine (0.52-1.04) mg/dL Estimated GFR ML/MIN Glucose (74-106) mg/dL Lactic Acid 1.2 (0.4-2.0) Calcium (8.4-10.2) mg/dL Magnesium (1.6-2.3) mg/dL Total Bilirubin (0.2-1.3) mg/dL AST (14-36) U/L ALT (0-35) U/L Alkaline Phosphatase (38-126) U/L Troponin I (0.000-0.033) ng/mL NT-Pro-B Natriuret Pep (<300) pg/mL Serum Total Protein (6.3-8.2) g/dL Albumin (3.5-5.0) g/dL Urine Color Yellow (Yellow) Urine Appearance Clear (Clear) Urine pH 5.0 (4.6-8.0) Ur Specific [place] <=1.005 (1.005-1.030) Urine Protein Trace A (Negative) Urine Glucose (UA) Negative (Negative) mg/dL Urine Ketones Negative (Negative) Urine Blood Small A (Negative) Urine Nitrite Negative (Negative) Urine Bilirubin Negative (Negative) Urine Urobilinogen 0.2 (0.2) mg/dL Ur Leukocyte Esterase Trace A (Negative) U Hyaline Cast (Auto) 3-5 A (0-2) /LPF Urine Microscopic RBC 6-10 A (0-5) /HPF Urine Microscopic WBC 6-10 A (0-5) /HPF Ur Epithelial Cells Rare (None Seen) /HPF Urine Bacteria None Seen (None Seen) /HPF Urine Culture Reflexed YES (NO) Influenza Type A Ag (NEGATIVE) Influenza Type B Ag (NEGATIVE) RSV (PCR) (NEGATIVE) SARS-CoV-2 (PCR) (NEGATIVE) 01/23/24 Range/Units 12:45 WBC (3.98-10.04) x10^3/uL RBC (3.93-5.22) x10^6/uL Hgb (11.2-15.7) g/dL Hct (34.1-44.9) % MCV (79.4-94.8) fL MCH (25.6-32.2) pg MCHC (32.2-35.5) g/dL RDW (11.7-14.4) % Plt Count (182-369) x10^3/uL MPV (9.4-12.3) fL Gran % (34.0-71.1) % Immature Gran % (Auto) (0.001-0.429) % Nucleat RBC Rel Count (0.00-0.2) % Eos # (Auto) (0.04-0.36) x10^3/uL Immature Gran # (Auto) (0.001-0.031) x10^3u/L Absolute Lymphs (auto) (1.18-3.74) x10^3/uL Absolute Monos (auto) (0.24-0.86) x10^3/uL Absolute Nucleated RBC (0.00-0.012) x10^3u/L Lymphocytes % (19.3-51.7) % Monocytes % (4.7-12.5) % Eosinophils % (0.7-5.8) % Basophils % (0.1-1.2) % Absolute Granulocytes (1.56-6.13) x10^3/uL Basophils # (0.01-0.08) x10^3/uL PT (9.4-12.5) SECONDS INR (0.8-3.0) APTT (25.1-36.5) SECONDS D-Dimer (0.0-0.50) mg/L pO2/FiO2 Ratio % VBG pH (7.32-7.42) VBG pCO2 at Pat Temp (42-55) mm/Hg VBG pO2 at Pat Temp (25-40) mm/Hg VBG HCO3 (22-28) meq/L VBG O2 Sat (Fish) (95-100) VBG Base Excess (-2.0-2.0) VBG Hemoglobin VBG Carboxyhemoglobin (0.0-6.9) % T HGB POC Potassium (3.5-5.1) Sodium (135-145) mmol/L Potassium (3.5-5.1) mmol/L Chloride (98-107) mmol/L Carbon Dioxide (22-30) mmol/L Anion Gap (5-15) MEQ/L BUN (7-17) mg/dL Creatinine (0.52-1.04) mg/dL Estimated GFR ML/MIN Glucose (74-106) mg/dL Lactic Acid (0.4-2.0) Calcium (8.4-10.2) mg/dL Magnesium (1.6-2.3) mg/dL Total Bilirubin (0.2-1.3) mg/dL AST (14-36) U/L ALT (0-35) U/L Alkaline Phosphatase (38-126) U/L Troponin I 0.074 H* (0.000-0.033) ng/mL NT-Pro-B Natriuret Pep (<300) pg/mL Serum Total Protein (6.3-8.2) g/dL Albumin (3.5-5.0) g/dL Urine Color (Yellow) Urine Appearance (Clear) Urine pH (4.6-8.0) Ur Specific [place] (1.005-1.030) Urine Protein (Negative) Urine Glucose (UA) (Negative) mg/dL Urine Ketones (Negative) Urine Blood (Negative) Urine Nitrite (Negative) Urine Bilirubin (Negative) Urine Urobilinogen (0.2) mg/dL Ur Leukocyte Esterase (Negative) U Hyaline Cast (Auto) (0-2) /LPF Urine Microscopic RBC (0-5) /HPF Urine Microscopic WBC (0-5) /HPF Ur Epithelial Cells (None Seen) /HPF Urine Bacteria (None Seen) /HPF Urine Culture Reflexed (NO) Influenza Type A Ag (NEGATIVE) Influenza Type B Ag (NEGATIVE) RSV (PCR) (NEGATIVE) SARS-CoV-2 (PCR) (NEGATIVE) - Radiology Impressions Radiology Exams & Impressions: Radiology Procedures Category Date Time Status ABDOMEN AND PELVIS W CONTRAST [CT] Stat Exams 01/23/24 09:36 Completed CHEST 1 VIEW (PORTABLE) Stat Exams 01/23/24 08:36 Taken CHEST WITH CONTRAST [CT] Stat Exams 01/23/24 09:22 Completed - Other Procedures and Tests Respiratory Therapy 01/23/24 14:23 Respiratory Therapy Consult ONCE Assessment/Plan (1) Atrial fibrillation with RVR Current Visit: Yes Status: Acute Assessment & Plan: - Cardizem IVP gave in ER and resolved. - tele - cardiology consult - trend trops - Continue Xarelto and home meds - Echo 06/16/23 EF 48% IMPRESSION: 1) MILD CONCENTRIC LEFT VENTRICULAR HYPERTROPHY. 2) MILD LEFT VENTRICULAR SYSTOLIC DYSFUNCTION. 3) CALCIFIC AORTIC SCLEROSIS WITHOUT STENOSIS. 4) AORTIC ROOT DILATATION OF MILD TO MODERATE DEGREE. 5) DIASTOLIC DYSFUNCTION. 6) MILD TO MODERATE AORTIC INSUFFICIENCY. 7) MILD MITRAL REGURGITATION. 8) MILD TRICUSPID REGURGITATION. Code(s): I48.91 - UNSPECIFIED ATRIAL FIBRILLATION (2) Weakness Current Visit: Yes Status: Acute Assessment & Plan: - PT eval and treat - up daily in chair daily - walk with assistance - consider placement - place purwick and d/c french- weak and getting lasix, d/c french Code(s): R53.1 - WEAKNESS (3) COVID Current Visit: Yes Status: Acute Assessment & Plan: - + test in ER - refuses treatment - lungs clear - on baseline O2 at 96% Code(s): U07.1 - COVID-19 (4) DONAVAN (acute kidney injury) Current Visit: Yes Status: Acute Assessment & Plan: - creat 1.40, Baseline 1.09 - lasix gave in Er - NS 500ml fluid bolus gave in ER - drinking well per pt. Code(s): N17.9 - ACUTE KIDNEY FAILURE, UNSPECIFIED (5) Acute hypoxic respiratory failure Current Visit: Yes Status: Acute Assessment & Plan: - 2:2 a-fib RVR, COVID - On baseline O2 2LNC 96% Code(s): J96.01 - ACUTE RESPIRATORY FAILURE WITH HYPOXIA (6) Elevated d-dimer Current Visit: Yes Status: Acute Assessment & Plan: - D- dimer 1.61 - CTA IMPRESSION: 1. Mild decrease in the size of the patches of ground glass haze in both upper lobes. 2. No evidence of acute pulmonary embolism. 3. Bilateral moderate pleural effusion. Mild progression. 4. Cardiomegaly. Stable. 5. Findings are suggestive of congestive cardiac failure, would recommend clinical, lab correlation, and echocardiography for further evaluation. 6. The dilated ascending aorta measures 4.5 cm, follow-up is needed. 7. The dilated pulmonary trunk measures 4 cm, which could be pulmonary hypertension, clinical correlation is needed. Code(s): R79.89 - OTHER SPECIFIED ABNORMAL FINDINGS OF BLOOD CHEMISTRY (7) Elevated troponin Current Visit: No Status: Acute Assessment & Plan: - trop 0.057, 0.074- trend - Cardiology consult - Tele - denies CP VTE: Continue Plavix and Xarelto Code status: Full D/C plan: 1-2 days Next of KIN: Tatum Carrillo [phone] Code(s): R79.89 - OTHER SPECIFIED ABNORMAL FINDINGS OF BLOOD CHEMISTRY
[2024-01-23] MEDS ORDERED: Nitrostat 0.4 MG Tablet SL PRN (15:54)
[2024-01-23] MEDS ORDERED: NON-FORMULARY ITEM (Albuterol Sulfate [Proair Respiclick] 90 MCG Aer.Pow.Ba) IH SCH (16:00)
--- NOTE | 2024-01-23 19:58 | XRAY ---
Indication: Short of breath. Comparison: December 30, 2023 Portable chest again demonstrates cardiomegaly and pulmonary edema with worsening moderate bibasilar effusions/atelectasis again favoring cardiac decompensation/CHF. Superimposed pneumonia not completely excluded.
[2024-01-23] MEDS: Zanaflex 4 MG PO SCH (22:20)
[2024-01-23] MEDS: DICLOFENAC SODIUM TP SCH (22:20)
[2024-01-23] MEDS: LYRICA 100MG PO SCH (22:20)
[2024-01-23] MEDS: BUSPAR 5 MG PO SCH (22:20)
[2024-01-23] MEDS: DELTASONE 20 MG PO SCH (22:21)
--- NOTE | 2024-01-23 22:41 | PCM.CONS ---
History of Present Illness - Date of Consult Date of Encounter: 01/23/24 Consulting Meeting Planner: ARMIN SCALES MD Requesting Provider: Attending Provider: MILY DUDLEY MD Primary Care Provider: PCP: CLARENCE SHORT Consent was: Given for this tele-med encounter - Consult Narrative Reason for Consult: CHF exacerbation HPI: Patient is a 73F with a history of AF on xarelto, HTN, heart failure, presenting with acute on chronic shortness of breath. Symptoms have been ongoing for the past month. She is unable to lay flat and has lower extremity edema. On 2L NC at home and had to increase to 2.5 L. On admission she was found to have COVID pneumonia. CT scan showed bilateral ground glass opacities and pleural effusions. She has had some chest heaviness on and off. Denies palpitations, lightheadedness, dizziness. Received IV Lasix 40 mg x 1 today. cc:: The requesting physician will be sent a copy of the consult. - Past Medical History Past Medical History: Yes Neurological History: No Pertinent History ENT History: Cataracts Cardiac History: Aneurysm, Arrhythmia, Congestive Heart Failure, Hypertension, Myocardial Infarction (MT) Respiratory History: No Pertinent History Endocrine Medical History: No Pertinent History Musculoskelatal History: Osteoarthritis, Rheumatoid Arthritis GI Medical History: Cirrhosis, GERD History: No Pertinent History Pyscho-Social History: Depression Reproductive Disorders: No Pertinent History Comment: restless leg syndrome, neuropathy, aortic aneurysm - Past Surgical History Past Surgical History: Yes Neuro Surgical History: No Pertinent History Cardiac History: Cardiac Catheterization, Pacemaker Respiratory Surgery: No Pertinent History GI Surgical History: Other Genitourinary Surgical Hx: No Pertinent History Musculskeletal Surgical Hx: Joint Replacement Female Surgical History: Hysterectomy Other Surgical History: PACEMAKER PLACEMENT, HYSTERECTOMY , left IOL October 2017 Significant Family History: no pertinent family hx - Social History Smoking Status: Current every day smoker How long have you smoked: 50 years Exposure to second hand smoke: Yes Alcohol: None Drug Use: none - Social Determinants of Health Will the patient participate in the screening: Yes Do you worry about a steady place to live?: No Do you have any problems with any of the following?: No known problems In the past 12 months,have you had to go without utilities?: No Have you or anyone in your house had to go without enough: No Transportation Issues: No Has anyone in your support network made you feel unsafe?: No Does the patient want assistance with any of the above?: No Medications & Allergies Home Medications: Home Medication List Clopidogrel Bisulfate [PLAVIX Tablet] 37.5 tab PO DAILY 07/31/13 [History Confirmed 01/23/24] Rivaroxaban [Xarelto] 20 mg PO DAILY 10/27/14 [History Confirmed 01/23/24] Buspirone HCl 5 mg [Buspar 5 mg] 30 mg PO BID 11/08/21 [History Confirmed 01/23/24] Albuterol Sulfate [Proair Respiclick] 2 puffs IH QID PRN 06/15/23 [History Confirmed 01/23/24] Amlodipine Besylate 5 mg [Norvasc 5 mg] 5 mg PO DAILY 06/15/23 [History Confirmed 01/23/24] Diclofenac Sodium [Voltaren Arthritis Pain] 20 gm TP BID 06/15/23 [History Confirmed 01/23/24] Folic Acid 1 mg PO DAILY 06/15/23 [History Confirmed 01/23/24] Isosorbide Mononitrate [Isosorbide Mononitrate ER] 30 mg PO DAILY 06/15/23 [History Confirmed 01/23/24] Metoprolol Succinate 50 mg [Toprol Xl 50 MG] 50 mg PO DAILY 06/15/23 [History Confirmed 01/23/24] Nitroglycerin 0.4 mg Tablet [Nitrostat 0.4 MG Tablet] 0.4 mg SL Q5MIN PRN MR X 3 PRN 06/15/23 [History Confirmed 01/23/24] Tizanidine HCl 4 mg [Zanaflex 4 MG] 4 mg PO TID 06/15/23 [History Confirmed 01/23/24] Ezetimibe 10 mg [Zetia 10 MG] 10 mg PO DAILY 12/30/23 [History Confirmed 01/23/24] Fluoxetine HCl [Prozac] 20 mg PO DAILY 12/30/23 [History Confirmed 01/23/24] Losartan Potassium 50 mg [Cozaar 50 MG] 50 mg PO DAILY 12/30/23 [History Confirmed 01/23/24] Prednisone 20 mg [Deltasone 20 mg] 20 mg PO BID 12/30/23 [History Confirmed 01/23/24] Pregabalin [Lyrica 100Mg] 100 mg PO BID 12/30/23 [History Confirmed 01/23/24] Spironolactone 25 mg [Aldactone 25 MG] 25 mg PO DAILY 12/30/23 [History Confirmed 01/23/24] Allergies/Adverse Reactions: Allergies Allergy/AdvReac Type Severity Reaction Status Date / Time Penicillins Allergy Hives Verified 01/23/24 08:44 sulfamethoxazole Allergy Nausea and Verified 01/23/24 08:44 [From Bactrim] Vomiting trimethoprim [From Bactrim] Allergy Nausea and Verified 01/23/24 08:44 Vomiting Exam - Vitals Vital Signs: Vital Signs - 24 hr Temp Pulse Resp BP BP Pulse Ox 01/23/24 22:00 99 H 19 96 01/23/24 20:00 25 H 01/23/24 19:50 98.0 F 104 H 25 H 117/83 95 01/23/24 19:00 97 01/23/24 18:00 90 17 96 01/23/24 16:36 100 H 18 99 01/23/24 16:35 99 01/23/24 16:00 18 01/23/24 15:24 98.3 F 101 H 25 H 124/85 95 01/23/24 15:00 95 01/23/24 14:01 107 H 18 120/80 96 01/23/24 13:30 105 H 21 119/86 97 01/23/24 13:01 20 113/80 96 01/23/24 12:30 103 H 20 123/91 97 01/23/24 12:00 98 H 27 H 116/84 97 01/23/24 11:31 98 H 27 H 110/74 98 01/23/24 11:01 87 21 100/76 96 01/23/24 10:31 103 H 43 H 124/84 98 01/23/24 10:06 97 H 20 119/85 96 01/23/24 09:31 100 H 132/74 92 L 01/23/24 09:16 92 L 01/23/24 09:01 93 H 28 H 119/87 92 L 07/20/24 08:34 24 92 L 01/23/24 08:33 97.5 F 105 H 24 149/91 92 L General:: alert and oriented x 4, no acute distress HEENT: PERRLA, EOMI Cardiovascular Exam: irregular (irregularly irreuglar, tachy) Respiratory Exam: crackles/rales SpO2: 96 Extremity Exam: edema (1+ bilateral lower extremity edema to mid ndiaye) Results Vital Signs: Vital Signs - 24 hr Temp Pulse Resp BP BP Pulse Ox 01/23/24 22:00 99 H 19 96 01/23/24 20:00 25 H 01/23/24 19:50 98.0 F 104 H 25 H 117/83 95 01/23/24 19:00 97 01/23/24 18:00 90 17 96 01/23/24 16:36 100 H 18 99 01/23/24 16:35 99 01/23/24 16:00 18 01/23/24 15:24 98.3 F 101 H 25 H 124/85 95 01/23/24 15:00 95 01/23/24 14:01 107 H 18 120/80 96 01/23/24 13:30 105 H 21 119/86 97 01/23/24 13:01 20 113/80 96 01/23/24 12:30 103 H 20 123/91 97 01/23/24 12:00 98 H 27 H 116/84 97 01/23/24 11:31 98 H 27 H 110/74 98 01/23/24 11:01 87 21 100/76 96 01/23/24 10:31 103 H 43 H 124/84 98 01/23/24 10:06 97 H 20 119/85 96 01/23/24 09:31 100 H 132/74 92 L 01/23/24 09:16 92 L 01/23/24 09:01 93 H 28 H 119/87 92 L 01/23/24 08:34 24 92 L 01/23/24 08:33 97.5 F 105 H 24 149/91 92 L Pain Assessment - Last Documented Pain Intensity 0 Intake and Output: Intake & Output 01/21/24 01/22/24 01/23/24 01/24/24 11:59 11:59 11:59 11:59 Intake Total 450 Output Total 1300 2900 Balance -1300 -2450 Weight 85.8 kg 83.3 kg LAB: I have reviewed the Labs in [facility]. Radiology Exams: Radiology Procedures Category Date Time Status ABDOMEN AND PELVIS W CONTRAST [CT] Stat Exams 01/23/24 09:36 Completed CHEST 1 VIEW (PORTABLE) Stat Exams 01/23/24 08:36 Completed CHEST WITH CONTRAST [CT] Stat Exams 01/23/24 09:22 Completed Assessment & Plan (1) CHF exacerbation Current Visit: Yes Status: Acute Qualifiers: Heart failure type: unspecified Qualified Code(s): I50.9 - Heart failure, unspecified Assessment & Plan: Bilateral pleural effusions. - Start IV Lasix 40 mg BID - Goal negative 2 liters per day - obtain echocardiogram to understand LV function - continue home metoprolol XL 50 mg daily - 2 gram sodium - strict I/O Code(s): I50.9 - HEART FAILURE, UNSPECIFIED (2) Atrial fibrillation with RVR Current Visit: Yes Status: Acute Assessment & Plan: Rate controlled - continue metoprolol - hold diltiazem in setting of acute exacerbation - HR <100 is the goal, likely to improve with diuresis - Continue home xarelto Code(s): I48.91 - UNSPECIFIED ATRIAL FIBRILLATION (3) COVID Current Visit: Yes Status: Acute Assessment & Plan: Continue treatment as per hospital medicine Code(s): U07.1 - COVID-19 - Encounter Critical Care Time: Critical 30-74 mins Encounter: "The entirety of this encounter was performed via Telemedicine using audio and visual "
[2024-01-24 06:09] LABS: Hematocrit 40.1 % (34.1-44.9); Hemoglobin 12.8 g/dL (11.2-15.7); Mean Cell Volume 90.3 fL (79.4-94.8); Mean Corpuscular Hemoglobin 28.8 pg (25.6-32.2); Mean Corpuscular Hgb Concent. 31.9 g/dL (32.2-35.5); Mean Platelet Volume 10.1 fL (9.4-12.3); Platelet Count 222 x10^3/uL (182-369); Red Blood Count 4.44 x10^6/uL (3.93-5.22); Red Cell Distribution Width 14.2 % (11.7-14.4); White Blood Count 5.8 x10^3/uL (3.98-10.04)
[2024-01-24 06:26] LABS: ALBUMIN 3.5 g/dL (3.5-5.0); ANION GAP 10.5 MEQ/L (5-15); BILIRUBIN,TOTAL 0.8 mg/dL (0.2-1.3); Creatinine 1 1.3 mg/dL (0.52-1.04); EST GLOMERULAR FILTRATION RATE 42.9 ML/MIN; Potassium 3.9 mmol/L (3.5-5.1)
[2024-01-24] MEDS: Lasix 40 MG/4 ML IV SCH (07:36)
[2024-01-24] MEDS ORDERED: VENTOLIN COMMON CANISTER IH SCH (07:45)
[2024-01-24] MEDS: XARELTO 10 MG TABLET PO SCH (09:48)
[2024-01-24] MEDS: Zetia 10 MG PO SCH (09:48)
[2024-01-24] MEDS: NORVASC 5 MG PO SCH (09:48)
[2024-01-24] MEDS: Toprol Xl 50 MG PO SCH (09:48)
[2024-01-24] MEDS: Imdur 30 MG PO SCH (09:49)
[2024-01-24] MEDS: Prozac 20 MG PO SCH (09:49)
[2024-01-24] MEDS: Cozaar 50 MG PO SCH (09:49)
[2024-01-24] MEDS: FOLATE 1 MG PO SCH (09:59)
[2024-01-24] MEDS: PLAVIX Tablet PO SCH ×2 (11:22→12:07)
--- NOTE | 2024-01-24 13:28 | PCM.NOTE ---
Date and Time: 01/24/24 1322 Subjective Assessment: 01/23/24 is a 73 year old female with PMHX of cataracts, Arrythmia, CHF, HTN, MS, OA, RA, Cirrhois, GERD, Depression, restless leg syndrome, neuropathy, aortic aneurysm, pacemaker, and daily smoker. Pt came in to the ER today as she presented with acute onset dyspnea that started the previous night. She reported an increase in her home oxygen requirement from 2L to 2.5L to manage her symptoms. Despite this, she denied any exacerbation of peripheral edema, which she regularly experiences. She also reported a recent illness characterized by cough and fever. The cough was initially dry but has recently become productive. The patient did not provide specifics regarding the character or volume of the sputum. She tested + for COVID in the ER but does not want treatment for this. Lung sounds are clear and SOB has improved since admission. In terms of her cardiac management, she is under the care of Dr. Bowles and takes Lasix, with the dosage varying between 20mg and 10mg. She did not report any significant weight changes recently, suggesting stable fluid status. Will continue Lasix and monitor on tele. She was given Cardizem bolus IV in ER and HR improved. Trop Slightly elevated and most likely demand ischemia from a-fib RVR. She does have some DONAVAN and Creat 1.40, baseline 1.09. She admits to severe weakness and will need PT. She is now on baseline oxygen of 2LNC and SOb has improved. She denies CP, Abd. pain, N/V/D. 01/24/24 Pt resting in bed. She explained she does feel better today and less SOB. DONAVAN improving. Heart better controlled today. She is on baseline O2 of 2LNC. Cardiology consulted yesterday and they recommended Lasix 40 BID, hold Cardizem, and Echo Thursday. Pt explained she just had an echo OP last week and does not want another one. Will obtain the results from cardiology, Dr. Bowles tomorrow. Sxs are improving so most likely will d/c tomororow and can f/u OP with cardiology Op. She denies CP, SOB, Abd. pain, N/V/D. - Review of Systems Constitutional: Weakness, No Fever, No Chills Eyes: No Symptoms Ears, Nose, & Throat: No Symptoms Respiratory: No Cough, No Short Of Breath Cardiac: Edema, No Chest Pain, No Syncope Abdominal/Gastrointestinal: No Abdominal Pain, No Nausea, No Vomiting, No Diarrhea Genitourinary Symptoms: No Dysuria Musculoskeletal: No Back Pain, No Neck Pain Skin: No Rash Neurological: No Dizziness, No Focal Weakness, No Sensory Changes Psychological: No Symptoms Endocrine: No Symptoms Hematologic/Lymphatic: No Symptoms Immunological/Allergic: No Symptoms Objective Exam General Appearance: no apparent distress, alert Neurologic Exam: alert, oriented x 3, cooperative, normal mood/affect, nml cere bellar function, sensation nml, No motor deficits Skin Exam: normal color, warm, dry Eye Exam: PERRL, EOMI, eyes nml inspection Ears, Nose, Throat Exam: normal ENT inspection, pharynx normal, moist mucous membranes Neck Exam: normal inspection, non-tender, supple, full range of motion Respiratory Exam: normal breath sounds, lungs clear, No respiratory distress Cardiovascular Exam: regular rate/rhythm, normal heart sounds, edema (nonpitting BLLE) Gastrointestinal/Abdomen Exam: soft, No tenderness, No mass Extremity Exam: normal inspection, normal range of motion Back Exam: normal inspection, normal range of motion, No CVA tenderness, No vertebral tenderness Pelvic Exam: deferred Rectal Exam: deferred Objective Data Vital Signs: Vital Signs - 24 hr Temp Pulse Resp BP BP Pulse Ox 01/24/24 12:00 16 01/24/24 10:00 87 18 92 L 01/24/24 08:00 20 01/24/24 07:30 96 01/24/24 07:00 97.6 F 98 H 18 125/81 96 01/24/24 06:00 86 15 95 01/24/24 04:00 98.9 F 93 H 20 120/69 100 01/24/24 02:00 86 14 01/24/24 00:00 98.5 F 85 21 155/87 96 01/23/24 22:44 96 01/23/24 22:00 99 H 24 96 01/23/24 20:00 25 H 01/23/24 19:50 98.0 F 104 H 25 H 117/83 95 01/23/24 19:00 97 01/23/24 18:00 90 17 96 01/23/24 16:36 100 H 18 99 01/23/24 16:35 99 01/23/24 16:00 18 07/20/24 15:24 98.3 F 101 H 25 H 124/85 95 01/23/24 15:00 95 01/23/24 14:01 107 H 18 120/80 96 01/23/24 13:30 105 H 21 119/86 97 Pain Assessment - Last Documented Pain Intensity 0 Intake and Output: Intake & Output 01/22/24 01/23/24 01/24/24 01/25/24 11:59 11:59 11:59 11:59 Intake Total 1270 Output Total 1300 3950 Balance -1300 -2680 Weight 85.8 kg 83.3 kg Lab Results: Lab Results-Last 24 Hours 01/23/24 01/23/24 01/24/24 Range/Units 12:45 17:08 05:07 WBC 5.8 (3.98-10.04) x10^3/uL RBC 4.44 (3.93-5.22) x10^6/uL Hgb 12.8 (11.2-15.7) g/dL Hct 40.1 (34.1-44.9) % MCV 90.3 (79.4-94.8) fL MCH 28.8 (25.6-32.2) pg MCHC 31.9 L (32.2-35.5) g/dL RDW 14.2 (11.7-14.4) % Plt Count 222 (182-369) x10^3/uL MPV 10.1 (9.4-12.3) fL Sodium (135-145) mmol/L Potassium (3.5-5.1) mmol/L Chloride (98-107) mmol/L Carbon Dioxide (22-30) mmol/L Anion Gap (5-15) MEQ/L BUN (7-17) mg/dL Creatinine (0.52-1.04) mg/dL Estimated GFR ML/MIN Glucose (74-106) mg/dL Calcium (8.4-10.2) mg/dL Total Bilirubin (0.2-1.3) mg/dL AST (14-36) U/L ALT (0-35) U/L Alkaline Phosphatase (38-126) U/L Troponin I 0.074 H* 0.078 H* (0.000-0.033) ng/mL Serum Total Protein (6.3-8.2) g/dL Albumin (3.5-5.0) g/dL 01/24/24 Range/Units 05:07 WBC (3.98-10.04) x10^3/uL RBC (3.93-5.22) x10^6/uL Hgb (11.2-15.7) g/dL Hct (34.1-44.9) % MCV (79.4-94.8) fL MCH (25.6-32.2) pg MCHC (32.2-35.5) g/dL RDW (11.7-14.4) % Plt Count (182-369) x10^3/uL MPV (9.4-12.3) fL Sodium 139 (135-145) mmol/L Potassium 3.9 D (3.5-5.1) mmol/L Chloride 101 (98-107) mmol/L Carbon Dioxide 32 H (22-30) mmol/L Anion Gap 10.5 (5-15) MEQ/L BUN 33 H (7-17) mg/dL Creatinine 1.30 H (0.52-1.04) mg/dL Estimated GFR 42.9 ML/MIN Glucose 150 H (74-106) mg/dL Calcium 9.0 (8.4-10.2) mg/dL Total Bilirubin 0.80 (0.2-1.3) mg/dL AST 48 H (14-36) U/L ALT 44 H (0-35) U/L Alkaline Phosphatase 139 H (38-126) U/L Troponin I (0.000-0.033) ng/mL Serum Total Protein 6.0 L (6.3-8.2) g/dL Albumin 3.5 (3.5-5.0) g/dL Radiology Exams: Radiology Procedures Category Date Time Status ABDOMEN AND PELVIS W CONTRAST [CT] Stat Exams 01/23/24 09:36 Completed CHEST 1 VIEW (PORTABLE) Stat Exams 01/23/24 08:36 Completed CHEST WITH CONTRAST [CT] Stat Exams 01/23/24 09:22 Completed Assessment/Plan (1) Atrial fibrillation with RVR Current Visit: Yes Status: Acute Code(s): I48.91 - UNSPECIFIED ATRIAL FIBRILLATION (2) Weakness Current Visit: Yes Status: Acute Code(s): R53.1 - WEAKNESS (3) COVID Current Visit: Yes Status: Acute Code(s): U07.1 - COVID-19 (4) DONAVAN (acute kidney injury) Current Visit: Yes Status: Acute Code(s): N17.9 - ACUTE KIDNEY FAILURE, UNSPECIFIED (5) Acute hypoxic respiratory failure Current Visit: Yes Status: Acute Code(s): J96.01 - ACUTE RESPIRATORY FAILURE WITH HYPOXIA (6) Elevated d-dimer Current Visit: Yes Status: Acute Code(s): R79.89 - OTHER SPECIFIED ABNORMAL FINDINGS OF BLOOD CHEMISTRY (7) Elevated troponin Current Visit: No Status: Acute Assessment & Plan: (1) Atrial fibrillation with RVR Current Visit: Yes Status: Acute Assessment & Plan: - Cardizem IVP gave in ER and resolved. - tele - cardiology consult - trend trops - Continue Xarelto and home meds - Echo 06/16/23 EF 48% IMPRESSION: 1) MILD CONCENTRIC LEFT VENTRICULAR HYPERTROPHY. 2) MILD LEFT VENTRICULAR SYSTOLIC DYSFUNCTION. 3) CALCIFIC AORTIC SCLEROSIS WITHOUT STENOSIS. 4) AORTIC ROOT DILATATION OF MILD TO MODERATE DEGREE. 5) DIASTOLIC DYSFUNCTION. 6) MILD TO MODERATE AORTIC INSUFFICIENCY. 7) MILD MITRAL REGURGITATION. 8) MILD TRICUSPID REGURGITATION. 01/24/24 - Cardiology recs: low Na+, Hold cardizem, Lasix 40BID, Echo - Pt refuses echo as she had one last week - obtain records from Dr. Bowles Code(s): I48.91 - UNSPECIFIED ATRIAL FIBRILLATION (2) Weakness Current Visit: Yes Status: Acute Assessment & Plan: - PT eval and treat - up daily in chair daily - walk with assistance - consider placement - place purwick and d/c french- weak and getting lasix, d/c french 01/23 - continued weakness but improving Code(s): R53.1 - WEAKNESS (3) COVID Current Visit: Yes Status: Acute Assessment & Plan: - + test in ER - refuses treatment - lungs clear - on baseline O2 at 96% Code(s): U07.1 - COVID-19 (4) DONAVAN (acute kidney injury) Current Visit: Yes Status: Acute Assessment & Plan: - creat 1.40, Baseline 1.09 - lasix gave in Er - NS 500ml fluid bolus gave in ER - drinking well per pt. 01/23 - Creat 1.30- improving Code(s): N17.9 - ACUTE KIDNEY FAILURE, UNSPECIFIED (5) Acute hypoxic respiratory failure Current Visit: Yes Status: Acute Assessment & Plan: - 2:2 a-fib RVR, COVID - On baseline O2 2LNC 96% Code(s): J96.01 - ACUTE RESPIRATORY FAILURE WITH HYPOXIA (6) Elevated d-dimer Current Visit: Yes Status: Acute Assessment & Plan: - D- dimer 1.61 - CT negative for PE - CTA IMPRESSION: 1. Mild decrease in the size of the patches of ground glass haze in both upper lobes. 2. No evidence of acute pulmonary embolism. 3. Bilateral moderate pleural effusion. Mild progression. 4. Cardiomegaly. Stable. 5. Findings are suggestive of congestive cardiac failure, would recommend clinical, lab correlation, and echocardiography for further evaluation. 6. The dilated ascending aorta measures 4.5 cm, follow-up is needed. 7. The dilated pulmonary trunk measures 4 cm, which could be pulmonary hypertension, clinical correlation is needed. Code(s): R79.89 - OTHER SPECIFIED ABNORMAL FINDINGS OF BLOOD CHEMISTRY (7) Elevated troponin Current Visit: No Status: Acute Assessment & Plan: - trop 0.057, 0.074, 0.078 - Cardiology consult - Tele - denies CP Code(s): R79.89 - OTHER SPECIFIED ABNORMAL FINDINGS OF BLOOD CHEMISTRY Code(s): R79.89 - OTHER SPECIFIED ABNORMAL FINDINGS OF BLOOD CHEMISTRY (8) Pleural effusion Current Visit: Yes Status: Acute Assessment & Plan: - As seen on CTA: Bilateral moderate pelural effusion - Lasix - CXR ordered for AM VTE: Continue Plavix and Xarelto Code status: Full D/C plan: 1-2 days Next of KIN: Tatum Gerardo [phone] Code(s): J90 - PLEURAL EFFUSION, NOT ELSEWHERE CLASSIFIED
[2024-01-24] MEDS: DICLOFENAC SODIUM TP SCH (22:53)
[2024-01-25 05:13] LABS: Hematocrit 38.2 % (34.1-44.9); Hemoglobin 12.3 g/dL (11.2-15.7); Mean Cell Volume 89.3 fL (79.4-94.8); Mean Corpuscular Hemoglobin 28.7 pg (25.6-32.2); Mean Corpuscular Hgb Concent. 32.2 g/dL (32.2-35.5); Mean Platelet Volume 10.2 fL (9.4-12.3); Platelet Count 229 x10^3/uL (182-369); Red Blood Count 4.28 x10^6/uL (3.93-5.22); Red Cell Distribution Width 14.5 % (11.7-14.4); White Blood Count 12.1 x10^3/uL (3.98-10.04)
--- NOTE | 2024-01-25 05:27 | PCM.NOTE ---
Date and Time: 01/25/24521 Subjective Assessment: Ms. Carrillo is a 73 year old female with PMHX of cataracts, Arrythmia, CHF, HTN, CA, OA, RA, Cirrhois, GERD, Depression, restless leg syndrome, neuropathy, aortic aneurysm, pacemaker, and daily smoker admitted 01/23/24 with AFIB RVR and COVID after experiencing an acute onset of dyspnea. She also reported a recent illness characterized by cough and fever. The cough was initially dry but has recently become productive. She tested + for COVID in the ER but does not want treatment for this. Lung sounds are clear and SOB has improved since admission. In terms of her cardiac management, she is under the care of Dr. Bowles and takes Lasix, with the dosage varying between 20mg and 10mg. She did not report any significant weight changes recently, suggesting stable fluid status. Will continue Lasix and monitor on tele. She was given Cardizem bolus IV in ER and HR improved. Trop Slightly elevated and most likely demand ischemia from a-fib RVR. She does have some DONAVAN and Creat 1.40, baseline 1.09. Cardiology consulted with recommendations for Lasix 40 BID, hold Cardizem, and Echo Thursday. Pt explained she just had an echo OP last week and does not want another one. Will obtain the results from cardiology, Dr. Bowles. She admits to severe weakness and will need PT. She is now on baseline oxygen of 2LNC and dyspnea has improved. Objective Data Vital Signs: Vital Signs - 24 hr Temp Pulse Resp BP Pulse Ox 01/25/24 04:00 98.9 F 86 17 139/67 95 01/25/24 02:00 101 H 16 95 01/25/24 00:00 97.9 F 118 H 14 140/85 94 L 01/24/24 22:00 101 H 13 94 L 01/24/24 20:00 97.9 F 77 13 106/63 93 L 01/24/24 19:20 91 L 01/24/24 18:00 83 15 92 L 01/24/24 16:00 97.4 F 62 17 177/84 94 L 01/24/24 14:00 98.2 F 86 16 93 L 01/24/24 12:00 98.2 F 80 24 119/66 95 01/24/24 10:00 87 18 92 L 01/24/24 08:00 20 01/24/24 07:30 96 01/24/24 07:00 97.6 F 98 H 18 125/81 96 01/24/24 06:00 86 15 95 Pain Assessment - Last Documented Pain Intensity 0 Intake and Output: Intake & Output 01/22/24 01/23/24 01/24/24 01/25/24 11:59 11:59 11:59 11:59 Intake Total 1270 1890 Output Total 4927 3950 975 Balance -1300 -1286 915 Weight 85.8 kg 83.3 kg Lab Results: Lab Results-Last 24 Hours 01/24/24 01/24/24 Range/Units 05:07 05:07 WBC 5.8 (3.98-10.04) x10^3/uL RBC 4.44 (3.93-5.22) x10^6/uL Hgb 12.8 (11.2-15.7) g/dL Hct 40.1 (34.1-44.9) % MCV 90.3 (79.4-94.8) fL MCH 28.8 (25.6-32.2) pg MCHC 31.9 L (32.2-35.5) g/dL RDW 14.2 (11.7-14.4) % Plt Count 222 (182-369) x10^3/uL MPV 10.1 (9.4-12.3) fL Sodium 139 (135-145) mmol/L Potassium 3.9 D (3.5-5.1) mmol/L Chloride 101 (98-107) mmol/L Carbon Dioxide 32 H (22-30) mmol/L Anion Gap 10.5 (5-15) MEQ/L BUN 33 H (7-17) mg/dL Creatinine 1.30 H (0.52-1.04) mg/dL Estimated GFR 42.9 ML/MIN Glucose 150 H (74-106) mg/dL Calcium 9.0 (8.4-10.2) mg/dL Total Bilirubin 0.80 (0.2-1.3) mg/dL AST 48 H (14-36) U/L ALT 44 H (0-35) U/L Alkaline Phosphatase 139 H (38-126) U/L Serum Total Protein 6.0 L (6.3-8.2) g/dL Albumin 3.5 (3.5-5.0) g/dL Radiology Exams: Radiology Procedures Category Date Time Status ABDOMEN AND PELVIS W CONTRAST [CT] Stat Exams 01/23/24 09:36 Completed CHEST 1 VIEW (PORTABLE) Routine Exams 01/25/24 08:00 Ordered CHEST 1 VIEW (PORTABLE) Stat Exams 01/23/24 08:36 Completed CHEST WITH CONTRAST [CT] Stat Exams 01/23/24 09:22 Completed Assessment/Plan (1) Atrial fibrillation with RVR Current Visit: Yes Status: Acute Assessment & Plan: - Cardizem IVP gave in ER -HR controlled - tele - cardiology consulted with recs for lasix - hold cardizem - echo (pt declines due to recent echo last week) -- Continue Xarelto and home meds - Echo 06/16/23 EF 48% - most recent on file - will obtain OP echo from last week if able IMPRESSION: 1) MILD CONCENTRIC LEFT VENTRICULAR HYPERTROPHY. 2) MILD LEFT VENTRICULAR SYSTOLIC DYSFUNCTION. 3) CALCIFIC AORTIC SCLEROSIS WITHOUT STENOSIS. 4) AORTIC ROOT DILATATION OF MILD TO MODERATE DEGREE. 5) DIASTOLIC DYSFUNCTION. 6) MILD TO MODERATE AORTIC INSUFFICIENCY. 7) MILD MITRAL REGURGITATION. 8) MILD TRICUSPID REGURGITATION. Code(s): I48.91 - UNSPECIFIED ATRIAL FIBRILLATION (2) COVID Current Visit: Yes Status: Acute Assessment & Plan: - + test in ER -declines treatment - lungs clear/at baseline 2L O2 Code(s): U07.1 - COVID-19 (3) DONAVAN (acute kidney injury) Current Visit: Yes Status: Acute Assessment & Plan: - Baseline 1.09 - Lasix and NS 500ml fluid bolus given in ED -Avoid ELLEN/ARB/ NSAIDS -Monitor renal/lytes daily Code(s): N17.9 - ACUTE KIDNEY FAILURE, UNSPECIFIED (4) Acute hypoxic respiratory failure Current Visit: Yes Status: Acute Assessment & Plan: - 2:2 a-fib RVR, COVID - On baseline O2 2LNC Code(s): J96.01 - ACUTE RESPIRATORY FAILURE WITH HYPOXIA (5) Weakness Current Visit: Yes Status: Acute Assessment & Plan: - PT eval and treat -consider placement - nursing orders: up daily in chair - walk with assistance - place purwick and d/c french- weak and getting lasix Code(s): R53.1 - WEAKNESS (6) Elevated troponin Current Visit: Yes Status: Acute Assessment & Plan: - trop 0.057, 0.074, 0.078 - Cardiology consult - Tele - denies CP Code(s): R79.89 - OTHER SPECIFIED ABNORMAL FINDINGS OF BLOOD CHEMISTRY (7) Elevated d-dimer Current Visit: Yes Status: Acute Assessment & Plan: - D- dimer 1.61 - CT negative for PE - CTA IMPRESSION: 1. Mild decrease in the size of the patches of ground glass haze in both upper lobes. 2. No evidence of acute pulmonary embolism. 3. Bilateral moderate pleural effusion. Mild progression. 4. Cardiomegaly. Stable. 5. Findings are suggestive of congestive cardiac failure, would recommend clinical, lab correlation, and echocardiography for further evaluation. 6. The dilated ascending aorta measures 4.5 cm, follow-up is needed. 7. The dilated pulmonary trunk measures 4 cm, which could be pulmonary hypertension, clinical correlation is needed. Code(s): R79.89 - OTHER SPECIFIED ABNORMAL FINDINGS OF BLOOD CHEMISTRY (8) Pleural effusion Current Visit: Yes Status: Acute Assessment & Plan: - As seen on CTA: Bilateral moderate pleural effusion - Lasix - CXR pending VTE: Continue Plavix and Xarelto Code status: Full Code(s): J90 - PLEURAL EFFUSION, NOT ELSEWHERE CLASSIFIED
[2024-01-25 05:33] LABS: ALBUMIN 3.4 g/dL (3.5-5.0); ANION GAP 9.2 MEQ/L (5-15); BILIRUBIN,TOTAL 0.8 mg/dL (0.2-1.3); Creatinine 1 1.12 mg/dL (0.52-1.04); EST GLOMERULAR FILTRATION RATE 51.3 ML/MIN; Potassium 3.5 mmol/L (3.5-5.1); Total Protein 5.9 g/dL (6.3-8.2)
[2024-01-25 07:59] VITALS: O2SAT 97
--- NOTE | 2024-01-25 08:50 | XRAY ---
Indication: Covid 19. Bilateral effusions. Comparison: January 23, 2024 Portable chest again demonstrates cardiomegaly with left pacemaker. Diminished pulmonary edema. Bilateral effusions improved with near complete clearing on right and small residual on left. No new cardiopulmonary abnormalities.
--- NOTE | 2024-01-25 11:26 | PCM.DS ---
Discharge Summary Date of Admission: 01/23/24 14:20 Date of Discharge: 01/25/24 Admitting Physician: MILY DUDLEY MD Consults: Consults on Case 01/23/24 15:16 Consult Cardiology ROUTINE Primary Care Provider: CLARENCE SHORT Allergies Allergies Penicillins Allergy (Verified 01/23/24 08:44) Hives sulfamethoxazole [From Bactrim] Allergy (Verified 01/23/24 08:44) Nausea and Vomiting trimethoprim [From Bactrim] Allergy (Verified 01/23/24 08:44) Nausea and Vomiting Hospital Summary - Hospital Course Hospital Course: Ms. Carrillo is a 73 year old female with PMHX of cataracts, Arrythmia, CHF, HTN, OR, OA, RA, Cirrhois, GERD, Depression, restless leg syndrome, neuropathy, aortic aneurysm, pacemaker, and daily smoker admitted 01/23/24 with AFIB RVR and COVID after experiencing an acute onset of dyspnea. She also reported a recent illness characterized by cough and fever. The cough was initially dry but has recently become productive. She tested + for COVID in the ER but does not want t reatment for this. Lung sounds are clear and SOB has improved since admission. In terms of her cardiac management, she is under the care of Dr. Kennedy and takes Lasix, with the dosage varying between 20mg and 10mg. She did not report any significant weight changes recently, suggesting stable fluid status. IP treatment with lasix. CXR 01/25/24 showing Diminished pulmonary edema. Bilateral effusions improved with near complete clearing on right and small residual on left. No new cardiopulmonary abnormalities.She was given Cardizem bolus IV in ER and HR improved. Trop Slightly elevated and most likely demand ischemia from a-fib RVR. She does have some DONAVAN and almost near baseline now at 1.12. Cardiology was consulted with recommendations for Lasix 40 BID while IP, hold Cardizem, and Echo Thursday. Pt explained she just had an echo OP last week and does not want another one. 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 She is now on baseline oxygen of 2LNC and dyspnea has improved. Discharge Note New Diagnosis: AFIB RVR/COVID New Medications: Lasix/potassium Follow Up: [facility]/PCP Latest Assessment & Plan (1) Atrial fibrillation with RVR Current Visit: Yes Status: Acute Assessment & Plan: - Cardizem IVP gave in ER -HR controlled - tele - cardiology consulted with recs for lasix - hold cardizem - echo (pt declines due to recent echo last week) -- Continue Xarelto and home meds - Echo 06/16/23 EF 48% - most recent on file - will obtain OP echo from last week if able IMPRESSION: 1) MILD CONCENTRIC LEFT VENTRICULAR HYPERTROPHY. 2) MILD LEFT VENTRICULAR SYSTOLIC DYSFUNCTION. 3) CALCIFIC AORTIC SCLEROSIS WITHOUT STENOSIS. 4) AORTIC ROOT DILATATION OF MILD TO MODERATE DEGREE. 5) DIASTOLIC DYSFUNCTION. 6) MILD TO MODERATE AORTIC INSUFFICIENCY. 7) MILD MITRAL REGURGITATION. 8) MILD TRICUSPID REGURGITATION. Code(s): I48.91 - UNSPECIFIED ATRIAL FIBRILLATION (2) COVID Current Visit: Yes Status: Acute Assessment & Plan: - + test in ER -declines treatment - lungs clear/at baseline 2L O2 Code(s): U07.1 - COVID-19 (3) DONAVAN (acute kidney injury) Current Visit: Yes Status: Acute Assessment & Plan: - Baseline 1.09 -near baseline at 1.12 - Lasix and NS 500ml fluid bolus given in ED -Avoid ELLEN/ARB/ NSAIDS -Monitor renal/lytes daily Code(s): N17.9 - ACUTE KIDNEY FAILURE, UNSPECIFIED (4) Acute hypoxic respiratory failure Current Visit: Yes Status: Acute Assessment & Plan: - 2:2 a-fib RVR, COVID - On baseline O2 2LNC Code(s): J96.01 - ACUTE RESPIRATORY FAILURE WITH HYPOXIA (5) Weakness Current Visit: Yes Status: Acute Assessment & Plan: - PT eval and treat -consider placement - nursing orders: up daily in chair - walk with assistance - place purwick and d/c french- weak and getting lasix Code(s): R53.1 - WEAKNESS (6) Elevated troponin Current Visit: Yes Status: Acute Assessment & Plan: - trop 0.057, 0.074, 0.078 - Cardiology consult - Tele - denies CP Code(s): R79.89 - OTHER SPECIFIED ABNORMAL FINDINGS OF BLOOD CHEMISTRY (7) Elevated d-dimer Current Visit: Yes Status: Acute Assessment & Plan: - D- dimer 1.61 - CT negative for PE - CTA IMPRESSION: 1. Mild decrease in the size of the patches of ground glass haze in both upper lobes. 2. No evidence of acute pulmonary embolism. 3. Bilateral moderate pleural effusion. Mild progression. 4. Cardiomegaly. Stable. 5. Findings are suggestive of congestive cardiac failure, would recommend clinical, lab correlation, and echocardiography for further evaluation. 6. The dilated ascending aorta measures 4.5 cm, follow-up is needed. 7. The dilated pulmonary trunk measures 4 cm, which could be pulmonary hypertension, clinical correlation is needed. Code(s): R79.89 - OTHER SPECIFIED ABNORMAL FINDINGS OF BLOOD CHEMISTRY (8) Pleural effusion Current Visit: Yes Status: Acute Assessment & Plan: - As seen on CTA: Bilateral moderate pleural effusion - Lasix - CXR improved as stated above VTE: Continue Plavix and Xarelto Code status: Full Code(s): J90 - PLEURAL EFFUSION, NOT ELSEWHERE CLASSIFIED I spent 35 minutes [id number] with the patient on the day of discharge performing discharge exam, discussing hospital stay and discharge instructions with patient and caregivers, preparation of discharge records, prescriptions & referral forms and addressing any questions/concerns the patient had as documented above. - Vitals & Intake/Output Vital Signs: Vital Signs Temperature 97.4 F 01/25/24 07:58 Pulse Rate 89 01/25/24 07:58 Respiratory Rate 20 01/25/24 07:58 Blood Pressure 122/83 01/25/24 07:58 O2 Sat by Pulse Oximetry 97 01/25/24 07:58 Intake & Output: Intake & Output 01/22/24 01/23/24 01/24/24 01/25/24 11:59 11:59 11:59 11:59 Intake Total 1270 2010 Output Total 1300 3950 975 Balance -1300 -0760 1035 Weight 85.8 kg 83.3 kg - Lab Result Diagrams: 01/25/24 05:04 01/25/24 05:04 Lab Results-Last 24 Hrs: Lab Results-Last 24 Hours 01/25/24 01/25/24 Range/Units 05:04 05:04 WBC 12.1 H (3.98-10.04) x10^3/uL RBC 4.28 (3.93-5.22) x10^6/uL Hgb 12.3 (11.2-15.7) g/dL Hct 38.2 (34.1-44.9) % MCV 89.3 (79.4-94.8) fL MCH 28.7 (25.6-32.2) pg MCHC 32.2 (32.2-35.5) g/dL RDW 14.5 H (11.7-14.4) % Plt Count 229 (182-369) x10^3/uL MPV 10.2 (9.4-12.3) fL Sodium 139 (135-145) mmol/L Potassium 3.5 (3.5-5.1) mmol/L Chloride 100 (98-107) mmol/L Carbon Dioxide 34 H (22-30) mmol/L Anion Gap 9.2 (5-15) MEQ/L BUN 48 H (7-17) mg/dL Creatinine 1.12 H (0.52-1.04) mg/dL Estimated GFR 51.3 ML/MIN Glucose 151 H (74-106) mg/dL Calcium 9.0 (8.4-10.2) mg/dL Total Bilirubin 0.80 (0.2-1.3) mg/dL AST 44 H (14-36) U/L ALT 45 H (0-35) U/L Alkaline Phosphatase 131 H (38-126) U/L Serum Total Protein 5.9 L (6.3-8.2) g/dL Albumin 3.4 L (3.5-5.0) g/dL Micro Results-Entire Visit: Microbiology 01/23/24 09:44 Urine Culture - Final Urine, Catheterized NO GROWTH - Radiology Exams Ordered Rad Exams-Entire Visit: Radiology Procedures Category Date Time Status CHEST 1 VIEW (PORTABLE) Routine Exams 01/25/24 08:19 Completed - Procedures and Test Procedures and Tests throughout Hospitalization: Therapy Orders & Screens 01/23/24 14:23 Respiratory Therapy Consult ONCE Comment: Reason For Exam: 01/23/24 15:41 RT Screen per Nursing Assess ONCE Comment: Protocol Order Physician Instructions: Greater than 3 points order RT Admission Screen Reason For Exam: Triggered on Admission Diagnosis: A-fib RVR, COVID Diagnosis: A-fib RVR, COVID Pneumonia: No Home O2: Yes Asthma: No CHF: Yes Home CPAP/BIPAP: Yes: PT DOES NOT WEAR Home Nebs/MDI: No Total Points: 13 01/23/24 16:36 Oxygen Nasal Cannula 2 lpm Comment: Diagnosis: A-fib RVR, COVID Discharge Exam General Appearance: no apparent distress Neurologic Exam: alert, oriented x 3, cooperative Eye Exam: PERRL Ears, Nose, Throat Exam: normal ENT inspection Neck Exam: normal inspection Respiratory Exam: normal breath sounds, lungs clear Cardiovascular Exam: regular rate/rhythm, normal heart sounds Gastrointestinal/Abdomen Exam: soft, normal bowel sounds Pelvic Exam: deferred Rectal Exam: deferred Back Exam: normal inspection Extremity Exam: normal inspection Skin Exam: normal color Final Diagnosis/Problem List - Final Discharge Diagnosis/Problem (1) Atrial fibrillation with RVR Current Visit: Yes Status: Resolved Code(s): I48.91 - UNSPECIFIED ATRIAL FIBRILLATION (2) COVID Current Visit: Yes Status: Acute Code(s): U07.1 - COVID-19 (3) DONAVAN (acute kidney injury) Current Visit: Yes Status: Resolved Code(s): N17.9 - ACUTE KIDNEY FAILURE, UNSPECIFIED (4) Acute hypoxic respiratory failure Current Visit: Yes Status: Resolved Code(s): J96.01 - ACUTE RESPIRATORY FAILURE WITH HYPOXIA (5) Weakness Current Visit: Yes Status: Acute Code(s): R53.1 - WEAKNESS (6) Elevated troponin Current Visit: Yes Status: Ruled-out Code(s): R79.89 - OTHER SPECIFIED ABNORMAL FINDINGS OF BLOOD CHEMISTRY (7) Elevated d-dimer Current Visit: Yes Status: Ruled-out Code(s): R79.89 - OTHER SPECIFIED ABNORMAL FINDINGS OF BLOOD CHEMISTRY (8) Pleural effusion Current Visit: Yes Status: Acute Code(s): J90 - PLEURAL EFFUSION, NOT ELSEWHERE CLASSIFIED - Discharge Discharge Date: 01/25/24 (Home with HHC/PT) Disposition: Home, Self-Care Condition: Stable Prescriptions: New Furosemide 20 mg [Lasix 20 mg] 20 mg PO DAILY 14 Days #14 tablet Potassium Chloride 20 meq PO DAILY 5 Days #5 tablet Continue Clopidogrel Bisulfate [PLAVIX Tablet] 37.5 tab PO DAILY Rivaroxaban [Xarelto] 20 mg PO DAILY Buspirone HCl 5 mg [Buspar 5 mg] 30 mg PO BID Albuterol Sulfate [Proair Respiclick] 2 puffs IH QID PRN Folic Acid 1 mg PO DAILY Diclofenac Sodium [Voltaren Arthritis Pain] 20 gm TP BID Nitroglycerin 0.4 mg Tablet [Nitrostat 0.4 MG Tablet] 0.4 mg SL Q5MIN PRN MR X 3 PRN PRN Reason: Chest Pain Isosorbide Mononitrate [Isosorbide Mononitrate ER] 30 mg PO DAILY Metoprolol Succinate 50 mg [Toprol Xl 50 MG] 50 mg PO DAILY Amlodipine Besylate 5 mg [Norvasc 5 mg] 5 mg PO DAILY Tizanidine HCl 4 mg [Zanaflex 4 MG] 4 mg PO TID Prednisone 20 mg [Deltasone 20 mg] 20 mg PO BID Spironolactone 25 mg [Aldactone 25 MG] 25 mg PO DAILY Pregabalin [Lyrica 100Mg] 100 mg PO BID Losartan Potassium 50 mg [Cozaar 50 MG] 50 mg PO DAILY Fluoxetine HCl [Prozac] 20 mg PO DAILY Ezetimibe 10 mg [Zetia 10 MG] 10 mg PO DAILY Follow up with: CLARENCE SHORT [Primary Care Provider] - ROXANA KENNEDY [CONSULTING PHYSICIAN] - 1 Week
[2024-01-25 13:06] VITALS: BP 131/75; PULSE 85; RESP 18; TEMP 97.6
== END 2024-01-25 14:13 | disposition home or self-care (01) ==
LOC: ED 08:33 → MED SURG 14:20
PROVIDERS: ADMIT Internal Medicine; ATTEND Internal Medicine
DX: I48.20 Chronic atrial fibrillation, unspecified (principal); U07.1 COVID-19; N17.9 Acute kidney failure, unspecified; J96.01 Acute respiratory failure with hypoxia; R53.1 Weakness; R79.89 Other specified abnormal findings of blood chemistry; J90 Pleural effusion, not elsewhere classified; I25.10 Atherosclerotic heart disease of native coronary artery without angina pectoris; I11.0 Hypertensive heart disease with heart failure; I50.9 Heart failure, unspecified; I25.2 Old myocardial infarction; F17.200 Nicotine dependence, unspecified, uncomplicated; Z79.01 Long term (current) use of anticoagulants; Z79.899 Other long term (current) drug therapy; Z99.81 Dependence on supplemental oxygen
CPT/HCPCS: 0241U; 36000; 36415; 51702; 71045; 71260; 74177; 80053; 81001; 82805; 83605; 83735; 83880; 84484; 85025; 85027; 85379; 85610; 85730; 87086; 93005; 93041; 94760; 94762; 96365; 96367; 96374; 96375; 99285; 93268; J0456; J0696; J1940; J2405; J2919; Q3014; A9270-GY; G0378

== ENCOUNTER 2024-01-27 14:15 | Emergency (ER) | payer MEDICARE ==
--- NOTE | 2024-01-27 14:18 | ERPHSYRPT ---
- History of Present Illness Time Seen by Provider: 01/27/24 14:18 Source: patient Exam Limitations: no limitations Physician History: This is a 73-year-old white female patient who arrives by private vehicle because of worsening shortness of breath and increasing weakness in the last 2 days since her discharge from this hospital on 01/25/2024 for treatment of atrial fibrillation with RVR and positive COVID-19 infection. During that visit, the patient had opted not to have any medical intervention for her COVID-19 infection symptoms. This patient denies chest pain at this time. Patient has multiple medical problems including atrial fibrillation, CHF, hypertension, coronary disease, osteoarthritis, rheumatoid arthritis, cirrhosis, gastroesophageal reflux disease, peripheral neuropathy, restless leg syndrome, depression and has a pacemaker in place. I reviewed the patient's inpatient hospitalization records from her most recent stay at [facility] dated 01/31/2024 to 01/25/2024. Patient wears 2 L of oxygen via nasal cannula as her baseline. The patient underwent a CT scan with contrast of her chest during that hospitalization it was negative for pulmonary embolus. Patient's packager and strapper is Dr. Bowles and her atmospheric technician is Dr. Rusty Short. Timing/Duration: day(s) (2), worse Severity of Dyspnea-Max: moderate Severity of Dyspnea-Current: moderate Possible Cause: frequent episodes Associated Symptoms: weakness, No chest pain/discomfort Allergies/Adverse Reactions: Penicillins Allergy (Verified 01/27/24 14:53) Hives sulfamethoxazole [From Bactrim] Allergy (Verified 01/27/24 14:53) Nausea and Vomiting trimethoprim [From Bactrim] Allergy (Verified 01/27/24 14:53) Nausea and Vomiting Home Medications: Clopidogrel Bisulfate [PLAVIX Tablet] 37.5 tab PO DAILY 07/31/13 [History] Rivaroxaban [Xarelto] 20 mg PO DAILY 10/27/14 [History] Buspirone HCl 5 mg [Buspar 5 mg] 30 mg PO BID 11/08/21 [History] Albuterol Sulfate [Proair Respiclick] 2 puffs IH QID PRN 06/15/23 [History] Amlodipine Besylate 5 mg [Norvasc 5 mg] 5 mg PO DAILY 06/15/23 [History] Diclofenac Sodium [Voltaren Arthritis Pain] 20 gm TP BID 06/15/23 [History] Folic Acid 1 mg PO DAILY 06/15/23 [History] Isosorbide Mononitrate [Isosorbide Mononitrate ER] 30 mg PO DAILY 06/15/23 [History] Metoprolol Succinate 50 mg [Toprol Xl 50 MG] 50 mg PO DAILY 06/15/23 [History] Nitroglycerin 0.4 mg Tablet [Nitrostat 0.4 MG Tablet] 0.4 mg SL Q5MIN PRN MR X 3 PRN 06/15/23 [History] Tizanidine HCl 4 mg [Zanaflex 4 MG] 4 mg PO TID 06/15/23 [History] Ezetimibe 10 mg [Zetia 10 MG] 10 mg PO DAILY 12/30/23 [History] Fluoxetine HCl [Prozac] 20 mg PO DAILY 12/30/23 [History] Losartan Potassium 50 mg [Cozaar 50 MG] 50 mg PO DAILY 12/30/23 [History] Prednisone 20 mg [Deltasone 20 mg] 20 mg PO BID 12/30/23 [History] Pregabalin [Lyrica 100Mg] 100 mg PO BID 12/30/23 [History] Spironolactone 25 mg [Aldactone 25 MG] 25 mg PO DAILY 12/30/23 [History] Hx Tetanus, Diphtheria Vaccination/Date Given: No Hx Influenza Vaccination/Date Given: No Hx Pneumococcal Vaccination/Date Given: No Travel Risk - International Travel Have you traveled outside of the country in past 3 weeks: No - Emerging Infectious Disease Are you exhibiting symptoms associated with any current EIDs: Yes Symptoms: Cough: New Onset, Fever, Shortness of Breath - Review of Systems Constitutional: Weakness Eyes: No Symptoms Ears, Nose, & Throat: No Symptoms Respiratory: Dyspnea Cardiac: No Chest Pain Abdominal/Gastrointestinal: No Symptoms Genitourinary Symptoms: No Symptoms Musculoskeletal: No Symptoms Skin: No Symptoms Neurological: No Symptoms Psychological: No Symptoms Endocrine: No Symptoms Hematologic/Lymphatic: No Symptoms Immunological/Allergic: No Symptoms All Other Systems: Reviewed and Negative - Past Medical History Pertinent Past Medical History: Yes Neurological History: No Pertinent History ENT History: Cataracts Cardiac History: Aneurysm, Arrhythmia, Congestive Heart Failure, Hypertension, Myocardial Infarction (ME) Respiratory History: No Pertinent History Endocrine Medical History: No Pertinent History Musculoskeletal History: Osteoarthritis, Rheumatoid Arthritis GI Medical History: Cirrhosis, GERD History: No Pertinent History Psycho-Social History: Depression Female Reproductive Disorders: No Pertinent History Other Medical History: restless leg syndrome, neuropathy, aortic aneurysm - Past Surgical History Past Surgical History: Yes Neuro Surgical History: No Pertinent History Cardiac: Cardiac Catheterization, Pacemaker Respiratory: No Pertinent History Gastrointestinal: Other Genitourinary: No Pertinent History Musculoskeletal: Joint Replacement Female Surgical History: Hysterectomy Other Surgical History: PACEMAKER PLACEMENT, HYSTERECTOMY , left IOL October 2017 Significant Family History: no pertinent family hx - Social History Smoking Status: Current every day smoker How long have you smoked: 50 years Exposure to second hand smoke: Yes Drug Use: none Patient Lives Alone: No - Social Determinants of Health Will the patient participate in the screening: Yes Do you worry about a steady place to live?: No In the past 12 months,have you had to go without utilities?: No Transportation Issues: No Has anyone in your support network made you feel unsafe?: No Have you or anyone in your house had to go without enough: No - Nursing Vital Signs Nursing Vital Signs: Initial Vital Signs Temperature 98.3 F 01/27/24 14:30 Pulse Rate 110 H 01/27/24 14:30 Respiratory Rate 28 H 01/27/24 14:30 Blood Pressure 129/108 01/27/24 14:30 O2 Sat by Pulse Oximetry 95 01/27/24 14:30 Pain Scale Pain Intensity 6 - Physical Exam General Appearance: mild distress, alert, anxiety (Moderate), obese Eye Exam: PERRL/EOMI, eyes nml inspection Ears, Nose, Throat Exam: hearing grossly normal, normal ENT inspection, normal pharynx Neck Exam: normal inspection, non-tender, supple, full range of motion Respiratory Exam: respiratory distress, airway intact (Mild), crackles/rales, No chest tenderness Cardiovascular/Chest Exam: tachycardia, irregular Abdominal/Gastrointestinal Exam: soft, normal bowel sounds, No tenderness Extremity Exam: non-tender, normal range of motion, pedal edema (Mild bilateral feet and ankle) Neurologic Exam: alert, oriented x 3, cooperative, monitoring engineer II-XII nml as tested, sensation nml Skin Exam: normal color, warm, dry Lymphatic Exam: No adenopathy SpO2 Interpretation: normal O2 Delivery: Nasal Cannula (2 L oxygen via nasal cannula. This is her baseline oxygen supply) - Course EKG Interpreted by Me: RATE (103), A-fib, NORMAL AXIS, NORMAL INTERVALS, NORMAL QRS, Other (Acute ischemic changes on today's twelve-lead EKG. Her QTc is 458.) Ordered Tests: Active Orders 24 hr Category Date Time Status EKG-ER Only STAT Care 01/27/24 14:42 Active IV Insertion STAT Care 01/27/24 14:42 Active Oxygen-ED Only Nasal Cannula 2 lpm Care 01/27/24 14:42 Active Pulse Oximetry (ED) STAT Care 01/27/24 14:42 Active CHEST 1 VIEW (PORTABLE) Stat Exams 01/27/24 14:43 Completed BLOOD CULTURE Stat Lab 01/27/24 15:12 Received CBC W DIFF Stat Lab 01/27/24 15:12 Completed CMP Stat Lab 01/27/24 15:12 Completed Lactic Acid Stat Lab 01/27/24 15:00 Completed MAGNESIUM Stat Lab 01/27/24 15:12 Completed NT PRO BNPII Stat Lab 01/27/24 15:12 Completed TROPONIN Q4H Lab 01/27/24 15:12 Completed TROPONIN Q4H Lab 01/27/24 18:45 Ordered TROPONIN Q4H Lab 01/27/24 22:45 Ordered VENOUS BLOOD GAS Stat Lab 01/27/24 15:07 Completed Medication Summary Discontinued Medications Generic Name Dose Route Start Last Admin Trade Name Freq PRN Reason Stop Dose Admin Albuterol/Ipratropium 3 ml 01/27/24 14:42 01/27/24 14:55 Ipratropium/Albuterol Sulfate 3 Ml Ampul.Neb IH 01/27/24 14:43 3 ml STAT ONE Administration Albuterol/Ipratropium Confirm 01/27/24 14:53 Ipratropium/Albuterol Sulfate 3 Ml Ampul.Neb Administered 01/27/24 14:54 Dose 3 ml IH .STK-MED ONE Methylprednisolone Sodium 0 mg 01/27/24 14:42 01/27/24 15:06 Succinate 125 mg/ Sterile IV 01/27/24 14:43 125 mg Water 2 ml STAT ONE Administration Furosemide 40 mg 01/27/24 17:07 01/27/24 17:13 Furosemide 40 Mg/4 Ml Vial IV 01/27/24 17:08 40 mg STAT ONE Administration Furosemide Confirm 01/27/24 17:12 Furosemide 40 Mg/4 Ml Vial Administered 01/27/24 17:13 Dose 40 mg .ROUTE .STK-MED ONE Methylprednisolone Sodium Succinate Confirm 01/27/24 15:06 Methylprednis Sod Succ 125 Mg/2 Ml Vial Administered 01/27/24 15:07 Dose 125 mg .ROUTE .STK-MED ONE Sterile Water Confirm 01/27/24 15:06 Water For Injection,Sterile 10 Ml Vial Administered 01/27/24 15:07 Dose 10 ml IJ .STK-MED ONE Lab/Rad Data: Laboratory Result Diagrams 01/27/24 15:12 01/27/24 15:12 Laboratory Results 01/27/24 01/27/24 01/27/24 Range/Units 15:12 15:12 15:12 WBC (3.98-10.04) x10^3/uL RBC (3.93-5.22) x10^6/uL Hgb (11.2-15.7) g/dL Hct (34.1-44.9) % MCV (79.4-94.8) fL MCH (25.6-32.2) pg MCHC (32.2-35.5) g/dL RDW (11.7-14.4) % Plt Count (182-369) x10^3/uL MPV (9.4-12.3) fL Gran % (34.0-71.1) % Immature Gran % (Auto) (0.001-0.429) % Nucleat RBC Rel Count (0.00-0.2) % Eos # (Auto) (0.04-0.36) x10^3/uL Immature Gran # (Auto) (0.001-0.031) x10^3u/L Absolute Lymphs (auto) (1.18-3.74) x10^3/uL Absolute Monos (auto) (0.24-0.86) x10^3/uL Absolute Nucleated RBC (0.00-0.012) x10^3u/L Lymphocytes % (19.3-51.7) % Monocytes % (4.7-12.5) % Eosinophils % (0.7-5.8) % Basophils % (0.1-1.2) % Absolute Granulocytes (1.56-6.13) x10^3/uL Basophils # (0.01-0.08) x10^3/uL pO2/FiO2 Ratio % VBG pH (7.32-7.42) VBG pCO2 at Pat Temp (42-55) mm/Hg VBG pO2 at Pat Temp (25-40) mm/Hg VBG HCO3 (22-28) meq/L VBG O2 Sat (Fish) (95-100) VBG Base Excess (-2.0-2.0) VBG Hemoglobin VBG Carboxyhemoglobin (0.0-6.9) % T HGB POC Potassium (3.5-5.1) Sodium 134 L (135-145) mmol/L Potassium 3.5 (3.5-5.1) mmol/L Chloride 95 L (98-107) mmol/L Carbon Dioxide 31 H (22-30) mmol/L Anion Gap 11.6 (5-15) MEQ/L BUN 21 H (7-17) mg/dL Creatinine 0.91 (0.52-1.04) mg/dL Estimated GFR 65.8 ML/MIN Glucose 100 (74-106) mg/dL Lactic Acid (0.4-2.0) Calcium 8.8 (8.4-10.2) mg/dL Magnesium 1.6 (1.6-2.3) mg/dL Total Bilirubin 2.30 H (0.2-1.3) mg/dL AST 36 (14-36) U/L ALT 37 H (0-35) U/L Alkaline Phosphatase 119 (38-126) U/L Troponin I 0.136 H* (0.000-0.033) ng/mL NT-Pro-B Natriuret Pep 9270 (<300) pg/mL Serum Total Protein 6.3 (6.3-8.2) g/dL Albumin 3.7 (3.5-5.0) g/dL 01/27/24 01/27/24 01/27/24 Range/Units 15:12 15:07 15:00 WBC 6.6 (3.98-10.04) x10^3/uL RBC 4.89 (3.93-5.22) x10^6/uL Hgb 14.0 (11.2-15.7) g/dL Hct 42.8 (34.1-44.9) % MCV 87.5 (79.4-94.8) fL MCH 28.6 (25.6-32.2) pg MCHC 32.7 (32.2-35.5) g/dL RDW 14.0 (11.7-14.4) % Plt Count 216 (182-369) x10^3/uL MPV 9.5 (9.4-12.3) fL Gran % 82.6 H (34.0-71.1) % Immature Gran % (Auto) 0.6 H (0.001-0.429) % Nucleat RBC Rel Count 0.0 (0.00-0.2) % Eos # (Auto) 0.23 (0.04-0.36) x10^3/uL Immature Gran # (Auto) 0.04 H (0.001-0.031) x10^3u/L Absolute Lymphs (auto) 0.50 L (1.18-3.74) x10^3/uL Absolute Monos (auto) 0.37 (0.24-0.86) x10^3/uL Absolute Nucleated RBC 0.00 (0.00-0.012) x10^3u/L Lymphocytes % 7.5 L (19.3-51.7) % Monocytes % 5.6 (4.7-12.5) % Eosinophils % 3.5 (0.7-5.8) % Basophils % 0.2 (0.1-1.2) % Absolute Granulocytes 5.49 (1.56-6.13) x10^3/uL Basophils # 0.01 (0.01-0.08) x10^3/uL pO2/FiO2 Ratio 28.0 % VBG pH 7.44 H (7.32-7.42) VBG pCO2 at Pat Temp 49 (42-55) mm/Hg VBG pO2 at Pat Temp 56 H (25-40) mm/Hg VBG HCO3 33.3 H* (22-28) meq/L VBG O2 Sat (Fish) 89.5 L (95-100) VBG Base Excess 7.7 H (-2.0-2.0) VBG Hemoglobin 14.8 VBG Carboxyhemoglobin 4.8 (0.0-6.9) % T HGB POC Potassium 3.6 (3.5-5.1) Sodium (135-145) mmol/L Potassium (3.5-5.1) mmol/L Chloride (98-107) mmol/L Carbon Dioxide (22-30) mmol/L Anion Gap (5-15) MEQ/L BUN (7-17) mg/dL Creatinine (0.52-1.04) mg/dL Estimated GFR ML/MIN Glucose (74-106) mg/dL Lactic Acid 1.5 (0.4-2.0) Calcium (8.4-10.2) mg/dL Magnesium (1.6-2.3) mg/dL Total Bilirubin (0.2-1.3) mg/dL AST (14-36) U/L ALT (0-35) U/L Alkaline Phosphatase (38-126) U/L Troponin I (0.000-0.033) ng/mL NT-Pro-B Natriuret Pep (<300) pg/mL Serum Total Protein (6.3-8.2) g/dL Albumin (3.5-5.0) g/dL - Progress Progress: improved, re-examined Air Movement: fair Progress Note: 01/27/24 15:31 My medical decision making and the assignment of high complexity to this patient's medical issue today is based on review of the patient's past medical history, review the patient's medication list, history present illness and physical findings on examination. The patient workup includes placement of intravenous line, infusion of Solu-Medrol intravenously, twelve-lead EKG, troponin level, BNP level, chest x-ray, CBC, CMP and magnesium level. I am not ordering a D-dimer as she had one performed within the last 4 days that was elevated and subsequently this led to a CT scan of the chest with contrast. There was no pulmonary embolus found on that recent study. The patient is anticoagulated. The patient has been seen in our facility 5 times since 12/18/2023. She was just discharged from the hospital 2 days ago. I believe the patient requires higher level care to include cardiology and pulmonology in a monitored setting. We will complete her workup and then contact [facility] for the possibility of transferring her there. 01/27/24 16:58 I interpreted the patient's laboratory data results. The patient has obvious significant, elevated BNP levels as well as elevated troponin levels. Her signs and symptoms of CHF and cardiac strain have worsened despite recent inpatient management in our facility. I believe the patient will benefit from higher level care where there is cardiology and pulmonology and even nephrology in house. The chest x-ray was interpreted by the radiologist and I reviewed the impression. The impression states obvious cardiomegaly. Left pacemaker in place. Worsening diffuse pulmonary edema with new tiny right and stable left pleural effusion. Superimposed pneumonia not completely excluded. 01/27/24 17:21 I recommended that the patient be transferred to a higher level care that has packager and strapper atmospheric technician and silk top hat body maker. I think that this patient would benefit from those services. The patient refuses to be admitted into our facility and refused to be transferred to an outside facility and wants to go home. Patient understands that she is to sign AGAINST MEDICAL ADVICE form. I advised her of the risks of worsening condition including being placed on a ventilator, myocardial infarction, sepsis and . She she is awake alert and understands options and the risk benefits and alternatives of all those options. She chooses to leave AGAINST MEDICAL ADVICE and will sign the AMA form. Blood Culture(s) Obtained: No Antibiotics given: No Counseled pt/family regarding: lab results, diagnosis, rad results Medical Desision Making - Diagnostic Testing Diagnostic test were ordered, analyzed, and reviewed by me: Yes Radiological Interpretation: Reviewed by me, Teleradiologist Report - Risk of complications The pt has a high risk of morbidity or mortality based on: Decision regarding hospitilization or escalation of hosp level of care - Departure Departure Disposition: AMA Clinical Impression: CHF exacerbation, Elevated troponin, Atrial fibrillation, COVID-19 virus infection Condition: Fair Critical Care Time: No Referrals: CLARENCE SHORT [Primary Care Provider] - Follow up/PCP as directed Instructions: Heart Failure
[2024-01-27 14:43] VITALS: TEMP 98.3
[2024-01-27] MEDS ORDERED: DUONEB 0.5-3 MG/3 ml Neb IH ONE (14:53)
[2024-01-27] MEDS: DUONEB 0.5-3 MG/3 ml Neb IH ONE (14:55)
[2024-01-27] MEDS ORDERED: solu-MEDROL ONE (15:06)
[2024-01-27] MEDS: solu-MEDROL 125 MG, Sterile H2O 10 ml 2 ML IV ONE (15:06)
[2024-01-27] MEDS ORDERED: Sterile H2O 10 ml IJ ONE (15:06)
[2024-01-27 15:11] LABS: VBG BASE EXCESS 7.7 (-2.0-2.0); VBG CARBOXYHEMOGLOBIN 4.8 % T HGB (0.0-6.9); VBG HCO3- 33.3 meq/L (22-28); VBG HEMOGLOBIN 14.8; VBG O2 SATURATION 89.5 (95-100); VBG POTASSIUM 3.6 (3.5-5.1); VBG pH 7.44 (7.32-7.42)
[2024-01-27 15:12] LABS: Absolute Neutrophil Ct (ANC) 5.49 x10^3/uL (1.56-6.13); BASOPHIL % 0.2 % (0.1-1.2); Basophil (Absolute #) 0.01 x10^3/uL (0.01-0.08); Eosinophil % 3.5 % (0.7-5.8); Eosinophil (Absolute #) 0.23 x10^3/uL (0.04-0.36); Hematocrit 42.8 % (34.1-44.9); IMMATURE GRAN # 0.04 x10^3u/L (0.001-0.031); IMMATURE GRAN % 0.6 % (0.001-0.429); Lymphocytes % 7.5 % (19.3-51.7); Mean Cell Volume 87.5 fL (79.4-94.8); Mean Corpuscular Hemoglobin 28.6 pg (25.6-32.2); Mean Corpuscular Hgb Concent. 32.7 g/dL (32.2-35.5); Mean Platelet Volume 9.5 fL (9.4-12.3); Monocyte (Absolute #) 0.37 x10^3/uL (0.24-0.86); Monocytes % 5.6 % (4.7-12.5); Neutrophil % 82.6 % (34.0-71.1); Platelet Count 216 x10^3/uL (182-369); Red Blood Count 4.89 x10^6/uL (3.93-5.22); White Blood Count 6.6 x10^3/uL (3.98-10.04)
[2024-01-27 16:23] LABS: ALBUMIN 3.7 g/dL (3.5-5.0); ANION GAP 11.6 MEQ/L (5-15); BILIRUBIN,TOTAL 2.3 mg/dL (0.2-1.3); Calcium 8.8 mg/dL (8.4-10.2); Creatinine 1 0.91 mg/dL (0.52-1.04); EST GLOMERULAR FILTRATION RATE 65.8 ML/MIN; MAGNESIUM 1.6 mg/dL (1.6-2.3); Potassium 3.5 mmol/L (3.5-5.1); Total Protein 6.3 g/dL (6.3-8.2)
--- NOTE | 2024-01-27 16:28 | XRAY ---
Indication: Short of breath. Covid 19. Comparison: January 25, 2024 Portable chest again demonstrates cardiomegaly with left pacemaker. Worsening diffuse pulmonary edema with new tiny right and stable small left effusion. Findings favor cardiac decompensation/CHF versus fluid overload. Superimposed pneumonia not completely excluded.
[2024-01-27 17:00] VITALS: O2SAT 95
[2024-01-27] MEDS ORDERED: Lasix 40 MG/4 ML ONE (17:12)
[2024-01-27] MEDS: Lasix 40 MG/4 ML IV ONE (17:13)
[2024-01-27 17:22] VITALS: BP 114/82; PULSE 103; RESP 18
[2024-01-27 17:25] LABS: Slide Review 1 YES
== END 2024-01-27 17:35 | disposition left against medical advice (07) ==
LOC: ED 14:15
DX: U07.1 COVID-19 (principal); I11.0 Hypertensive heart disease with heart failure; I50.9 Heart failure, unspecified; R77.8 Other specified abnormalities of plasma proteins; I48.91 Unspecified atrial fibrillation; R06.02 Shortness of breath; Z79.02 Long term (current) use of antithrombotics/antiplatelets; Z79.01 Long term (current) use of anticoagulants; Z79.52 Long term (current) use of systemic steroids; Z79.899 Other long term (current) drug therapy; Z72.0 Tobacco use; Z99.81 Dependence on supplemental oxygen
CPT/HCPCS: 36000; 36415; 71045; 80053; 82805; 83605; 83735; 83880; 84484; 85025; 87040; 93005; 94640; 94760; 96374; 96375; 99284; J1940; J2919; A9270-GY